=== PATIENT | female | born 1955 | race American Indian/Alaskan Native ===

== ENCOUNTER 2016-05-13 21:36 | Observation (INO) | payer MEDICARE, OTHER ==
[2016-05-13 21:36] VITALS: PULSE 125; BMI 37.1
--- NOTE | 2016-05-13 22:08 | C.PDOC ---
History Of Present Illness 60 year old homeless female presents to the ED with complaints of chest pain and SOB. Patient states she was walking along the street when the symptoms suddenly began. She reports she has "pain all over" and denies fall, trauma, fever, or any other complaints at this time. She has history of HTN, DM and hyperlipidemia. She is non-compliant with medication. Time Seen by Provider: 05/13/16 21:52 Chief Complaint (Nursing): Chest Pain History Per: Patient History/Exam Limitations: no limitations Onset/Duration Of Symptoms: Hrs Current Symptoms Are (Timing): Still Present Severity: Mild Past Medical History Reviewed: Historical Data, Nursing Documentation, Vital Signs Vital Signs: Last Vital Signs Temp 98.6 F 05/13/16 21:44 Pulse 101 H 05/13/16 22:26 Resp 20 05/13/16 22:26 BP 166/88 H 05/13/16 22:26 Pulse Ox 97 05/13/16 23:20 - Medical History PMH: Anemia, Anxiety, Arthritis, CAD, CHF, COPD, Depression, Deep Vein Thrombosis, HIV, HTN, Hypercholesterolemia, Hyperlipidemia, Hypothyroidism, Pancreatitis, Peripheral Edema, Chronic Kidney Disease - [facility] Procedures GAIT TRAINING/FUNCTIONAL AMBULATION TREATMENT (08/05/15) INSERTION OF INTRALUM DEV INTO INF VENA CAVA, PERC APPROACH (07/30/15) INTRODUCTION OF SERUM/TOX/VACCINE INTO MUSCLE, PERC APPROACH (11/27/14) NEBULIZER THERAPY (09/12/14) Family History: States: Unknown Family Hx - Social History Hx Tobacco Use: Yes Hx Alcohol Use: Yes (vodka) Hx Substance Use: No (stopped) - Immunization History Hx Tetanus Toxoid Vaccination: No Hx Influenza Vaccination: No Hx Pneumococcal Vaccination: Yes Review Of Systems Except As Marked, All Systems Reviewed And Found Negative. Constitutional: Positive for: Other (Generalized body pain). Negative for: Fever, Chills Cardiovascular: Positive for: Chest Pain. Negative for: Palpitations Respiratory: Positive for: Shortness of Breath. Negative for: Cough Gastrointestinal: Negative for: Nausea, Vomiting, Diarrhea Neurological: Negative for: Weakness, Numbness Physical Exam - Physical Exam Appears: Non-toxic, No Acute Distress Skin: Normal Color, Warm, Dry Head: Atraumatic, Normacephalic Eye(s): bilateral: Normal Inspection Oral Mucosa: Moist Chest: Symmetrical, No Deformity Cardiovascular: Rhythm Regular, No Murmur Respiratory: Normal Breath Sounds, No Accessory Muscle Use, No Rales, No Rhonchi , No Wheezing Extremity: Normal ROM, No Deformity Neurological/Psych: Oriented x3, Normal Speech, Normal Cognition ED Course And Treatment - Laboratory Results Result Diagrams: 05/13/16 22:26 05/13/16 22:26 Lab Interpretation: Abnormal (BUN 58, Cr 4.1, worse than prior testing done 03/23. Troponin normal.) ECG: Interpreted By Me ECG Rhythm: Sinus Rhythm (with short CT), ST/T Changes (nonspecific with T inversions I, AVL, and flat V4-6) ECG Interpretation: Abnormal O2 Sat by Pulse Oximetry: 97 (Room air) Pulse Ox Interpretation: Normal Progress Note: Blood work ordered and reviewed. Reevaluation Time: 23:20 Disposition - Disposition Disposition Time: 23:51 Condition: IMPROVED - Clinical Impression Clinical Impression: Chest pain, Chronic renal disease, Homelessness - Scribe Statement The provider has reviewed the documentation as recorded by the Scribe nevaeh anguiano. Provider Attestation: All medical record entries made by the Scribe were at my direction and personally dictated by me. I have reviewed the chart and agree that the record accurately reflects my personal performance of the history, physical exam, medical decision making, and the department course for this patient. I have also personally directed, reviewed, and agree with the discharge instructions and disposition. Physician Patient Turnover Patient Signed Over To: Obi Kirkland Handoff Comments: Patient homeless with no place to go tonight.
[2016-05-13 22:32] VITALS: RESP 20
[2016-05-13 22:32] LABS: BASO # 0.1 K/uL (0.0-0.2); BASO % 0.7 % (0.0-2.0); EOS # 0.1 K/uL (0.0-0.7); EOS % 1.5 % (0.0-4.0); HEMATOCRIT 33.8 % (34.0-47.0); LYMPH # 0.7 K/uL (1.0-4.3); LYMPH % 8.4 % (20.0-40.0); MEAN CORPUSCULAR HEMOGLOBIN 27.7 pg (27.0-31.0); MEAN CORPUSCULAR HGB CONC 31.4 g/dL (33.0-37.0); MEAN PLATELET VOLUME 9.5 fL (7.2-11.7); MONO # 0.6 K/uL (0.0-0.8); MONO % 7.6 % (0.0-10.0); PLATELET COUNT 205 K/uL (130-400); RED CELL DISTRIBUTION WIDTH 18.4 % (11.5-14.5); WHITE BLOOD COUNT 7.9 K/uL (4.8-10.8)
[2016-05-13 22:37] LABS: POTASSIUM 4.7 mmol/L (3.6-5.2)
[2016-05-13 22:40] LABS: ALB/GLOB RATIO 0.9 (1.0-2.1); BILIRUBIN,TOTAL 0.3 mg/dL (0.2-1.3); CALCIUM 8.7 mg/dl (8.6-10.4)
[2016-05-13 22:42] LABS: MEAN CELL VOLUME 88.2 fL (81.0-99.0)
[2016-05-13 22:51] LABS: TROPONIN I 0.05 ng/mL (0.00-0.120)
[2016-05-13 23:10] LABS: EOSINOPHIL 1 % (0-4); NEUTROPHIL 88 % (50-75); TOTAL CELLS COUNTED 100
[2016-05-13 23:11] LABS: LARGE PLATELETS PRESENT
[2016-05-14 06:19] VITALS: BP 165/69; PULSE 78; TEMP 97.3; O2SAT 97
--- NOTE | 2016-05-14 11:42 | CARD ---
APPROVED REPORT EKG Measurement Heart [id number] TX [id number] <Conclusion> Sinus rhythm with sinus arrhythmia with short TX Possible Left atrial enlargement Nonspecific ST and T wave abnormality Abnormal ECG
== END 2016-05-14 05:07 | disposition home or self-care (01) ==
LOC: C.ER 21:36 → C.9OBSV 23:20
PROVIDERS: ADMIT Emergency Medicine; ATTEND Emergency Medicine
DX: N18.9 Chronic kidney disease, unspecified (principal); Z59.0 Homelessness; Z91.14 Patient's other noncompliance with medication regimen; J44.9 Chronic obstructive pulmonary disease, unspecified; E78.5 Hyperlipidemia, unspecified; E11.22 Type 2 diabetes mellitus with diabetic chronic kidney disease; B20 Human immunodeficiency virus [HIV] disease; I13.0 Hypertensive heart and chronic kidney disease with heart failure and stage 1 through stage 4 chronic kidney disease, or unspecified chronic kidney disease; I50.9 Heart failure, unspecified; Z79.4 Long term (current) use of insulin

== ENCOUNTER 2016-05-28 06:23 | Emergency (ER) | payer MEDICARE, OTHER ==
[2016-05-28 06:23] VITALS: PULSE 125; BMI 41.8
--- NOTE | 2016-05-28 07:34 | C.PDOC ---
History Of Present Illness 60 y/o female with htn, HIV,(unknown cd4 and vl, poorly compliant with unk medications), hx alcohol abuse, presents to ED for bilateral leg swelling of unclear duration. pt admits to drinking last night. pt is homeless. pt c/o cough for unspecified amount of time, non productive, with occasional sob, no cp , no fevers. pt had recent bilateral ultrasound of legs on 05/15/16 with no evidence of dvt. Time Seen by Provider: 05/28/16 07:05 Chief Complaint (Nursing): Lower Extremity Problem/Injury Past Medical History Reviewed: Historical Data, Nursing Documentation, Vital Signs Vital Signs: Last Vital Signs Temp 98.0 F 05/28/16 06:40 Pulse 76 05/28/16 06:40 Resp 16 05/28/16 06:40 BP 155/77 H 05/28/16 06:40 Pulse Ox 97 05/28/16 08:54 - Medical History PMH: Anemia, Anxiety, Arthritis, CAD, CHF, COPD, Depression, Deep Vein Thrombosis, HIV, HTN, Hypercholesterolemia, Hyperlipidemia, Hypothyroidism, Pancreatitis, Peripheral Edema, End Stage Renal Disease, Chronic Kidney Disease Surgical History: No Surg Hx - [facility] Procedures GAIT TRAINING/FUNCTIONAL AMBULATION TREATMENT (08/05/15) INSERTION OF INTRALUM DEV INTO INF VENA CAVA, PERC APPROACH (07/30/15) INTRODUCTION OF SERUM/TOX/VACCINE INTO MUSCLE, PERC APPROACH (11/27/14) NEBULIZER THERAPY (09/12/14) Family History: States: Unknown Family Hx - Social History Hx Tobacco Use: Yes Hx Alcohol Use: Yes (vodka) Hx Substance Use: No (stopped) - Immunization History Hx Tetanus Toxoid Vaccination: No Hx Influenza Vaccination: No Hx Pneumococcal Vaccination: Yes Review Of Systems Constitutional: Negative for: Fever, Chills Cardiovascular: Negative for: Chest Pain, Palpitations Respiratory: Positive for: Cough, Shortness of Breath. Negative for: Sputum Gastrointestinal: Negative for: Nausea, Vomiting, Abdominal Pain Genitourinary: Negative for: Dysuria, Frequency Skin: Negative for: Rash Neurological: Negative for: Weakness, Numbness Physical Exam - Physical Exam Appears: No Acute Distress, Other (sleeping, easily aroused, morbidly obese) Skin: Normal Color, Warm, Dry Head: Atraumatic, Normacephalic Neck: Normal ROM Chest: Symmetrical, No Deformity, No Tenderness Cardiovascular: Rhythm Regular, No Murmur Respiratory: Other (slighly decreased breath sounds in b/l lower lackey, no wheezing or rales noted. ) Gastrointestinal/Abdominal: Bowel Sounds, Soft, No Tenderness Back: Normal Inspection, No CVA Tenderness, No Vertebral Tenderness Extremity: Normal ROM, Pedal Edema (+2-3 pitting edema to knees), No Calf Tenderness Pulses: Left Dorsalis Pedis: Decreased, Right Dorsalis Pedis: Decreased Neurological/Psych: Oriented x3, Normal Speech, Normal Cognition, Normal Motor, Normal Sensation ED Course And Treatment O2 Sat by Pulse Oximetry: 97 Medical Decision Making Medical Decision Makin60 y/o female with bilateral leg swelling, on Eliquis. pt had neg bilateral lower extremity doppler 05/15/16. will do cxr for cough and evaluate for pulmonary edema. 945 am cxr appears similar to prior one. will d/c with clinic f/u. pt to be taken to longterm bus. Disposition Counseled Patient/Family Regarding: Diagnosis, Need For Followup - Disposition Disposition: HOME/ ROUTINE Disposition Time: 09:46 Condition: STABLE Additional Instructions: Please follow up in Medical Clinic. Call for an appointment. Return for any worsening symptoms. Instructions: Leg Edema (ED) Forms: General Discharge Instructions - Clinical Impression Clinical Impression: Edema leg
[2016-05-28 09:59] VITALS: BP 151/76; PULSE 64; RESP 18; TEMP 98.6; O2SAT 96
--- NOTE | 2016-05-28 12:06 | RAD ---
HISTORY: cough, sob, hx copd/hiv COMPARISON: 06/25/2015 TECHNIQUE: Chest PA and lateral FINDINGS: LUNGS: Elevated left hemidiaphragm. Adjacent left basilar atelectasis. Patchy increased markings at the right lung base which may represent underlying infiltrate. Clinical correlation. Bilateral hilar prominence. Additional consolidative changes noted within the medial right lower lung zone adjacent to the right heart border. PLEURA: As above. CARDIOVASCULAR: Cardiomegaly. OSSEOUS STRUCTURES: Degenerative changes in the spine and shoulders. VISUALIZED UPPER ABDOMEN: Normal. OTHER FINDINGS: None. IMPRESSION: Elevated left hemidiaphragm. Adjacent left basilar atelectasis. Patchy increased markings at the right lung base which may represent underlying infiltrate. Clinical correlation. Bilateral hilar prominence. Additional consolidative changes noted within the medial right lower lung zone adjacent to the right heart border.
== END 2016-05-28 11:17 | disposition home or self-care (01) ==
LOC: C.ER 06:23
DX: R60.0 Localized edema (principal); Z59.0 Homelessness

== ENCOUNTER 2016-06-30 03:10 | Emergency (ER) | payer MEDICARE, OTHER ==
[2016-06-30 03:10] VITALS: PULSE 125; BMI 40.3
--- NOTE | 2016-06-30 04:08 | C.PDOC ---
History Of Present Illness 60 y/o female presents to ED with complaint of bilateral foot pain from " walking too much". Patient is well known to ED staff, with multiple past visits , and history of vagrancy. Patient admits to drinking alcohol today. Otherwise, denies trauma, injury, new weakness or numbness, or other complaints at this time. Time Seen by Provider: 06/30/16 03:50 Chief Complaint (Nursing): Lower Extremity Problem/Injury History Per: Patient History/Exam Limitations: no limitations Onset/Duration Of Symptoms: Persistent Current Symptoms Are (Timing): Still Present Recent travel outside of the [place]: No Past Medical History Reviewed: Historical Data, Nursing Documentation, Vital Signs Vital Signs: Last Vital Signs Temp 97.5 F L 06/30/16 06:14 Pulse 74 06/30/16 06:14 Resp 16 06/30/16 06:14 BP 165/82 H 06/30/16 06:14 Pulse Ox 97 06/30/16 06:14 - Medical History PMH: Anemia, Anxiety, Arthritis, CAD, CHF, COPD, Depression, Deep Vein Thrombosis, HIV, HTN, Hypercholesterolemia, Hyperlipidemia, Hypothyroidism, Pancreatitis, Peripheral Edema, End Stage Renal Disease, Chronic Kidney Disease , Chronic Pain (chronic lower extremity pain ) - [facility] Procedures GAIT TRAINING/FUNCTIONAL AMBULATION TREATMENT (08/05/15) INSERTION OF INTRALUM DEV INTO INF VENA CAVA, PERC APPROACH (07/30/15) INTRODUCTION OF SERUM/TOX/VACCINE INTO MUSCLE, PERC APPROACH (11/27/14) NEBULIZER THERAPY (09/12/14) Family History: States: Unknown Family Hx - Social History Hx Tobacco Use: Yes Hx Alcohol Use: Yes (vodka) Hx Substance Use: No (stopped) - Immunization History Hx Tetanus Toxoid Vaccination: No Hx Influenza Vaccination: No Hx Pneumococcal Vaccination: Yes Review Of Systems Except As Marked, All Systems Reviewed And Found Negative. Constitutional: Negative for: Fever, Chills Cardiovascular: Negative for: Chest Pain Respiratory: Negative for: Shortness of Breath Gastrointestinal: Negative for: Nausea, Vomiting Musculoskeletal: Positive for: Foot Pain (bilateral) Skin: Negative for: Rash Neurological: Negative for: Weakness, Numbness Physical Exam - Physical Exam Appears: Non-toxic, No Acute Distress, Other (+AOB) Skin: Warm, Dry Head: Atraumatic, Normacephalic Eye(s): bilateral: Normal Inspection Neck: Normal Chest: Symmetrical Cardiovascular: Rhythm Regular Respiratory: Normal Breath Sounds, No Rales, No Rhonchi Gastrointestinal/Abdominal: Soft, No Tenderness, Other (obese) Back: Normal Inspection Extremity: Normal ROM, No Tenderness, Pedal Edema (over tibial shins ), No Calf Tenderness, Capillary Refill (< 2 sec. ), No Deformity, No Swelling, Other ( moderately dry feet, no erythema, warmth or lesions) Extremity: Bilateral: Normal Color And Temperature Neurological/Psych: Oriented x3, Normal Speech, Normal Cognition, Normal Motor, Normal Sensation ED Course And Treatment O2 Sat by Pulse Oximetry: 96 (RA) Pulse Ox Interpretation: Normal Progress Note: 6 AM: Pt AAOx3 , fully ambulatory at discharge Reassessment Condition: Improved Disposition - Disposition Disposition: HOME/ ROUTINE Disposition Time: 06:29 Condition: STABLE Additional Instructions: Please follow up in clinic Return to ER if worse Forms: General Discharge Instructions - Clinical Impression Clinical Impression: Bilateral foot pain, Homeless single person - PA / PURCHASING AND FISCAL CLERK / Resident Statement MD/DO has reviewed & agrees with the documentation as recorded. - Scribe Statement The provider has reviewed the documentation as recorded by the Cyndi Gloria Provider Scribe Attestation: All medical record entries made by the Cyndi were at my direction and personally dictated by me. I have reviewed the chart and agree that the record accurately reflects my personal performance of the history, physical exam, medical decision making, and the department course for this patient. I have also personally directed, reviewed, and agree with the discharge instructions and disposition.
[2016-06-30 06:16] VITALS: BP 165/82; PULSE 74; RESP 16; TEMP 97.5
[2016-06-30 06:48] VITALS: O2SAT 96
== END 2016-06-30 06:38 | disposition home or self-care (01) ==
LOC: C.ER 03:10
DX: M79.672 Pain in left foot (principal); M79.671 Pain in right foot; Z59.0 Homelessness

== ENCOUNTER 2016-08-19 04:50 | Emergency (ER) | payer MEDICARE, OTHER ==
[2016-08-19 04:50] VITALS: PULSE 125; BMI 37.1
[2016-08-19 05:20] VITALS: RESP 18; TEMP 98.5; O2SAT 98
--- NOTE | 2016-08-19 06:36 | C.PDOC ---
History Of Present Illness Patient presents to the ED with complaints of cold and swollen legs. Patient wants a place to stay. Patient notes a history of HIV, homelessness, smokes half a pack of cigarettes a day, and chronically swollen legs. Patient was recently seen in [place] for similiar complaints on 08/06/2016 and 08/09/2016 with an ultrasound performed on the lower extremities results being negative. Patient was also given Eliquis for history of DVT. Patient denies any fever, chills or vomiting. Time Seen by Provider: 08/19/16 06:35 Chief Complaint (Nursing): Lower Extremity Problem/Injury History Per: Patient History/Exam Limitations: no limitations Onset/Duration Of Symptoms: Persistent Current Symptoms Are (Timing): Still Present Severity: Moderate Pain Scale Rating Of: 4 Recent travel outside of the [place]: No Additional History Per: Prior Records Past Medical History Reviewed: Historical Data, Nursing Documentation, Vital Signs Vital Signs: Last Vital Signs Temp 98.5 F 08/19/16 05:16 Pulse 82 08/19/16 05:16 Resp 18 08/19/16 05:16 BP 181/97 H 08/19/16 05:16 Pulse Ox 98 08/19/16 06:52 - Medical History PMH: Anemia, Anxiety, Arthritis, CAD, CHF, COPD, Depression, Deep Vein Thrombosis, HIV, HTN, Hypercholesterolemia, Hyperlipidemia, Hypothyroidism, Pancreatitis, Peripheral Edema, End Stage Renal Disease, Chronic Kidney Disease , Chronic Pain (chronic lower extremity pain ) - [facility] Procedures GAIT TRAINING/FUNCTIONAL AMBULATION TREATMENT (08/05/15) INSERTION OF INTRALUM DEV INTO INF VENA CAVA, PERC APPROACH (07/30/15) INTRODUCTION OF SERUM/TOX/VACCINE INTO MUSCLE, PERC APPROACH (11/27/14) NEBULIZER THERAPY (09/12/14) Family History: States: Unknown Family Hx - Social History Hx Tobacco Use: Yes Hx Alcohol Use: Yes (vodka) Hx Substance Use: No (stopped) - Immunization History Hx Tetanus Toxoid Vaccination: No Hx Influenza Vaccination: No Hx Pneumococcal Vaccination: Yes Review Of Systems Constitutional: Negative for: Fever, Chills Cardiovascular: Negative for: Chest Pain, Palpitations Respiratory: Negative for: Cough, Shortness of Breath Gastrointestinal: Negative for: Nausea, Vomiting, Abdominal Pain, Diarrhea Neurological: Negative for: Weakness, Numbness, Headache Psych: Negative for: Suicidal ideation Physical Exam - Physical Exam Appears: Non-toxic, No Acute Distress, Other (Sleeping upon evalution, EtOH on breath. Patient well kempt.) Skin: Warm, Dry Eye(s): bilateral: Normal Inspection Oral Mucosa: Moist Neck: Supple Chest: Symmetrical, No Deformity Cardiovascular: Rhythm Regular Respiratory: No Rales, No Rhonchi, No Wheezing Gastrointestinal/Abdominal: Soft, No Tenderness, No Distention, No Guarding, No Rebound Extremity: Normal ROM, No Tenderness, Pedal Edema (bilaterally in legs), Capillary Refill (good capillary refill less than 2 seconds ) Pulses: Left Dorsalis Pedis: Normal, Right Dorsalis Pedis: Normal Neurological/Psych: Oriented x3 Gait: Steady ED Course And Treatment O2 Sat by Pulse Oximetry: 98 (room air ) Pulse Ox Interpretation: Normal Disposition Counseled Patient/Family Regarding: Studies Performed, Diagnosis - Disposition Disposition Time: 06:36 Condition: UNKNOWN - Clinical Impression Clinical Impression: Leg edema - Scribe Statement The provider has reviewed the documentation as recorded by the Scribe My Rosales All medical record entries made by the Scribe were at my direction and personally dictated by me. I have reviewed the chart and agree that the record accurately reflects my personal performance of the history, physical exam, medical decision making, and the department course for this patient. I have also personally directed, reviewed, and agree with the discharge instructions and disposition. Physician Patient Turnover Patient Signed Over To: Aditi Ochoa Handoff Comments: pending crisis and disposition
[2016-08-19 07:43] VITALS: PULSE 86
[2016-08-19 08:58] VITALS: BP 152/90
== END 2016-08-19 08:59 | disposition home or self-care (01) ==
LOC: C.ER 04:50
DX: R60.0 Localized edema (principal); G89.29 Other chronic pain; Z76.5 Malingerer [conscious simulation]; Z59.0 Homelessness

== ENCOUNTER 2016-08-24 22:44 | Observation (INO) | payer MEDICARE, OTHER ==
[2016-08-24 22:44] VITALS: PULSE 125; BMI 37.1
[2016-08-24 23:07] VITALS: PULSE 74
--- NOTE | 2016-08-24 23:11 | C.PDOC ---
History Of Present Illness Patient with a history of homelessness presents to the ED seeking a place to stay. Patient also notes complaints of leg tenderness and swelling. Patient notes a history of HIV, DVT, and smokes one pack of cigarettes a day. Patient had a blood work up and ultra sound performed in previous visit and was given Eliquis. Patient denies any fever, nausea, or vomiting. Time Seen by Provider: 08/24/16 23:11 Chief Complaint (Nursing): Lower Extremity Problem/Injury History Per: Patient History/Exam Limitations: no limitations Onset/Duration Of Symptoms: Persistent Current Symptoms Are (Timing): Still Present Severity: Moderate Pain Scale Rating Of: 4 Recent travel outside of the [place]: No Additional History Per: Prior Records Past Medical History Reviewed: Historical Data, Nursing Documentation, Vital Signs Vital Signs: Last Vital Signs Temp 98.5 F 08/25/16 05:08 Pulse 74 08/25/16 05:08 Resp 20 08/25/16 05:08 BP 159/74 H 08/25/16 05:08 Pulse Ox 95 08/25/16 05:08 - Medical History PMH: Anemia, Anxiety, Arthritis, CAD, CHF, COPD, Depression, Deep Vein Thrombosis, HIV, HTN, Hypercholesterolemia, Hyperlipidemia, Hypothyroidism, Pancreatitis, Peripheral Edema, End Stage Renal Disease, Chronic Kidney Disease , Chronic Pain (chronic lower extremity pain ) - [facility] Procedures GAIT TRAINING/FUNCTIONAL AMBULATION TREATMENT (08/05/15) INSERTION OF INTRALUM DEV INTO INF VENA CAVA, PERC APPROACH (07/30/15) INTRODUCTION OF SERUM/TOX/VACCINE INTO MUSCLE, PERC APPROACH (11/27/14) NEBULIZER THERAPY (09/12/14) Family History: States: Unknown Family Hx - Social History Hx Tobacco Use: Yes Hx Alcohol Use: Yes (vodka) Hx Substance Use: No (stopped) - Immunization History Hx Tetanus Toxoid Vaccination: No Hx Influenza Vaccination: No Hx Pneumococcal Vaccination: Yes Review Of Systems Constitutional: Negative for: Fever, Chills Cardiovascular: Negative for: Chest Pain, Palpitations Respiratory: Negative for: Cough, Shortness of Breath Gastrointestinal: Negative for: Nausea, Vomiting, Abdominal Pain, Diarrhea Musculoskeletal: Positive for: Leg Pain (leg swelling and tenderness bilaterally ) Physical Exam - Physical Exam Appears: Non-toxic, No Acute Distress Skin: Warm, Dry Head: Atraumatic Eye(s): bilateral: Normal Inspection, PERRL, EOMI Oral Mucosa: Moist Neck: Supple Chest: Symmetrical, No Deformity Cardiovascular: Rhythm Regular Respiratory: No Rales, No Rhonchi, No Stridor, No Wheezing Gastrointestinal/Abdominal: Soft, No Tenderness, No Distention, No Guarding, No Rebound Extremity: Normal ROM, No Tenderness, Pedal Edema (bilateral leg pedal edema ), Capillary Refill (good capillary refill, less than two seconds. ) Pulses: Left Dorsalis Pedis: Normal, Right Dorsalis Pedis: Normal Neurological/Psych: Oriented x3 ED Course And Treatment O2 Sat by Pulse Oximetry: 98 (room air ) Pulse Ox Interpretation: Normal Reevaluation Time: 05:11 Reassessment Condition: Improved ED OBSERVATION Discharge: Yes Date of observation admission: 08/25/16 Time of observation admission: 00:32 - Progress Note Progress Note: 08/25/16 03:38 vitals stable, wants some motrin Disposition Counseled Patient/Family Regarding: Studies Performed, Diagnosis, Need For Followup - Disposition Disposition: HOME/ ROUTINE Disposition Time: 23:11 Condition: FAIR - Clinical Impression Clinical Impression: Chronic leg pain - Scribe Statement The provider has reviewed the documentation as recorded by the Scribe My Rosales All medical record entries made by the Rhodaibboyd were at my direction and personally dictated by me. I have reviewed the chart and agree that the record accurately reflects my personal performance of the history, physical exam, medical decision making, and the department course for this patient. I have also personally directed, reviewed, and agree with the discharge instructions and disposition.
[2016-08-25 05:09] VITALS: BP 159/74; RESP 20; TEMP 98.5
[2016-08-25 05:12] VITALS: O2SAT 98
== END 2016-08-25 05:12 | disposition home or self-care (01) ==
LOC: C.ER 22:44 → C.9OBSV 08-25 00:29
PROVIDERS: ADMIT Emergency Medicine; ATTEND Emergency Medicine
DX: G89.29 Other chronic pain (principal); M79.662 Pain in left lower leg; M79.661 Pain in right lower leg; E03.9 Hypothyroidism, unspecified; E78.00 Pure hypercholesterolemia, unspecified; I13.2 Hypertensive heart and chronic kidney disease with heart failure and with stage 5 chronic kidney disease, or end stage renal disease; I25.10 Atherosclerotic heart disease of native coronary artery without angina pectoris; J44.9 Chronic obstructive pulmonary disease, unspecified; I50.9 Heart failure, unspecified; N18.6 End stage renal disease; Z87.891 Personal history of nicotine dependence; F17.210 Nicotine dependence, cigarettes, uncomplicated; Z21 Asymptomatic human immunodeficiency virus [HIV] infection status; Z59.0 Homelessness

== ENCOUNTER 2016-09-07 04:55 | Emergency (ER) | payer MEDICARE, OTHER ==
[2016-09-07 04:56] VITALS: PULSE 125; BMI 37.1
[2016-09-07 06:42] VITALS: BP 159/88; PULSE 82; RESP 20; TEMP 98.3; O2SAT 97
[2016-09-07 06:47] LABS: BASO # 0.1 K/uL (0.0-0.2); BASO % 0.6 % (0.0-2.0); EOS # 0.1 K/uL (0.0-0.7); EOS % 1.5 % (0.0-4.0); HEMOGLOBIN 9.1 g/dL (11.0-16.0); LYMPH # 0.6 K/uL (1.0-4.3); LYMPH % 6.7 % (20.0-40.0); MEAN CELL VOLUME 89.8 fL (81.0-99.0); MEAN CORPUSCULAR HEMOGLOBIN 28.6 pg (27.0-31.0); MEAN CORPUSCULAR HGB CONC 31.9 g/dL (33.0-37.0); MEAN PLATELET VOLUME 9.4 fL (7.2-11.7); MONO # 0.9 K/uL (0.0-0.8); MONO % 10.5 % (0.0-10.0); NEUT # 6.9 K/uL (1.8-7.0); NEUT % 80.7 % (50.0-75.0); PLATELET COUNT 181 K/uL (130-400); RBC 3.16 Mil/uL (3.80-5.20); RED CELL DISTRIBUTION WIDTH 19.9 % (11.5-14.5); WHITE BLOOD COUNT 8.6 K/uL (4.8-10.8)
--- NOTE | 2016-09-07 06:53 | C.PDOC ---
Time Seen by Provider: 09/07/16 06:01 Chief Complaint (Nursing): Lower Extremity Problem/Injury History Per: Patient, EMS Onset/Duration Of Symptoms: Days Current Symptoms Are (Timing): Still Present Severity: Moderate Associated Symptoms: Leg/Calf Pain, Ankle/Leg Swelling Additional History Per: Prior Records Past Medical History Reviewed: Historical Data, Nursing Documentation, Vital Signs Vital Signs: Last Vital Signs Temp 98.3 F 09/07/16 06:40 Pulse 82 09/07/16 06:40 Resp 20 09/07/16 06:40 BP 159/88 H 09/07/16 06:40 Pulse Ox 97 09/07/16 06:53 - Medical History PMH: Anemia, Anxiety, Arthritis, CAD, CHF, COPD, Depression, Deep Vein Thrombosis, HIV, HTN, Hypercholesterolemia, Hyperlipidemia, Hypothyroidism, Pancreatitis, Peripheral Edema, End Stage Renal Disease, Chronic Kidney Disease , Chronic Pain (chronic lower extremity pain ) - [facility] Procedures GAIT TRAINING/FUNCTIONAL AMBULATION TREATMENT (08/05/15) INSERTION OF INTRALUM DEV INTO INF VENA CAVA, PERC APPROACH (07/30/15) INTRODUCTION OF SERUM/TOX/VACCINE INTO MUSCLE, PERC APPROACH (11/27/14) NEBULIZER THERAPY (09/12/14) Family History: States: Unknown Family Hx - Social History Hx Tobacco Use: Yes Hx Alcohol Use: Yes (vodka) Hx Substance Use: No (stopped) - Immunization History Hx Tetanus Toxoid Vaccination: No Hx Influenza Vaccination: No Hx Pneumococcal Vaccination: No Review Of Systems Except As Marked, All Systems Reviewed And Found Negative. Constitutional: Negative for: Fever Cardiovascular: Positive for: Edema. Negative for: Chest Pain Respiratory: Negative for: Hemoptysis Gastrointestinal: Negative for: Vomiting, Abdominal Pain Musculoskeletal: Positive for: Leg Pain, Foot Pain. Negative for: Neck Pain Neurological: Negative for: Weakness, Numbness, Seizures Physical Exam - Physical Exam Appears: No Acute Distress, Unkempt, Chronically Ill Skin: Warm, Dry Head: Atraumatic Eye(s): bilateral: PERRL, EOMI Neck: Normal ROM, Supple Cardiovascular: Rhythm Regular Respiratory: Normal Breath Sounds, No Accessory Muscle Use Gastrointestinal/Abdominal: Soft, No Tenderness Extremity: Normal ROM, Pedal Edema, Calf Tenderness Pulses: Left Dorsalis Pedis: Normal, Right Dorsalis Pedis: Normal Neurological/Psych: Oriented x3, Normal Motor, Normal Sensation ED Course And Treatment - Laboratory Results Result Diagrams: 09/07/16 06:45 O2 Sat by Pulse Oximetry: 97 Pulse Ox Interpretation: Normal Disposition - Disposition Disposition Time: 07:00 Condition: FAIR - Clinical Impression Clinical Impression: Pedal edema Physician Patient Turnover Patient Signed Over To: Khadra Vogt Handoff Comments: to f/up labs and dispo pt.
[2016-09-07 07:01] LABS: ALB/GLOB RATIO 0.9 (1.0-2.1); ALBUMIN 3.6 g/dL (3.5-5.0); CALCIUM 8.7 mg/dl (8.6-10.4)
[2016-09-07 07:09] LABS: CK-MB 3.2 ng/mL (0.0-3.38)
[2016-09-07 08:20] LABS: ANISOCYTOSIS SLIGHT; EOSINOPHIL 4 % (0-4); HYPOCHROMIC SLIGHT; LYMPHOCYTE 8 % (20-40); MONOCYTE 9 % (0-10); NEUTROPHIL 79 % (50-75); PLATELET ESTIMATE NORMAL (NORMAL); POIKILOCYTOSIS SLIGHT; TOTAL CELLS COUNTED 100
[2016-09-07 08:21] LABS: BURR CELLS SLIGHT; OVALOCYTES SLIGHT
--- NOTE | 2016-09-07 12:36 | RAD ---
HISTORY: lower extremity edema COMPARISON: Comparison chest 05/28/2016 comparison also made with CT scan abdomen and pelvis dated 01/28/2016 which imaged the lung bases in 3 planes. Cyrus FINDINGS: LUNGS: Lung bases are poorly visualized. . Questionable bibasilar atelectasis. Marked elevation of left hemidiaphragm on felt to be due to eventration with distended air-filled bowel seen beneath the left hemidiaphragm. PLEURA: No significant pleural effusion identified, no pneumothorax apparent. CARDIOVASCULAR: Heart is markedly enlarged. Previously noted small pericardial effusion is not appreciated on this study however command echocardiogram to assess for increase size pericardial effusion. . OSSEOUS STRUCTURES: No significant abnormalities. VISUALIZED UPPER ABDOMEN: Normal. OTHER FINDINGS: None. IMPRESSION: Marked cardiomegaly. Rule increase size pericardial effusion ; echocardiogram recommended. . . Mild bibasilar atelectasis. Eventration left hemidiaphragm. . Note these route findings were discussed with Dr. Vogt at approximately 12:30 p.m. with written down and read back verification.
== END 2016-09-07 09:46 | disposition home or self-care (01) ==
LOC: C.ER 04:55
DX: R60.0 Localized edema (principal)

== ENCOUNTER 2016-09-11 22:48 | Emergency (ER) | payer MEDICARE, OTHER ==
[2016-09-11 22:48] VITALS: PULSE 125; BMI 37.1
--- NOTE | 2016-09-11 23:11 | C.PDOC ---
History Of Present Illness 61 year old female brought by EMS for public intoxication and malingering. Patient is complaining of chronic bilateral lower extremity pain for which she has had many prior evaluations for. Denies any other physical complaints. Time Seen by Provider: 09/11/16 23:08 History Per: Patient History/Exam Limitations: no limitations Onset/Duration Of Symptoms: Hrs Current Symptoms Are (Timing): Still Present Suicide/Self Injury Attempted (Context): None Modifying Factor(s): Alcohol Associated Symptoms: denies: Depression, Suicidal Thoughts, Suicidal Plan Recent travel outside of the [place]: No Past Medical History Reviewed: Historical Data, Nursing Documentation, Vital Signs Vital Signs: Last Vital Signs Temp 97.8 F 09/12/16 00:04 Pulse 80 09/12/16 00:04 Resp 16 09/12/16 00:04 BP 158/71 H 09/12/16 00:04 Pulse Ox 97 09/12/16 00:04 - Medical History PMH: Anemia, Anxiety, Arthritis, CAD, CHF, COPD, Depression, Deep Vein Thrombosis, HIV, HTN, Hypercholesterolemia, Hyperlipidemia, Hypothyroidism, Pancreatitis, Peripheral Edema, End Stage Renal Disease, Chronic Kidney Disease , Chronic Pain (chronic lower extremity pain ) Surgical History: No Surg Hx - [facility] Procedures GAIT TRAINING/FUNCTIONAL AMBULATION TREATMENT (08/05/15) INSERTION OF INTRALUM DEV INTO INF VENA CAVA, PERC APPROACH (07/30/15) INTRODUCTION OF SERUM/TOX/VACCINE INTO MUSCLE, PERC APPROACH (11/27/14) NEBULIZER THERAPY (09/12/14) Family History: States: Unknown Family Hx - Social History Hx Tobacco Use: Yes Hx Alcohol Use: Yes (vodka) Hx Substance Use: No (stopped) - Immunization History Hx Tetanus Toxoid Vaccination: No Hx Influenza Vaccination: No Hx Pneumococcal Vaccination: No Review Of Systems Constitutional: Negative for: Fever, Chills Gastrointestinal: Negative for: Nausea, Vomiting, Diarrhea Physical Exam - Physical Exam Appears: Non-toxic, No Acute Distress, Other (ETOH on breath, obese) Skin: Normal Color, Warm, Dry Head: Atraumatic, Normacephalic Oral Mucosa: Moist Chest: Symmetrical, No Tenderness Cardiovascular: Rhythm Regular, No Murmur Respiratory: Normal Breath Sounds, No Rales, No Rhonchi, No Wheezing Gastrointestinal/Abdominal: Soft, No Tenderness Extremity: Normal ROM, Pedal Edema (Mild) Neurological/Psych: Oriented x3, Normal Speech, Normal Cognition Medical Decision Making Medical Decision Making: homeless, alcoholic, malingering, no new complaints ok for d/c. Disposition Doctor Will See Patient In The: Office Counseled Patient/Family Regarding: Studies Performed, Diagnosis - Disposition Referrals: Alcoholics Anonymous [Outside] [facility] [Outside] [employer] [Outside] Disposition: HOME/ ROUTINE Disposition Time: 23:10 Condition: GOOD Additional Instructions: stop alcohol abuse Seek regular nightly Intermediate placement - Clinical Impression Clinical Impression: Chronic leg pain, Malingering, Alcohol abuse - Scribe Statement The provider has reviewed the documentation as recorded by the Scribe Tyler Maldonado All medical record entries made by the Scribe were at my direction and personally dictated by me. I have reviewed the chart and agree that the record accurately reflects my personal performance of the history, physical exam, medical decision making, and the department course for this patient. I have also personally directed, reviewed, and agree with the discharge instructions and disposition.
[2016-09-12 00:05] VITALS: BP 158/71; PULSE 80; RESP 16; TEMP 97.8; O2SAT 97
== END 2016-09-12 00:07 | disposition home or self-care (01) ==
LOC: C.ER 22:48
DX: F10.120 Alcohol abuse with intoxication, uncomplicated (principal); Y90.9 Presence of alcohol in blood, level not specified; G89.29 Other chronic pain; Z76.5 Malingerer [conscious simulation]

== ENCOUNTER 2016-09-15 06:52 | Emergency (ER) | payer MEDICARE, OTHER ==
[2016-09-15 06:53] VITALS: PULSE 125; BMI 37.1
[2016-09-15 07:08] VITALS: RESP 16; TEMP 97.6; O2SAT 96
--- NOTE | 2016-09-15 07:26 | C.PDOC ---
History Of Present Illness Patient is a 61 y/o F, well known to ED, presenting complaining of chronic leg swelling and homelessness. She has had multiple visits and evaluations for same. She was long standing history of medication non-compliance and admits to not taking her outpatient medications. She has prescription for all medications (imdur, eliquis, aspirin, atorvastatin, carvedilol, and hydralazine ) in her possession. She has recent duplex on 09/02 that was negative for dvt. She had labs on 09/07 that were at baseline and cxray that showed cardiomegaly but no evidence of pericardial effusion and recommend echo). EMS reports that patient was found in [facility] and reported that she had no place to live. She admits that she does not have any new complaints and has had swelling to her legs for "a while." Time Seen by Provider: 09/15/16 07:09 Chief Complaint (Nursing): Lower Extremity Problem/Injury Past Medical History Vital Signs: Last Vital Signs Temp 97.6 F 09/15/16 07:00 Pulse 76 09/15/16 07:42 Resp 16 09/15/16 07:00 BP 152/90 H 09/15/16 07:42 Pulse Ox 96 09/15/16 07:45 - Medical History PMH: Anemia, Anxiety, Arthritis, CAD, CHF, COPD, Depression, Deep Vein Thrombosis, HIV, HTN, Hypercholesterolemia, Hyperlipidemia, Hypothyroidism, Pancreatitis, Peripheral Edema, End Stage Renal Disease, Chronic Kidney Disease , Chronic Pain (chronic lower extremity pain ) - [facility] Procedures GAIT TRAINING/FUNCTIONAL AMBULATION TREATMENT (08/05/15) INSERTION OF INTRALUM DEV INTO INF VENA CAVA, PERC APPROACH (07/30/15) INTRODUCTION OF SERUM/TOX/VACCINE INTO MUSCLE, PERC APPROACH (11/27/14) NEBULIZER THERAPY (09/12/14) Family History: States: Unknown Family Hx - Social History Hx Tobacco Use: Yes Hx Alcohol Use: Yes (vodka) Hx Substance Use: No (stopped) - Immunization History Hx Tetanus Toxoid Vaccination: No Hx Influenza Vaccination: No Hx Pneumococcal Vaccination: No Review Of Systems Constitutional: Negative for: Fever Cardiovascular: Positive for: Edema (chronic, unchanged per patient). Negative for: Chest Pain Respiratory: Negative for: Cough, Shortness of Breath, Wheezing Gastrointestinal: Negative for: Nausea, Vomiting, Abdominal Pain, Constipation Genitourinary: Negative for: Dysuria Neurological: Negative for: Weakness, Numbness, Altered Mental Status, Headache Physical Exam - Physical Exam Appears: Well, Non-toxic, No Acute Distress Head: Atraumatic, Normacephalic Eye(s): bilateral: Normal Inspection, PERRL, EOMI Neck: Supple Chest: Symmetrical Cardiovascular: Rhythm Regular Respiratory: Normal Breath Sounds, No Rales, No Rhonchi, No Wheezing, No Plerual Rub Gastrointestinal/Abdominal: Soft, No Tenderness, No Mass, No Distention Back: Normal Inspection, No CVA Tenderness Extremity: Normal ROM, No Tenderness, Pedal Edema (b/l lower extremity edema), No Calf Tenderness, Other Neurological/Psych: Oriented x3 Gait: Steady ED Course And Treatment O2 Sat by Pulse Oximetry: 96 Medical Decision Making Medical Decision Making: Had extensive conversation with patient about need to take all medications ( patient reports that she has medicaid and does have rx coverage) and follow-up as outpatient for further testing. I told the patient that she is at significant risk for heart attack, stroke, pulmonary embolism and if she does not fill her prescriptions and take her medications. She reports that she is homeless and was given a list of shelters. She requested to wash her clothes in the hospital sink. She was also offered a shower. She was given new clothes and was ambulating around the ED without issue. Disposition - Disposition Disposition: HOME/ ROUTINE Disposition Time: 07:29 Condition: GOOD Additional Instructions: You need to take all your medications as prescribed. You need to follow-up with your primary doctor for further evaluation of your medical conditions within 2 days. Return to ED if condition worsens. - Clinical Impression Clinical Impression: Leg swelling, Homeless
[2016-09-15 08:03] VITALS: BP 152/90; PULSE 76
== END 2016-09-15 09:16 | disposition home or self-care (01) ==
LOC: C.ER 06:52
DX: M79.89 Other specified soft tissue disorders (principal); Z59.0 Homelessness

== ENCOUNTER 2016-10-26 01:42 | Emergency (ER) | payer MEDICARE, OTHER ==
[2016-10-26 01:42] VITALS: PULSE 125; BMI 29.7
[2016-10-26 01:54] VITALS: TEMP 97.7
--- NOTE | 2016-10-26 02:11 | C.PDOC ---
History Of Present Illness A 61 year old female, with a Hx of homelessness, presents to the emergency department complaining of chronic foot pain. Pt notes she walks a lot which caused the pain. Notes this is the same pain she always has, no new symptoms or trauma. No increased swelling. Denies other complaints at this time. Time Seen by Provider: 10/26/16 02:01 Chief Complaint (Nursing): Lower Extremity Problem/Injury History Per: Patient History/Exam Limitations: no limitations Onset/Duration Of Symptoms: Days Current Symptoms Are (Timing): Still Present Recent travel outside of the [place]: No Past Medical History Reviewed: Historical Data, Nursing Documentation, Vital Signs Vital Signs: Last Vital Signs Temp 97.7 F 10/26/16 01:48 Pulse 75 10/26/16 03:04 Resp 20 10/26/16 03:04 BP 160/79 H 10/26/16 03:04 Pulse Ox 98 10/26/16 03:04 - Medical History PMH: Anemia, Anxiety, Arthritis, CAD, CHF, COPD, Depression, Deep Vein Thrombosis, HIV, HTN, Hypercholesterolemia, Hyperlipidemia, Hypothyroidism, Pancreatitis, Peripheral Edema, End Stage Renal Disease, Chronic Kidney Disease , Chronic Pain (chronic lower extremity pain ) - [facility] Procedures GAIT TRAINING/FUNCTIONAL AMBULATION TREATMENT (08/05/15) INSERTION OF INTRALUM DEV INTO INF VENA CAVA, PERC APPROACH (07/30/15) INTRODUCTION OF SERUM/TOX/VACCINE INTO MUSCLE, PERC APPROACH (11/27/14) NEBULIZER THERAPY (09/12/14) Family History: States: Unknown Family Hx - Social History Hx Tobacco Use: Yes Hx Alcohol Use: Yes (vodka) Hx Substance Use: No (stopped) - Immunization History Hx Tetanus Toxoid Vaccination: No Hx Influenza Vaccination: No Hx Pneumococcal Vaccination: No Review Of Systems Musculoskeletal: Positive for: Foot Pain Neurological: Negative for: Weakness, Numbness Physical Exam - Physical Exam Appears: Non-toxic, No Acute Distress (pt is sleeping ), Unkempt Skin: Warm, Dry Head: Atraumatic, Normacephalic Eye(s): bilateral: Normal Inspection, EOMI Nose: Normal Oral Mucosa: Moist Neck: Normal ROM, Supple Chest: Symmetrical Respiratory: No Accessory Muscle Use Extremity: Normal ROM, No Tenderness, Pedal Edema (mild), No Calf Tenderness, Capillary Refill (< 2 sec), No Deformity, Other ((+) dry skin to plantar aspect) Extremity: Bilateral: Atraumatic, Normal Color And Temperature, Normal ROM Pulses: Left Dorsalis Pedis: Normal, Right Dorsalis Pedis: Normal Neurological/Psych: Oriented x3, Normal Speech, Normal Cognition, Normal Motor, Normal Sensation Gait: Steady ED Course And Treatment O2 Sat by Pulse Oximetry: 100 (Room air) Pulse Ox Interpretation: Normal Progress Note: Pt was evaluated in ED for 5 hours with serial evaluations. Pt has no tenderness. No SOB . No chest pain. Prior records evaluated - negative doppler in August 2016. Steady gait. Pt feels comfortable with discharge. Pain improved. Isntructed to follow up with the clinic in 1-2 days. Disposition - Disposition Disposition: HOME/ ROUTINE Disposition Time: 05:59 Condition: STABLE Instructions: Leg Pain (ED) Forms: [facility] (Nauruan) - Clinical Impression Clinical Impression: Foot pain, bilateral, Homelessness - Scribe Statement The provider has reviewed the documentation as recorded by the Scribboyd Maldonado All medical record entries made by the Rhodaibboyd were at my direction and personally dictated by me. I have reviewed the chart and agree that the record accurately reflects my personal performance of the history, physical exam, medical decision making, and the department course for this patient. I have also personally directed, reviewed, and agree with the discharge instructions and disposition.
[2016-10-26 06:15] VITALS: O2SAT 100
[2016-10-26 06:22] VITALS: BP 154/87; PULSE 92; RESP 17
== END 2016-10-26 06:20 | disposition home or self-care (01) ==
LOC: C.ER 01:42
DX: M79.672 Pain in left foot (principal); M79.671 Pain in right foot; Z59.0 Homelessness

== ENCOUNTER 2016-11-10 20:15 | Emergency (ER) | payer MEDICARE, OTHER ==
[2016-11-10 20:15] VITALS: PULSE 125; BMI 40.3
[2016-11-10 20:38] VITALS: BP 167/73; PULSE 83; RESP 20; TEMP 98.2; O2SAT 97
[2016-11-10] MEDS ORDERED: Aluminum Hydroxide/Magnesium Hydroxide Susp (30 mL) PO STA (21:31)
[2016-11-10] MEDS ORDERED: Aluminum Hydroxide/Magnesium Hydroxide Susp (30 mL) ONE (21:54)
--- NOTE | 2016-11-10 22:06 | C.PDOC ---
History Of Present Illness 61 year old female was brought to the ED by EMS for evaluation of chronic bilateral leg pain and burning abdominal pain. Abdominal pain is improved when eating oranges or ice chips. Patient has multiple ER visits to this ED and [place] for alcohol intoxication and similar complaints. She denies any new symptoms, chest pain, shortness of breath, weakness, or numbness. Time Seen by Provider: 11/10/16 20:42 Chief Complaint (Nursing): Abdominal Pain History Per: Patient, EMS History/Exam Limitations: no limitations Onset/Duration Of Symptoms: Hrs (epigastric burning earlier today ), Persistent Current Symptoms Are (Timing): Still Present Location Of Pain/Discomfort: Epigastric Radiation Of Pain To:: None Quality Of Discomfort: Burning Associated Symptoms: denies: Fever, Chills, Nausea, Vomiting Recent travel outside of the [place]: No Additional History Per: Prior Records Abnormal Vaginal Bleeding: No Past Medical History Reviewed: Historical Data, Nursing Documentation, Vital Signs Vital Signs: Last Vital Signs Temp 98.2 F 11/10/16 20:31 Pulse 83 11/10/16 20:31 Resp 20 11/10/16 20:31 BP 167/73 H 11/10/16 20:31 Pulse Ox 97 11/10/16 22:36 - Medical History PMH: Anemia, Anxiety, Arthritis, CAD, CHF, COPD, Depression, Deep Vein Thrombosis, HIV, HTN, Hypercholesterolemia, Hyperlipidemia, Hypothyroidism, Pancreatitis, Peripheral Edema, End Stage Renal Disease, Chronic Kidney Disease , Chronic Pain (chronic lower extremity pain ) - [facility] Procedures GAIT TRAINING/FUNCTIONAL AMBULATION TREATMENT (08/05/15) INSERTION OF INTRALUM DEV INTO INF VENA CAVA, PERC APPROACH (07/30/15) INTRODUCTION OF SERUM/TOX/VACCINE INTO MUSCLE, PERC APPROACH (11/27/14) NEBULIZER THERAPY (09/12/14) Family History: States: Unknown Family Hx - Social History Hx Tobacco Use: Yes Hx Alcohol Use: Yes (vodka) Hx Substance Use: No (stopped) - Immunization History Hx Tetanus Toxoid Vaccination: No Hx Influenza Vaccination: No Hx Pneumococcal Vaccination: No Review Of Systems Constitutional: Negative for: Fever, Chills Cardiovascular: Negative for: Chest Pain, Palpitations Gastrointestinal: Positive for: Abdominal Pain. Negative for: Nausea, Vomiting Musculoskeletal: Positive for: Leg Pain (chronic bilateral leg pain ) Neurological: Negative for: Weakness, Numbness Physical Exam - Physical Exam Appears: Non-toxic, No Acute Distress, Other (strong EtOH on breath. Patient is comfortable on exam and eating oranges. ) Skin: Warm, Dry Head: Atraumatic, Normacephalic Eye(s): bilateral: PERRL, EOMI Chest: Symmetrical, No Deformity Cardiovascular: Rhythm Regular, No Murmur Gastrointestinal/Abdominal: Soft, No Tenderness, No Distention, No Guarding, No Rebound Extremity: Normal ROM, No Tenderness, No Pedal Edema, No Calf Tenderness, Capillary Refill (good capillary refill, less than two seconds ), No Deformity Neurological/Psych: Oriented x3 ED Course And Treatment O2 Sat by Pulse Oximetry: 97 (room air ) Progress Note: Patient was given Maalox. On re-evaluation patient sts she feels better and wants to be d/c from ED. Disposition - Disposition Disposition: HOME/ ROUTINE Disposition Time: 22:32 Condition: IMPROVED Additional Instructions: Follow up with PMD/clinic within 1-2 days. Return to Ed if feel worse. Continue Pepcid as previously instructed. Instructions: Epigastric Pain (ED), Alcohol Dependence (ED) Forms: [facility] (Croatian) - Clinical Impression Clinical Impression: Alcohol intoxication, Epigastric pain - PA / DIE STAMPER / Resident Statement MD/DO has reviewed & agrees with the documentation as recorded. - Scribe Statement The provider has reviewed the documentation as recorded by the Scribe My Rosales All medical record entries made by the Scribe were at my direction and personally dictated by me. I have reviewed the chart and agree that the record accurately reflects my personal performance of the history, physical exam, medical decision making, and the department course for this patient. I have also personally directed, reviewed, and agree with the discharge instructions and disposition.
== END 2016-11-10 22:55 | disposition home or self-care (01) ==
LOC: C.ER 20:15
DX: R10.13 Epigastric pain (principal); F10.129 Alcohol abuse with intoxication, unspecified; Y90.9 Presence of alcohol in blood, level not specified

== ENCOUNTER 2016-12-09 04:20 | Emergency (ER) | payer MEDICARE, OTHER ==
[2016-12-09 04:20] VITALS: PULSE 125; BMI 40.3
[2016-12-09 04:53] VITALS: TEMP 97.3
--- NOTE | 2016-12-09 05:32 | C.PDOC ---
History Of Present Illness 61 year old female who presents to the ER with a complaint of mid sternal chest pain for a "long time". Patient denies any associated symptoms of SOB, palpitations, vomiting, or diaphoresis. Patient is a frequent visitor of this institution; she was worked up and admitted on 11/28 for chest pain. Time Seen by Provider: 12/09/16 05:17 Chief Complaint (Nursing): Chest Pain History Per: Patient History/Exam Limitations: no limitations Current Symptoms Are (Timing): Still Present Quality: "Pain" Associated Symptoms: denies: Nausea, Dyspnea, Diaphoresis, Syncope Modifying Factors: None Exacerbating Factors: None Alleviating Factors: None Recent travel outside of the [place]: No Past Medical History Reviewed: Historical Data, Nursing Documentation, Vital Signs Vital Signs: Last Vital Signs Temp 97.3 F L 12/09/16 04:36 Pulse 66 12/09/16 06:14 Resp 18 12/09/16 06:14 BP 167/89 H 12/09/16 06:14 Pulse Ox 98 12/09/16 06:51 - Medical History PMH: Anemia, Anxiety, Arthritis, CAD, CHF, COPD, Depression, Deep Vein Thrombosis, HIV, HTN, Hypercholesterolemia, Hyperlipidemia, Hypothyroidism, Pancreatitis, Peripheral Edema, End Stage Renal Disease, Chronic Kidney Disease , Chronic Pain (chronic lower extremity pain ) Surgical History: No Surg Hx - [facility] Procedures GAIT TRAINING/FUNCTIONAL AMBULATION TREATMENT (08/05/15) INSERTION OF INTRALUM DEV INTO INF VENA CAVA, PERC APPROACH (07/30/15) INTRODUCTION OF SERUM/TOX/VACCINE INTO MUSCLE, PERC APPROACH (11/27/14) NEBULIZER THERAPY (09/12/14) Family History: States: Unknown Family Hx - Social History Hx Tobacco Use: Yes Hx Alcohol Use: Yes Hx Substance Use: No (stopped) - Immunization History Hx Tetanus Toxoid Vaccination: No Hx Influenza Vaccination: No Hx Pneumococcal Vaccination: No Review Of Systems Constitutional: Negative for: Fever, Chills, Sweats Cardiovascular: Positive for: Chest Pain. Negative for: Palpitations Respiratory: Negative for: Shortness of Breath Gastrointestinal: Negative for: Nausea, Vomiting Physical Exam - Physical Exam Appears: Non-toxic, No Acute Distress Skin: Normal Color, Warm, Dry Head: Atraumatic, Normacephalic Eye(s): bilateral: Normal Inspection, EOMI Oral Mucosa: Moist Neck: Normal, Supple Chest: Symmetrical, No Tenderness Cardiovascular: Rhythm Regular Respiratory: Normal Breath Sounds, No Rales, No Rhonchi, No Wheezing Gastrointestinal/Abdominal: Soft, No Tenderness Extremity: Normal ROM (x4) Neurological/Psych: Oriented x3, Normal Speech, Normal Cognition ED Course And Treatment - Laboratory Results Result Diagrams: 12/09/16 05:40 12/09/16 05:40 ECG: Interpreted By Me, Viewed By Me ECG Rhythm: Sinus Rhythm ECG Interpretation: Normal, No Acute Changes, No Changes From Prior (11/29) Rate From EC O2 Sat by Pulse Oximetry: 98 (Room air) Pulse Ox Interpretation: Normal - Radiology CXR: Interpreted by Me, Viewed By Me CXR Interpretation: Yes: No Acute Disease, Other (no change from previous) Progress Note: CXR, EKG, and blood work ordered. Pt is in NAD , Sleeping with stable vitals. pt advised PMD f/u Disposition - Disposition Disposition: HOME/ ROUTINE Disposition Time: 06:49 Condition: STABLE Additional Instructions: PLease follow in clinic Return to ER if worse Instructions: Chest Pain (ED) Forms: [facility] (Yi) - Clinical Impression Clinical Impression: Chronic chest pain - Scribe Statement The provider has reviewed the documentation as recorded by the Scribe Tyler Maldonado All medical record entries made by the Scribe were at my direction and personally dictated by me. I have reviewed the chart and agree that the record accurately reflects my personal performance of the history, physical exam, medical decision making, and the department course for this patient. I have also personally directed, reviewed, and agree with the discharge instructions and disposition.
[2016-12-09 05:44] LABS: BASO % 0.7 % (0.0-2.0); EOS # 0.1 K/uL (0.0-0.7); EOS % 1.3 % (0.0-4.0); HEMATOCRIT 28.7 % (34.0-47.0); LYMPH # 0.8 K/uL (1.0-4.3); LYMPH % 11.4 % (20.0-40.0); MEAN CELL VOLUME 90.9 fL (81.0-99.0); MEAN CORPUSCULAR HEMOGLOBIN 28.7 pg (27.0-31.0); MEAN CORPUSCULAR HGB CONC 31.6 g/dL (33.0-37.0); MEAN PLATELET VOLUME 9.6 fL (7.2-11.7); MONO # 0.9 K/uL (0.0-0.8); MONO % 12.5 % (0.0-10.0); RED CELL DISTRIBUTION WIDTH 19.2 % (11.5-14.5); WHITE BLOOD COUNT 6.8 K/uL (4.8-10.8)
[2016-12-09 05:52] LABS: POTASSIUM 4.4 mmol/L (3.6-5.2)
[2016-12-09 05:53] LABS: ALB/GLOB RATIO 0.8 (1.0-2.1); BILIRUBIN,TOTAL 0.3 mg/dL (0.2-1.3); TOTAL PROTEIN 7.8 g/dL (6.3-8.3)
[2016-12-09 05:54] LABS: CALCIUM 8.4 mg/dl (8.6-10.4)
[2016-12-09 06:06] LABS: TROPONIN I 0.079 ng/mL (0.00-0.120)
[2016-12-09 06:15] VITALS: BP 167/89
[2016-12-09 06:56] VITALS: PULSE 87; RESP 19; O2SAT 100
--- NOTE | 2016-12-09 07:37 | RAD ---
PROCEDURE: CHEST RADIOGRAPH, 1 VIEW HISTORY: chest pain COMPARISON: Portable chest 09/07/2016. FINDINGS: LUNGS: Marked left hemidiaphragm elevation again appreciated. No prominent infiltrate is appreciate bilaterally. PLEURA: No pneumothorax or pleural fluid seen. CARDIOVASCULAR: Cardiomegaly appears stable. No definite pulmonary vascular derangement appreciated on acute basis. OSSEOUS STRUCTURES: No significant abnormalities. VISUALIZED UPPER ABDOMEN: Normal. OTHER FINDINGS: None. IMPRESSION: Stable cardiomegaly and left hemidiaphragm elevation. No definite acute infiltrate pleural effusion or pneumothorax identified. No pulmonary vascular derangement appreciable.
--- NOTE | 2016-12-14 13:28 | CARD ---
APPROVED REPORT EKG Measurement Heart [id number] <Conclusion> Sinus rhythm with premature supraventricular complexes and with occasional premature ventricular complexes Nonspecific ST and T wave abnormality Abnormal ECG
== END 2016-12-09 07:09 | disposition home or self-care (01) ==
LOC: C.ER 04:20
DX: G89.29 Other chronic pain (principal); R07.9 Chest pain, unspecified

== ENCOUNTER 2016-12-19 20:06 | Emergency (ER) | payer MEDICARE, OTHER ==
[2016-12-19 20:07] VITALS: PULSE 125; BMI 40.3
[2016-12-19 21:31] VITALS: O2SAT 97
--- NOTE | 2016-12-19 21:43 | C.PDOC ---
History Of Present Illness 61 y/o F c PMHx hepatitis C, HIV, diabetes, anemia, ARF, DVT, CHF, and Atrial fibrillation p/w chest pain x 1 day. Pain is sharp, midchest, nonradiating, occurs when coughing or touching. Reports cough for 2 days with white sputum. Denies fever or shortness of breath. Patient in this ED with multiple visits for chest pain, known to be homeless. Time Seen by Provider: 12/19/16 21:35 Chief Complaint (Nursing): Chest Pain Past Medical History Vital Signs: Last Vital Signs Temp 97.8 F 12/19/16 21:27 Pulse 92 H 12/19/16 21:27 Resp 14 12/19/16 21:27 BP 129/75 12/19/16 21:27 Pulse Ox 97 12/19/16 22:14 - Medical History PMH: Anemia, Anxiety, Arthritis, CAD, CHF, COPD, Depression, Deep Vein Thrombosis, HIV, HTN, Hypercholesterolemia, Hyperlipidemia, Hypothyroidism, Pancreatitis, Peripheral Edema, End Stage Renal Disease, Chronic Kidney Disease , Chronic Pain (chronic lower extremity pain ) - [email or web address] Procedures GAIT TRAINING/FUNCTIONAL AMBULATION TREATMENT (08/05/15) INSERTION OF INTRALUM DEV INTO INF VENA CAVA, PERC APPROACH (07/30/15) INTRODUCTION OF SERUM/TOX/VACCINE INTO MUSCLE, PERC APPROACH (11/27/14) NEBULIZER THERAPY (09/12/14) Family History: States: Unknown Family Hx - Social History Hx Tobacco Use: Yes Hx Alcohol Use: Yes Hx Substance Use: No (stopped) - Immunization History Hx Tetanus Toxoid Vaccination: No Hx Influenza Vaccination: No Hx Pneumococcal Vaccination: No Review Of Systems Except As Marked, All Systems Reviewed And Found Negative. Constitutional: Negative for: Fever Respiratory: Negative for: Shortness of Breath Physical Exam - Physical Exam Additional Physical Exam Comments: Constitutional: Alcohol on breath. Head: Normocephalic. Eyes: PERRL. ENT: Moist mucous membranes. Neck: Supple. Cardiovascular: Regular rate. Radial pulse 2+ bilaterally. Chest: No tenderness. Respiratory: Clear to auscultation bilaterally. GI: Soft. Nontender. Back: No CVA tenderness. Musculoskeletal: No tenderness of extremities. Skin: No rash. Neurologic: Alert, no focal deficit. ED Course And Treatment O2 Sat by Pulse Oximetry: 97 Medical Decision Making Medical Decision Making: Will check enzymes x 1 for chest pain of 1 day, EKG and compare to previous. Check CXR for pneumonia. Unlikely cardiac in origin, will not administer ASA currently. EKG NSR 70 bpm, no ST elevations. No change from previous (earlier this month). CXR elevated L hemidiaphragm and cardiomegaly. No change from previous. No consolidation or PTX. Patient observed in ED for 10 hours. No distress. Walking steadily. Ate. Will discharge, f/u primary care, return to ED for worsening pain, fever, dyspnea. Disposition - Disposition Referrals: [facility] [Outside] Disposition: HOME/ ROUTINE Disposition Time: 06:22 Condition: STABLE Instructions: Chest Wall Pain (ED) Forms: [facility] (Kyrgyz) - Clinical Impression Clinical Impression: Chest wall pain
[2016-12-20 06:24] VITALS: BP 143/77; PULSE 89; RESP 20; TEMP 97.7
--- NOTE | 2016-12-20 08:51 | RAD ---
Chest x-ray two views History: Cough. Comparison: 12/09/2016 Findings: Elevated left hemidiaphragm with multiple bowel loops interposing underneath the left hemidiaphragm. Mild venous congestion. Bilateral hilar prominence. Cardiomegaly. Degenerative changes in the spine with paravertebral osteophytes. Impression: Elevated left hemidiaphragm with multiple bowel loops interposing underneath the left hemidiaphragm. Mild venous congestion. Bilateral hilar prominence. Cardiomegaly.
--- NOTE | 2016-12-21 10:29 | CARD ---
APPROVED REPORT EKG Measurement Heart [id number] <Conclusion> Normal sinus rhythm with sinus arrhythmia Nonspecific T wave abnormality Abnormal ECG
== END 2016-12-20 06:25 | disposition home or self-care (01) ==
LOC: C.ER 20:06
DX: R07.89 Other chest pain (principal); E11.9 Type 2 diabetes mellitus without complications; E78.00 Pure hypercholesterolemia, unspecified; I48.91 Unspecified atrial fibrillation; I50.9 Heart failure, unspecified; Z87.891 Personal history of nicotine dependence; I25.10 Atherosclerotic heart disease of native coronary artery without angina pectoris; I12.0 Hypertensive chronic kidney disease with stage 5 chronic kidney disease or end stage renal disease; N18.6 End stage renal disease

== ENCOUNTER 2017-02-11 23:44 | Inpatient (IN) | payer MEDICARE, OTHER ==
[2017-02-11 23:44] VITALS: PULSE 125; BMI 40.3
--- NOTE | 2017-02-12 00:42 | C.PDOC ---
History Of Present Illness 61 year old female with PMHx of HIV, HTN, DVT presents to the ED for evaluation of SOB all day long along with 3 + pitting edema that started today. Patient is SP an IVF, she reports not having a ny cardiac history she is aware of. Patient denies fever, chills, cough, nausea, vomit, diarrhea, abdominal pain. Time Seen by Provider: 02/11/17 23:49 Chief Complaint (Nursing): Lower Extremity Problem/Injury History Per: Patient History/Exam Limitations: no limitations Onset/Duration Of Symptoms: Hrs Current Symptoms Are (Timing): Still Present Recent travel outside of the [place]: No Additional History Per: Patient Past Medical History Reviewed: Historical Data, Nursing Documentation, Vital Signs Vital Signs: Last Vital Signs Temp 97.7 F 02/12/17 03:45 Pulse 81 02/12/17 03:45 Resp 20 02/12/17 03:45 BP 175/84 H 02/12/17 03:45 Pulse Ox 96 02/12/17 05:04 - Medical History PMH: Anemia, Anxiety, Arthritis, CAD, CHF, COPD, Depression, Deep Vein Thrombosis, HIV, HTN, Hypercholesterolemia, Hyperlipidemia, Hypothyroidism, Pancreatitis, Peripheral Edema, End Stage Renal Disease, Chronic Kidney Disease , Chronic Pain (chronic lower extremity pain ) Surgical History: No Surg Hx - [facility] Procedures EXCISION OF LEFT KIDNEY, PERCUTANEOUS APPROACH, DIAGNOSTIC (12/28/16) GAIT TRAINING/FUNCTIONAL AMBULATION TREATMENT (08/05/15) INSERTION OF INTRALUM DEV INTO INF VENA CAVA, PERC APPROACH (07/30/15) INTRODUCTION OF SERUM/TOX/VACCINE INTO MUSCLE, PERC APPROACH (11/27/14) NEBULIZER THERAPY (09/12/14) Family History: States: Unknown Family Hx - Social History Hx Tobacco Use: Yes Hx Alcohol Use: Yes (2 bottles of vodka daily) Hx Substance Use: No (stopped) - Immunization History Hx Tetanus Toxoid Vaccination: No Hx Influenza Vaccination: No Hx Pneumococcal Vaccination: No Review Of Systems Constitutional: Negative for: Fever, Chills Cardiovascular: Negative for: Chest Pain Respiratory: Positive for: Shortness of Breath Gastrointestinal: Negative for: Nausea, Vomiting, Abdominal Pain Musculoskeletal: Positive for: Other (leg sweling). Negative for: Back Pain Skin: Negative for: Rash Neurological: Negative for: Weakness, Numbness Physical Exam - Physical Exam Appears: Non-toxic, No Acute Distress Skin: Normal Color, Warm, Dry Head: Atraumatic, Normacephalic Nose: No Discharge Oral Mucosa: Moist Neck: Normal ROM, Supple Chest: Symmetrical Cardiovascular: Rhythm Regular, No Murmur Respiratory: Decreased Breath Sounds (Significantly dimished on left side compared to right anteriorly and posteriorly), No Rales, No Rhonchi, No Wheezing Gastrointestinal/Abdominal: Soft, No Tenderness Extremity: Normal ROM, No Calf Tenderness, No Deformity, Swelling (B/L 3+ pitting edema) Neurological/Psych: Oriented x3, Normal Speech, Normal Cognition ED Course And Treatment - Laboratory Results Result Diagrams: 02/12/17 03:40 02/12/17 03:40 ECG: Interpreted By Me, Viewed By Me ECG Rhythm: Sinus Rhythm Interpretation Of ECG: NH 144, QRS 86, QT 458, QTc 532 no ischemic changes Rate From EC O2 Sat by Pulse Oximetry: 96 (On RA) Pulse Ox Interpretation: Normal Critical Care Time - Critical Care Note Total Time (in mins): 30 Documented critical care: time excludes all time spent performing seperately billable procedures. Medical Decision Making Medical Decision Making: Plan: * EKG * CXR * Lab work * Troponin * BNP * UA Lab results showed * acute renal failure * BU - 65/4.5 * Bicarb - 21 * Hb - 8.5 * K - 5.3 * Total protein - 0.06 * BNP - over 6000 * Patient will be admitted for acute renal failure, called Dr. Cazares for a consult. Disposition - Disposition Disposition: HOSPITALIZED - Scribe Statement The provider has reviewed the documentation as recorded by the Scribe Brennon Roca All medical record entries made by the Scribe were at my direction and personally dictated by me. I have reviewed the chart and agree that the record accurately reflects my personal performance of the history, physical exam, medical decision making, and the department course for this patient. I have also personally directed, reviewed, and agree with the discharge instructions and disposition.
[2017-02-12 00:45] LABS: EOS # 0.1 K/uL (0.0-0.7); EOS % 2.9 % (0.0-4.0); HEMOGLOBIN 8.5 g/dL (11.0-16.0); LYMPH # 0.6 K/uL (1.0-4.3); LYMPH % 14.8 % (20.0-40.0); MEAN CELL VOLUME 92.4 fL (81.0-99.0); MEAN CORPUSCULAR HEMOGLOBIN 30.9 pg (27.0-31.0); MEAN CORPUSCULAR HGB CONC 33.5 g/dL (33.0-37.0); MEAN PLATELET VOLUME 9.5 fL (7.2-11.7); MONO # 0.6 K/uL (0.0-0.8); MONO % 13.2 % (0.0-10.0); NEUT # 2.9 K/uL (1.8-7.0); NEUT % 68.1 % (50.0-75.0); RBC 2.75 Mil/uL (3.80-5.20); WHITE BLOOD COUNT 4.3 K/uL (4.8-10.8)
[2017-02-12 00:54] LABS: SQUAMOUS EPITHIAL 1 /hpf (0-5); URINE BACTERIA RARE (<OCC); URINE BILIRUBIN NEGATIVE (NEGATIVE); URINE BLOOD 2+ (NEGATIVE); URINE CLARITY Clear (Clear); URINE COLOR Straw (YELLOW); URINE GLUCOSE (UA) 1+ mg/dL (Normal); URINE HYALINE CAST 0-2 /lpf (0-2); URINE LEUKOCYTE ESTERASE TRACE Leu/uL (Negative); URINE NITRATE NEGATIVE (NEGATIVE); URINE PROTEIN 2+ mg/dL (NEGATIVE); URINE UROBILINOGEN NORMAL mg/dL (0.2-1.0)
[2017-02-12 01:00] LABS: PROTHROMBIN TIME 11.4 SECONDS (9.7-12.2)
[2017-02-12 01:18] LABS: TROPONIN I 0.063 ng/mL (0.00-0.120)
[2017-02-12 01:35] LABS: BARBITURATES, UR NEGATIVE (NEGATIVE); BENZODIAZEPINES, UR NEGATIVE (NEGATIVE); OPIATES, UR NEGATIVE (NEGATIVE); PHENCYCLIDINE, UR NEGATIVE (NEGATIVE)
[2017-02-12 01:38] LABS: ALB/GLOB RATIO 0.8 (1.0-2.1); ALBUMIN 3.4 g/dL (3.5-5.0); CALCIUM 8.6 mg/dl (8.6-10.4); MAGNESIUM 1.6 mg/dL (1.6-2.3)
[2017-02-12 03:57] LABS: BASO # 0.1 K/uL (0.0-0.2); EOS # 0.2 K/uL (0.0-0.7); HEMOGLOBIN 8.2 g/dL (11.0-16.0); RED CELL DISTRIBUTION WIDTH 19.8 % (11.5-14.5)
[2017-02-12 04:00] LABS: ALB/GLOB RATIO 0.7 (1.0-2.1); ALBUMIN 3.2 g/dL (3.5-5.0); CALCIUM 8.3 mg/dl (8.6-10.4)
[2017-02-12 04:03] LABS: BASO % 1.2 % (0.0-2.0); EOS % 3.5 % (0.0-4.0); LYMPH # 0.7 K/uL (1.0-4.3); LYMPH % 16.2 % (20.0-40.0); MEAN CELL VOLUME 92.5 fL (81.0-99.0); MEAN CORPUSCULAR HEMOGLOBIN 30.6 pg (27.0-31.0); MEAN CORPUSCULAR HGB CONC 33.1 g/dL (33.0-37.0); MEAN PLATELET VOLUME 9.5 fL (7.2-11.7); MONO # 0.6 K/uL (0.0-0.8); MONO % 13.3 % (0.0-10.0); NEUT # 2.8 K/uL (1.8-7.0); NEUT % 65.8 % (50.0-75.0); RBC 2.69 Mil/uL (3.80-5.20); WHITE BLOOD COUNT 4.3 K/uL (4.8-10.8)
[2017-02-12 07:29] LABS: HEMOGLOBIN 8.4 g/dL (11.0-16.0); MEAN CELL VOLUME 92.3 fL (81.0-99.0); MEAN CORPUSCULAR HEMOGLOBIN 30.7 pg (27.0-31.0); MEAN CORPUSCULAR HGB CONC 33.3 g/dL (33.0-37.0); MEAN PLATELET VOLUME 9.8 fL (7.2-11.7); RBC 2.73 Mil/uL (3.80-5.20); RED CELL DISTRIBUTION WIDTH 19.8 % (11.5-14.5); WHITE BLOOD COUNT 4.2 K/uL (4.8-10.8)
--- NOTE | 2017-02-12 08:28 | RAD ---
HISTORY: COMPARISON: 12/09/2016 TECHNIQUE: Chest PA and lateral FINDINGS: LINES AND TUBES: None. LUNG AND PLEURA: There is mild pulmonary venous congestion. There is left basilar atelectasis related to chronic elevation of the left hemidiaphragm. HEART AND MEDIASTINUM: The heart remains enlarged. The hilar and mediastinal contours are within normal limits. SKELETAL STRUCTURES: The bony structures are within normal limits for the patient's age. VISUALIZED UPPER ABDOMEN: Normal. OTHER FINDINGS: None. IMPRESSION: Persistent severe cardiomegaly and mild pulmonary venous congestion. Chronic elevation of the left hemidiaphragm.
[2017-02-12] MEDS ORDERED: Home Med 1 UNIT (Atorvastatin [Lipitor] 1 TAB) PO SCH (10:00)
[2017-02-12] MEDS ORDERED: ISOSORBIDE DINITRATE 30 MG PO SCH (10:00)
[2017-02-12] MEDS ORDERED: Sod Polystyrene Sulf 15 gm/60 ml Susp PO ONE (10:30)
--- NOTE | 2017-02-12 12:30 | CP.PCM.CON ---
<Misty Bassett - Last Filed: 02/12/17 14:01> History of Present Illness - History of Present Illness History of Present Illness: Nephrology consult note for Dr Carreno's service. Reason for consult: renal failure Patient is a 61 y/o Female known to Dr Carreno with PMHx of HIV (Latest CD4 count of 254- 12/26/16), DVT S/P IVC filter (on eliquis), Afib, HTN, CKD4 s/p biopsy proven diabetic nephropathy superimposed with htn, and mitochondia toxicity, medical non compliance, multiple admission to [facility], history of leaving AMA, now presenting to [facility] with worsening in lower extremities edema and short of breath. Nephrology is consulted for renal failure. Patient was seen by Dr Carreno in [facility] back in December, patient underwent biopsy at the time revealing htn and DM related chronicity of the kidney with mitochrondia toxicity. Patient was supposed to follow up, but failed to follow. Patient is currently sitting comfortably on the hospital bed. Saw patient with Dr Carreno, attempted to obtain detail history and to explain patient's medical conditions to her with no success. Patient is very difficult to communicate with , has wandering though process, states she doesn't want to talk. Ros limited, however patient did admit to feeling short of breath, denies cp. admits to lower extremities edema. Denies nausea, vomiting, or fever. Patient states she gets her HIV meds from Dr Saldaña, doesn't have HIV specialist. 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 Patient doesn't remember the name of her pharmacy. PMHx: Alcohol and tobacco abuse, hep c, HIV (Latest CD4 count of 254- 12/26/16), DVT S/P IVC filter (on eliquis), HTN, CKD4 s/p biopsy proven diabetic nephropathy superimposed with htn, and mitochondia toxicity, medical non compliance, afib, anemia. PSHx: IVC filter Social: homeless?Lives with girl friend on/off, smokes tobacco, and drinks alcohol. walks with a cane. FMHx: unable to obtain Allergy: NKDA Home meds: unable to obtain. Review of Systems - Review of Systems Systems not reviewed;Unavailable: Uncooperative Past Patient History - Infectious Disease Hx of Infectious Diseases: None - Tetanus Immunizations Tetanus Immunization: Unknown - Past Medical History & Family History Past Medical History?: Yes - Past Social History Smoking Status: Heavy Smoker > 10 Cigarettes Daily Alcohol: Other (heavy) Drugs: Other (unable to obtain) Home Situation {Lives}: Friends, Homeless - CARDIAC Hx Congestive Heart Failure: Yes Hx Hypercholesterolemia: Yes Hx Hypertension: Yes Hx Peripheral Edema: Yes - PULMONARY Hx Chronic Obstructive Pulmonary Disease (COPD): Yes - NEUROLOGICAL Hx Neurological Disorder: No HX Cerebrovascular Accident: No - HEENT Hx HEENT Problems: No - RENAL Hx Chronic Kidney Disease: Yes - ENDOCRINE/METABOLIC Hx Hypothyroidism: Yes - HEMATOLOGICAL/ONCOLOGICAL Hx Anemia: Yes Hx Human Immunodeficiency Virus (HIV): Yes - INTEGUMENTARY Hx Dermatological Problems: No - MUSCULOSKELETAL/RHEUMATOLOGICAL Hx Arthritis: Yes - GASTROINTESTINAL Hx Pancreatitis: Yes - GENITOURINARY/GYNECOLOGICAL Hx Genitourinary Disorders: No - PSYCHIATRIC Hx Anxiety: Yes Hx Depression: Yes Hx Substance Use: No (stopped) - SURGICAL HISTORY Hx Surgeries: Yes Other/Comment: IVC filter - ANESTHESIA Hx Anesthesia: Yes Hx Anesthesia Reactions: No Hx Malignant Hyperthermia: No Meds Allergies/Adverse Reactions: Allergies Allergy/AdvReac Type Severity Reaction Status Date / Time No Known Allergies Allergy Verified 01/26/17 22:22 - Medications Medications: Current Medications Acetaminophen (Tylenol 325mg Tab) 650 mg PO Q4 PRN PRN Reason: Pain, moderate (4-7) Last Admin: 02/12/17 03:15 Dose: 650 mg Apixaban (Eliquis) 5 mg PO BID [facility] Last Admin: 02/12/17 11:57 Dose: 5 mg Calcitriol (Rocaltrol) 0.25 mcg PO DAILY [facility] Last Admin: 02/12/17 10:44 Dose: 0.25 mcg Diltiazem HCl (Cardizem Cd) 120 mg PO DAILY [facility] Furosemide (Lasix) 40 mg IVP DAILY [facility] Last Admin: 02/12/17 11:30 Dose: 40 mg Furosemide (Lasix) 20 mg IVP QPM [facility] Hydralazine HCl (Apresoline) 50 mg PO TID [facility] Hydroxyzine HCl (Atarax) 25 mg PO BID [facility] Last Admin: 02/12/17 11:57 Dose: 25 mg Isosorbide Mononitrate (Imdur Er) 30 mg PO DAILY [facility] Last Admin: 02/12/17 11:27 Dose: 30 mg Metoprolol Tartrate (Lopressor) 25 mg PO BID [facility] Pneumococcal Polyvalent Vaccine (Pneumovax 23 Vaccine) 0.5 ml IM .ONCE ONE Stop: 02/15/17 10:01 Rosuvastatin Calcium (Crestor) 20 mg PO [facility] Physical Exam - Constitutional Appears: No Acute Distress, Older Than Stated Age, Chronically Ill - Head Exam Head Exam: ATRAUMATIC, NORMAL INSPECTION, NORMOCEPHALIC - Eye Exam Eye Exam: Normal appearance, PERRL. absent: Scleral icterus Pupil Exam: NORMAL ACCOMODATION - ENT Exam ENT Exam: Mucous Membranes Dry - Neck Exam Neck exam: Positive for: Normal Inspection. Negative for: Lymphadenopathy - Respiratory Exam Respiratory Exam: Clear to Auscultation Bilateral, NORMAL BREATHING PATTERN. absent: Decreased Breath Sounds, Rales, Rhonchi, Wheezes, Respiratory Distress, Stridor - Cardiovascular Exam Cardiovascular Exam: Irregular Rhythm, +S1, +S2. absent: Bradycardia, Tachycardia, Diastolic murmur, Gallop, JVD, Rubs, Systolic Murmur - GI/Abdominal Exam GI & Abdominal Exam: Normal Bowel Sounds, Soft. absent: Distended, Firm, Guarding, Rigid, Tenderness - Extremities Exam Extremities exam: Positive for: pedal edema (+3 below the knees up to the foot. ) - Back Exam Back exam: NORMAL INSPECTION - Neurological Exam Neurological exam: Alert, Oriented x3 - Psychiatric Exam Additional comments: Angry looking. - Skin Skin Exam: Dry, Normal Color, Warm Results - Vital Signs Recent Vital Signs: Last Vital Signs Temp 98.1 F 02/12/17 07:54 Pulse 79 02/12/17 08:05 Resp 20 02/12/17 07:54 BP 168/81 H 02/12/17 11:30 Pulse Ox 96 02/12/17 07:54 - Labs Result Diagrams: 02/12/17 07:09 02/12/17 03:40 Labs: Laboratory Results - last 24 hr 02/12/17 02/12/17 02/12/17 00:37 00:37 00:37 WBC 4.3 L RBC 2.75 L Hgb 8.5 L Hct 25.4 L MCV 92.4 MCH 30.9 MCHC 33.5 RDW 20.0 H Plt Count 119 L D MPV 9.5 Neut % (Auto) 68.1 Lymph % (Auto) 14.8 L Johnston % (Auto) 13.2 H Eos % (Auto) 2.9 Baso % (Auto) 1.0 Neut # 2.9 Lymph # 0.6 L Johnston # 0.6 Eos # 0.1 Baso # 0.0 Differential Comment PT 11.4 INR 1.0 APTT 21 Sodium 139 Potassium 5.3 H Chloride 110 H Carbon Dioxide 21 L Anion Gap 13 BUN 65 H Creatinine 4.5 H Est GFR ( Amer) 12 Est GFR (Non-Af Amer) 10 Random Glucose 104 Calcium 8.6 Magnesium 1.6 Total Bilirubin 0.3 AST 34 ALT 29 Alkaline Phosphatase 124 Troponin I 0.0630 NT-Pro-B Natriuret Pep 6230 H Total Protein 7.6 Albumin 3.4 L Globulin 4.2 H Albumin/Globulin Ratio 0.8 L TSH 3rd Generation 4.75 H Urine Color Urine Clarity Urine pH Ur Specific [place] Urine Protein Urine Glucose (UA) Urine Ketones Urine Blood Urine Nitrate Urine Bilirubin Urine Urobilinogen Ur Leukocyte Esterase Urine WBC (Auto) Urine RBC (Auto) Ur Squamous Epith Cells Urine Bacteria Hyaline Casts Urine Opiates Screen Urine Methadone Screen Ur Barbiturates Screen Ur Phencyclidine Scrn Ur Amphetamines Screen U Benzodiazepines Scrn U Oth Cocaine Metabols U Cannabinoids Screen 02/12/17 02/12/17 02/12/17 00:37 00:37 03:40 WBC 4.3 L RBC 2.69 L Hgb 8.2 L Hct 24.9 L MCV 92.5 MCH 30.6 MCHC 33.1 RDW 19.8 H Plt Count 112 L MPV 9.5 Neut % (Auto) 65.8 Lymph % (Auto) 16.2 L Johnston % (Auto) 13.3 H Eos % (Auto) 3.5 Baso % (Auto) 1.2 Neut # 2.8 Lymph # 0.7 L Johnston # 0.6 Eos # 0.2 Baso # 0.1 Differential Comment PT INR APTT Sodium Potassium Chloride Carbon Dioxide Anion Gap BUN Creatinine Est GFR ( Amer) Est GFR (Non-Af Amer) Random Glucose Calcium Magnesium Total Bilirubin AST ALT Alkaline Phosphatase Troponin I NT-Pro-B Natriuret Pep Total Protein Albumin Globulin Albumin/Globulin Ratio TSH 3rd Generation Urine Color Straw Urine Clarity Clear Urine pH 5.0 Ur Specific [place] 1.013 Urine Protein 2+ H Urine Glucose (UA) 1+ Urine Ketones Negative Urine Blood 2+ H Urine Nitrate Negative Urine Bilirubin Negative Urine Urobilinogen Normal Ur Leukocyte Esterase Trace Urine WBC (Auto) 1 Urine RBC (Auto) 17 H Ur Squamous Epith Cells 1 Urine Bacteria Rare Hyaline Casts 0-2 Urine Opiates Screen Negative Urine Methadone Screen Negative Ur Barbiturates Screen Negative Ur Phencyclidine Scrn Negative Ur Amphetamines Screen Negative U Benzodiazepines Scrn Negative U Oth Cocaine Metabols Negative U Cannabinoids Screen Negative 02/12/17 02/12/17 03:40 07:09 WBC 4.2 L RBC 2.73 L Hgb 8.4 L Hct 25.2 L MCV 92.3 MCH 30.7 MCHC 33.3 RDW 19.8 H Plt Count 111 L MPV 9.8 Neut % (Auto) Lymph % (Auto) Johnston % (Auto) Eos % (Auto) Baso % (Auto) Neut # Lymph # Johnston # Eos # Baso # Differential Comment PT INR APTT Sodium 137 Potassium 6.0 H Chloride 111 H Carbon Dioxide 22 Anion Gap 10 BUN 65 H Creatinine 4.3 H Est GFR ( Amer) 13 Est GFR (Non-Af Amer) 11 Random Glucose 81 Calcium 8.3 L Magnesium Total Bilirubin 0.5 AST 39 H ALT 32 Alkaline Phosphatase 114 Troponin I NT-Pro-B Natriuret Pep Total Protein 7.6 Albumin 3.2 L Globulin 4.3 H Albumin/Globulin Ratio 0.7 L TSH 3rd Generation Urine Color Urine Clarity Urine pH Ur Specific [place] Urine Protein Urine Glucose (UA) Urine Ketones Urine Blood Urine Nitrate Urine Bilirubin Urine Urobilinogen Ur Leukocyte Esterase Urine WBC (Auto) Urine RBC (Auto) Ur Squamous Epith Cells Urine Bacteria Hyaline Casts Urine Opiates Screen Urine Methadone Screen Ur Barbiturates Screen Ur Phencyclidine Scrn Ur Amphetamines Screen U Benzodiazepines Scrn U Oth Cocaine Metabols U Cannabinoids Screen Assessment & Plan (1) Chronic renal insufficiency Assessment and Plan: Renal function appears stable. Dr Carreno discussed with patient about her biopsy report, and about the fact that patient will likely need dialysis sometimes in the future, discussed about different access for dialysis, however patient wants to think about it first. Continue with rocaltrol Status: Acute (2) Hyperkalemia Assessment and Plan: Likely due to CKD Continue with kayexalate until potassium normalizes. Patient is also on diuretics. Status: Acute (3) Metabolic acidosis Assessment and Plan: Likely due to CKD. Bicarb improved on repeat labs On diuretics. Status: Acute (4) Anemia Assessment and Plan: likely due to ckd will send anemia work up. Status: Acute (5) Congestive heart failure (CHF) Assessment and Plan: Mild pulm congestion on chest x-ray last echo 12/08 with 40-45% EF. Increased Lasix to 40 mg am, and 20 mg pm. Continue with metoprolol, imdiur, hydralazine, Cardizem strict I&O and daily weight. Status: Acute (6) Hiatal hernia Status: Acute (7) DVT (deep venous thrombosis) Assessment and Plan: s/p ivc filter. had lower extremities u/s earlier this month with negative result. Continue with eliquis. Status: Acute (8) Diabetes mellitus Assessment and Plan: Seems controlled. Status: Acute (9) HIV (human immunodeficiency virus infection) Status: Acute (10) Hepatitis C Status: Acute (11) Atrial fibrillation Assessment and Plan: On Cardizem and eliquis. Status: Acute (12) Dyslipidemia Assessment and Plan: On crestor. Status: Acute (13) HTN (hypertension) Assessment and Plan: Management as above. Adjust BP meds prn for BP control. Status: Acute - Date & Time Date: 02/12/17 Time: 13:05 <Rogerio Carreno - Last Filed: 02/12/17 19:49> Meds - Medications Medications: Current Medications Acetaminophen (Tylenol 325mg Tab) 650 mg PO Q4 PRN PRN Reason: Pain, moderate (4-7) Last Admin: 02/12/17 13:36 Dose: 650 mg Apixaban (Eliquis) 5 mg PO BID [facility] Last Admin: 02/12/17 17:53 Dose: 5 mg Calcitriol (Rocaltrol) 0.25 mcg PO DAILY [facility] Last Admin: 02/12/17 10:44 Dose: 0.25 mcg Diltiazem HCl (Cardizem Cd) 120 mg PO DAILY [facility] Ferric Sodium Gluconate Complex (Ferrlecit) 125 mg IVPB DAILY [facility] Stop: 02/21/17 10:01 Furosemide (Lasix) 40 mg IVP DAILY [facility] Last Admin: 02/12/17 11:30 Dose: 40 mg Furosemide (Lasix) 20 mg IVP QPM [facility] Last Admin: 02/12/17 17:53 Dose: 20 mg Hydralazine HCl (Apresoline) 50 mg PO TID [facility] Last Admin: 02/12/17 17:53 Dose: 50 mg Hydroxyzine HCl (Atarax) 25 mg PO BID [facility] Last Admin: 02/12/17 17:53 Dose: 25 mg Isosorbide Mononitrate (Imdur Er) 30 mg PO DAILY [facility] Last Admin: 02/12/17 11:27 Dose: 30 mg Metoprolol Tartrate (Lopressor) 25 mg PO BID [facility] Last Admin: 02/12/17 17:53 Dose: 25 mg Pneumococcal Polyvalent Vaccine (Pneumovax 23 Vaccine) 0.5 ml IM .ONCE ONE Stop: 02/15/17 10:01 Rosuvastatin Calcium (Crestor) 20 mg PO [facility] Results - Vital Signs Recent Vital Signs: Last Vital Signs Temp 98.0 F 02/12/17 15:12 Pulse 66 02/12/17 15:12 Resp 20 02/12/17 15:12 BP 166/92 H 02/12/17 17:53 Pulse Ox 98 02/12/17 15:12 - Labs Result Diagrams: 02/12/17 07:09 02/12/17 03:40 Labs: Laboratory Results - last 24 hr 02/12/17 02/12/17 02/12/17 00:37 00:37 00:37 WBC 4.3 L RBC 2.75 L Hgb 8.5 L Hct 25.4 L MCV 92.4 MCH 30.9 MCHC 33.5 RDW 20.0 H Plt Count 119 L D MPV 9.5 Neut % (Auto) 68.1 Lymph % (Auto) 14.8 L Johnston % (Auto) 13.2 H Eos % (Auto) 2.9 Baso % (Auto) 1.0 Neut # 2.9 Lymph # 0.6 L Johnston # 0.6 Eos # 0.1 Baso # 0.0 Differential Comment PT 11.4 INR 1.0 APTT 21 Sodium 139 Potassium 5.3 H Chloride 110 H Carbon Dioxide 21 L Anion Gap 13 BUN 65 H Creatinine 4.5 H Est GFR ( Amer) 12 Est GFR (Non-Af Amer) 10 Random Glucose 104 Calcium 8.6 Magnesium 1.6 Iron TIBC % Saturation Ferritin Total Bilirubin 0.3 AST 34 ALT 29 Alkaline Phosphatase 124 Troponin I 0.0630 NT-Pro-B Natriuret Pep 6230 H Total Protein 7.6 Albumin 3.4 L Globulin 4.2 H Albumin/Globulin Ratio 0.8 L Vitamin B12 Folate TSH 3rd Generation 4.75 H Urine Color Urine Clarity Urine pH Ur Specific [place] Urine Protein Urine Glucose (UA) Urine Ketones Urine Blood Urine Nitrate Urine Bilirubin Urine Urobilinogen Ur Leukocyte Esterase Urine WBC (Auto) Urine RBC (Auto) Ur Squamous Epith Cells Urine Bacteria Hyaline Casts Urine Opiates Screen Urine Methadone Screen Ur Barbiturates Screen Ur Phencyclidine Scrn Ur Amphetamines Screen U Benzodiazepines Scrn U Oth Cocaine Metabols U Cannabinoids Screen 02/12/17 02/12/17 02/12/17 00:37 00:37 03:40 WBC 4.3 L RBC 2.69 L Hgb 8.2 L Hct 24.9 L MCV 92.5 MCH 30.6 MCHC 33.1 RDW 19.8 H Plt Count 112 L MPV 9.5 Neut % (Auto) 65.8 Lymph % (Auto) 16.2 L Johnston % (Auto) 13.3 H Eos % (Auto) 3.5 Baso % (Auto) 1.2 Neut # 2.8 Lymph # 0.7 L Johnston # 0.6 Eos # 0.2 Baso # 0.1 Differential Comment PT INR APTT Sodium Potassium Chloride Carbon Dioxide Anion Gap BUN Creatinine Est GFR ( Amer) Est GFR (Non-Af Amer) Random Glucose Calcium Magnesium Iron TIBC % Saturation Ferritin Total Bilirubin AST ALT Alkaline Phosphatase Troponin I NT-Pro-B Natriuret Pep Total Protein Albumin Globulin Albumin/Globulin Ratio Vitamin B12 Folate TSH 3rd Generation Urine Color Straw Urine Clarity Clear Urine pH 5.0 Ur Specific [place] 1.013 Urine Protein 2+ H Urine Glucose (UA) 1+ Urine Ketones Negative Urine Blood 2+ H Urine Nitrate Negative Urine Bilirubin Negative Urine Urobilinogen Normal Ur Leukocyte Esterase Trace Urine WBC (Auto) 1 Urine RBC (Auto) 17 H Ur Squamous Epith Cells 1 Urine Bacteria Rare Hyaline Casts 0-2 Urine Opiates Screen Negative Urine Methadone Screen Negative Ur Barbiturates Screen Negative Ur Phencyclidine Scrn Negative Ur Amphetamines Screen Negative U Benzodiazepines Scrn Negative U Oth Cocaine Metabols Negative U Cannabinoids Screen Negative 02/12/17 02/12/17 02/12/17 03:40 07:09 14:02 WBC 4.2 L RBC 2.73 L Hgb 8.4 L Hct 25.2 L MCV 92.3 MCH 30.7 MCHC 33.3 RDW 19.8 H Plt Count 111 L MPV 9.8 Neut % (Auto) Lymph % (Auto) Johnston % (Auto) Eos % (Auto) Baso % (Auto) Neut # Lymph # Johnston # Eos # Baso # Differential Comment PT INR APTT Sodium 137 Potassium 6.0 H Chloride 111 H Carbon Dioxide 22 Anion Gap 10 BUN 65 H Creatinine 4.3 H Est GFR ( Amer) 13 Est GFR (Non-Af Amer) 11 Random Glucose 81 Calcium 8.3 L Magnesium Iron 14 L TIBC 246 L % Saturation 6 L Ferritin Total Bilirubin 0.5 AST 39 H ALT 32 Alkaline Phosphatase 114 Troponin I NT-Pro-B Natriuret Pep Total Protein 7.6 Albumin 3.2 L Globulin 4.3 H Albumin/Globulin Ratio 0.7 L Vitamin B12 Folate TSH 3rd Generation Urine Color Urine Clarity Urine pH Ur Specific [place] Urine Protein Urine Glucose (UA) Urine Ketones Urine Blood Urine Nitrate Urine Bilirubin Urine Urobilinogen Ur Leukocyte Esterase Urine WBC (Auto) Urine RBC (Auto) Ur Squamous Epith Cells Urine Bacteria Hyaline Casts Urine Opiates Screen Urine Methadone Screen Ur Barbiturates Screen Ur Phencyclidine Scrn Ur Amphetamines Screen U Benzodiazepines Scrn U Oth Cocaine Metabols U Cannabinoids Screen 02/12/17 14:02 WBC RBC Hgb Hct MCV MCH MCHC RDW Plt Count MPV Neut % (Auto) Lymph % (Auto) Johnston % (Auto) Eos % (Auto) Baso % (Auto) Neut # Lymph # Johnston # Eos # Baso # Differential Comment PT INR APTT Sodium Potassium Chloride Carbon Dioxide Anion Gap BUN Creatinine Est GFR ( Amer) Est GFR (Non-Af Amer) Random Glucose Calcium Magnesium Iron TIBC % Saturation Ferritin 179.0 Total Bilirubin AST ALT Alkaline Phosphatase Troponin I NT-Pro-B Natriuret Pep Total Protein Albumin Globulin Albumin/Globulin Ratio Vitamin B12 430 Folate 13.1 TSH 3rd Generation Urine Color Urine Clarity Urine pH Ur Specific [place] Urine Protein Urine Glucose (UA) Urine Ketones Urine Blood Urine Nitrate Urine Bilirubin Urine Urobilinogen Ur Leukocyte Esterase Urine WBC (Auto) Urine RBC (Auto) Ur Squamous Epith Cells Urine Bacteria Hyaline Casts Urine Opiates Screen Urine Methadone Screen Ur Barbiturates Screen Ur Phencyclidine Scrn Ur Amphetamines Screen U Benzodiazepines Scrn U Oth Cocaine Metabols U Cannabinoids Screen Attending/Attestation - Attestation I have personally seen and examined this patient.: Yes I have fully participated in the care of the patient.: Yes I have reviewed all pertinent clinical information: Yes Notes (Text): Patient seen and examined; I agree with the resident's note as above with the following additions/edits: 61 yo F w/ pmh of htn, dm, HIV on HAART, hep C (untreated), CHF w/ mild systolic dysfunction, and CKD IV, admitted with CHF exacerbation; Patient is well known to me since the past 3 months with multiple admissions as [facility] with CHF symptoms; renal biopsy was performed last month due to significantly worsening renal function over the past year; biopsy results were mainly consistent with diabetic nephropathy, however, there was also evidence of tubular mitochondrial toxicity that was felt to be consistent with HAART meds; patient left AMA before biopsy results were available and attempts at contacting her were unsuccessful; patient was eventually contacted for a f/u appointment but failed to show up; Patient today is fixated on the fact that multiple providers have been telling her about her poor prognosis; we eventually were able to explain to her today that her renal function has been deteriorating and that she should plan for HD in the near future; however, she is still in denial regarding her renal failure; Mild CHF exacerbation with moderately edematous legs and pulm venous congestion on CXR; will add evening dose of IV lasix 20 mg (in addition to 40 mg in am); need to avoid over-diuresis as eGFR already < 15; Modest hyperkalemia; agree with kayexalate; may need to be on standing dose at least 3 times per week; Hypertensive CKD with BP uncontrolled; agree with restarting home meds; Anemia of CKD as well as component of iron deficiency; starting IV iron loading ; holding off on EPO until BP better controlled, will see tomorrow; Regarding HIV HAART meds, question about changing meds due to renal biopsy findings; however, compliance with her home regimen is unclear as CD4 count only 254; will discuss with ID; 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
--- NOTE | 2017-02-12 14:11 | CP.PCM.HP ---
History of Present Illness - History of Present Illness History of Present Illness: 61 YEARS WOMAN WITH MULTIPLE MEDICAL ILLNESS ADMITTED FOR WORSENING RENAL FUNCTION AND INCREASE K PT WAS FEELING TIRED AND FATIGUED IN ER , BUN/CR 65/4.5 , K 5.3 PT ALSO C/O SWELLING OF LEGS RECENTLY D/C FROM [facility] AFTER KIDNEY BIOPSY HAS CHR. RENAL INSUFFICIENCY CARDIAC W/U HAS BEEN NEG SINCE 2015 HAS HIV NOT ON MEDS Present on Admission - Present on Admission Any Indicators Present on Admission: No Review of Systems - Constitutional Constitutional: Fatigue, Malaise, Weight Gain, Weakness. absent: Fever, Headache - EENT Eyes: absent: As Per HPI, Blind Spots, Blurred Vision, Change in Vision, Decreased Night Vision, Diplopia, Discharge, Dry Eye, Exophthalmos, Floaters, Irritation, Itchy Eyes, Loss of Peripheral Vision, Pain, Photophobia, Requires Corrective Lenses, Sees Flashes, Spots in Vision, Tunnel Vision, Other Visual Disturbances, Loss of Vision, Other Ears: absent: As Per HPI, Decreased Hearing, Ear Discharge, Ear Pain, Tinnitus, Abnormal Hearing, Disequilibrium, Dizziness, Other Nose/Mouth/Throat: absent: As Per HPI, Epistaxis, Nasal Congestion, Nasal Discharge, Nasal Obstruction, Nasal Trauma, Nose Pain, Post Nasal Drip, Sinus Pain, Sinus Pressure, Bleeding Gums, Change in Voice, Dental Pain, Dry Mouth, Dysphagia, Halitosis, Hoarsness, Lip Swelling, Mouth Lesions, Mouth Pain, Odynophagia, Sore Throat, Throat Swelling, Tongue Swelling, Facial Pain, Neck Pain, Neck Mass, Other - Breasts Breasts: absent: As Per HPI, Change in Shape, Mass, Pain, Nipple Discharge, Nipple Inversion, Skin Changes, Swelling, Other - Cardiovascular Cardiovascular: Dyspnea on Exertion, Leg Edema, Pedal Edema. absent: As Per HPI , Acrocyanosis, Chest Pain, Chest Pain at Rest, Chest Pain with Activity, Claudication, Diaphoresis, Dyspnea, Edema, Irregular Heart Rhythm, Pain Radiating to Arm/Neck/Jaw, Leg Ulcers, Lightheadedness, Orthopnea, Palpitations , Paroxysmal Nocturnal Dyspnea, Radiating Pain, Rapid Heart Rate, Slow Heart Rate, Syncope, Other - Respiratory Respiratory: Cough, Dyspnea on Exertion. absent: As Per HPI, Dyspnea, Hemoptysis, Wheezing, Snoring, Stridor, Pain on Inspiration, Chest Congestion, Excessive Mucous Production, Change in Mucous Color, Pain with Coughing, Other - Gastrointestinal Gastrointestinal: Abdominal Pain, Bloating. absent: As Per HPI, Belching, Change in Bowel Habits, Change in Stool Character, Coffee Ground Emesis, Constipation, Cramping, Diarrhea, Dyspepsia, Dysphagia, Early Satiety, Excessive Flatus, Fecal Incontinence, Heartburn, Hematemesis, Hematochezia, Loose Stools, Melena, Nausea, Odynophagia, Temesmus, Vomiting, Other - Genitourinary Genitourinary: absent: As Per HPI, Change in Urinary Stream, Difficulty Urinating, Dysuria, Flank Pain, Hematuria, Pyuria, Nocturia, Urinary Incontinence, Urinary Frequency, Urinary Hesitance, Urinary Urgency, Voiding Freq/Small Amts, Freq UTI, Hx Renal/Bladder Calculi, Hx /Renal Surgery, Bladder Distension, Other - Musculoskeletal Musculoskeletal: Muscle Cramps. absent: As Per HPI, Abnormal Gait, Arthralgias , Atrophy, Back Pain, Deformity, Joint Swelling, Limited Range of Motion, Loss of Height, Muscle Weakness, Myalgias, Neck Pain, Numbness, Radiating Pain into Limb, Stiffness, Tingling, Other - Neurological Neurological: absent: As Per HPI, Abnormal Gait, Abnormal Hearing, Abnormal Movements, Abnormal Speech, Behavioral Changes, Burning Sensations, Confusion, Convulsions, Disequilibrium, Dizziness, Numbness, Focal Weakness, Frequent Falls , Headaches, Lack of Coordination, Loss of Vision, Memory Loss, Paresthesias, Radicular Pain, Restless Legs, Sensory Deficit, Syncope, Tingling, Tremor, Vertigo, Weakness, Other Visual Disturbances, Other - Endocrine Endocrine: absent: As Per HPI, Change in Body Appearance, Change in Libido, Cold Intolorance, Deepening of Voice, Excessive Sweating, Fatigue, Flushing, Heat Intolorance, Increase in Ring/Shoe/Hat Size, Palpitations, Polydipsia, Polyphagia, Polyuria, Other Past Patient History - Infectious Disease Hx of Infectious Diseases: None - Tetanus Immunizations Tetanus Immunization: Unknown - Past Medical History & Family History Past Medical History?: Yes - Past Social History Smoking Status: Heavy Smoker > 10 Cigarettes Daily Alcohol: Other (heavy) Drugs: Other (unable to obtain) Home Situation {Lives}: Friends, Homeless - CARDIAC Hx Congestive Heart Failure: Yes Hx Hypercholesterolemia: Yes Hx Hypertension: Yes Hx Peripheral Edema: Yes - PULMONARY Hx Chronic Obstructive Pulmonary Disease (COPD): Yes - NEUROLOGICAL Hx Neurological Disorder: No HX Cerebrovascular Accident: No - HEENT Hx HEENT Problems: No - RENAL Hx Chronic Kidney Disease: Yes - ENDOCRINE/METABOLIC Hx Hypothyroidism: Yes - HEMATOLOGICAL/ONCOLOGICAL Hx Anemia: Yes Hx Human Immunodeficiency Virus (HIV): Yes - INTEGUMENTARY Hx Dermatological Problems: No - MUSCULOSKELETAL/RHEUMATOLOGICAL Hx Arthritis: Yes - GASTROINTESTINAL Hx Pancreatitis: Yes - GENITOURINARY/GYNECOLOGICAL Hx Genitourinary Disorders: No - PSYCHIATRIC Hx Anxiety: Yes Hx Depression: Yes Hx Substance Use: No (stopped) - SURGICAL HISTORY Hx Surgeries: Yes Other/Comment: IVC filter - ANESTHESIA Hx Anesthesia: Yes Hx Anesthesia Reactions: No Hx Malignant Hyperthermia: No Meds Allergies/Adverse Reactions: Allergies Allergy/AdvReac Type Severity Reaction Status Date / Time No Known Allergies Allergy Verified 01/26/17 22:22 Physical Exam - Head Exam Head Exam: ATRAUMATIC - Eye Exam Eye Exam: EOMI, Normal appearance, PERRL - ENT Exam ENT Exam: Mucous Membranes Moist, Normal Exam - Neck Exam Neck exam: Positive for: Normal Inspection - Respiratory Exam Respiratory Exam: Clear to Auscultation Bilateral, NORMAL BREATHING PATTERN - Cardiovascular Exam Cardiovascular Exam: REGULAR RHYTHM - GI/Abdominal Exam GI & Abdominal Exam: Normal Bowel Sounds, Soft. absent: Tenderness - Extremities Exam Extremities exam: Positive for: full ROM, joint swelling, normal capillary refill. Negative for: calf tenderness - Back Exam Back exam: NORMAL INSPECTION. absent: CVA tenderness (L), CVA tenderness (R), paraspinal tenderness - Neurological Exam Neurological exam: Alert, CN II-XII Intact, Normal Gait, Oriented x3, Reflexes Normal - Psychiatric Exam Psychiatric exam: Normal Affect, Normal Mood Results - Vital Signs Recent Vital Signs: Last Vital Signs Temp 98.1 F 02/12/17 07:54 Pulse 79 02/12/17 08:05 Resp 20 02/12/17 07:54 BP 168/81 H 02/12/17 11:30 Pulse Ox 96 02/12/17 07:54 - Labs Result Diagrams: 02/12/17 07:09 02/12/17 03:40 Labs: Laboratory Results - last 24 hr 02/12/17 02/12/17 02/12/17 00:37 00:37 00:37 WBC 4.3 L RBC 2.75 L Hgb 8.5 L Hct 25.4 L MCV 92.4 MCH 30.9 MCHC 33.5 RDW 20.0 H Plt Count 119 L D MPV 9.5 Neut % (Auto) 68.1 Lymph % (Auto) 14.8 L [place] % (Auto) 13.2 H Eos % (Auto) 2.9 Baso % (Auto) 1.0 Neut # 2.9 Lymph # 0.6 L [place] # 0.6 Eos # 0.1 Baso # 0.0 Differential Comment PT 11.4 INR 1.0 APTT 21 Sodium 139 Potassium 5.3 H Chloride 110 H Carbon Dioxide 21 L Anion Gap 13 BUN 65 H Creatinine 4.5 H Est GFR ( Amer) 12 Est GFR (Non-Af Amer) 10 Random Glucose 104 Calcium 8.6 Magnesium 1.6 Total Bilirubin 0.3 AST 34 ALT 29 Alkaline Phosphatase 124 Troponin I 0.0630 NT-Pro-B Natriuret Pep 6230 H Total Protein 7.6 Albumin 3.4 L Globulin 4.2 H Albumin/Globulin Ratio 0.8 L TSH 3rd Generation 4.75 H Urine Color Urine Clarity Urine pH Ur Specific [place] Urine Protein Urine Glucose (UA) Urine Ketones Urine Blood Urine Nitrate Urine Bilirubin Urine Urobilinogen Ur Leukocyte Esterase Urine WBC (Auto) Urine RBC (Auto) Ur Squamous Epith Cells Urine Bacteria Hyaline Casts Urine Opiates Screen Urine Methadone Screen Ur Barbiturates Screen Ur Phencyclidine Scrn Ur Amphetamines Screen U Benzodiazepines Scrn U Oth Cocaine Metabols U Cannabinoids Screen 02/12/17 02/12/17 02/12/17 00:37 00:37 03:40 WBC 4.3 L RBC 2.69 L Hgb 8.2 L Hct 24.9 L MCV 92.5 MCH 30.6 MCHC 33.1 RDW 19.8 H Plt Count 112 L MPV 9.5 Neut % (Auto) 65.8 Lymph % (Auto) 16.2 L [place] % (Auto) 13.3 H Eos % (Auto) 3.5 Baso % (Auto) 1.2 Neut # 2.8 Lymph # 0.7 L [place] # 0.6 Eos # 0.2 Baso # 0.1 Differential Comment PT INR APTT Sodium Potassium Chloride Carbon Dioxide Anion Gap BUN Creatinine Est GFR ( Amer) Est GFR (Non-Af Amer) Random Glucose Calcium Magnesium Total Bilirubin AST ALT Alkaline Phosphatase Troponin I NT-Pro-B Natriuret Pep Total Protein Albumin Globulin Albumin/Globulin Ratio TSH 3rd Generation Urine Color Straw Urine Clarity Clear Urine pH 5.0 Ur Specific [place] 1.013 Urine Protein 2+ H Urine Glucose (UA) 1+ Urine Ketones Negative Urine Blood 2+ H Urine Nitrate Negative Urine Bilirubin Negative Urine Urobilinogen Normal Ur Leukocyte Esterase Trace Urine WBC (Auto) 1 Urine RBC (Auto) 17 H Ur Squamous Epith Cells 1 Urine Bacteria Rare Hyaline Casts 0-2 Urine Opiates Screen Negative Urine Methadone Screen Negative Ur Barbiturates Screen Negative Ur Phencyclidine Scrn Negative Ur Amphetamines Screen Negative U Benzodiazepines Scrn Negative U Oth Cocaine Metabols Negative U Cannabinoids Screen Negative 02/12/17 02/12/17 03:40 07:09 WBC 4.2 L RBC 2.73 L Hgb 8.4 L Hct 25.2 L MCV 92.3 MCH 30.7 MCHC 33.3 RDW 19.8 H Plt Count 111 L MPV 9.8 Neut % (Auto) Lymph % (Auto) [place] % (Auto) Eos % (Auto) Baso % (Auto) Neut # Lymph # [place] # Eos # Baso # Differential Comment PT INR APTT Sodium 137 Potassium 6.0 H Chloride 111 H Carbon Dioxide 22 Anion Gap 10 BUN 65 H Creatinine 4.3 H Est GFR ( Amer) 13 Est GFR (Non-Af Amer) 11 Random Glucose 81 Calcium 8.3 L Magnesium Total Bilirubin 0.5 AST 39 H ALT 32 Alkaline Phosphatase 114 Troponin I NT-Pro-B Natriuret Pep Total Protein 7.6 Albumin 3.2 L Globulin 4.3 H Albumin/Globulin Ratio 0.7 L TSH 3rd Generation Urine Color Urine Clarity Urine pH Ur Specific [place] Urine Protein Urine Glucose (UA) Urine Ketones Urine Blood Urine Nitrate Urine Bilirubin Urine Urobilinogen Ur Leukocyte Esterase Urine WBC (Auto) Urine RBC (Auto) Ur Squamous Epith Cells Urine Bacteria Hyaline Casts Urine Opiates Screen Urine Methadone Screen Ur Barbiturates Screen Ur Phencyclidine Scrn Ur Amphetamines Screen U Benzodiazepines Scrn U Oth Cocaine Metabols U Cannabinoids Screen Assessment & Plan (1) Acute on chronic renal failure Status: Acute (2) Hyperkalemia Status: Acute Comment: PO KAYEXLATE (3) AIDS (acquired immune deficiency syndrome) Status: Chronic Priority: High Comment: ID EVAL (4) Leg swelling Status: Chronic Comment: CHR VENOUS STATIS (5) CKD (chronic kidney disease), stage IV Status: Chronic (6) Pulmonary HTN Status: Chronic
[2017-02-12 14:37] LABS: IRON 14 ug/dL (37-170)
[2017-02-12 14:49] LABS: TOTAL IRON BINDING CAPACITY 246 ug/dL (250-450)
[2017-02-12 14:50] LABS: % IRON SATURATION 6 (20-55)
[2017-02-12 15:45] LABS: FOLATE 13.1 ng/mL
--- NOTE | 2017-02-12 16:48 | CP.PCM.CON ---
History of Present Illness - History of Present Illness History of Present Illness: INFECTIOUS DISEASE CONSULT.; 02/12/17 HPI; 61-year-old Afro-Mosotho female with known history of HIV, hep C, DVT s/p IVC filter on elaquis, A. fib, HTN, CK D4 s/p biopsy proven diabetic nephropathy superimposed with hypertension and mitochondrial toxicity, with multiple admissions to [facility], now presenting to with worsening edema of lower extremities and SOB. Patient's last admission from 12/26/16 showing HIV 1 RNA quantitative levels not detectable( <1.30 units log/copies. And last CD4 count 254. ) Is presently on ATRIPLA 1 tablet by mouth daily (information collected from [facility] -[phone] BY pharmacist Lucero ). Patient currently sitting comfortably in the hospital bed. Patient denies any cough or expectoration. Denies any fever or chills. Patient denies to tell her pharmacy or her PMD/or Infectious disease specialist. Patient also does not remember which pharmacy she gets to her medications. ROS ; limited, however patient did admit to feeling short of breath, denies cp. admits to lower extremities edema. Denies nausea, vomiting, or fever. PMHx: Alcohol and tobacco abuse, hep c, HIV (Latest CD4 count of 254- 12/26/16), DVT S/P IVC filter (on eliquis), HTN, CKD4 s/p biopsy proven diabetic nephropathy superimposed with htn, and mitochondia toxicity, medical non compliance, afib, anemia. PSHx: IVC filter Social: homeless? Lives with girl friend. smokes tobacco, and drinks alcohol. walks with a cane. FMHx: unable to obtain Allergy: NKDA Home meds: PER EMR. Past Patient History - Infectious Disease Hx of Infectious Diseases: None - Tetanus Immunizations Tetanus Immunization: Unknown - Past Medical History & Family History Past Medical History?: Yes - Past Social History Smoking Status: Heavy Smoker > 10 Cigarettes Daily Alcohol: Other (heavy) Drugs: Other (unable to obtain) Home Situation {Lives}: Friends, Homeless - CARDIAC Hx Congestive Heart Failure: Yes Hx Hypercholesterolemia: Yes Hx Hypertension: Yes Hx Peripheral Edema: Yes - PULMONARY Hx Chronic Obstructive Pulmonary Disease (COPD): Yes - NEUROLOGICAL Hx Neurological Disorder: No HX Cerebrovascular Accident: No - HEENT Hx HEENT Problems: No - RENAL Hx Chronic Kidney Disease: Yes - ENDOCRINE/METABOLIC Hx Hypothyroidism: Yes - HEMATOLOGICAL/ONCOLOGICAL Hx Anemia: Yes Hx Human Immunodeficiency Virus (HIV): Yes - INTEGUMENTARY Hx Dermatological Problems: No - MUSCULOSKELETAL/RHEUMATOLOGICAL Hx Arthritis: Yes - GASTROINTESTINAL Hx Pancreatitis: Yes - GENITOURINARY/GYNECOLOGICAL Hx Genitourinary Disorders: No - PSYCHIATRIC Hx Anxiety: Yes Hx Depression: Yes Hx Substance Use: No (stopped) - SURGICAL HISTORY Hx Surgeries: Yes Other/Comment: IVC filter - ANESTHESIA Hx Anesthesia: Yes Hx Anesthesia Reactions: No Hx Malignant Hyperthermia: No Meds Allergies/Adverse Reactions: Allergies Allergy/AdvReac Type Severity Reaction Status Date / Time No Known Allergies Allergy Verified 01/26/17 22:22 - Medications Medications: Current Medications Acetaminophen (Tylenol 325mg Tab) 650 mg PO Q4 PRN PRN Reason: Pain, moderate (4-7) Last Admin: 02/12/17 13:36 Dose: 650 mg Apixaban (Eliquis) 5 mg PO BID [facility] Last Admin: 02/12/17 11:57 Dose: 5 mg Calcitriol (Rocaltrol) 0.25 mcg PO DAILY [facility] Last Admin: 02/12/17 10:44 Dose: 0.25 mcg Diltiazem HCl (Cardizem Cd) 120 mg PO DAILY [facility] Furosemide (Lasix) 40 mg IVP DAILY [facility] Last Admin: 02/12/17 11:30 Dose: 40 mg Furosemide (Lasix) 20 mg IVP QPM [facility] Hydralazine HCl (Apresoline) 50 mg PO TID [facility] Hydroxyzine HCl (Atarax) 25 mg PO BID [facility] Last Admin: 02/12/17 11:57 Dose: 25 mg Isosorbide Mononitrate (Imdur Er) 30 mg PO DAILY [facility] Last Admin: 02/12/17 11:27 Dose: 30 mg Metoprolol Tartrate (Lopressor) 25 mg PO BID [facility] Pneumococcal Polyvalent Vaccine (Pneumovax 23 Vaccine) 0.5 ml IM .ONCE ONE Stop: 02/15/17 10:01 Rosuvastatin Calcium (Crestor) 20 mg PO [facility] Physical Exam - Constitutional Appears: No Acute Distress, Unkempt Additional comments: MORBIDLY OBESE - Head Exam Head Exam: NORMAL INSPECTION - Eye Exam Eye Exam: EOMI, PERRL - ENT Exam ENT Exam: Mucous Membranes Moist, Normal Oropharynx (POOR ORAL HYGIENE.) - Neck Exam Neck exam: Positive for: Normal Inspection - Respiratory Exam Respiratory Exam: Rales (B/L.), NORMAL BREATHING PATTERN - Cardiovascular Exam Cardiovascular Exam: Irregular Rhythm, +S1, +S2 - GI/Abdominal Exam GI & Abdominal Exam: Normal Bowel Sounds, Soft. absent: Organomegaly - Extremities Exam Extremities exam: Positive for: pedal edema (2+), pedal pulses present. Negative for: calf tenderness - Neurological Exam Neurological exam: Alert, CN II-XII Intact, Oriented x3, Reflexes Normal - Psychiatric Exam Psychiatric exam: Normal Mood - Skin Skin Exam: Normal Color, Warm Results - Vital Signs Recent Vital Signs: Last Vital Signs Temp 98.0 F 02/12/17 15:12 Pulse 66 02/12/17 15:12 Resp 20 02/12/17 15:12 BP 154/93 H 02/12/17 15:12 Pulse Ox 98 02/12/17 15:12 - Labs Result Diagrams: 02/12/17 07:09 02/12/17 03:40 Labs: Laboratory Results - last 24 hr 02/12/17 02/12/17 02/12/17 00:37 00:37 00:37 WBC 4.3 L RBC 2.75 L Hgb 8.5 L Hct 25.4 L MCV 92.4 MCH 30.9 MCHC 33.5 RDW 20.0 H Plt Count 119 L D MPV 9.5 Neut % (Auto) 68.1 Lymph % (Auto) 14.8 L [place] % (Auto) 13.2 H Eos % (Auto) 2.9 Baso % (Auto) 1.0 Neut # 2.9 Lymph # 0.6 L [place] # 0.6 Eos # 0.1 Baso # 0.0 Differential Comment PT 11.4 INR 1.0 APTT 21 Sodium 139 Potassium 5.3 H Chloride 110 H Carbon Dioxide 21 L Anion Gap 13 BUN 65 H Creatinine 4.5 H Est GFR ( Amer) 12 Est GFR (Non-Af Amer) 10 Random Glucose 104 Calcium 8.6 Magnesium 1.6 Iron TIBC % Saturation Ferritin Total Bilirubin 0.3 AST 34 ALT 29 Alkaline Phosphatase 124 Troponin I 0.0630 NT-Pro-B Natriuret Pep 6230 H Total Protein 7.6 Albumin 3.4 L Globulin 4.2 H Albumin/Globulin Ratio 0.8 L Vitamin B12 Folate TSH 3rd Generation 4.75 H Urine Color Urine Clarity Urine pH Ur Specific [place] Urine Protein Urine Glucose (UA) Urine Ketones Urine Blood Urine Nitrate Urine Bilirubin Urine Urobilinogen Ur Leukocyte Esterase Urine WBC (Auto) Urine RBC (Auto) Ur Squamous Epith Cells Urine Bacteria Hyaline Casts Urine Opiates Screen Urine Methadone Screen Ur Barbiturates Screen Ur Phencyclidine Scrn Ur Amphetamines Screen U Benzodiazepines Scrn U Oth Cocaine Metabols U Cannabinoids Screen 02/12/17 02/12/17 02/12/17 00:37 00:37 03:40 WBC 4.3 L RBC 2.69 L Hgb 8.2 L Hct 24.9 L MCV 92.5 MCH 30.6 MCHC 33.1 RDW 19.8 H Plt Count 112 L MPV 9.5 Neut % (Auto) 65.8 Lymph % (Auto) 16.2 L [place] % (Auto) 13.3 H Eos % (Auto) 3.5 Baso % (Auto) 1.2 Neut # 2.8 Lymph # 0.7 L [place] # 0.6 Eos # 0.2 Baso # 0.1 Differential Comment PT INR APTT Sodium Potassium Chloride Carbon Dioxide Anion Gap BUN Creatinine Est GFR ( Amer) Est GFR (Non-Af Amer) Random Glucose Calcium Magnesium Iron TIBC % Saturation Ferritin Total Bilirubin AST ALT Alkaline Phosphatase Troponin I NT-Pro-B Natriuret Pep Total Protein Albumin Globulin Albumin/Globulin Ratio Vitamin B12 Folate TSH 3rd Generation Urine Color Straw Urine Clarity Clear Urine pH 5.0 Ur Specific [place] 1.013 Urine Protein 2+ H Urine Glucose (UA) 1+ Urine Ketones Negative Urine Blood 2+ H Urine Nitrate Negative Urine Bilirubin Negative Urine Urobilinogen Normal Ur Leukocyte Esterase Trace Urine WBC (Auto) 1 Urine RBC (Auto) 17 H Ur Squamous Epith Cells 1 Urine Bacteria Rare Hyaline Casts 0-2 Urine Opiates Screen Negative Urine Methadone Screen Negative Ur Barbiturates Screen Negative Ur Phencyclidine Scrn Negative Ur Amphetamines Screen Negative U Benzodiazepines Scrn Negative U Oth Cocaine Metabols Negative U Cannabinoids Screen Negative 02/12/17 02/12/17 02/12/17 03:40 07:09 14:02 WBC 4.2 L RBC 2.73 L Hgb 8.4 L Hct 25.2 L MCV 92.3 MCH 30.7 MCHC 33.3 RDW 19.8 H Plt Count 111 L MPV 9.8 Neut % (Auto) Lymph % (Auto) [place] % (Auto) Eos % (Auto) Baso % (Auto) Neut # Lymph # [place] # Eos # Baso # Differential Comment PT INR APTT Sodium 137 Potassium 6.0 H Chloride 111 H Carbon Dioxide 22 Anion Gap 10 BUN 65 H Creatinine 4.3 H Est GFR ( Amer) 13 Est GFR (Non-Af Amer) 11 Random Glucose 81 Calcium 8.3 L Magnesium Iron 14 L TIBC 246 L % Saturation 6 L Ferritin Total Bilirubin 0.5 AST 39 H ALT 32 Alkaline Phosphatase 114 Troponin I NT-Pro-B Natriuret Pep Total Protein 7.6 Albumin 3.2 L Globulin 4.3 H Albumin/Globulin Ratio 0.7 L Vitamin B12 Folate TSH 3rd Generation Urine Color Urine Clarity Urine pH Ur Specific [place] Urine Protein Urine Glucose (UA) Urine Ketones Urine Blood Urine Nitrate Urine Bilirubin Urine Urobilinogen Ur Leukocyte Esterase Urine WBC (Auto) Urine RBC (Auto) Ur Squamous Epith Cells Urine Bacteria Hyaline Casts Urine Opiates Screen Urine Methadone Screen Ur Barbiturates Screen Ur Phencyclidine Scrn Ur Amphetamines Screen U Benzodiazepines Scrn U Oth Cocaine Metabols U Cannabinoids Screen 02/12/17 14:02 WBC RBC Hgb Hct MCV MCH MCHC RDW Plt Count MPV Neut % (Auto) Lymph % (Auto) [place] % (Auto) Eos % (Auto) Baso % (Auto) Neut # Lymph # [place] # Eos # Baso # Differential Comment PT INR APTT Sodium Potassium Chloride Carbon Dioxide Anion Gap BUN Creatinine Est GFR ( Amer) Est GFR (Non-Af Amer) Random Glucose Calcium Magnesium Iron TIBC % Saturation Ferritin 179.0 Total Bilirubin AST ALT Alkaline Phosphatase Troponin I NT-Pro-B Natriuret Pep Total Protein Albumin Globulin Albumin/Globulin Ratio Vitamin B12 430 Folate 13.1 TSH 3rd Generation Urine Color Urine Clarity Urine pH Ur Specific [place] Urine Protein Urine Glucose (UA) Urine Ketones Urine Blood Urine Nitrate Urine Bilirubin Urine Urobilinogen Ur Leukocyte Esterase Urine WBC (Auto) Urine RBC (Auto) Ur Squamous Epith Cells Urine Bacteria Hyaline Casts Urine Opiates Screen Urine Methadone Screen Ur Barbiturates Screen Ur Phencyclidine Scrn Ur Amphetamines Screen U Benzodiazepines Scrn U Oth Cocaine Metabols U Cannabinoids Screen - Imaging and Cardiology Chest x-ray Status: Report reviewed by me (chest x-ray 02/12/17 persistent severe cardiomegaly and mild peripheral last the congestion. Chronic elevation of left hemidiaphragm.) Assessment & Plan (1) HIV (human immunodeficiency virus infection) Assessment and Plan: PATIENT IS ON ATRIPLE AT HOME PER PHARMACIST. WE WILL HAVE TO ADJUST THE HAART THERAPY DISCUSSED WITH [employer] DEVELOPER DR. PATIÑO BECAUSE BIOPSY OF THE KIDNEY SHOWED MITOCHONDRIAL TOXICITY WHICH COULD BE RELATED TO TENOFOVIR. ALSO PATIENT CANNOT BE GIVEN A SINGLE DOSE WHICH INCLUDES 3 DRUGS TOGETHER BECAUSE OF HER RENAL INSUFFICIENCY. *START PATIENT ON EMTRIVA 200 MG EVERY 96 HOURLY ( as creatinine clearance less than 15 mL per minute ) *START SUSTIVA 600 MG BY MOUTH ONCE A DAY DAILY. *START RALTEGRAVIR (ISENTRESS ) 400 MG BY MOUTH TWICE A DAY. Status: Acute (2) Congestive heart failure (CHF) Assessment and Plan: PER NEPHROLOGY. PER PMD. Status: Acute (3) Leg swelling Status: Chronic (4) DVT (deep venous thrombosis) Assessment and Plan: PATIENT HAS AN ivc FILTER ALSO PATIENT ON ELAQUIS Status: Acute (5) Renal failure (ARF), acute on chronic Status: Chronic (6) Hepatitis C Assessment and Plan: PATIENT IS VERY NONCOMPLIANT HAS HISTORY OF ETHANOL ABUSE /AND PREVIOUS SUBSTANCE ABUSE PER CHARTS REVIEWED. NOT A GREAT CANDIDATE FOR HEP C TREATMENT UNLESS DETOXICATED. Status: Acute (7) Diabetes mellitus Status: Acute (8) Alcohol abuse Status: Acute (9) Homelessness Status: Acute
[2017-02-12] MEDS ORDERED: Ferric Sodium Gluconat Complex 62.5 mg/5 ml Vial IVPB SCH (18:30)
[2017-02-12] MEDS: EMTRICITABINE 200 MG CAP PO SCH (22:15)
[2017-02-13] MEDS: Ferric Sodium Gluconat Complex 125 MG in Sodium Chloride 0.9% 100 ML IVPB SCH (10:45)
[2017-02-13] MEDS: diltiaZEM 120 mg/24 Hours CD Cap PO SCH (10:47)
[2017-02-13 11:52] LABS: EOS # 0.1 K/uL (0.0-0.7); EOS % 2.9 % (0.0-4.0); HEMOGLOBIN 8.7 g/dL (11.0-16.0); LYMPH # 0.6 K/uL (1.0-4.3); LYMPH % 13.7 % (20.0-40.0); MEAN CELL VOLUME 91.5 fL (81.0-99.0); MEAN CORPUSCULAR HEMOGLOBIN 30.7 pg (27.0-31.0); MEAN CORPUSCULAR HGB CONC 33.6 g/dL (33.0-37.0); MEAN PLATELET VOLUME 9.7 fL (7.2-11.7); MONO # 0.4 K/uL (0.0-0.8); NEUT # 3.3 K/uL (1.8-7.0); NEUT % 73.4 % (50.0-75.0); RBC 2.82 Mil/uL (3.80-5.20); RED CELL DISTRIBUTION WIDTH 19.9 % (11.5-14.5); WHITE BLOOD COUNT 4.4 K/uL (4.8-10.8)
--- NOTE | 2017-02-13 11:56 | CP.PCM.PN ---
Subjective - Date & Time of Evaluation Date of Evaluation: 02/13/17 Time of Evaluation: 11:30 - Subjective Subjective: 61 yo F w/ pmh of htn, dm, CHF, hep C, HIV on HAART, and CKD IV, admitted with CHF exacerbation; Patient reports breathing and leg swelling improved; tolerating diet; Objective - Vital Signs/Intake and Output Vital Signs (last 24 hours): Temp Pulse Resp BP Pulse Ox 98 F 67 20 183/80 H 95 02/12/17 23:45 02/12/17 23:45 02/12/17 23:45 02/13/17 10:48 02/12/17 23:45 Intake and Output: 02/13/17 02/13/17 06:59 18:59 Intake Total 720 Balance 720 - Medications Medications: Current Medications Acetaminophen (Tylenol 325mg Tab) 650 mg PO Q4 PRN PRN Reason: Pain, moderate (4-7) Last Admin: 02/12/17 13:36 Dose: 650 mg Apixaban (Eliquis) 5 mg PO BID [facility] Last Admin: 02/13/17 10:47 Dose: 5 mg Calcitriol (Rocaltrol) 0.25 mcg PO DAILY [facility] Last Admin: 02/13/17 10:45 Dose: 0.25 mcg Diltiazem HCl (Cardizem Cd) 120 mg PO DAILY [facility] Last Admin: 02/13/17 10:47 Dose: 120 mg Efavirenz (Sustiva) 600 mg PO DAILY [facility] Emtricitabine (Emtriva) 200 mg PO Q96H [facility] Last Admin: 02/12/17 22:15 Dose: 200 mg Furosemide (Lasix) 40 mg IVP DAILY [facility] Last Admin: 02/13/17 10:48 Dose: 40 mg Furosemide (Lasix) 20 mg IVP QPM [facility] Last Admin: 02/12/17 17:53 Dose: 20 mg Hydralazine HCl (Apresoline) 100 mg PO Q8H [facility] Hydroxyzine HCl (Atarax) 25 mg PO BID [facility] Last Admin: 02/12/17 17:53 Dose: 25 mg Ferric Sodium Gluconate Complex 125 mg/ Sodium Chloride 110 mls @ 105 mls/hr IVPB DAILY [facility] Stop: 02/21/17 10:01 Last Admin: 02/13/17 10:45 Dose: 105 mls/hr Isosorbide Mononitrate (Imdur Er) 30 mg PO DAILY [facility] Last Admin: 02/13/17 10:47 Dose: 30 mg Metoprolol Tartrate (Lopressor) 25 mg PO BID [facility] Last Admin: 02/13/17 10:48 Dose: 25 mg Pneumococcal Polyvalent Vaccine (Pneumovax 23 Vaccine) 0.5 ml IM .ONCE ONE Stop: 02/15/17 10:01 Raltegravir (Isentress) 400 mg PO BID [facility] Last Admin: 02/13/17 10:47 Dose: 400 mg Rosuvastatin Calcium (Crestor) 20 mg PO HS [facility] Last Admin: 02/12/17 22:54 Dose: 20 mg - Labs Labs: 02/12/17 07:09 02/12/17 03:40 PT 11.4 SECONDS (9.7-12.2) 02/12/17 00:37 INR 1.0 02/12/17 00:37 APTT 21 SECONDS (21-34) 02/12/17 00:37 - Constitutional Appears: Non-toxic, No Acute Distress - Head Exam Head Exam: NORMAL INSPECTION - Eye Exam Eye Exam: absent: Scleral icterus - ENT Exam ENT Exam: Mucous Membranes Moist - Respiratory Exam Respiratory Exam: Clear to Ausculation Bilateral. absent: Rales, Rhonchi, Wheezes, Respiratory Distress - Cardiovascular Exam Cardiovascular Exam: RRR, +S1, +S2 - GI/Abdominal Exam GI & Abdominal Exam: Soft. absent: Distended, Tenderness - Extremities Exam Additional comments: mild/moderate lower leg edema; - Neurological Exam Neurological Exam: Alert, Awake - Psychiatric Exam Psychiatric exam: absent: Agitated - Skin Skin Exam: Warm. absent: Cyanosis Assessment and Plan (1) Acute on chronic renal failure Assessment & Plan: CKD stage IV/V, more progressive over past year with biopsy proven diabetic nephropathy and HAART toxicity; mild increase in serum creatinine seen since yesterday with diuresis in the setting of CHF exacerbation; need to balance need for diuresis with worsening renal function (ie. patient will need to tolerate some degree of edema); Patient much more approachable today; I was able to explain her impending need for initiating HD in the next 6-12 months (if not sooner); counseled on need for placement of AVF/AVG as soon as possible to avoid complications of HD catheter; she says she will think about it; ID input much appreciated; tenofovir containing HAART regimen replaced to avoid further nephrotoxicity; -If patient is agreeable, then we should try to have AVF/AVG placed during this admission; Status: Acute (2) Congestive heart failure (CHF) Assessment & Plan: Symptomatically improved with less leg edema on exam as well; will change IV lasix to PO to avoid further worsening renal function; Status: Acute (3) Hyperkalemia Assessment & Plan: Resolved with kayexalate and diuretics; needs to be on low K diet; Status: Acute (4) Anemia in CKD (chronic kidney disease) Assessment & Plan: With superimposed iron deficiency; started on IV iron; will give EPO if BP can be better controlled; Status: Acute (5) Hypertensive CKD (chronic kidney disease) Assessment & Plan: BP still uncontrolled; increasing hydralazine to 100 mg q8h; can change metoprolol to coreg 6.25 mg bid also; Status: Acute (6) Chronic kidney disease-mineral and bone disorder Assessment & Plan: With secondary hyperparathyroidism; continue calcitriol 0.25 mcg daily; will f/ u PTH level; Status: Chronic
[2017-02-13 12:14] LABS: URINE CREATININE 44.1 mg/dL
[2017-02-13 12:24] LABS: ALBUMIN 3.4 g/dL (3.5-5.0); CALCIUM 8.2 mg/dl (8.6-10.4)
--- NOTE | 2017-02-13 13:55 | CP.PCM.PN ---
Subjective - Date & Time of Evaluation Date of Evaluation: 02/13/17 Time of Evaluation: 13:54 - Subjective Subjective: CHIEF COMPLAINTS TODAY : afebrile, c/o bilateral lower extremity swelling and edema c/o dyspnea on exertion ROS. HEENT : N. Resp : No cough, wheezing ,pleuritic CP ,or hemoptysis Cardio : No anginal CP, PND, orthopnea, palpitation GI : No abd.pain, n/v ,diarrhea or GI bleeding . 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 Musculoskel : No joint swelling , Derm : No rash Psych : FLAT affect. Ext : POS swelling ,calf pain PE. Pt. is alert awake in no distress. V.S As noted in the chart Head ,ear nose,throat and eyes : Normal. Neck : Supple with normal carotids. Lungs: DIMINISHED BREATH SOUNDS AT THE BASES. Heart : S1 & S2 normal with S4. No murmur. Abd : Soft non tender with normal bowel sounds. Neuro : Moves all ext. with no localized deficit. Ext BILATERAL LE 2+ EDEMA, with intact pulses. Derm : No rashes or decubitus ulcer. LABS/RADIOLOGY: wbc 4.4 h&h 8.7/25.8 PLT 122K lftS NORMAL. tsh 4.75 SLIGHTLY HIGH. ASSESSMENT HIV+VE. CHF EXASCERBATION HTN CKD -STAGE 4 B/L EDEMA LE/ DVT + IVC FILTER. HEP C +VE DM. ANAEMIA ETOH ABUSE /PLAN : CONTINUE HAART RX OUTLINED.02/12/17 *START PATIENT ON EMTRIVA 200 MG EVERY 96 HOURLY ( as creatinine clearance less than 15 mL per minute ) *START SUSTIVA 600 MG BY MOUTH ONCE A DAY DAILY. *START RALTEGRAVIR (ISENTRESS ) 400 MG BY MOUTH TWICE A DAY. PT FOR AVF EVAL BY VASCULAR SURGERY F/U RENAL PARAMETER PT HAS ALMOST STAGE 4 CKD , Objective - Vital Signs/Intake and Output Vital Signs (last 24 hours): Temp Pulse Resp BP Pulse Ox 98 F 67 20 183/80 H 95 02/12/17 23:45 02/12/17 23:45 02/12/17 23:45 02/13/17 10:48 02/12/17 23:45 Intake and Output: 02/13/17 02/13/17 06:59 18:59 Intake Total 720 Balance 720 - Medications Medications: Current Medications Acetaminophen (Tylenol 325mg Tab) 650 mg PO Q4 PRN PRN Reason: Pain, moderate (4-7) Last Admin: 02/12/17 13:36 Dose: 650 mg Apixaban (Eliquis) 5 mg PO BID [facility] Last Admin: 02/13/17 10:47 Dose: 5 mg Calcitriol (Rocaltrol) 0.25 mcg PO DAILY [facility] Last Admin: 02/13/17 10:45 Dose: 0.25 mcg Diltiazem HCl (Cardizem Cd) 120 mg PO DAILY [facility] Last Admin: 02/13/17 10:47 Dose: 120 mg Efavirenz (Sustiva) 600 mg PO DAILY [facility] Emtricitabine (Emtriva) 200 mg PO Q96H [facility] Last Admin: 02/12/17 22:15 Dose: 200 mg Furosemide (Lasix) 40 mg IVP DAILY [facility] Last Admin: 02/13/17 10:48 Dose: 40 mg Furosemide (Lasix) 20 mg IVP QPM [facility] Last Admin: 02/12/17 17:53 Dose: 20 mg Hydralazine HCl (Apresoline) 100 mg PO Q8H [facility] Hydroxyzine HCl (Atarax) 25 mg PO BID [facility] Last Admin: 02/12/17 17:53 Dose: 25 mg Ferric Sodium Gluconate Complex 125 mg/ Sodium Chloride 110 mls @ 105 mls/hr IVPB DAILY [facility] Stop: 02/21/17 10:01 Last Admin: 02/13/17 10:45 Dose: 105 mls/hr Isosorbide Mononitrate (Imdur Er) 30 mg PO DAILY [facility] Last Admin: 02/13/17 10:47 Dose: 30 mg Metoprolol Tartrate (Lopressor) 25 mg PO BID [facility] Last Admin: 02/13/17 10:48 Dose: 25 mg Pneumococcal Polyvalent Vaccine (Pneumovax 23 Vaccine) 0.5 ml IM .ONCE ONE Stop: 02/15/17 10:01 Raltegravir (Isentress) 400 mg PO BID [facility] Last Admin: 02/13/17 10:47 Dose: 400 mg Rosuvastatin Calcium (Crestor) 20 mg PO HS [facility] Last Admin: 02/12/17 22:54 Dose: 20 mg - Labs Labs: 02/13/17 11:30 02/13/17 11:30 PT 11.4 SECONDS (9.7-12.2) 02/12/17 00:37 INR 1.0 02/12/17 00:37 APTT 21 SECONDS (21-34) 02/12/17 00:37 Assessment and Plan (1) HIV (human immunodeficiency virus infection) Status: Acute (2) Congestive heart failure (CHF) Status: Acute (3) Leg swelling Status: Chronic (4) DVT (deep venous thrombosis) Status: Acute (5) Renal failure (ARF), acute on chronic Status: Chronic (6) Hepatitis C Status: Acute (7) Diabetes mellitus Status: Acute (8) Alcohol abuse Status: Acute (9) Homelessness Status: Acute
--- NOTE | 2017-02-13 14:45 | CP.PCM.PN ---
Subjective - Date & Time of Evaluation Date of Evaluation: 02/13/17 Time of Evaluation: 14:42 - Subjective Subjective: CHIEF COMPLAINTS TODAY : PAIN SWELLING IN LEGS ROS. HEENT : N. Resp : No cough, wheezing ,pleuritic CP ,or hemoptysis Cardio : No anginal CP, PND, orthopnea, palpitation GI : No abd.pain, n/v ,diarrhea or GI bleeding . 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 Musculoskel : No joint swelling , Derm : No rash Psych : FLAT affect. Ext : POS swelling ,calf pain PE. Pt. is alert awake in no distress. V.S As noted in the chart Head ,ear nose,throat and eyes : Normal. Neck : Supple with normal carotids. Lungs: Clear air entry. Heart : S1 & S2 normal with S4. No murmur. Abd : Soft non tender with normal bowel sounds. Neuro : Moves all ext. with no localized deficit. Ext :edema with intact pulses. Derm : No rashes or decubitus ulcer. LABS/RADIOLOGY: ASSESSMENT/PLAN : F/U RENAL PARAMETER PT HAS ALMOST STAGE 4 CKD , SHOULD GET AFV IF OK WITH NEPHROLOGY Objective - Vital Signs/Intake and Output Vital Signs (last 24 hours): Temp Pulse Resp BP Pulse Ox 98 F 67 20 183/80 H 95 02/12/17 23:45 02/12/17 23:45 02/12/17 23:45 02/13/17 10:48 02/12/17 23:45 Intake and Output: 02/13/17 02/13/17 11:59 23:59 Intake Total 240 Balance 240 - Medications Medications: Current Medications Acetaminophen (Tylenol 325mg Tab) 650 mg PO Q4 PRN PRN Reason: Pain, moderate (4-7) Last Admin: 02/12/17 13:36 Dose: 650 mg Apixaban (Eliquis) 5 mg PO BID [facility] Last Admin: 02/13/17 10:47 Dose: 5 mg Calcitriol (Rocaltrol) 0.25 mcg PO DAILY [facility] Last Admin: 02/13/17 10:45 Dose: 0.25 mcg Diltiazem HCl (Cardizem Cd) 120 mg PO DAILY [facility] Last Admin: 02/13/17 10:47 Dose: 120 mg Efavirenz (Sustiva) 600 mg PO DAILY [facility] Emtricitabine (Emtriva) 200 mg PO Q96H [facility] Last Admin: 02/12/17 22:15 Dose: 200 mg Furosemide (Lasix) 40 mg PO DAILY [facility] Furosemide (Lasix) 20 mg PO HS [facility] Hydralazine HCl (Apresoline) 100 mg PO Q8H [facility] Last Admin: 02/13/17 14:10 Dose: 100 mg Hydroxyzine HCl (Atarax) 25 mg PO BID [facility] Last Admin: 02/13/17 14:09 Dose: 25 mg Ferric Sodium Gluconate Complex 125 mg/ Sodium Chloride 110 mls @ 105 mls/hr IVPB DAILY [facility] Stop: 02/21/17 10:01 Last Admin: 02/13/17 10:45 Dose: 105 mls/hr Isosorbide Mononitrate (Imdur Er) 30 mg PO DAILY [facility] Last Admin: 02/13/17 10:47 Dose: 30 mg Metoprolol Tartrate (Lopressor) 25 mg PO BID [facility] Last Admin: 02/13/17 10:48 Dose: 25 mg Pneumococcal Polyvalent Vaccine (Pneumovax 23 Vaccine) 0.5 ml IM .ONCE ONE Stop: 02/15/17 10:01 Raltegravir (Isentress) 400 mg PO BID [facility] Last Admin: 02/13/17 10:47 Dose: 400 mg Rosuvastatin Calcium (Crestor) 20 mg PO HS [facility] Last Admin: 02/12/17 22:54 Dose: 20 mg - Labs Labs: 02/13/17 11:30 02/13/17 11:30 PT 11.4 SECONDS (9.7-12.2) 02/12/17 00:37 INR 1.0 02/12/17 00:37 APTT 21 SECONDS (21-34) 02/12/17 00:37 Assessment and Plan (1) Acute on chronic renal failure Status: Acute (2) Hyperkalemia Status: Acute (3) AIDS (acquired immune deficiency syndrome) Status: Chronic (4) Leg swelling Status: Chronic (5) CKD (chronic kidney disease), stage IV Status: Chronic (6) Pulmonary HTN Status: Chronic
[2017-02-14 09:09] LABS: BASO % 1.1 % (0.0-2.0); EOS # 0.2 K/uL (0.0-0.7); EOS % 3.4 % (0.0-4.0); HEMOGLOBIN 8.3 g/dL (11.0-16.0); LYMPH # 0.7 K/uL (1.0-4.3); LYMPH % 16.4 % (20.0-40.0); MEAN CELL VOLUME 91.7 fL (81.0-99.0); MEAN CORPUSCULAR HEMOGLOBIN 30.5 pg (27.0-31.0); MEAN CORPUSCULAR HGB CONC 33.2 g/dL (33.0-37.0); MONO # 0.5 K/uL (0.0-0.8); MONO % 11.7 % (0.0-10.0); NEUT # 2.9 K/uL (1.8-7.0); NEUT % 67.4 % (50.0-75.0); NRBC % 0.1 % (0.0-2.0); RBC 2.71 Mil/uL (3.80-5.20); RED CELL DISTRIBUTION WIDTH 19.5 % (11.5-14.5); WHITE BLOOD COUNT 4.4 K/uL (4.8-10.8)
[2017-02-14] MEDS ORDERED: Ferric Sodium Gluconat Complex 62.5 mg/5 ml Vial ONE (09:23)
[2017-02-14 09:32] LABS: ALB/GLOB RATIO 0.9 (1.0-2.1); CALCIUM 8.1 mg/dl (8.6-10.4)
[2017-02-14] MEDS: diltiaZEM 120 mg/24 Hours CD Cap PO SCH (09:58)
[2017-02-14] MEDS: Ferric Sodium Gluconat Complex 125 MG in Sodium Chloride 0.9% 100 ML IVPB SCH (10:00)
--- NOTE | 2017-02-14 12:31 | CARD ---
APPROVED REPORT EXAM: Two-dimensional and M-mode echocardiogram with Doppler and color Doppler. Other Information Quality : GoodRhythm : INDICATION Abnormal EKG/Arrhythmia Congestive Heart Failure HIV, ALCOHOL ABUSE RISK FACTORS Diabetes M-Mode DIMENSIONS Left Atrium (MM)4.99 (2.5-4.0cm)IVSd1.63 (0.7-1.1cm) Aortic Root2.80 (2.2-3.7cm)LVDd5.34 (4.0-5.6cm) Aortic Cusp Exc.1.48 (1.5-2.0cm)PWd1.60 (0.7-1.1cm) FS (%) 31 %LVDs3.71 (2.0-3.8cm) LVEF (%)58 (>50%) Mitral Valve MV E Drenchls69.0cm/sMV A Ppwnctel304.6cm/sE/A ratio0.8 TDI E/Lateral E'0.0E/Medial E'0.0 Tricuspid Valve TR Peak [id number]/sTR Peak Gr.[id number] LEFT VENTRICLE The left ventricle is normal size. There is severe concentric left ventricular hypertrophy. The Ejection Fraction is 55-60%. There is normal LV segmental wall motion. Transmitral Doppler flow pattern is Grade I-abnormal relaxation pattern. The left atrial pressure is mildly elevated. RIGHT VENTRICLE The right ventricle is normal size. The right ventricular systolic function is normal. ATRIA The left atrium is moderately dilated. The right atrium size is normal. The interatrial septum is intact with no evidence for an atrial septal defect. AORTIC VALVE The aortic valve is mildly sclerotic. The aortic valve is trileaflet. There is mild aortic regurgitation. MITRAL VALVE The mitral valve is normal in structure. Mitral regurgitation is mild. TRICUSPID VALVE The tricuspid valve is normal in structure. There is mild tricuspid regurgitation. Right ventricular systolic pressure is estimated at 39 mmHg. There is mild pulmonary hypertension. PULMONIC VALVE The pulmonary valve is normal in structure. There is mild pulmonic valvular regurgitation. GREAT VESSELS The aortic root is normal in size. The IVC is normal in size and collapses >50% with inspiration. PERICARDIAL EFFUSION There is no pericardial effusion. <Conclusion> The left ventricle is normal size. There is severe concentric left ventricular hypertrophy. The Ejection Fraction is 55-60%. Transmitral Doppler flow pattern is Grade I-abnormal relaxation pattern. The left atrial pressure is mildly elevated. The left atrium is moderately dilated. There is mild aortic regurgitation. Mitral regurgitation is mild. There is mild tricuspid regurgitation. Right ventricular systolic pressure is estimated at 39 mmHg. There is mild pulmonary hypertension.
--- NOTE | 2017-02-14 15:44 | CP.PCM.PN ---
Subjective - Date & Time of Evaluation Date of Evaluation: 02/14/17 Time of Evaluation: 15:42 - Subjective Subjective: D/W PT. AT LENGTH ABOUT AFV RENAL PARAMETERS ARE NOT IMPROVING ON CONSERVATIVE TREATMENT CLINICALLY SAME PT HAS NORMAL ECHO WITH N LVEF IN PAST HAD IV LEXISCAN : NORMAL PT HAS NO CARDIAC SYMPTOMS NO FURTHER CARDIAC TESTING IS REQUIRED Objective - Vital Signs/Intake and Output Vital Signs (last 24 hours): Temp Pulse Resp BP Pulse Ox 98.3 F 98 H 20 164/76 H 98 02/14/17 05:50 02/14/17 05:50 02/14/17 05:50 02/14/17 09:59 02/13/17 23:25 - Medications Medications: Current Medications Acetaminophen (Tylenol 325mg Tab) 650 mg PO Q4 PRN PRN Reason: Pain, moderate (4-7) Last Admin: 02/12/17 13:36 Dose: 650 mg Apixaban (Eliquis) 5 mg PO BID [facility] Last Admin: 02/14/17 09:59 Dose: 5 mg Calcitriol (Rocaltrol) 0.25 mcg PO DAILY [facility] Last Admin: 02/14/17 09:59 Dose: 0.25 mcg Carvedilol (Coreg) 12.5 mg PO BID [facility] Diltiazem HCl (Cardizem Cd) 120 mg PO DAILY [facility] Last Admin: 02/14/17 09:58 Dose: 120 mg Efavirenz (Sustiva) 600 mg PO DAILY [facility] Last Admin: 02/14/17 09:59 Dose: 600 mg Emtricitabine (Emtriva) 200 mg PO Q96H [facility] Last Admin: 02/12/17 22:15 Dose: 200 mg Furosemide (Lasix) 40 mg PO DAILY [facility] Last Admin: 02/14/17 09:59 Dose: 40 mg Furosemide (Lasix) 20 mg PO HS [facility] Last Admin: 02/13/17 22:19 Dose: 20 mg Hydralazine HCl (Apresoline) 100 mg PO Q8H [facility] Last Admin: 02/14/17 13:43 Dose: 100 mg Hydroxyzine HCl (Atarax) 25 mg PO BID [facility] Last Admin: 02/14/17 09:59 Dose: 25 mg Ferric Sodium Gluconate Complex 125 mg/ Sodium Chloride 110 mls @ 105 mls/hr IVPB DAILY [facility] Stop: 02/21/17 10:01 Last Admin: 02/14/17 10:00 Dose: 105 mls/hr Isosorbide Mononitrate (Imdur Er) 30 mg PO DAILY [facility] Last Admin: 02/14/17 09:59 Dose: 30 mg Pneumococcal Polyvalent Vaccine (Pneumovax 23 Vaccine) 0.5 ml IM .ONCE ONE Stop: 02/15/17 10:01 Raltegravir (Isentress) 400 mg PO BID [facility] Last Admin: 02/14/17 09:59 Dose: 400 mg Rosuvastatin Calcium (Crestor) 20 mg PO HS [facility] Last Admin: 02/13/17 22:19 Dose: 20 mg - Labs Labs: 02/14/17 08:24 02/14/17 08:24 PT 11.4 SECONDS (9.7-12.2) 02/12/17 00:37 INR 1.0 02/12/17 00:37 APTT 21 SECONDS (21-34) 02/12/17 00:37 Assessment and Plan (1) Acute on chronic renal failure Status: Acute (2) Hyperkalemia Status: Acute (3) AIDS (acquired immune deficiency syndrome) Status: Chronic (4) Leg swelling Status: Chronic (5) CKD (chronic kidney disease), stage IV Status: Chronic (6) Pulmonary HTN Status: Chronic
--- NOTE | 2017-02-14 15:55 | CP.PCM.CON ---
History of Present Illness - History of Present Illness History of Present Illness: Vasc Sx: Dr Brady Re: AVF Pt seen on 6T. Introduced myself to pt as part of vascular surgery team. Informed her of why i was there and what I came to talk about. Pt very politely informed me "I am still thinking about it, and don't want to talk right now". I inquired if she had any questions I could possibly answer and she declined. Pt agreed to discuss tomorrow after she has thought some more. Vein mapping has been ordered. Past Patient History - Infectious Disease Hx of Infectious Diseases: None - Tetanus Immunizations Tetanus Immunization: Unknown - Past Medical History & Family History Past Medical History?: Yes - Past Social History Smoking Status: Heavy Smoker > 10 Cigarettes Daily Alcohol: Other (heavy) Drugs: Other (unable to obtain) Home Situation {Lives}: Friends, Homeless - CARDIAC Hx Congestive Heart Failure: Yes Hx Hypercholesterolemia: Yes Hx Hypertension: Yes Hx Peripheral Edema: Yes - PULMONARY Hx Chronic Obstructive Pulmonary Disease (COPD): Yes - NEUROLOGICAL Hx Neurological Disorder: No HX Cerebrovascular Accident: No - HEENT Hx HEENT Problems: No - RENAL Hx Chronic Kidney Disease: Yes - ENDOCRINE/METABOLIC Hx Hypothyroidism: Yes - HEMATOLOGICAL/ONCOLOGICAL Hx Anemia: Yes Hx Human Immunodeficiency Virus (HIV): Yes - INTEGUMENTARY Hx Dermatological Problems: No - MUSCULOSKELETAL/RHEUMATOLOGICAL Hx Arthritis: Yes - GASTROINTESTINAL Hx Pancreatitis: Yes - GENITOURINARY/GYNECOLOGICAL Hx Genitourinary Disorders: No - PSYCHIATRIC Hx Anxiety: Yes Hx Depression: Yes Hx Substance Use: No (stopped) - SURGICAL HISTORY Hx Surgeries: Yes Other/Comment: IVC filter - ANESTHESIA Hx Anesthesia: Yes Hx Anesthesia Reactions: No Hx Malignant Hyperthermia: No Meds Allergies/Adverse Reactions: Allergies Allergy/AdvReac Type Severity Reaction Status Date / Time No Known Allergies Allergy Verified 01/26/17 22:22 - Medications Medications: Current Medications Acetaminophen (Tylenol 325mg Tab) 650 mg PO Q4 PRN PRN Reason: Pain, moderate (4-7) Last Admin: 02/12/17 13:36 Dose: 650 mg Apixaban (Eliquis) 5 mg PO BID [facility] Last Admin: 02/14/17 09:59 Dose: 5 mg Calcitriol (Rocaltrol) 0.25 mcg PO DAILY [facility] Last Admin: 02/14/17 09:59 Dose: 0.25 mcg Carvedilol (Coreg) 12.5 mg PO BID [facility] Diltiazem HCl (Cardizem Cd) 120 mg PO DAILY [facility] Last Admin: 02/14/17 09:58 Dose: 120 mg Efavirenz (Sustiva) 600 mg PO DAILY [facility] Last Admin: 02/14/17 09:59 Dose: 600 mg Emtricitabine (Emtriva) 200 mg PO Q96H [facility] Last Admin: 02/12/17 22:15 Dose: 200 mg Furosemide (Lasix) 40 mg PO DAILY [facility] Last Admin: 02/14/17 09:59 Dose: 40 mg Furosemide (Lasix) 20 mg PO HS [facility] Last Admin: 02/13/17 22:19 Dose: 20 mg Hydralazine HCl (Apresoline) 100 mg PO Q8H [facility] Last Admin: 02/14/17 13:43 Dose: 100 mg Hydroxyzine HCl (Atarax) 25 mg PO BID [facility] Last Admin: 02/14/17 09:59 Dose: 25 mg Ferric Sodium Gluconate Complex 125 mg/ Sodium Chloride 110 mls @ 105 mls/hr IVPB DAILY [facility] Stop: 02/21/17 10:01 Last Admin: 02/14/17 10:00 Dose: 105 mls/hr Isosorbide Mononitrate (Imdur Er) 30 mg PO DAILY [facility] Last Admin: 02/14/17 09:59 Dose: 30 mg Pneumococcal Polyvalent Vaccine (Pneumovax 23 Vaccine) 0.5 ml IM .ONCE ONE Stop: 02/15/17 10:01 Raltegravir (Isentress) 400 mg PO BID [facility] Last Admin: 02/14/17 09:59 Dose: 400 mg Rosuvastatin Calcium (Crestor) 20 mg PO HS [facility] Last Admin: 02/13/17 22:19 Dose: 20 mg Results - Vital Signs Recent Vital Signs: Last Vital Signs Temp 97.5 F L 02/14/17 15:00 Pulse 104 H 02/14/17 15:00 Resp 20 02/14/17 15:00 BP 176/85 H 02/14/17 15:00 Pulse Ox 98 02/13/17 23:25 - Labs Result Diagrams: 02/14/17 08:24 02/14/17 08:24 Labs: Laboratory Results - last 24 hr 02/14/17 02/14/17 08:24 08:24 WBC 4.4 L RBC 2.71 L Hgb 8.3 L Hct 24.9 L MCV 91.7 MCH 30.5 MCHC 33.2 RDW 19.5 H Plt Count 116 L MPV 10.0 Neut % (Auto) 67.4 Lymph % (Auto) 16.4 L [place] % (Auto) 11.7 H Eos % (Auto) 3.4 Baso % (Auto) 1.1 Neut # 2.9 Lymph # 0.7 L [place] # 0.5 Eos # 0.2 Baso # 0.0 Sodium 136 Potassium 5.1 Chloride 107 Carbon Dioxide 24 Anion Gap 10 BUN 66 H Creatinine 4.8 H Est GFR ( Amer) 11 Est GFR (Non-Af Amer) 9 Random Glucose 78 Calcium 8.1 L Total Bilirubin 0.2 AST 24 ALT 29 Alkaline Phosphatase 105 Total Protein 6.3 Albumin 3.0 L Globulin 3.2 Albumin/Globulin Ratio 0.9 L
--- NOTE | 2017-02-14 18:45 | CP.PCM.PN ---
Subjective - Date & Time of Evaluation Date of Evaluation: 02/14/17 Time of Evaluation: 12:00 - Subjective Subjective: 61 yo F w/ pmh of htn, dm, hep C (untreated), HIV on HAART, CHF, and CKD IV, admitted with CHF exacerbation; Patient reports breathing is ok; tolerating diet; is agreeable to AVF placement during this admission after much counseling; is trying to come to terms with her overall health condition; Objective - Vital Signs/Intake and Output Vital Signs (last 24 hours): Temp Pulse Resp BP Pulse Ox 97.5 F L 59 L 20 176/75 H 98 02/14/17 15:00 02/14/17 16:26 02/14/17 15:00 02/14/17 18:12 02/13/17 23:25 Intake and Output: 02/14/17 02/14/17 06:59 18:59 Intake Total 710 Balance 710 - Medications Medications: Current Medications Acetaminophen (Tylenol 325mg Tab) 650 mg PO Q4 PRN PRN Reason: Pain, moderate (4-7) Last Admin: 02/12/17 13:36 Dose: 650 mg Apixaban (Eliquis) 5 mg PO BID [facility] Last Admin: 02/14/17 17:30 Dose: 5 mg Calcitriol (Rocaltrol) 0.25 mcg PO DAILY [facility] Last Admin: 02/14/17 09:59 Dose: 0.25 mcg Carvedilol (Coreg) 12.5 mg PO BID [facility] Last Admin: 02/14/17 18:12 Dose: 12.5 mg Diltiazem HCl (Cardizem Cd) 120 mg PO DAILY [facility] Last Admin: 02/14/17 09:58 Dose: 120 mg Efavirenz (Sustiva) 600 mg PO DAILY [facility] Last Admin: 02/14/17 09:59 Dose: 600 mg Emtricitabine (Emtriva) 200 mg PO Q96H [facility] Last Admin: 02/12/17 22:15 Dose: 200 mg Furosemide (Lasix) 40 mg PO DAILY [facility] Last Admin: 02/14/17 09:59 Dose: 40 mg Furosemide (Lasix) 20 mg PO HS [facility] Last Admin: 02/13/17 22:19 Dose: 20 mg Hydralazine HCl (Apresoline) 100 mg PO Q8H [facility] Last Admin: 02/14/17 13:43 Dose: 100 mg Hydroxyzine HCl (Atarax) 25 mg PO BID [facility] Last Admin: 02/14/17 17:28 Dose: 25 mg Ferric Sodium Gluconate Complex 125 mg/ Sodium Chloride 110 mls @ 105 mls/hr IVPB DAILY [facility] Stop: 02/21/17 10:01 Last Admin: 02/14/17 10:00 Dose: 105 mls/hr Isosorbide Mononitrate (Imdur Er) 30 mg PO DAILY [facility] Last Admin: 02/14/17 09:59 Dose: 30 mg Pneumococcal Polyvalent Vaccine (Pneumovax 23 Vaccine) 0.5 ml IM .ONCE ONE Stop: 02/15/17 10:01 Raltegravir (Isentress) 400 mg PO BID [facility] Last Admin: 02/14/17 17:28 Dose: 400 mg Rosuvastatin Calcium (Crestor) 20 mg PO HS [facility] Last Admin: 02/13/17 22:19 Dose: 20 mg - Labs Labs: 02/14/17 08:24 02/14/17 08:24 PT 11.4 SECONDS (9.7-12.2) 02/12/17 00:37 INR 1.0 02/12/17 00:37 APTT 21 SECONDS (21-34) 02/12/17 00:37 - Constitutional Appears: No Acute Distress - Head Exam Head Exam: NORMAL INSPECTION - Eye Exam Eye Exam: Normal appearance - ENT Exam ENT Exam: Mucous Membranes Moist - Respiratory Exam Respiratory Exam: Clear to Ausculation Bilateral. absent: Respiratory Distress - Cardiovascular Exam Cardiovascular Exam: RRR, +S1, +S2 - GI/Abdominal Exam GI & Abdominal Exam: Soft. absent: Distended, Tenderness - Extremities Exam Additional comments: mild b/l lower leg edema; - Neurological Exam Neurological Exam: Alert, Awake - Psychiatric Exam Psychiatric exam: absent: Agitated - Skin Skin Exam: Warm. absent: Cyanosis Assessment and Plan (1) Acute on chronic renal failure Assessment & Plan: SHAVONNE on CKD V; hemodynamic fluctuations in serum creatinine in the setting of getting diuresis (diuretics subsequently changed to PO for less potency); CrCl on 24 hr urine is 13 ml/min; no overt uremic symptoms and relatively stable electrolyte/volume status; no indication for initiating HD on this admission; Patient agreeing to AVF creation; cardiology risk assessment provided by Dr Cazares; vascular surgery consulted; while AVF creation can be done as outpatient , patient has poor followup history and it is in her best interest to get procedure done during this admission; Status: Acute (2) Congestive heart failure (CHF) Assessment & Plan: Symptoms and exam improved; continue PO lasix 40 mg in am and 20 mg in pm; Status: Acute (3) Hyperkalemia Status: Resolved (4) Anemia in CKD (chronic kidney disease) Assessment & Plan: With severe iron deficiency as well; continue IV iron; will start EPO once SBP consistently < 160; Status: Acute (5) Hypertensive CKD (chronic kidney disease) Assessment & Plan: BP still uncontrolled after increasing hydralazine to 100 mg q8h; changing metoprolol 25 to coreg 12.5 mg bid for better BP effect; if still uncontrolled, will have to start another agent (was on clonidine previously); Status: Acute (6) Chronic kidney disease-mineral and bone disorder Assessment & Plan: With secondary hyperparathyroidism, on calcitriol 0.25 mcg daily, continue; vit D 25-OH level replete; awaiting repeat PTH level; Status: Chronic
--- NOTE | 2017-02-14 23:46 | CP.PCM.PN ---
Subjective - Date & Time of Evaluation Date of Evaluation: 02/14/17 Time of Evaluation: 23:46 - Subjective Subjective: CHIEF COMPLAINTS TODAY : afebrile, c/o bilateral lower extremity swelling and edema LYING COMFORTABLY TOLERATING DIET. CONSIDERING AV FISTULA. ROS. HEENT : N. Resp : No cough, wheezing ,pleuritic CP ,or hemoptysis Cardio : No anginal CP, PND, orthopnea, palpitation GI : No abd.pain, n/v ,diarrhea or GI bleeding . TAPE STRINGER : No headache, vertigo, focal deficit. Musculoskel : No joint swelling , Derm : No rash Psych : FLAT affect. Ext : POS swelling ,calf pain PE. Pt. is alert awake in no distress. V.S As noted in the chart Head ,ear nose,throat and eyes : Normal. Neck : Supple with normal carotids. Lungs: DIMINISHED BREATH SOUNDS AT THE BASES. Heart : S1 & S2 normal with S4. No murmur. Abd : Soft non tender with normal bowel sounds. Neuro : Moves all ext. with no localized deficit. Ext BILATERAL LE 2+ EDEMA, with intact pulses. Derm : No rashes or decubitus ulcer. LABS/RADIOLOGY: wbc 4.4 h&h 8.3/24.9. PLT 116 CREAT 4.8/BUN 66 lftS NORMAL. tsh 4.75 SLIGHTLY HIGH. ASSESSMENT HIV+VE. CHF EXASCERBATION HTN CKD -STAGE 4 B/L EDEMA LE/ DVT + IVC FILTER. HEP C +VE DM. ANAEMIA ETOH ABUSE /PLAN : PATIENT CONSIDERING AV - FISTULA. PER RENAL NOTED. CONTINUE HAART RX OUTLINED.02/12/17 *START PATIENT ON EMTRIVA 200 MG EVERY 96 HOURLY ( as creatinine clearance less than 15 mL per minute ) *START SUSTIVA 600 MG BY MOUTH ONCE A DAY DAILY. *START RALTEGRAVIR (ISENTRESS ) 400 MG BY MOUTH TWICE A DAY. SEEN BY VASCULAR SURGERY- VEIN MAPPING ORDERED NOTED.. TO FOLLOW. Objective - Vital Signs/Intake and Output Vital Signs (last 24 hours): Temp Pulse Resp BP Pulse Ox 97.5 F L 59 L 20 175/85 H 98 02/14/17 15:00 02/14/17 16:26 02/14/17 15:00 02/14/17 21:58 02/13/17 23:25 Intake and Output: 02/14/17 02/15/17 18:59 06:59 Intake Total 710 Balance 710 - Medications Medications: Current Medications Acetaminophen (Tylenol 325mg Tab) 650 mg PO Q4 PRN PRN Reason: Pain, moderate (4-7) Last Admin: 02/12/17 13:36 Dose: 650 mg Apixaban (Eliquis) 5 mg PO BID [facility] Last Admin: 02/14/17 17:30 Dose: 5 mg Calcitriol (Rocaltrol) 0.25 mcg PO DAILY [facility] Last Admin: 02/14/17 09:59 Dose: 0.25 mcg Carvedilol (Coreg) 12.5 mg PO BID [facility] Last Admin: 02/14/17 18:12 Dose: 12.5 mg Diltiazem HCl (Cardizem Cd) 120 mg PO DAILY [facility] Last Admin: 02/14/17 09:58 Dose: 120 mg Efavirenz (Sustiva) 600 mg PO DAILY [facility] Last Admin: 02/14/17 09:59 Dose: 600 mg Emtricitabine (Emtriva) 200 mg PO Q96H [facility] Last Admin: 02/12/17 22:15 Dose: 200 mg Furosemide (Lasix) 40 mg PO DAILY [facility] Last Admin: 02/14/17 09:59 Dose: 40 mg Furosemide (Lasix) 20 mg PO HS [facility] Last Admin: 02/14/17 21:58 Dose: 20 mg Hydralazine HCl (Apresoline) 100 mg PO Q8H [facility] Last Admin: 02/14/17 21:56 Dose: 100 mg Hydroxyzine HCl (Atarax) 25 mg PO BID [facility] Last Admin: 02/14/17 17:28 Dose: 25 mg Ferric Sodium Gluconate Complex 125 mg/ Sodium Chloride 110 mls @ 105 mls/hr IVPB DAILY [facility] Stop: 02/21/17 10:01 Last Admin: 02/14/17 10:00 Dose: 105 mls/hr Isosorbide Mononitrate (Imdur Er) 30 mg PO DAILY [facility] Last Admin: 02/14/17 09:59 Dose: 30 mg Pneumococcal Polyvalent Vaccine (Pneumovax 23 Vaccine) 0.5 ml IM .ONCE ONE Stop: 02/15/17 10:01 Raltegravir (Isentress) 400 mg PO BID [facility] Last Admin: 02/14/17 17:28 Dose: 400 mg Rosuvastatin Calcium (Crestor) 20 mg PO HS [facility] Last Admin: 02/14/17 21:56 Dose: 20 mg - Labs Labs: 02/14/17 08:24 02/14/17 08:24 PT 11.4 SECONDS (9.7-12.2) 02/12/17 00:37 INR 1.0 02/12/17 00:37 APTT 21 SECONDS (21-34) 02/12/17 00:37 Assessment and Plan (1) HIV (human immunodeficiency virus infection) Status: Acute (2) Congestive heart failure (CHF) Status: Acute (3) Leg swelling Status: Chronic (4) DVT (deep venous thrombosis) Status: Acute (5) Renal failure (ARF), acute on chronic Status: Chronic (6) Hepatitis C Status: Acute (7) Diabetes mellitus Status: Acute (8) Alcohol abuse Status: Acute (9) Homelessness Status: Acute
[2017-02-15 07:30] LABS: EOS # 0.2 K/uL (0.0-0.7); EOS % 3.2 % (0.0-4.0); HEMOGLOBIN 8.3 g/dL (11.0-16.0); LYMPH # 0.5 K/uL (1.0-4.3); LYMPH % 10.1 % (20.0-40.0); MEAN CELL VOLUME 92.1 fL (81.0-99.0); MEAN CORPUSCULAR HEMOGLOBIN 29.7 pg (27.0-31.0); MEAN CORPUSCULAR HGB CONC 32.3 g/dL (33.0-37.0); MONO # 0.6 K/uL (0.0-0.8); MONO % 12.9 % (0.0-10.0); NEUT # 3.5 K/uL (1.8-7.0); NEUT % 72.8 % (50.0-75.0); RBC 2.8 Mil/uL (3.80-5.20); RED CELL DISTRIBUTION WIDTH 19.3 % (11.5-14.5); WHITE BLOOD COUNT 4.8 K/uL (4.8-10.8)
[2017-02-15 08:27] LABS: ALBUMIN 3.1 g/dL (3.5-5.0); CALCIUM 7.9 mg/dl (8.6-10.4)
[2017-02-15] MEDS ORDERED: Pneumococcal 23-Valent Vaccine IM ONE (10:00)
[2017-02-15] MEDS: diltiaZEM 120 mg/24 Hours CD Cap PO SCH (10:31)
[2017-02-15] MEDS: Influenza Vaccine 60 mcg/0.5 mL SYR (4YR UP) IM ONE ×2 (10:32→10:38)
[2017-02-15] MEDS: Ferric Sodium Gluconat Complex 125 MG in Sodium Chloride 0.9% 100 ML IVPB SCH (10:32)
--- NOTE | 2017-02-15 14:15 | CP.PCM.PN ---
Subjective - Date & Time of Evaluation Date of Evaluation: 02/15/17 Time of Evaluation: 14:14 - Subjective Subjective: PT IS STILL UNDECIDED ABOUT AVF CLINICALLY REMAINS SAME Objective - Vital Signs/Intake and Output Vital Signs (last 24 hours): Temp Pulse Resp BP Pulse Ox 98.4 F 65 18 149/80 97 02/15/17 07:05 02/15/17 13:31 02/15/17 07:05 02/15/17 13:31 02/15/17 07:05 - Medications Medications: Current Medications Acetaminophen (Tylenol 325mg Tab) 650 mg PO Q4 PRN PRN Reason: Pain, moderate (4-7) Last Admin: 02/12/17 13:36 Dose: 650 mg Apixaban (Eliquis) 5 mg PO BID [facility] Last Admin: 02/15/17 10:32 Dose: 5 mg Calcitriol (Rocaltrol) 0.25 mcg PO DAILY [facility] Last Admin: 02/15/17 10:32 Dose: 0.25 mcg Carvedilol (Coreg) 12.5 mg PO BID [facility] Last Admin: 02/15/17 10:46 Dose: Not Given Clonidine HCl (Catapres) 0.1 mg PO BID [facility] Last Admin: 02/15/17 11:21 Dose: 0.1 mg Diltiazem HCl (Cardizem Cd) 120 mg PO DAILY [facility] Last Admin: 02/15/17 10:31 Dose: 120 mg Efavirenz (Sustiva) 600 mg PO DAILY [facility] Last Admin: 02/15/17 10:29 Dose: 600 mg Emtricitabine (Emtriva) 200 mg PO Q96H [facility] Last Admin: 02/12/17 22:15 Dose: 200 mg Furosemide (Lasix) 20 mg PO HS [facility] Last Admin: 02/14/17 21:58 Dose: 20 mg Furosemide (Lasix) 20 mg PO DAILY [facility] Hydralazine HCl (Apresoline) 100 mg PO Q8H [facility] Last Admin: 02/15/17 13:28 Dose: 100 mg Hydroxyzine HCl (Atarax) 25 mg PO BID [facility] Last Admin: 02/15/17 10:31 Dose: 25 mg Ferric Sodium Gluconate Complex 125 mg/ Sodium Chloride 110 mls @ 105 mls/hr IVPB DAILY [facility] Stop: 02/21/17 10:01 Last Admin: 02/15/17 10:32 Dose: 105 mls/hr Isosorbide Mononitrate (Imdur Er) 30 mg PO DAILY [facility] Last Admin: 02/15/17 10:29 Dose: 30 mg Raltegravir (Isentress) 400 mg PO BID [facility] Last Admin: 02/15/17 10:31 Dose: 400 mg Rosuvastatin Calcium (Crestor) 20 mg PO HS [facility] Last Admin: 02/14/17 21:56 Dose: 20 mg - Labs Labs: 02/15/17 07:07 02/15/17 07:07 PT 11.4 SECONDS (9.7-12.2) 02/12/17 00:37 INR 1.0 02/12/17 00:37 APTT 21 SECONDS (21-34) 02/12/17 00:37 Assessment and Plan (1) Acute on chronic renal failure Status: Acute (2) Hyperkalemia Status: Resolved (3) AIDS (acquired immune deficiency syndrome) Status: Chronic (4) Leg swelling Status: Chronic (5) CKD (chronic kidney disease), stage IV Status: Chronic (6) Pulmonary HTN Status: Chronic
--- NOTE | 2017-02-15 14:27 | CP.PCM.PN ---
Subjective - Date & Time of Evaluation Date of Evaluation: 02/15/17 Time of Evaluation: 14:25 - Subjective Subjective: patient unwilling to discuss antyhing with me attempted to discuss plans, diagnois, time needed for maturation She had no interest in even recognizing my presence will arrange for avf if and when she agrees Objective - Vital Signs/Intake and Output Vital Signs (last 24 hours): Temp Pulse Resp BP Pulse Ox 98.4 F 65 18 149/80 97 02/15/17 07:05 02/15/17 13:31 02/15/17 07:05 02/15/17 13:31 02/15/17 07:05 - Medications Medications: Current Medications Acetaminophen (Tylenol 325mg Tab) 650 mg PO Q4 PRN PRN Reason: Pain, moderate (4-7) Last Admin: 02/12/17 13:36 Dose: 650 mg Apixaban (Eliquis) 5 mg PO BID [facility] Last Admin: 02/15/17 10:32 Dose: 5 mg Calcitriol (Rocaltrol) 0.25 mcg PO DAILY [facility] Last Admin: 02/15/17 10:32 Dose: 0.25 mcg Carvedilol (Coreg) 12.5 mg PO BID [facility] Last Admin: 02/15/17 10:46 Dose: Not Given Clonidine HCl (Catapres) 0.1 mg PO BID [facility] Last Admin: 02/15/17 11:21 Dose: 0.1 mg Diltiazem HCl (Cardizem Cd) 120 mg PO DAILY [facility] Last Admin: 02/15/17 10:31 Dose: 120 mg Efavirenz (Sustiva) 600 mg PO DAILY [facility] Last Admin: 02/15/17 10:29 Dose: 600 mg Emtricitabine (Emtriva) 200 mg PO Q96H [facility] Last Admin: 02/12/17 22:15 Dose: 200 mg Furosemide (Lasix) 20 mg PO HS [facility] Last Admin: 02/14/17 21:58 Dose: 20 mg Furosemide (Lasix) 20 mg PO DAILY [facility] Hydralazine HCl (Apresoline) 100 mg PO Q8H [facility] Last Admin: 02/15/17 13:28 Dose: 100 mg Hydroxyzine HCl (Atarax) 25 mg PO BID [facility] Last Admin: 02/15/17 10:31 Dose: 25 mg Ferric Sodium Gluconate Complex 125 mg/ Sodium Chloride 110 mls @ 105 mls/hr IVPB DAILY [facility] Stop: 02/21/17 10:01 Last Admin: 02/15/17 10:32 Dose: 105 mls/hr Isosorbide Mononitrate (Imdur Er) 30 mg PO DAILY [facility] Last Admin: 02/15/17 10:29 Dose: 30 mg Raltegravir (Isentress) 400 mg PO BID [facility] Last Admin: 02/15/17 10:31 Dose: 400 mg Rosuvastatin Calcium (Crestor) 20 mg PO HS [facility] Last Admin: 02/14/17 21:56 Dose: 20 mg - Labs Labs: 02/15/17 07:07 02/15/17 07:07 PT 11.4 SECONDS (9.7-12.2) 02/12/17 00:37 INR 1.0 02/12/17 00:37 APTT 21 SECONDS (21-34) 02/12/17 00:37
--- NOTE | 2017-02-15 15:36 | CP.PCM.PN ---
Objective - Vital Signs/Intake and Output Vital Signs (last 24 hours): Temp Pulse Resp BP Pulse Ox 98.4 F 65 18 149/80 97 02/15/17 07:05 02/15/17 13:31 02/15/17 07:05 02/15/17 13:31 02/15/17 07:05 - Medications Medications: Current Medications Acetaminophen (Tylenol 325mg Tab) 650 mg PO Q4 PRN PRN Reason: Pain, moderate (4-7) Last Admin: 02/12/17 13:36 Dose: 650 mg Apixaban (Eliquis) 5 mg PO BID [facility] Last Admin: 02/15/17 10:32 Dose: 5 mg Calcitriol (Rocaltrol) 0.25 mcg PO DAILY [facility] Last Admin: 02/15/17 10:32 Dose: 0.25 mcg Carvedilol (Coreg) 12.5 mg PO BID [facility] Last Admin: 02/15/17 10:46 Dose: Not Given Clonidine HCl (Catapres) 0.1 mg PO BID [facility] Last Admin: 02/15/17 11:21 Dose: 0.1 mg Diltiazem HCl (Cardizem Cd) 120 mg PO DAILY [facility] Last Admin: 02/15/17 10:31 Dose: 120 mg Efavirenz (Sustiva) 600 mg PO DAILY [facility] Last Admin: 02/15/17 10:29 Dose: 600 mg Emtricitabine (Emtriva) 200 mg PO Q96H [facility] Last Admin: 02/12/17 22:15 Dose: 200 mg Furosemide (Lasix) 20 mg PO HS [facility] Last Admin: 02/14/17 21:58 Dose: 20 mg Furosemide (Lasix) 20 mg PO DAILY [facility] Hydralazine HCl (Apresoline) 100 mg PO Q8H [facility] Last Admin: 02/15/17 13:28 Dose: 100 mg Hydroxyzine HCl (Atarax) 25 mg PO BID [facility] Last Admin: 02/15/17 10:31 Dose: 25 mg Ferric Sodium Gluconate Complex 125 mg/ Sodium Chloride 110 mls @ 105 mls/hr IVPB DAILY [facility] Stop: 02/21/17 10:01 Last Admin: 02/15/17 10:32 Dose: 105 mls/hr Isosorbide Mononitrate (Imdur Er) 30 mg PO DAILY [facility] Last Admin: 02/15/17 10:29 Dose: 30 mg Raltegravir (Isentress) 400 mg PO BID [facility] Last Admin: 02/15/17 10:31 Dose: 400 mg Rosuvastatin Calcium (Crestor) 20 mg PO HS [facility] Last Admin: 02/14/17 21:56 Dose: 20 mg - Labs Labs: 02/15/17 07:07 02/15/17 07:07 PT 11.4 SECONDS (9.7-12.2) 02/12/17 00:37 INR 1.0 02/12/17 00:37 APTT 21 SECONDS (21-34) 02/12/17 00:37 Assessment and Plan (1) Acute on chronic renal failure Status: Acute (2) Congestive heart failure (CHF) Status: Acute (3) Hyperkalemia Status: Resolved (4) Anemia in CKD (chronic kidney disease) Status: Acute (5) Hypertensive CKD (chronic kidney disease) Status: Acute (6) Chronic kidney disease-mineral and bone disorder Status: Chronic
--- NOTE | 2017-02-15 17:29 | CP.PCM.PN ---
Subjective - Date & Time of Evaluation Date of Evaluation: 02/15/17 Time of Evaluation: 17:29 - Subjective Subjective: CHIEF COMPLAINTS TODAY : afebrile, c/o bilateral lower extremity swelling and edema SLEEPY ALL THE TIME. STATES; ' SHE IS NOT GOING ANYWHERE.' SMILED REGARDING AVF. ROS. HEENT : N. Resp : No cough, wheezing ,pleuritic CP ,or hemoptysis Cardio : No anginal CP, PND, orthopnea, palpitation GI : No abd.pain, n/v ,diarrhea or GI bleeding . HOMOEOPATH : No headache, vertigo, focal deficit. Musculoskel : No joint swelling , Derm : No rash Psych : FLAT affect. Ext : POS swelling ,calf pain PE. Pt. is alert awake in no distress. V.S As noted in the chart Head ,ear nose,throat and eyes : Normal. Neck : Supple with normal carotids. Lungs: DIMINISHED BREATH SOUNDS AT THE BASES. Heart : S1 & S2 normal with S4. No murmur. Abd : Soft non tender with normal bowel sounds. Neuro : Moves all ext. with no localized deficit. Ext BILATERAL LE 2+ EDEMA, with intact pulses. Derm : No rashes or decubitus ulcer. LABS/RADIOLOGY: REVIEWED lftS NORMAL. tsh 4.75 SLIGHTLY HIGH. ASSESSMENT HIV+VE. CHF EXASCERBATION HTN CKD -STAGE 4 B/L EDEMA LE/ DVT + IVC FILTER. HEP C +VE DM. ANAEMIA ETOH ABUSE /PLAN : PATIENT CONSIDERING AV - FISTULA. SURGERY F/U NOTED CONTINUE HAART RX OUTLINED.02/12/17 * PATIENT ON EMTRIVA 200 MG EVERY 96 HOURLY ( as creatinine clearance less than 15 mL per minute ) * SUSTIVA 600 MG BY MOUTH ONCE A DAY DAILY. *RALTEGRAVIR (ISENTRESS ) 400 MG BY MOUTH TWICE A DAY. SEEN BY VASCULAR SURGERY- VEIN MAPPING ORDERED NOTED.. TO FOLLOW. Objective - Vital Signs/Intake and Output Vital Signs (last 24 hours): Temp Pulse Resp BP Pulse Ox 97.7 F 59 L 18 184/80 H 95 02/15/17 15:10 02/15/17 15:10 02/15/17 15:10 02/15/17 17:19 02/15/17 15:10 Intake and Output: 02/15/17 02/15/17 06:59 18:59 Intake Total 720 Balance 720 - Medications Medications: Current Medications Acetaminophen (Tylenol 325mg Tab) 650 mg PO Q4 PRN PRN Reason: Pain, moderate (4-7) Last Admin: 02/12/17 13:36 Dose: 650 mg Apixaban (Eliquis) 5 mg PO BID [facility] Last Admin: 02/15/17 17:18 Dose: 5 mg Calcitriol (Rocaltrol) 0.25 mcg PO DAILY [facility] Last Admin: 02/15/17 10:32 Dose: 0.25 mcg Carvedilol (Coreg) 12.5 mg PO BID [facility] Last Admin: 02/15/17 17:19 Dose: 12.5 mg Clonidine HCl (Catapres) 0.1 mg PO BID [facility] Last Admin: 02/15/17 17:19 Dose: 0.1 mg Diltiazem HCl (Cardizem Cd) 120 mg PO DAILY [facility] Last Admin: 02/15/17 10:31 Dose: 120 mg Efavirenz (Sustiva) 600 mg PO DAILY [facility] Last Admin: 02/15/17 10:29 Dose: 600 mg Emtricitabine (Emtriva) 200 mg PO Q96H [facility] Last Admin: 02/12/17 22:15 Dose: 200 mg Furosemide (Lasix) 20 mg PO HS [facility] Last Admin: 02/14/17 21:58 Dose: 20 mg Furosemide (Lasix) 20 mg PO DAILY [facility] Hydralazine HCl (Apresoline) 100 mg PO Q8H [facility] Last Admin: 02/15/17 13:28 Dose: 100 mg Hydroxyzine HCl (Atarax) 25 mg PO BID [facility] Last Admin: 02/15/17 17:19 Dose: 25 mg Ferric Sodium Gluconate Complex 125 mg/ Sodium Chloride 110 mls @ 105 mls/hr IVPB DAILY [facility] Stop: 02/21/17 10:01 Last Admin: 02/15/17 10:32 Dose: 105 mls/hr Isosorbide Mononitrate (Imdur Er) 30 mg PO DAILY [facility] Last Admin: 02/15/17 10:29 Dose: 30 mg Raltegravir (Isentress) 400 mg PO BID [facility] Last Admin: 02/15/17 17:19 Dose: 400 mg Rosuvastatin Calcium (Crestor) 20 mg PO HS [facility] Last Admin: 02/14/17 21:56 Dose: 20 mg - Labs Labs: 02/15/17 07:07 12/25/17 07:07 PT 11.4 SECONDS (9.7-12.2) 02/12/17 00:37 INR 1.0 02/12/17 00:37 APTT 21 SECONDS (21-34) 02/12/17 00:37 Assessment and Plan (1) HIV (human immunodeficiency virus infection) Status: Acute (2) Congestive heart failure (CHF) Status: Acute (3) Leg swelling Status: Chronic (4) DVT (deep venous thrombosis) Status: Acute (5) Renal failure (ARF), acute on chronic Status: Chronic (6) Hepatitis C Status: Acute (7) Diabetes mellitus Status: Acute (8) Alcohol abuse Status: Acute (9) Homelessness Status: Acute
[2017-02-16 07:00] LABS: BASO % 0.3 % (0.0-2.0); EOS # 0.1 K/uL (0.0-0.7); EOS % 3.3 % (0.0-4.0); HEMOGLOBIN 8.1 g/dL (11.0-16.0); LYMPH # 0.5 K/uL (1.0-4.3); LYMPH % 15.4 % (20.0-40.0); MEAN CELL VOLUME 91.8 fL (81.0-99.0); MEAN CORPUSCULAR HEMOGLOBIN 30.4 pg (27.0-31.0); MEAN CORPUSCULAR HGB CONC 33.1 g/dL (33.0-37.0); MEAN PLATELET VOLUME 9.6 fL (7.2-11.7); MONO # 0.6 K/uL (0.0-0.8); MONO % 15.8 % (0.0-10.0); NEUT # 2.3 K/uL (1.8-7.0); NEUT % 65.2 % (50.0-75.0); RBC 2.66 Mil/uL (3.80-5.20); RED CELL DISTRIBUTION WIDTH 19.3 % (11.5-14.5); WHITE BLOOD COUNT 3.5 K/uL (4.8-10.8)
[2017-02-16 08:19] LABS: ALB/GLOB RATIO 1.1 (1.0-2.1); CALCIUM 7.4 mg/dl (8.6-10.4)
[2017-02-16] MEDS: diltiaZEM 120 mg/24 Hours CD Cap PO SCH (09:04)
--- NOTE | 2017-02-16 09:14 | CP.PCM.PN ---
Subjective - Date & Time of Evaluation Date of Evaluation: 02/16/17 Time of Evaluation: 09:30 - Subjective Subjective: Nephrology progress note for Dr Carreno's service. Patient with no overnight acute events. Reported her shortness of breath has improved. Patient states her lower extremities edema has also improved. Patient denies chest pain, fever or chills. No nausea, vomiting or diarrhea. Objective - Vital Signs/Intake and Output Vital Signs (last 24 hours): Temp Pulse Resp BP Pulse Ox 97.9 F 72 20 174/75 H 97 02/16/17 08:15 02/16/17 08:15 02/16/17 08:15 02/16/17 09:04 02/16/17 08:15 Intake and Output: 02/16/17 02/16/17 06:59 18:59 Intake Total 600 Balance 600 - Medications Medications: Current Medications Acetaminophen (Tylenol 325mg Tab) 650 mg PO Q4 PRN PRN Reason: Pain, moderate (4-7) Last Admin: 02/12/17 13:36 Dose: 650 mg Apixaban (Eliquis) 5 mg PO BID [facility] Last Admin: 02/16/17 09:04 Dose: 5 mg Calcitriol (Rocaltrol) 0.25 mcg PO DAILY [facility] Last Admin: 02/16/17 09:04 Dose: 0.25 mcg Carvedilol (Coreg) 12.5 mg PO BID [facility] Last Admin: 02/16/17 09:06 Dose: Not Given Clonidine HCl (Catapres) 0.1 mg PO BID [facility] Last Admin: 02/16/17 09:05 Dose: Not Given Diltiazem HCl (Cardizem Cd) 120 mg PO DAILY [facility] Last Admin: 02/16/17 09:04 Dose: 120 mg Efavirenz (Sustiva) 600 mg PO DAILY [facility] Last Admin: 02/16/17 09:04 Dose: 600 mg Emtricitabine (Emtriva) 200 mg PO Q96H [facility] Last Admin: 02/12/17 22:15 Dose: 200 mg Furosemide (Lasix) 20 mg PO HS [facility] Last Admin: 02/14/17 21:58 Dose: 20 mg Furosemide (Lasix) 20 mg PO DAILY [facility] Last Admin: 02/16/17 09:04 Dose: 20 mg Hydralazine HCl (Apresoline) 100 mg PO Q8H [facility] Last Admin: 02/16/17 05:52 Dose: 100 mg Hydroxyzine HCl (Atarax) 25 mg PO BID [facility] Last Admin: 02/16/17 09:05 Dose: 25 mg Ferric Sodium Gluconate Complex 125 mg/ Sodium Chloride 110 mls @ 105 mls/hr IVPB DAILY [facility] Stop: 02/21/17 10:01 Last Admin: 02/15/17 10:32 Dose: 105 mls/hr Isosorbide Mononitrate (Imdur Er) 30 mg PO DAILY [facility] Last Admin: 02/16/17 09:07 Dose: 30 mg Raltegravir (Isentress) 400 mg PO BID [facility] Last Admin: 02/16/17 09:05 Dose: 400 mg Rosuvastatin Calcium (Crestor) 20 mg PO HS [facility] Last Admin: 02/15/17 21:18 Dose: 20 mg - Labs Labs: 02/16/17 06:56 02/16/17 06:56 PT 11.4 SECONDS (9.7-12.2) 02/12/17 00:37 INR 1.0 02/12/17 00:37 APTT 21 SECONDS (21-34) 02/12/17 00:37 - Constitutional Appears: No Acute Distress, Older Than Stated Age, Chronically Ill - Head Exam Head Exam: ATRAUMATIC, NORMAL INSPECTION, NORMOCEPHALIC - Eye Exam Eye Exam: Normal appearance. absent: Scleral icterus Pupil Exam: NORMAL ACCOMODATION - ENT Exam ENT Exam: Mucous Membranes Moist - Neck Exam Neck Exam: Normal Inspection - Respiratory Exam Respiratory Exam: Clear to Ausculation Bilateral, NORMAL BREATHING PATTERN. absent: Rales, Rhonchi, Wheezes, Respiratory Distress, Stridor - Cardiovascular Exam Cardiovascular Exam: REGULAR RHYTHM, RRR, +S1, +S2. absent: Murmur - GI/Abdominal Exam GI & Abdominal Exam: Soft, Normal Bowel Sounds. absent: Distended, Firm, Guarding, Rigid, Tenderness - Extremities Exam Extremities Exam: Pedal Edema (+2, with chronic skin discoloration. ). absent: Tenderness - Back Exam Back Exam: NORMAL INSPECTION - Neurological Exam Neurological Exam: Alert, Awake, Oriented x3 - Psychiatric Exam Psychiatric exam: Flat Affect - Skin Skin Exam: Dry, Intact, Warm Assessment and Plan (1) Chronic renal insufficiency Assessment & Plan: Patient's renal function worsened with aggressive diuresis. IV Lasix was changed back to po, will continue with 20 mg po daily for now, and reevaluate tomorrow. Patient agrees to undergo AV-fistula, s/p vein mapping. Will follow up with vascular. Kisha on hold. For CKD bone disease, patient is on calcitriol, will obtain phos, PTH pending. Vitamin D level normal. Status: Acute (2) Hyperkalemia Assessment & Plan: Resolved. Continue to monitor. Status: Resolved (3) Metabolic acidosis Assessment & Plan: Resolved, continue to monitor. Status: Acute (4) Anemia Assessment & Plan: hgb stable, continue with loading dose iron. Status: Acute (5) Congestive heart failure (CHF) Assessment & Plan: Repeat echo with improved LVEF, patient has grade 1 diastolic dysfunction. Lower extremities edema continues to improve, with improve pulm status. On Lasix 20 mg po daily due to worsening renal function on higher doses. Status: Acute (6) DVT (deep venous thrombosis) Assessment & Plan: Eliquis on hold in anticipation for avf formation. Status: Acute (7) Diabetes mellitus Assessment & Plan: Diet controlled. Status: Acute (8) HIV (human immunodeficiency virus infection) Assessment & Plan: Continue with HAART therapy. ID following. Status: Acute (9) Hepatitis C Status: Acute (10) Atrial fibrillation Assessment & Plan: On Cardizem. Eliquis on hold in anticipation for avf formation. Status: Acute (11) Dyslipidemia Assessment & Plan: On crestor. Status: Acute (12) HTN (hypertension) Assessment & Plan: Uncontrolled. Currently on coreg 12.5 mg bid, imdur 30 mg daily, hydralazine 50 mg q8hyr, Clonidine po to be increased to 0.1 mg TID, patient to be started on clonidine patch q7 days in anticipation to wean patient off of clonidine po, and possibly hydralazine. Status: Acute - Assessment and Plan (Free Text) Assessment: Patient seen, examined and case discussed with Dr Carreno.
[2017-02-16] MEDS: Ferric Sodium Gluconat Complex 125 MG in Sodium Chloride 0.9% 100 ML IVPB SCH (11:34)
--- NOTE | 2017-02-16 13:35 | VASCLAB ---
PROCEDURE: Upper Extremity Venous Duplex Exam HISTORY: preop avf PRIORS: None. TECHNIQUE: Bilateral upper extremity, internal jugular, subclavian, axillary, brachial, ulnar, radial, basilic and upper cephalic veins were evaluated. Flow was assessed with color Doppler, compressibility, assessment of phasic flow and augmentation response. Report prepared by BEATRIZ Villalpando FINDINGS: RIGHT: 1. Internal Jugular Vein: Compressibility - Fully compressible: Thrombus - None : Flow - Phasic 2. Subclavian Vein:Compressibility - Fully compressible: Thrombus - None : Flow - Phasic 3. Axillary Vein: Compressibility - Fully compressible: Thrombus - None 4. Brachial Vein: Compressibility - Fully compressible: Thrombus - None 5. Ulnar Vein:Compressibility - Fully compressible: Thrombus - None 6. Radial Vein:Compressibility - Fully compressible: Thrombus - None 7. Cephalic Vein: Compressibility - Fully compressible: thrombus - None 7.1. Upper Arm: Proximal Diameter: 0.14cm. Mid Diameter: 0.21cm. Distal Diameter: 0.15cm. 7.2. Forearm: Proximal Diameter: 0.18cm. Mid Diameter:0.22cm. Distal Diameter: 0.22cm 8. Basilic Vein:Compressibility - Fully compressible: thrombus - None 8.1. Upper Arm:Proximal Diameter: 0.78cm. Mid Diameter: 0.43cm. Distal Diameter: 0.31cm. 8.2. Forearm: Proximal Diameter: 0.22cm. Mid Diameter:0.14cm. LEFT: 1. Internal Jugular Vein: Compressibility - Fully compressible: Thrombus - None : Flow - Phasic 2. Subclavian Vein:Compressibility - Fully compressible: Thrombus - None : Flow - Phasic 3. Axillary Vein: Compressibility - Fully compressible: Thrombus - None 4. Brachial Vein: Compressibility - Fully compressible: Thrombus - None 5. Ulnar Vein:Compressibility - Fully compressible: Thrombus - None 6. Radial Vein:Compressibility - Fully compressible: Thrombus - None 7. Cephalic Vein: Compressibility - Fully compressible: thrombus - None 7.1. Upper Arm: Proximal Diameter: 0.36cm. Mid Diameter: 0.34cm. Distal Diameter: 0.26cm. 7.2. Forearm: Proximal Diameter: 0.23cm. Mid Diameter:0.18cm. Distal Diameter: 0.19cm 8. Basilic Vein:Compressibility - Fully compressible: thrombus - None 8.1. Upper Arm:Proximal Diameter: 0.48cm. Mid Diameter: 0.31cm. Distal Diameter: 0.26cm. 8.2. Forearm: Proximal Diameter: 0.13cm. Mid Diameter:0.14cm. Distal Diameter: 0.17cm. OTHER FINDINGS: Right: None. Left: None. IMPRESSION: 1. No evidence of DVT/SVT in bilateral upper extremities. 2. Please refer to the above listed measurements, for vein size.
--- NOTE | 2017-02-16 14:02 | CP.PCM.PN ---
Subjective - Date & Time of Evaluation Date of Evaluation: 02/16/17 Time of Evaluation: 13:57 - Subjective Subjective: CHIEF COMPLAINTS TODAY : PAIN SWELLING IN LEGS LESS ROS. HEENT : N. Resp : No cough, wheezing ,pleuritic CP ,or hemoptysis Cardio : No anginal CP, PND, orthopnea, palpitation GI : No abd.pain, n/v ,diarrhea or GI bleeding . 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 Musculoskel : No joint swelling , Derm : No rash Psych : FLAT affect. Ext : POS swelling ,calf pain PE. Pt. is alert awake in no distress. V.S As noted in the chart Head ,ear nose,throat and eyes : Normal. Neck : Supple with normal carotids. Lungs: Clear air entry. Heart : S1 & S2 normal with S4. No murmur. Abd : Soft non tender with normal bowel sounds. Neuro : Moves all ext. with no localized deficit. Ext :edema with intact pulses. Derm : No rashes or decubitus ulcer. LABS/RADIOLOGY: ASSESSMENT/PLAN : F/U RENAL PARAMETER PT HAS NOT MADE UP HER MIND FOR AVF Objective - Vital Signs/Intake and Output Vital Signs (last 24 hours): Temp Pulse Resp BP Pulse Ox 97.9 F 61 18 159/82 H 97 02/16/17 08:15 02/16/17 11:33 02/16/17 11:33 02/16/17 11:33 02/16/17 08:15 - Medications Medications: Current Medications Acetaminophen (Tylenol 325mg Tab) 650 mg PO Q4 PRN PRN Reason: Pain, moderate (4-7) Last Admin: 02/12/17 13:36 Dose: 650 mg Apixaban (Eliquis) 5 mg PO BID [facility] Last Admin: 02/16/17 09:04 Dose: 5 mg Calcitriol (Rocaltrol) 0.25 mcg PO DAILY [facility] Last Admin: 02/16/17 09:04 Dose: 0.25 mcg Carvedilol (Coreg) 12.5 mg PO BID [facility] Last Admin: 02/16/17 09:06 Dose: Not Given Clonidine HCl (Catapres Tts1 0.1 Mg/24 Hr) 1 patch TD Q7D@1000 [facility] Clonidine HCl (Catapres) 0.1 mg PO Q8H [facility] Last Admin: 02/16/17 13:15 Dose: 0.1 mg Diltiazem HCl (Cardizem Cd) 120 mg PO DAILY [facility] Last Admin: 02/16/17 09:04 Dose: 120 mg Efavirenz (Sustiva) 600 mg PO DAILY [facility] Last Admin: 02/16/17 09:04 Dose: 600 mg Emtricitabine (Emtriva) 200 mg PO Q96H [facility] Last Admin: 02/12/17 22:15 Dose: 200 mg Furosemide (Lasix) 20 mg PO HS [facility] Last Admin: 02/14/17 21:58 Dose: 20 mg Furosemide (Lasix) 20 mg PO DAILY [facility] Last Admin: 02/16/17 09:04 Dose: 20 mg Hydralazine HCl (Apresoline) 100 mg PO Q8H [facility] Last Admin: 02/16/17 13:17 Dose: 100 mg Hydroxyzine HCl (Atarax) 25 mg PO BID [facility] Last Admin: 02/16/17 09:05 Dose: 25 mg Ferric Sodium Gluconate Complex 125 mg/ Sodium Chloride 110 mls @ 105 mls/hr IVPB DAILY [facility] Stop: 02/21/17 10:01 Last Admin: 02/16/17 11:34 Dose: 105 mls/hr Isosorbide Mononitrate (Imdur Er) 30 mg PO DAILY [facility] Last Admin: 02/16/17 09:07 Dose: 30 mg Raltegravir (Isentress) 400 mg PO BID [facility] Last Admin: 02/16/17 09:05 Dose: 400 mg Rosuvastatin Calcium (Crestor) 20 mg PO HS [facility] Last Admin: 02/15/17 21:18 Dose: 20 mg - Labs Labs: 02/16/17 06:56 02/16/17 06:56 PT 11.4 SECONDS (9.7-12.2) 02/12/17 00:37 INR 1.0 02/12/17 00:37 APTT 21 SECONDS (21-34) 02/12/17 00:37 Assessment and Plan (1) Acute on chronic renal failure Status: Acute (2) Hyperkalemia Status: Resolved (3) AIDS (acquired immune deficiency syndrome) Status: Chronic (4) Leg swelling Status: Chronic (5) CKD (chronic kidney disease), stage IV Status: Chronic (6) Pulmonary HTN Status: Chronic
--- NOTE | 2017-02-16 14:40 | CP.PCM.PN ---
Subjective - Date & Time of Evaluation Date of Evaluation: 02/16/17 Time of Evaluation: 14:40 - Subjective Subjective: CHIEF COMPLAINTS TODAY : afebrile, says why her swelling bilateral lower extremity not improving? agreeable for AVF. MORE AWAKE TODAY. TOLERATING HAART RX . OFFERS NO REACTION. . ROS. HEENT : N. Resp : No cough, wheezing ,pleuritic CP ,or hemoptysis Cardio : No anginal CP, PND, orthopnea, palpitation GI : No abd.pain, n/v ,diarrhea or GI bleeding . LEGAL COLLECTOR : No headache, vertigo, focal deficit. Musculoskel : No joint swelling , Derm : No rash Psych : FLAT affect. Ext : POS swelling ,calf pain PE. Pt. is alert awake in no distress. V.S As noted in the chart Head ,ear nose,throat and eyes : Normal. Neck : Supple with normal carotids. Lungs: DIMINISHED BREATH SOUNDS AT THE BASES. Heart : S1 & S2 normal with S4. No murmur. Abd : Soft non tender with normal bowel sounds. Neuro : Moves all ext. with no localized deficit. Ext BILATERAL LE 2+ EDEMA, with intact pulses. Derm : No rashes or decubitus ulcer. LABS/RADIOLOGY: REVIEWED. CREATININE CLEARANCE <15. ASSESSMENT HIV+VE. CHF EXASCERBATION HTN CKD -STAGE 4 B/L EDEMA LE/ DVT + IVC FILTER. HEP C +VE DM. ANAEMIA ETOH ABUSE /PLAN : PATIENT CONSIDERING AV - FISTULA. SURGERY F/U NOTED CONTINUE HAART RX OUTLINED.02/12/17 * PATIENT ON EMTRIVA 200 MG EVERY 96 HOURLY ( as creatinine clearance less than 15 mL per minute ) * SUSTIVA 600 MG BY MOUTH ONCE A DAY DAILY. *RALTEGRAVIR (ISENTRESS ) 400 MG BY MOUTH TWICE A DAY. SEEN BY VASCULAR SURGERY- VEIN MAPPING ORDERED NOTED.. TO FOLLOW. Objective - Vital Signs/Intake and Output Vital Signs (last 24 hours): Temp Pulse Resp BP Pulse Ox 97.9 F 61 18 159/82 H 97 02/16/17 08:15 02/16/17 11:33 02/16/17 11:33 02/16/17 11:33 02/16/17 08:15 Intake and Output: 02/16/17 02/16/17 06:59 18:59 Intake Total 600 450 Balance 600 450 - Medications Medications: Current Medications Acetaminophen (Tylenol 325mg Tab) 650 mg PO Q4 PRN PRN Reason: Pain, moderate (4-7) Last Admin: 02/12/17 13:36 Dose: 650 mg Apixaban (Eliquis) 5 mg PO BID [facility] Last Admin: 02/16/17 09:04 Dose: 5 mg Calcitriol (Rocaltrol) 0.25 mcg PO DAILY [facility] Last Admin: 02/16/17 09:04 Dose: 0.25 mcg Carvedilol (Coreg) 12.5 mg PO BID [facility] Last Admin: 02/16/17 09:06 Dose: Not Given Clonidine HCl (Catapres Tts1 0.1 Mg/24 Hr) 1 patch TD Q7D@1000 [facility] Last Admin: 02/16/17 14:21 Dose: 1 patch Clonidine HCl (Catapres) 0.1 mg PO Q8H [facility] Last Admin: 02/16/17 13:15 Dose: 0.1 mg Diltiazem HCl (Cardizem Cd) 120 mg PO DAILY [facility] Last Admin: 02/16/17 09:04 Dose: 120 mg Efavirenz (Sustiva) 600 mg PO DAILY [facility] Last Admin: 02/16/17 09:04 Dose: 600 mg Emtricitabine (Emtriva) 200 mg PO Q96H [facility] Last Admin: 02/12/17 22:15 Dose: 200 mg Furosemide (Lasix) 20 mg PO HS [facility] Last Admin: 02/14/17 21:58 Dose: 20 mg Furosemide (Lasix) 20 mg PO DAILY [facility] Last Admin: 02/16/17 09:04 Dose: 20 mg Hydralazine HCl (Apresoline) 100 mg PO Q8H [facility] Last Admin: 02/16/17 13:17 Dose: 100 mg Hydroxyzine HCl (Atarax) 25 mg PO BID [facility] Last Admin: 02/16/17 09:05 Dose: 25 mg Ferric Sodium Gluconate Complex 125 mg/ Sodium Chloride 110 mls @ 105 mls/hr IVPB DAILY [facility] Stop: 02/21/17 10:01 Last Admin: 02/16/17 11:34 Dose: 105 mls/hr Isosorbide Mononitrate (Imdur Er) 30 mg PO DAILY [facility] Last Admin: 02/16/17 09:07 Dose: 30 mg Raltegravir (Isentress) 400 mg PO BID [facility] Last Admin: 02/16/17 09:05 Dose: 400 mg Rosuvastatin Calcium (Crestor) 10 mg PO HS [facility] - Labs Labs: 02/16/17 06:56 02/16/17 06:56 PT 11.4 SECONDS (9.7-12.2) 02/12/17 00:37 INR 1.0 02/12/17 00:37 APTT 21 SECONDS (21-34) 02/12/17 00:37 Assessment and Plan (1) HIV (human immunodeficiency virus infection) Status: Acute (2) Congestive heart failure (CHF) Status: Acute (3) Leg swelling Status: Chronic (4) DVT (deep venous thrombosis) Status: Acute (5) Renal failure (ARF), acute on chronic Status: Chronic (6) Hepatitis C Status: Acute (7) Diabetes mellitus Status: Acute (8) Alcohol abuse Status: Acute (9) Homelessness Status: Acute
[2017-02-16] MEDS: EMTRICITABINE 200 MG CAP PO SCH (22:08)
[2017-02-17] MEDS: diltiaZEM 120 mg/24 Hours CD Cap PO SCH (09:39)
[2017-02-17] MEDS: Ferric Sodium Gluconat Complex 125 MG in Sodium Chloride 0.9% 100 ML IVPB SCH (11:19)
[2017-02-17 11:45] LABS: BASO % 0.9 % (0.0-2.0); EOS # 0.1 K/uL (0.0-0.7); EOS % 4.2 % (0.0-4.0); HEMOGLOBIN 8.4 g/dL (11.0-16.0); LYMPH # 0.4 K/uL (1.0-4.3); LYMPH % 12.7 % (20.0-40.0); MEAN CELL VOLUME 92.3 fL (81.0-99.0); MEAN CORPUSCULAR HEMOGLOBIN 30.1 pg (27.0-31.0); MEAN CORPUSCULAR HGB CONC 32.6 g/dL (33.0-37.0); MONO # 0.4 K/uL (0.0-0.8); MONO % 11.4 % (0.0-10.0); NEUT # 2.5 K/uL (1.8-7.0); NEUT % 70.8 % (50.0-75.0); RBC 2.77 Mil/uL (3.80-5.20); RED CELL DISTRIBUTION WIDTH 19.4 % (11.5-14.5); WHITE BLOOD COUNT 3.5 K/uL (4.8-10.8)
--- NOTE | 2017-02-17 11:50 | CARD ---
APPROVED REPORT EKG Measurement Heart [id number] <Conclusion> Normal sinus rhythm Prolonged QT Abnormal ECG
[2017-02-17 12:03] LABS: ALB/GLOB RATIO 0.9 (1.0-2.1); ALBUMIN 3.2 g/dL (3.5-5.0); CALCIUM 8.3 mg/dl (8.6-10.4)
--- NOTE | 2017-02-17 14:17 | CP.PCM.PN ---
Subjective - Date & Time of Evaluation Date of Evaluation: 02/17/17 Time of Evaluation: 14:16 - Subjective Subjective: CHIEF COMPLAINTS TODAY : PAIN SWELLING IN LEGS LESS ROS. HEENT : N. Resp : No cough, wheezing ,pleuritic CP ,or hemoptysis Cardio : No anginal CP, PND, orthopnea, palpitation GI : No abd.pain, n/v ,diarrhea or GI bleeding . 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 Musculoskel : No joint swelling , Derm : No rash Psych : FLAT affect. Ext : POS swelling ,calf pain PE. Pt. is alert awake in no distress. V.S As noted in the chart Head ,ear nose,throat and eyes : Normal. Neck : Supple with normal carotids. Lungs: Clear air entry. Heart : S1 & S2 normal with S4. No murmur. Abd : Soft non tender with normal bowel sounds. Neuro : Moves all ext. with no localized deficit. Ext :edema with intact pulses. Derm : No rashes or decubitus ulcer. LABS/RADIOLOGY: VEIN MAPPING : NO DVT IN U. EXT ASSESSMENT/PLAN : F/U RENAL PARAMETER FOR AVF PLACEMENT Objective - Vital Signs/Intake and Output Vital Signs (last 24 hours): Temp Pulse Resp BP Pulse Ox 97.5 F L 57 L 20 176/46 H 100 02/17/17 08:01 02/17/17 13:13 02/17/17 08:01 02/17/17 09:43 02/17/17 08:01 - Medications Medications: Current Medications Acetaminophen (Tylenol 325mg Tab) 650 mg PO Q4 PRN PRN Reason: Pain, moderate (4-7) Last Admin: 02/12/17 13:36 Dose: 650 mg Apixaban (Eliquis) 5 mg PO BID [facility] Last Admin: 02/16/17 09:04 Dose: 5 mg Calcitriol (Rocaltrol) 0.25 mcg PO DAILY [facility] Last Admin: 02/17/17 09:39 Dose: 0.25 mcg Carvedilol (Coreg) 12.5 mg PO BID [facility] Last Admin: 02/17/17 09:43 Dose: 12.5 mg Clonidine HCl (Catapres Tts1 0.1 Mg/24 Hr) 1 patch TD Q7D@1000 [facility] Last Admin: 02/16/17 14:21 Dose: 1 patch Clonidine HCl (Catapres) 0.1 mg PO Q12H [facility] Diltiazem HCl (Cardizem Cd) 120 mg PO DAILY [facility] Last Admin: 02/17/17 09:39 Dose: 120 mg Efavirenz (Sustiva) 600 mg PO DAILY [facility] Last Admin: 02/17/17 09:39 Dose: 600 mg Emtricitabine (Emtriva) 200 mg PO Q96H [facility] Last Admin: 02/16/17 22:08 Dose: 200 mg Furosemide (Lasix) 20 mg PO HS [facility] Last Admin: 02/14/17 21:58 Dose: 20 mg Furosemide (Lasix) 20 mg PO DAILY [facility] Last Admin: 02/17/17 09:43 Dose: 20 mg Hydralazine HCl (Apresoline) 100 mg PO Q8H [facility] Last Admin: 02/17/17 13:41 Dose: 100 mg Hydroxyzine HCl (Atarax) 25 mg PO BID [facility] Last Admin: 02/17/17 09:38 Dose: 25 mg Ferric Sodium Gluconate Complex 125 mg/ Sodium Chloride 110 mls @ 105 mls/hr IVPB DAILY [facility] Stop: 02/21/17 10:01 Last Admin: 02/17/17 11:19 Dose: 105 mls/hr Isosorbide Mononitrate (Imdur Er) 30 mg PO DAILY [facility] Last Admin: 02/17/17 09:39 Dose: 30 mg Raltegravir (Isentress) 400 mg PO BID [facility] Last Admin: 02/17/17 09:39 Dose: 400 mg Rosuvastatin Calcium (Crestor) 10 mg PO HS [facility] Last Admin: 02/16/17 22:09 Dose: 10 mg - Labs Labs: 02/17/17 11:32 02/17/17 11:32 PT 11.4 SECONDS (9.7-12.2) 02/12/17 00:37 INR 1.0 02/12/17 00:37 APTT 21 SECONDS (21-34) 02/12/17 00:37 Assessment and Plan (1) Acute on chronic renal failure Status: Acute (2) Hyperkalemia Status: Resolved (3) AIDS (acquired immune deficiency syndrome) Status: Chronic (4) Leg swelling Status: Chronic (5) CKD (chronic kidney disease), stage IV Status: Chronic (6) Pulmonary HTN Status: Chronic
--- NOTE | 2017-02-17 19:04 | CP.PCM.PN ---
Subjective - Date & Time of Evaluation Date of Evaluation: 02/17/17 Time of Evaluation: 12:30 - Subjective Subjective: Patient reports feeling well; breathing well; tolerating diet; Objective - Vital Signs/Intake and Output Vital Signs (last 24 hours): Temp Pulse Resp BP Pulse Ox 97.6 F 53 L 20 188/89 H 100 02/17/17 15:00 02/17/17 15:00 02/17/17 15:00 02/17/17 18:20 02/17/17 15:00 - Medications Medications: Current Medications Acetaminophen (Tylenol 325mg Tab) 650 mg PO Q4 PRN PRN Reason: Pain, moderate (4-7) Last Admin: 02/12/17 13:36 Dose: 650 mg Apixaban (Eliquis) 5 mg PO BID [facility] Last Admin: 02/16/17 09:04 Dose: 5 mg Calcitriol (Rocaltrol) 0.25 mcg PO DAILY [facility] Last Admin: 02/17/17 09:39 Dose: 0.25 mcg Carvedilol (Coreg) 12.5 mg PO BID [facility] Last Admin: 02/17/17 18:20 Dose: 12.5 mg Clonidine HCl (Catapres Tts1 0.1 Mg/24 Hr) 1 patch TD Q7D@1000 [facility] Last Admin: 02/16/17 14:21 Dose: 1 patch Clonidine HCl (Catapres) 0.1 mg PO Q12H [facility] Last Admin: 02/17/17 18:20 Dose: 0.1 mg Diltiazem HCl (Cardizem Cd) 120 mg PO DAILY [facility] Last Admin: 02/17/17 09:39 Dose: 120 mg Efavirenz (Sustiva) 600 mg PO DAILY [facility] Last Admin: 02/17/17 09:39 Dose: 600 mg Emtricitabine (Emtriva) 200 mg PO Q96H [facility] Last Admin: 02/16/17 22:08 Dose: 200 mg Furosemide (Lasix) 20 mg PO HS [facility] Last Admin: 02/14/17 21:58 Dose: 20 mg Furosemide (Lasix) 20 mg PO DAILY [facility] Last Admin: 02/17/17 09:43 Dose: 20 mg Hydralazine HCl (Apresoline) 100 mg PO Q8H [facility] Last Admin: 02/17/17 13:41 Dose: 100 mg Hydroxyzine HCl (Atarax) 25 mg PO BID [facility] Last Admin: 02/17/17 18:21 Dose: 25 mg Ferric Sodium Gluconate Complex 125 mg/ Sodium Chloride 110 mls @ 105 mls/hr IVPB DAILY [facility] Stop: 02/21/17 10:01 Last Admin: 02/17/17 11:19 Dose: 105 mls/hr Isosorbide Mononitrate (Imdur Er) 30 mg PO DAILY [facility] Last Admin: 02/17/17 09:39 Dose: 30 mg Raltegravir (Isentress) 400 mg PO BID [facility] Last Admin: 02/17/17 18:21 Dose: 400 mg Rosuvastatin Calcium (Crestor) 10 mg PO HS [facility] Last Admin: 02/16/17 22:09 Dose: 10 mg - Labs Labs: 02/17/17 11:32 02/17/17 11:32 PT 11.4 SECONDS (9.7-12.2) 02/12/17 00:37 INR 1.0 02/12/17 00:37 APTT 21 SECONDS (21-34) 02/12/17 00:37 - Constitutional Appears: Non-toxic, No Acute Distress - Eye Exam Eye Exam: Normal appearance - ENT Exam ENT Exam: Mucous Membranes Moist - Respiratory Exam Respiratory Exam: Clear to Ausculation Bilateral. absent: Respiratory Distress - Cardiovascular Exam Cardiovascular Exam: RRR, +S1, +S2 - GI/Abdominal Exam GI & Abdominal Exam: Soft. absent: Distended, Tenderness - Extremities Exam Additional comments: mild/moderate lower leg edema; - Neurological Exam Neurological Exam: Alert, Awake - Psychiatric Exam Psychiatric exam: absent: Agitated Additional comments: apathetic; - Skin Skin Exam: Warm. absent: Cyanosis Assessment and Plan (1) Acute on chronic renal failure Assessment & Plan: Renal function stable since diuretics decreased; patient is CKD IV/V and needs to prepare for HD in the imminent future; multiple attempts made to have patient get AVF placed during this admission; however, while she agrees for the procedure, she does not cooperate with surgical team (who have tried multiple times to talk to her regarding the procedure); patient was explained regarding the risks of having catheter placement when starting HD; shows apathetic attitude; -no definite indication for initiating HD at this time but patient is very unreliable and is unlikely to f/u as outpatient (to avoid having to initiate HD as an emergency); Status: Acute (2) Congestive heart failure (CHF) Assessment & Plan: Worsened by advanced renal failure; currently only on once daily lasix 20 mg PO but will likely need bid dosing to avoid CHF exacerbation; Status: Acute (3) Hyperkalemia Status: Resolved (4) Anemia in CKD (chronic kidney disease) Assessment & Plan: Getting IV iron loading, continue; will give dose of EPO once BP controlled; Status: Acute (5) Hypertensive CKD (chronic kidney disease) Assessment & Plan: BP difficult to control but responding to clonidine, will likely need to increase dose to 0.2 mg patch; Status: Acute (6) Chronic kidney disease-mineral and bone disorder Assessment & Plan: PTH markedly elevated, will increase calcitriol to 0.5 mcg daily; phos controlled off any binders, monitor; Status: Chronic
--- NOTE | 2017-02-17 20:55 | CP.PCM.PN ---
Subjective - Date & Time of Evaluation Date of Evaluation: 02/17/17 Time of Evaluation: 20:55 - Subjective Subjective: CHIEF COMPLAINTS TODAY : afebrile, agreeable for AVF TOLERATING HAART RX . OFFERS NO REACTION. . ROS. HEENT : N. Resp : No cough, wheezing ,pleuritic CP ,or hemoptysis Cardio : No anginal CP, PND, orthopnea, palpitation GI : No abd.pain, n/v ,diarrhea or GI bleeding . 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 Musculoskel : No joint swelling , Derm : No rash Psych : FLAT affect. Ext : POS swelling ,calf pain PE. Pt. is alert awake in no distress. V.S As noted in the chart Head ,ear nose,throat and eyes : Normal. Neck : Supple with normal carotids. Lungs: DIMINISHED BREATH SOUNDS AT THE BASES. Heart : S1 & S2 normal with S4. No murmur. Abd : Soft non tender with normal bowel sounds. Neuro : Moves all ext. with no localized deficit. Ext BILATERAL LE 2+ EDEMA, with intact pulses. Derm : No rashes or decubitus ulcer. LABS/RADIOLOGY: REVIEWED. CREATININE CLEARANCE <15. ASSESSMENT HIV+VE. CHF EXASCERBATION HTN CKD -STAGE 4 B/L EDEMA LE/ DVT + IVC FILTER. HEP C +VE DM. ANAEMIA ETOH ABUSE /PLAN : PATIENT CONSIDERING AV - FISTULA. SURGERY F/U NOTED CONTINUE HAART RX OUTLINED.02/12/17 * PATIENT ON EMTRIVA 200 MG EVERY 96 HOURLY ( as creatinine clearance less than 15 mL per minute ) * SUSTIVA 600 MG BY MOUTH ONCE A DAY DAILY. *RALTEGRAVIR (ISENTRESS ) 400 MG BY MOUTH TWICE A DAY. SEEN BY VASCULAR SURGERY- VEIN MAPPING ORDERED NOTED.. AWAITING VASCULAR W/U. Objective - Vital Signs/Intake and Output Vital Signs (last 24 hours): Temp Pulse Resp BP Pulse Ox 97.6 F 53 L 20 188/89 H 100 02/17/17 15:00 02/17/17 15:00 02/17/17 15:00 02/17/17 18:20 02/17/17 15:00 - Medications Medications: Current Medications Acetaminophen (Tylenol 325mg Tab) 650 mg PO Q4 PRN PRN Reason: Pain, moderate (4-7) Last Admin: 02/12/17 13:36 Dose: 650 mg Apixaban (Eliquis) 5 mg PO BID [facility] Last Admin: 02/16/17 09:04 Dose: 5 mg Calcitriol (Rocaltrol) 0.25 mcg PO DAILY [facility] Last Admin: 02/17/17 09:39 Dose: 0.25 mcg Carvedilol (Coreg) 12.5 mg PO BID [facility] Last Admin: 02/17/17 18:20 Dose: 12.5 mg Clonidine HCl (Catapres Tts1 0.1 Mg/24 Hr) 1 patch TD Q7D@1000 [facility] Last Admin: 02/16/17 14:21 Dose: 1 patch Clonidine HCl (Catapres) 0.1 mg PO Q12H [facility] Last Admin: 02/17/17 18:20 Dose: 0.1 mg Diltiazem HCl (Cardizem Cd) 120 mg PO DAILY [facility] Last Admin: 02/17/17 09:39 Dose: 120 mg Efavirenz (Sustiva) 600 mg PO DAILY [facility] Last Admin: 02/17/17 09:39 Dose: 600 mg Emtricitabine (Emtriva) 200 mg PO Q96H [facility] Last Admin: 02/16/17 22:08 Dose: 200 mg Furosemide (Lasix) 20 mg PO HS [facility] Last Admin: 02/14/17 21:58 Dose: 20 mg Furosemide (Lasix) 20 mg PO DAILY [facility] Last Admin: 02/17/17 09:43 Dose: 20 mg Hydralazine HCl (Apresoline) 100 mg PO Q8H [facility] Last Admin: 02/17/17 13:41 Dose: 100 mg Hydroxyzine HCl (Atarax) 25 mg PO BID [facility] Last Admin: 02/17/17 18:21 Dose: 25 mg Ferric Sodium Gluconate Complex 125 mg/ Sodium Chloride 110 mls @ 105 mls/hr IVPB DAILY [facility] Stop: 02/21/17 10:01 Last Admin: 02/17/17 11:19 Dose: 105 mls/hr Isosorbide Mononitrate (Imdur Er) 30 mg PO DAILY [facility] Last Admin: 02/17/17 09:39 Dose: 30 mg Raltegravir (Isentress) 400 mg PO BID [facility] Last Admin: 02/17/17 18:21 Dose: 400 mg Rosuvastatin Calcium (Crestor) 10 mg PO HS [facility] Last Admin: 02/16/17 22:09 Dose: 10 mg - Labs Labs: 02/17/17 11:32 02/17/17 11:32 PT 11.4 SECONDS (9.7-12.2) 02/12/17 00:37 INR 1.0 02/12/17 00:37 APTT 21 SECONDS (21-34) 02/12/17 00:37 Assessment and Plan (1) HIV (human immunodeficiency virus infection) Status: Acute (2) Congestive heart failure (CHF) Status: Acute (3) Leg swelling Status: Chronic (4) DVT (deep venous thrombosis) Status: Acute (5) Renal failure (ARF), acute on chronic Status: Chronic (6) Hepatitis C Status: Acute (7) Diabetes mellitus Status: Acute (8) Alcohol abuse Status: Acute (9) Homelessness Status: Acute
--- NOTE | 2017-02-18 08:47 | CP.PCM.PN ---
Subjective - Date & Time of Evaluation Date of Evaluation: 02/18/17 Time of Evaluation: 08:45 - Subjective Subjective: Nephrology progress note for Dr Carreno. Patient with no acute events overnight. Still refusing to undergo AV fistula formation. Doesn't want to talk, states she's tired of talking to anyone. Unable to obtain ROS due to lack of cooperation from patient. Objective - Vital Signs/Intake and Output Vital Signs (last 24 hours): Temp Pulse Resp BP Pulse Ox 98.4 F 66 20 161/84 H 96 02/18/17 07:05 02/18/17 07:43 02/18/17 07:05 02/18/17 07:05 02/18/17 07:05 Intake and Output: 02/18/17 02/18/17 06:59 18:59 Intake Total 590 Balance 590 - Medications Medications: Current Medications Acetaminophen (Tylenol 325mg Tab) 650 mg PO Q4 PRN PRN Reason: Pain, moderate (4-7) Last Admin: 02/12/17 13:36 Dose: 650 mg Apixaban (Eliquis) 5 mg PO BID [facility] Last Admin: 02/16/17 09:04 Dose: 5 mg Calcitriol (Rocaltrol) 0.5 mcg PO DAILY [facility] Carvedilol (Coreg) 12.5 mg PO BID [facility] Last Admin: 02/17/17 18:20 Dose: 12.5 mg Clonidine HCl (Catapres-Tts2 0.2 Mg/24 Hr) 1 patch TD Q7D@1000 [facility] Clonidine HCl (Catapres) 0.2 mg PO Q12H [facility] Last Admin: 02/18/17 08:40 Dose: 0.2 mg Diltiazem HCl (Cardizem Cd) 120 mg PO DAILY [facility] Last Admin: 02/17/17 09:39 Dose: 120 mg Efavirenz (Sustiva) 600 mg PO DAILY [facility] Last Admin: 02/17/17 09:39 Dose: 600 mg Emtricitabine (Emtriva) 200 mg PO Q96H [facility] Last Admin: 02/16/17 22:08 Dose: 200 mg Furosemide (Lasix) 20 mg PO HS [facility] Last Admin: 02/14/17 21:58 Dose: 20 mg Furosemide (Lasix) 20 mg PO DAILY [facility] Last Admin: 02/17/17 09:43 Dose: 20 mg Hydralazine HCl (Apresoline) 100 mg PO Q8H [facility] Last Admin: 02/18/17 05:45 Dose: 100 mg Hydroxyzine HCl (Atarax) 25 mg PO BID [facility] Last Admin: 02/17/17 18:21 Dose: 25 mg Ferric Sodium Gluconate Complex 125 mg/ Sodium Chloride 110 mls @ 105 mls/hr IVPB DAILY [facility] Stop: 02/21/17 10:01 Last Admin: 02/17/17 11:19 Dose: 105 mls/hr Isosorbide Mononitrate (Imdur Er) 30 mg PO DAILY [facility] Last Admin: 02/17/17 09:39 Dose: 30 mg Raltegravir (Isentress) 400 mg PO BID [facility] Last Admin: 02/17/17 18:21 Dose: 400 mg Rosuvastatin Calcium (Crestor) 10 mg PO HS [facility] Last Admin: 02/17/17 21:39 Dose: 10 mg - Labs Labs: 02/17/17 11:32 02/17/17 11:32 PT 11.4 SECONDS (9.7-12.2) 02/12/17 00:37 INR 1.0 02/12/17 00:37 APTT 21 SECONDS (21-34) 02/12/17 00:37 - Constitutional Appears: No Acute Distress, Older Than Stated Age, Chronically Ill - Head Exam Head Exam: ATRAUMATIC, NORMAL INSPECTION, NORMOCEPHALIC - Eye Exam Eye Exam: Normal appearance - ENT Exam ENT Exam: Mucous Membranes Dry - Neck Exam Neck Exam: Normal Inspection - Respiratory Exam Respiratory Exam: Clear to Ausculation Bilateral, NORMAL BREATHING PATTERN. absent: Rales, Rhonchi, Wheezes, Respiratory Distress, Stridor - Cardiovascular Exam Cardiovascular Exam: REGULAR RHYTHM, +S1, +S2 - GI/Abdominal Exam GI & Abdominal Exam: Soft, Normal Bowel Sounds. absent: Distended, Firm, Guarding, Rigid, Tenderness - Extremities Exam Extremities Exam: Pedal Edema (+1) - Back Exam Back Exam: NORMAL INSPECTION - Neurological Exam Neurological Exam: Alert, Awake, Oriented x3 - Psychiatric Exam Psychiatric exam: Flat Affect - Skin Skin Exam: Dry, Rash, Warm Assessment and Plan (1) Chronic renal insufficiency Assessment & Plan: Due to diabetic nephropathy, superimposed with mitochondria toxicity likely from the HAART therapy. S/p adjustment of the HAART medications Renal function continuous to worsen. Pending AM labs. Multiple attempts were made by surgical team to speak to patient and obtain consent for AVF, however patient has been non cooperative. This afternoon Dr Carreno spent time explaining to patient what her options were, patient seemed apathetic. Patient seemed to have agreed to starting dialysis during this admission. Patient is from a snf near [facility]. Thus IR is consulted for tunneled catheter, patient to be started on HD later today or tomorrow. Status: Acute (2) Hyperkalemia Assessment & Plan: Resolved Status: Resolved (3) Metabolic acidosis Assessment & Plan: Resolved Status: Acute (4) Anemia Status: Acute (5) Congestive heart failure (CHF) Assessment & Plan: With preserved EF. Stable on 20 mg Lasix po daily. Status: Acute (6) DVT (deep venous thrombosis) Assessment & Plan: Will consider resuming eliquis if patient doesn't want to undergo AVF formation. Status: Acute (7) Diabetes mellitus Status: Acute (8) HIV (human immunodeficiency virus infection) Assessment & Plan: On HAART therapy. ID following. Status: Acute (9) Hepatitis C Status: Acute (10) Atrial fibrillation Assessment & Plan: On cardizem, will restart eliquis. Status: Acute (11) Dyslipidemia Status: Acute (12) HTN (hypertension) Assessment & Plan: Continue with coreg 12.5 mg bid, imdur 30 mg daily, hydralazine 50 mg q8hr, Clonidine po 0.1 mg tapering down to qdaily. Continue with clonidine patch q7 days. Status: Acute (13) Chronic kidney disease-mineral and bone disorder Assessment & Plan: With elevated PTH, will continue with calcitriol to 0.5 mcg daily; Pending am labs. Status: Chronic - Assessment and Plan (Free Text) Assessment: Patient seen, examined and case discussed with Dr Carreno.
[2017-02-18] MEDS: diltiaZEM 120 mg/24 Hours CD Cap PO SCH (10:21)
[2017-02-18] MEDS: Ferric Sodium Gluconat Complex 125 MG in Sodium Chloride 0.9% 100 ML IVPB SCH (11:17)
--- NOTE | 2017-02-18 13:55 | CP.PCM.PN ---
Subjective - Date & Time of Evaluation Date of Evaluation: 02/18/17 Time of Evaluation: 13:53 - Subjective Subjective: CHIEF COMPLAINTS TODAY : PAIN SWELLING IN LEGS LESS ONETIME AGREES AND OTHER TIME DECLINES TO HAVE AVF KEEPS SLEEPING , DOES NOT ANSWER QUESTIONS ROS. HEENT : N. Resp : No cough, wheezing ,pleuritic CP ,or hemoptysis Cardio : No anginal CP, PND, orthopnea, palpitation GI : No abd.pain, n/v ,diarrhea or GI bleeding . 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 Musculoskel : No joint swelling , Derm : No rash Psych : FLAT affect. Ext : POS swelling ,calf pain PE. Pt. is alert awake in no distress. V.S As noted in the chart Head ,ear nose,throat and eyes : Normal. Neck : Supple with normal carotids. Lungs: Clear air entry. Heart : S1 & S2 normal with S4. No murmur. Abd : Soft non tender with normal bowel sounds. Neuro : Moves all ext. with no localized deficit. Ext :edema with intact pulses. Derm : No rashes or decubitus ulcer. LABS/RADIOLOGY: VEIN MAPPING : NO DVT IN U. EXT ASSESSMENT/PLAN : F/U RENAL PARAMETER CONSULT WITH PALLIATIVE CARE TO MAKE PT UNDERSTAND HER MEDICAL ISSUES Objective - Vital Signs/Intake and Output Vital Signs (last 24 hours): Temp Pulse Resp BP Pulse Ox 98.4 F 55 L 20 126/79 96 02/18/17 07:05 02/18/17 12:12 02/18/17 07:05 02/18/17 09:50 02/18/17 07:05 Intake and Output: 02/18/17 02/18/17 11:59 23:59 Intake Total 110 Balance 110 - Medications Medications: Current Medications Acetaminophen (Tylenol 325mg Tab) 650 mg PO Q4 PRN PRN Reason: Pain, moderate (4-7) Last Admin: 02/12/17 13:36 Dose: 650 mg Apixaban (Eliquis) 5 mg PO BID [facility] Last Admin: 02/16/17 09:04 Dose: 5 mg Calcitriol (Rocaltrol) 0.5 mcg PO DAILY [facility] Last Admin: 02/18/17 09:42 Dose: 0.5 mcg Carvedilol (Coreg) 12.5 mg PO BID [facility] Last Admin: 02/18/17 09:48 Dose: 12.5 mg Clonidine HCl (Catapres-Tts2 0.2 Mg/24 Hr) 1 patch TD Q7D@1000 [facility] Last Admin: 02/18/17 09:43 Dose: 1 patch Clonidine HCl (Catapres) 0.2 mg PO Q12H [facility] Last Admin: 02/18/17 08:40 Dose: 0.2 mg Diltiazem HCl (Cardizem Cd) 120 mg PO DAILY [facility] Last Admin: 02/18/17 10:21 Dose: 120 mg Efavirenz (Sustiva) 600 mg PO DAILY [facility] Last Admin: 02/18/17 09:42 Dose: 600 mg Emtricitabine (Emtriva) 200 mg PO Q96H [facility] Last Admin: 02/16/17 22:08 Dose: 200 mg Furosemide (Lasix) 20 mg PO DAILY [facility] Last Admin: 02/18/17 09:50 Dose: 20 mg Hydralazine HCl (Apresoline) 100 mg PO Q8H [facility] Last Admin: 02/18/17 13:37 Dose: 100 mg Hydroxyzine HCl (Atarax) 25 mg PO BID [facility] Last Admin: 02/18/17 09:42 Dose: 25 mg Ferric Sodium Gluconate Complex 125 mg/ Sodium Chloride 110 mls @ 105 mls/hr IVPB DAILY [facility] Stop: 02/21/17 10:01 Last Admin: 02/18/17 11:17 Dose: 105 mls/hr Isosorbide Mononitrate (Imdur Er) 30 mg PO DAILY [facility] Last Admin: 02/18/17 09:42 Dose: 30 mg Raltegravir (Isentress) 400 mg PO BID [facility] Last Admin: 02/18/17 09:42 Dose: 400 mg Rosuvastatin Calcium (Crestor) 10 mg PO HS [facility] Last Admin: 02/17/17 21:39 Dose: 10 mg - Labs Labs: 02/17/17 11:32 02/17/17 11:32 PT 11.4 SECONDS (9.7-12.2) 02/12/17 00:37 INR 1.0 02/12/17 00:37 APTT 21 SECONDS (21-34) 02/12/17 00:37 Assessment and Plan (1) Acute on chronic renal failure Status: Acute (2) Hyperkalemia Status: Resolved (3) AIDS (acquired immune deficiency syndrome) Status: Chronic (4) Leg swelling Status: Chronic (5) CKD (chronic kidney disease), stage IV Status: Chronic (6) Pulmonary HTN Status: Chronic
[2017-02-18 15:30] LABS: HEPATITIS B SURFACE AG NEGATIVE (NEGATIVE)
[2017-02-18 15:35] LABS: HEPATITIS B CORE AB Negative (NEGATIVE)
[2017-02-18 17:33] LABS: HEPATITIS C ANTIBODY Reactive (NEGATIVE)
--- NOTE | 2017-02-18 22:24 | CP.PCM.PN ---
Subjective - Date & Time of Evaluation Date of Evaluation: 02/18/17 Time of Evaluation: 22:23 - Subjective Subjective: CHIEF COMPLAINTS TODAY : afebrile, disagreeable for AVF at times agrees at times? TOLERATING HAART RX . OFFERS NO REACTION. . ROS. HEENT : N. Resp : No cough, wheezing ,pleuritic CP ,or hemoptysis Cardio : No anginal CP, PND, orthopnea, palpitation GI : No abd.pain, n/v ,diarrhea or GI bleeding . 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 Musculoskel : No joint swelling , Derm : No rash Psych : FLAT affect. Ext : POS swelling ,calf pain PE. Pt. is alert awake in no distress. V.S As noted in the chart Head ,ear nose,throat and eyes : Normal. Neck : Supple with normal carotids. Lungs: DIMINISHED BREATH SOUNDS AT THE BASES. Heart : S1 & S2 normal with S4. No murmur. Abd : Soft non tender with normal bowel sounds. Neuro : Moves all ext. with no localized deficit. Ext BILATERAL LE 2+ EDEMA, with intact pulses. Derm : No rashes or decubitus ulcer. LABS/RADIOLOGY: REVIEWED. CREATININE CLEARANCE <15. ASSESSMENT HIV+VE. CHF EXASCERBATION HTN CKD -STAGE 4 B/L EDEMA LE/ DVT + IVC FILTER. HEP C +VE DM. ANAEMIA ETOH ABUSE /PLAN : palliative consult as noted to explain pt. SURGERY F/U NOTED CONTINUE HAART RX OUTLINED.02/12/17 * PATIENT ON EMTRIVA 200 MG EVERY 96 HOURLY ( as creatinine clearance less than 15 mL per minute ) * SUSTIVA 600 MG BY MOUTH ONCE A DAY DAILY. *RALTEGRAVIR (ISENTRESS ) 400 MG BY MOUTH TWICE A DAY. SEEN BY VASCULAR SURGERY- VEIN MAPPING ORDERED NOTED.. AWAITING VASCULAR W/U. pt not making up her mind . Objective - Vital Signs/Intake and Output Vital Signs (last 24 hours): Temp Pulse Resp BP Pulse Ox 97.8 F 64 18 164/76 H 96 02/18/17 20:21 02/18/17 20:21 02/18/17 20:21 02/18/17 20:21 02/18/17 20:21 - Medications Medications: Current Medications Acetaminophen (Tylenol 325mg Tab) 650 mg PO Q4 PRN PRN Reason: Pain, moderate (4-7) Last Admin: 02/12/17 13:36 Dose: 650 mg Apixaban (Eliquis) 5 mg PO BID [facility] Last Admin: 02/16/17 09:04 Dose: 5 mg Calcitriol (Rocaltrol) 0.5 mcg PO DAILY [facility] Last Admin: 02/18/17 09:42 Dose: 0.5 mcg Carvedilol (Coreg) 12.5 mg PO BID [facility] Last Admin: 02/18/17 18:56 Dose: 12.5 mg Clonidine HCl (Catapres-Tts2 0.2 Mg/24 Hr) 1 patch TD Q7D@1000 [facility] Last Admin: 02/18/17 09:43 Dose: 1 patch Clonidine HCl (Catapres) 0.2 mg PO Q12H [facility] Last Admin: 02/18/17 20:17 Dose: 0.2 mg Diltiazem HCl (Cardizem Cd) 120 mg PO DAILY [facility] Last Admin: 02/18/17 10:21 Dose: 120 mg Efavirenz (Sustiva) 600 mg PO DAILY [facility] Last Admin: 02/18/17 09:42 Dose: 600 mg Emtricitabine (Emtriva) 200 mg PO Q96H [facility] Last Admin: 02/16/17 22:08 Dose: 200 mg Furosemide (Lasix) 20 mg PO DAILY [facility] Last Admin: 02/18/17 09:50 Dose: 20 mg Hydralazine HCl (Apresoline) 100 mg PO Q8H [facility] Last Admin: 02/18/17 13:37 Dose: 100 mg Hydroxyzine HCl (Atarax) 25 mg PO BID [facility] Last Admin: 02/18/17 18:57 Dose: 25 mg Ferric Sodium Gluconate Complex 125 mg/ Sodium Chloride 110 mls @ 105 mls/hr IVPB DAILY [facility] Stop: 02/21/17 10:01 Last Admin: 02/18/17 11:17 Dose: 105 mls/hr Isosorbide Mononitrate (Imdur Er) 30 mg PO DAILY [facility] Last Admin: 02/18/17 09:42 Dose: 30 mg Raltegravir (Isentress) 400 mg PO BID [facility] Last Admin: 02/18/17 18:56 Dose: 400 mg Rosuvastatin Calcium (Crestor) 10 mg PO HS [facility] Last Admin: 02/17/17 21:39 Dose: 10 mg - Labs Labs: 02/17/17 11:32 02/17/17 11:32 PT 11.4 SECONDS (9.7-12.2) 02/12/17 00:37 INR 1.0 02/12/17 00:37 APTT 21 SECONDS (21-34) 02/12/17 00:37 Assessment and Plan (1) HIV (human immunodeficiency virus infection) Status: Acute (2) Congestive heart failure (CHF) Status: Acute (3) Leg swelling Status: Chronic (4) DVT (deep venous thrombosis) Status: Acute (5) Renal failure (ARF), acute on chronic Status: Chronic (6) Hepatitis C Status: Acute (7) Diabetes mellitus Status: Acute (8) Alcohol abuse Status: Acute (9) Homelessness Status: Acute
[2017-02-19 08:34] LABS: EOS # 0.1 K/uL (0.0-0.7); HEMOGLOBIN 8.1 g/dL (11.0-16.0); LYMPH # 0.6 K/uL (1.0-4.3); LYMPH % 15.9 % (20.0-40.0); MEAN CELL VOLUME 92.2 fL (81.0-99.0); MEAN CORPUSCULAR HEMOGLOBIN 30.3 pg (27.0-31.0); MEAN CORPUSCULAR HGB CONC 32.9 g/dL (33.0-37.0); MEAN PLATELET VOLUME 10.2 fL (7.2-11.7); MONO # 0.5 K/uL (0.0-0.8); MONO % 14.7 % (0.0-10.0); NEUT # 2.4 K/uL (1.8-7.0); NEUT % 65.4 % (50.0-75.0); RBC 2.66 Mil/uL (3.80-5.20); RED CELL DISTRIBUTION WIDTH 19.6 % (11.5-14.5); WHITE BLOOD COUNT 3.7 K/uL (4.8-10.8)
[2017-02-19 08:53] LABS: MAGNESIUM 1.7 mg/dL (1.6-2.3)
[2017-02-19] MEDS ORDERED: Lidocaine 2% Inj (20ml) ONE (09:20)
[2017-02-19] MEDS ORDERED: Midazolam 2 MG/2 ML VIAL ONE (09:21)
[2017-02-19] MEDS ORDERED: DiphenhydrAMINE 50 mg/ml Inj ONE (09:21)
--- NOTE | 2017-02-19 09:21 | CP.PCM.PN ---
<Misty Bassett - Last Filed: 02/19/17 11:43> Subjective - Date & Time of Evaluation Date of Evaluation: 02/19/17 Time of Evaluation: 09:20 - Subjective Subjective: Nephrology progress note for Dr Carreno's service. Patient with no acute events overnight night. Going for port cath placement for HD today. Denies fever, chills, nausea, vomiting or diarrhea. Objective - Vital Signs/Intake and Output Vital Signs (last 24 hours): Temp Pulse Resp BP Pulse Ox 97.9 F 58 L 20 167/75 H 100 02/19/17 07:10 02/19/17 07:10 02/19/17 07:10 02/19/17 07:10 02/19/17 07:10 Intake and Output: 02/19/17 02/19/17 06:59 18:59 Intake Total 400 Balance 400 - Medications Medications: Current Medications Acetaminophen (Tylenol 325mg Tab) 650 mg PO Q4 PRN PRN Reason: Pain, moderate (4-7) Last Admin: 02/12/17 13:36 Dose: 650 mg Apixaban (Eliquis) 5 mg PO BID [facility] Last Admin: 02/16/17 09:04 Dose: 5 mg Calcitriol (Rocaltrol) 0.5 mcg PO DAILY [facility] Last Admin: 02/18/17 09:42 Dose: 0.5 mcg Carvedilol (Coreg) 12.5 mg PO BID [facility] Last Admin: 02/18/17 18:56 Dose: 12.5 mg Clonidine HCl (Catapres-Tts2 0.2 Mg/24 Hr) 1 patch TD Q7D@1000 [facility] Last Admin: 02/18/17 09:43 Dose: 1 patch Clonidine HCl (Catapres) 0.2 mg PO ONCE ONE Stop: 02/19/17 10:01 Diltiazem HCl (Cardizem Cd) 120 mg PO DAILY [facility] Last Admin: 02/18/17 10:21 Dose: 120 mg Efavirenz (Sustiva) 600 mg PO DAILY [facility] Last Admin: 02/18/17 09:42 Dose: 600 mg Emtricitabine (Emtriva) 200 mg PO Q96H [facility] Last Admin: 02/16/17 22:08 Dose: 200 mg Furosemide (Lasix) 20 mg PO DAILY [facility] Last Admin: 02/18/17 09:50 Dose: 20 mg Hydralazine HCl (Apresoline) 100 mg PO Q8H [facility] Last Admin: 02/18/17 22:24 Dose: 100 mg Hydroxyzine HCl (Atarax) 25 mg PO BID [facility] Last Admin: 02/18/17 18:57 Dose: 25 mg Ferric Sodium Gluconate Complex 125 mg/ Sodium Chloride 110 mls @ 105 mls/hr IVPB DAILY [facility] Stop: 02/21/17 10:01 Last Admin: 02/18/17 11:17 Dose: 105 mls/hr Isosorbide Mononitrate (Imdur Er) 30 mg PO DAILY [facility] Last Admin: 02/18/17 09:42 Dose: 30 mg Raltegravir (Isentress) 400 mg PO BID [facility] Last Admin: 02/18/17 18:56 Dose: 400 mg Rosuvastatin Calcium (Crestor) 10 mg PO HS [facility] Last Admin: 02/18/17 22:24 Dose: 10 mg - Labs Labs: 02/19/17 08:19 02/19/17 08:19 PT 11.4 SECONDS (9.7-12.2) 02/12/17 00:37 INR 1.0 02/12/17 00:37 APTT 21 SECONDS (21-34) 02/12/17 00:37 - Constitutional Appears: No Acute Distress, Older Than Stated Age - Head Exam Head Exam: ATRAUMATIC, NORMAL INSPECTION, NORMOCEPHALIC - Eye Exam Eye Exam: Normal appearance - ENT Exam ENT Exam: Mucous Membranes Dry - Neck Exam Neck Exam: Normal Inspection - Respiratory Exam Respiratory Exam: Clear to Ausculation Bilateral, NORMAL BREATHING PATTERN. absent: Rales, Rhonchi, Wheezes, Respiratory Distress, Stridor - Cardiovascular Exam Cardiovascular Exam: REGULAR RHYTHM, RRR, +S1, +S2. absent: Murmur - GI/Abdominal Exam GI & Abdominal Exam: Soft, Normal Bowel Sounds. absent: Distended, Firm, Guarding, Rigid, Tenderness - Extremities Exam Extremities Exam: Pedal Edema (2) - Back Exam Back Exam: NORMAL INSPECTION - Neurological Exam Neurological Exam: Alert, Awake, Oriented x3 - Psychiatric Exam Psychiatric exam: Flat Affect - Skin Skin Exam: Dry, Intact, Warm Assessment and Plan (1) Chronic renal insufficiency Assessment & Plan: With EGF of 10, patient with mild hyperkalemia today, with resistant hypertension. Patient to get HD cath placed today in preparation for possible dialysis. Status: Acute (2) Chronic kidney disease-mineral and bone disorder Assessment & Plan: Phos of 5.1 Elevated PTH, continue with calcitriol 0.5 mg daily Status: Chronic (3) Hyperkalemia Status: Resolved (4) Metabolic acidosis Status: Acute (5) Anemia Assessment & Plan: H/H stable. On IV iron. epo once BP has normalized. Status: Acute (6) Congestive heart failure (CHF) Assessment & Plan: Stable on po Lasix 20 mg po daily. Status: Acute (7) DVT (deep venous thrombosis) Assessment & Plan: Eliquis on hold for port cath placement. Status: Acute (8) Diabetes mellitus Status: Acute (9) HIV (human immunodeficiency virus infection) Assessment & Plan: On HAART therapy. Status: Acute (10) Hepatitis C Status: Acute (11) Atrial fibrillation Assessment & Plan: On Cardizem, eliquis on hold for procedure. Status: Acute (12) Dyslipidemia Status: Acute (13) HTN (hypertension) Assessment & Plan: Fluctuating BP, will taper off po clonidine, continue with transdermal clonidine. Continue with coreg 12.5 mg bid, imdur 30 mg daily, hydralazine 50 mg q8hr. BP meds to be adjusted when patient starts dialysis. Status: Acute <Rogerio Carreno - Last Filed: 02/19/17 16:40> Objective - Vital Signs/Intake and Output Vital Signs (last 24 hours): Temp Pulse Resp BP Pulse Ox 97.3 F L 96 H 20 130/74 96 02/19/17 14:05 02/19/17 14:05 02/19/17 14:05 02/19/17 15:35 02/19/17 14:05 Intake and Output: 02/19/17 02/19/17 06:59 18:59 Intake Total 400 Balance 400 - Medications Medications: Current Medications Acetaminophen (Tylenol 325mg Tab) 650 mg PO Q4 PRN PRN Reason: Pain, moderate (4-7) Last Admin: 02/12/17 13:36 Dose: 650 mg Apixaban (Eliquis) 5 mg PO BID [facility] Last Admin: 02/16/17 09:04 Dose: 5 mg Calcitriol (Rocaltrol) 0.5 mcg PO DAILY [facility] Last Admin: 02/19/17 12:02 Dose: 0.5 mcg Carvedilol (Coreg) 12.5 mg PO BID [facility] Last Admin: 02/19/17 12:01 Dose: 12.5 mg Clonidine HCl (Catapres-Tts2 0.2 Mg/24 Hr) 1 patch TD Q7D@1000 [facility] Last Admin: 02/18/17 09:43 Dose: 1 patch Diltiazem HCl (Cardizem Cd) 120 mg PO DAILY [facility] Last Admin: 02/19/17 12:02 Dose: 120 mg Efavirenz (Sustiva) 600 mg PO DAILY [facility] Last Admin: 02/19/17 12:02 Dose: 600 mg Emtricitabine (Emtriva) 200 mg PO Q96H [facility] Last Admin: 02/16/17 22:08 Dose: 200 mg Furosemide (Lasix) 20 mg PO DAILY [facility] Last Admin: 02/19/17 12:00 Dose: 20 mg Hydralazine HCl (Apresoline) 100 mg PO Q8H [facility] Last Admin: 02/19/17 15:02 Dose: Not Given Hydroxyzine HCl (Atarax) 25 mg PO BID [facility] Last Admin: 02/19/17 12:02 Dose: 25 mg Ferric Sodium Gluconate Complex 125 mg/ Sodium Chloride 110 mls @ 105 mls/hr IVPB DAILY [facility] Stop: 02/21/17 10:01 Last Admin: 02/19/17 15:08 Dose: 105 mls/hr Isosorbide Mononitrate (Imdur Er) 30 mg PO DAILY [facility] Last Admin: 02/19/17 12:01 Dose: 30 mg Raltegravir (Isentress) 400 mg PO BID [facility] Last Admin: 02/19/17 12:00 Dose: 400 mg Rosuvastatin Calcium (Crestor) 10 mg PO HS [facility] Last Admin: 02/18/17 22:24 Dose: 10 mg - Labs Labs: 02/19/17 08:19 02/19/17 08:19 PT 11.4 SECONDS (9.7-12.2) 02/12/17 00:37 INR 1.0 02/12/17 00:37 APTT 21 SECONDS (21-34) 02/12/17 00:37 Assessment and Plan (1) Acute on chronic renal failure Status: Acute (2) Congestive heart failure (CHF) Status: Acute (3) Hyperkalemia Status: Resolved (4) Anemia in CKD (chronic kidney disease) Status: Acute (5) Hypertensive CKD (chronic kidney disease) Status: Acute (6) Chronic kidney disease-mineral and bone disorder Status: Chronic Attending/Attestation - Attestation I have personally seen and examined this patient.: Yes I have fully participated in the care of the patient.: Yes I have reviewed all pertinent clinical information, including history, physical exam and plan: Yes Notes (Text): Patient seen and examined; I agree with the resident's note as above with the following additions/edits: 61 yo F w/ pmh of htn, dm, hep C (untreated), HIV on HAART, CHF, admitted with CHF exacerbation, worsening renal function; Patient yesterday agreed to having tunneled HD cath inserted and inititiated on HD; our decision to inititate HD as ESRD (CrCl 13 ml/min on 24 hr urine) on current admission was due to patient's unreliability to f/u as outpatient; we wanted to avoid patient having to be dialyzed emergently or for patient to go into cardiac arrest due to hyperkalemia; also, patient wasn't cooperating with surgery team for AVF creation (we would ideally place AVF, allow it to mature, and then start HD using AVF instead of catheter); HD initiated today according to norm on slow blood flow and over 2 hrs with 500 cc UF; next HD for tomorrow; For now, she should continue her current anti-htn meds; will likely be able to decrease meds slowly; Will give dose of EPO tomorrow, otherwise, continuing IV iron loading; Calcitriol dose already increased due to severe hyperparathyroidism; will monitor phos; Patient awaiting outpatient HD setup and can be discharged once that happens; 02/19/17 16:32
--- NOTE | 2017-02-19 09:41 | PCM.SURG1 ---
Surgeon's Initial Post Op Note - Surgeon's Notes Surgeon: Delmar ESCOBAR MD [place] Machine Operator: none Pre-Operative Diagnosis: Renal failure Operative Findings: Patent right IJV Post-Operative Diagnosis: Renal failure Operation Performed: Right IJV tunneled HD catheter placement, 19 cm cuff to tip. Specimen/Specimens Removed: NONE Estimated Blood Loss: EBL {In ML}: 5 Blood Products Given: N/A Drains Used: No Drains Post-Op Condition: Fair Date of Surgery/Procedure: 02/19/17 Time of Surgery/Procedure: 09:35
--- NOTE | 2017-02-19 10:38 | SPECPROC ---
PROCEDURE: Date of procedure: 02/19/2017 Procedure: 1. Placement of right IJ tunneled hemodialysis catheter, CPT 88713 Medications: 1 percent lidocaine, IV sedation and physiologic monitoring performed by the anesthesiologist. EBL: 5 cm Radiation: 1.07 mGy Fluoro time: 8.6 seconds Images: 2 HISTORY: Renal failure requiring hemodialysis TECHNIQUE: Following informed consent and procedure time-out, the patient was placed supine on the interventional table and the skin was marked . A limited ultrasound patient's right neck showed a patent compressible right internal jugular vein. Under direct ultrasound guidance, the right internal jugular vein was accessed with micropuncture technique and a guidewire was advanced under fluoroscopic guidance into the superior vena cava. An image documenting ultrasound guidance for vascular access was permanently saved. A 19 centimeter cuff to tip hemodialysis catheter was then tunneled under the skin and hold the venotomy site. The venotomy was then serially dilated to accommodate the peel-away sheath. The hemodialysis catheter was then advanced through a peel-away sheath. The catheter is positioned with tip in the superior vena cava confirm with fluoroscopic image. The catheter was tested and has adequate blood flow for hemodialysis. The catheter was flushed and locked with heparin per specified amount. The catheter secured to the skin with a 0 silk suture. IMPRESSION: Placement of right tunneled hemodialysis 19 cm cuff-to-tip catheter The catheter tip is confirmed with spot radiograph and is in the superior vena cava. The catheter is functional and ready for use.
[2017-02-19] MEDS: diltiaZEM 120 mg/24 Hours CD Cap PO SCH ×2 (11:04→12:02)
[2017-02-19] MEDS: Ferric Sodium Gluconat Complex 125 MG in Sodium Chloride 0.9% 100 ML IVPB SCH ×2 (11:04→15:08)
--- NOTE | 2017-02-19 12:06 | CP.PCM.CON ---
History of Present Illness - History of Present Illness History of Present Illness: Palliative consult requested for patint's support and goals of care discussion Patient is a 61 yo female admitted with SOB and pitting edema noted on the day of admission, 02/12/17. patient was found o be with poor renal functions and AVF was suggested. Patient had a difficult time deciding on it as she seemed to have a poor insight of her health problems. Palliative consult called to support patient and make sure patient understands her condition. PMH: HIV, HTN, DVT,COPD, ESRD Soc. Hx: unemployed, homeless Fam. hx: states her family Review of Systems - Constitutional Constitutional: absent: As Per HPI, Anorexia, Chills, Daytime Sleepiness, Excessive Sweating, Fatigue, Fever, Frequent Falls, Headache, Increased Appetite , Lethargy, Malaise, Night Sweats, Snoring, Sleep Apnea, Weight Gain, Weight Loss, Weakness, Other - EENT Eyes: absent: As Per HPI, Blind Spots, Blurred Vision, Change in Vision, Decreased Night Vision, Diplopia, Discharge, Dry Eye, Exophthalmos, Floaters, Irritation, Itchy Eyes, Loss of Peripheral Vision, Pain, Photophobia, Requires Corrective Lenses, Sees Flashes, Spots in Vision, Tunnel Vision, Other Visual Disturbances, Loss of Vision, Other Ears: absent: As Per HPI, Decreased Hearing, Ear Discharge, Ear Pain, Tinnitus, Abnormal Hearing, Disequilibrium, Dizziness, Other Nose/Mouth/Throat: absent: As Per HPI, Epistaxis, Nasal Congestion, Nasal Discharge, Nasal Obstruction, Nasal Trauma, Nose Pain, Post Nasal Drip, Sinus Pain, Sinus Pressure, Bleeding Gums, Change in Voice, Dental Pain, Dry Mouth, Dysphagia, Halitosis, Hoarsness, Lip Swelling, Mouth Lesions, Mouth Pain, Odynophagia, Sore Throat, Throat Swelling, Tongue Swelling, Facial Pain, Neck Pain, Neck Mass, Other - Breasts Breasts: absent: As Per HPI, Change in Shape, Mass, Pain, Nipple Discharge, Nipple Inversion, Skin Changes, Swelling, Other - Cardiovascular Cardiovascular: Leg Edema - Respiratory Respiratory: Dyspnea on Exertion, Wheezing - Gastrointestinal Gastrointestinal: absent: As Per HPI, Abdominal Pain, Belching, Bloating, Change in Bowel Habits, Change in Stool Character, Coffee Ground Emesis, Constipation, Cramping, Diarrhea, Dyspepsia, Dysphagia, Early Satiety, Excessive Flatus, Fecal Incontinence, Heartburn, Hematemesis, Hematochezia, Loose Stools, Melena, Nausea, Odynophagia, Temesmus, Vomiting, Other - Genitourinary Genitourinary: absent: As Per HPI, Change in Urinary Stream, Difficulty Urinating, Dysuria, Flank Pain, Hematuria, Pyuria, Nocturia, Urinary Incontinence, Urinary Frequency, Urinary Hesitance, Urinary Urgency, Voiding Freq/Small Amts, Freq UTI, Hx Renal/Bladder Calculi, Hx /Renal Surgery, Bladder Distension, Other - Reproductive: Female Reproductive:Female: Post Menopausal - Menstruation Menstruation: Post Menopausal - Musculoskeletal Musculoskeletal: absent: As Per HPI, Abnormal Gait, Arthralgias, Atrophy, Back Pain, Deformity, Joint Swelling, Limited Range of Motion, Loss of Height, Muscle Cramps, Muscle Weakness, Myalgias, Neck Pain, Numbness, Radiating Pain into Limb, Stiffness, Tingling, Other - Integumentary Integumentary: absent: As Per HPI, Acne, Alopecia, Bleeding Lesions, Change in Hair, Change in Nails, Change in Pigmentation, Changing Lesions, Dry Skin, Erythema, Furuncle, Hirsutism, Lesions, New Lesions, Non-Healing Lesions, Photosensitivity, Pruritus, Rash, Skin Pain, Skin Ulcer, Sores, Striae, Swelling , Unusual Bruising, Wounds, Jaundice, Other - Neurological Neurological: absent: As Per HPI, Abnormal Gait, Abnormal Hearing, Abnormal Movements, Abnormal Speech, Behavioral Changes, Burning Sensations, Confusion, Convulsions, Disequilibrium, Dizziness, Numbness, Focal Weakness, Frequent Falls , Headaches, Lack of Coordination, Loss of Vision, Memory Loss, Paresthesias, Radicular Pain, Restless Legs, Sensory Deficit, Syncope, Tingling, Tremor, Vertigo, Weakness, Other Visual Disturbances, Other - Psychiatric Psychiatric: Difficulty Concentrating - Endocrine Endocrine: absent: As Per HPI, Change in Body Appearance, Change in Libido, Cold Intolorance, Deepening of Voice, Excessive Sweating, Fatigue, Flushing, Heat Intolorance, Increase in Ring/Shoe/Hat Size, Palpitations, Polydipsia, Polyphagia, Polyuria, Other - Hematologic/Lymphatic Hematologic: Easy Bleeding Past Patient History - Infectious Disease Hx of Infectious Diseases: None - Tetanus Immunizations Tetanus Immunization: Unknown - Past Medical History & Family History Past Medical History?: Yes - Past Social History Smoking Status: Heavy Smoker > 10 Cigarettes Daily Alcohol: Other (heavy) Drugs: Other (unable to obtain) Home Situation {Lives}: Friends, Homeless - CARDIAC Hx Congestive Heart Failure: Yes Hx Hypercholesterolemia: Yes Hx Hypertension: Yes Hx Peripheral Edema: Yes - PULMONARY Hx Chronic Obstructive Pulmonary Disease (COPD): Yes - NEUROLOGICAL Hx Neurological Disorder: No HX Cerebrovascular Accident: No - HEENT Hx HEENT Problems: No - RENAL Hx Chronic Kidney Disease: Yes - ENDOCRINE/METABOLIC Hx Hypothyroidism: Yes - HEMATOLOGICAL/ONCOLOGICAL Hx Anemia: Yes Hx Human Immunodeficiency Virus (HIV): Yes - INTEGUMENTARY Hx Dermatological Problems: No - MUSCULOSKELETAL/RHEUMATOLOGICAL Hx Arthritis: Yes - GASTROINTESTINAL Hx Pancreatitis: Yes - GENITOURINARY/GYNECOLOGICAL Hx Genitourinary Disorders: No - PSYCHIATRIC Hx Anxiety: Yes Hx Depression: Yes Hx Substance Use: No (stopped) - SURGICAL HISTORY Hx Surgeries: Yes Other/Comment: IVC filter - ANESTHESIA Hx Anesthesia: Yes Hx Anesthesia Reactions: No Hx Malignant Hyperthermia: No Meds Allergies/Adverse Reactions: Allergies Allergy/AdvReac Type Severity Reaction Status Date / Time No Known Allergies Allergy Verified 01/26/17 22:22 - Medications Medications: Current Medications Acetaminophen (Tylenol 325mg Tab) 650 mg PO Q4 PRN PRN Reason: Pain, moderate (4-7) Last Admin: 02/12/17 13:36 Dose: 650 mg Apixaban (Eliquis) 5 mg PO BID [facility] Last Admin: 02/16/17 09:04 Dose: 5 mg Calcitriol (Rocaltrol) 0.5 mcg PO DAILY [facility] Last Admin: 02/19/17 11:04 Dose: Not Given Carvedilol (Coreg) 12.5 mg PO BID [facility] Last Admin: 02/19/17 11:04 Dose: Not Given Clonidine HCl (Catapres-Tts2 0.2 Mg/24 Hr) 1 patch TD Q7D@1000 [facility] Last Admin: 02/18/17 09:43 Dose: 1 patch Diltiazem HCl (Cardizem Cd) 120 mg PO DAILY [facility] Last Admin: 02/19/17 11:04 Dose: Not Given Efavirenz (Sustiva) 600 mg PO DAILY [facility] Last Admin: 02/19/17 11:05 Dose: Not Given Emtricitabine (Emtriva) 200 mg PO Q96H [facility] Last Admin: 02/16/17 22:08 Dose: 200 mg Furosemide (Lasix) 20 mg PO DAILY [facility] Last Admin: 02/19/17 11:04 Dose: Not Given Hydralazine HCl (Apresoline) 100 mg PO Q8H [facility] Last Admin: 02/18/17 22:24 Dose: 100 mg Hydroxyzine HCl (Atarax) 25 mg PO BID [facility] Last Admin: 02/19/17 11:03 Dose: Not Given Ferric Sodium Gluconate Complex 125 mg/ Sodium Chloride 110 mls @ 105 mls/hr IVPB DAILY [facility] Stop: 02/21/17 10:01 Last Admin: 02/19/17 11:04 Dose: Not Given Isosorbide Mononitrate (Imdur Er) 30 mg PO DAILY [facility] Last Admin: 02/19/17 11:04 Dose: Not Given Raltegravir (Isentress) 400 mg PO BID [facility] Last Admin: 02/19/17 11:04 Dose: Not Given Rosuvastatin Calcium (Crestor) 10 mg PO HS [facility] Last Admin: 02/18/17 22:24 Dose: 10 mg Physical Exam - Constitutional Appears: No Acute Distress - Head Exam Head Exam: ATRAUMATIC, NORMAL INSPECTION, NORMOCEPHALIC - Eye Exam Eye Exam: EOMI, Normal appearance, PERRL Pupil Exam: NORMAL ACCOMODATION, PERRL - ENT Exam ENT Exam: Mucous Membranes Moist, Normal Exam - Neck Exam Neck exam: Positive for: Normal Inspection - Respiratory Exam Respiratory Exam: Chest Wall Tenderness, Decreased Breath Sounds - Cardiovascular Exam Cardiovascular Exam: Bradycardia, REGULAR RHYTHM - GI/Abdominal Exam GI & Abdominal Exam: Normal Bowel Sounds - Rectal Exam Rectal Exam: Deferred - Extremities Exam Extremities exam: Positive for: pedal edema - Back Exam Back exam: NORMAL INSPECTION - Neurological Exam Neurological exam: Alert, Oriented x3 - Psychiatric Exam Psychiatric exam: Flat Affect - Skin Skin Exam: Normal Color, Warm Results - Vital Signs Recent Vital Signs: Last Vital Signs Temp 97.5 F L 02/19/17 11:40 Pulse 57 L 02/19/17 11:40 Resp 20 02/19/17 11:40 BP 158/80 H 02/19/17 11:40 Pulse Ox 97 02/19/17 11:40 - Labs Result Diagrams: 02/19/17 08:19 02/19/17 08:19 Labs: Laboratory Results - last 24 hr 02/18/17 02/18/17 02/18/17 14:22 14:38 16:00 WBC RBC Hgb Hct MCV MCH MCHC RDW Plt Count MPV Neut % (Auto) Lymph % (Auto) [place] % (Auto) Eos % (Auto) Baso % (Auto) Neut # Lymph # [place] # Eos # Baso # Sodium Potassium Chloride Carbon Dioxide Anion Gap BUN Creatinine Est GFR ( Amer) Est GFR (Non-Af Amer) Random Glucose Calcium Phosphorus Magnesium Total Bilirubin AST ALT Alkaline Phosphatase Total Protein Albumin Globulin Albumin/Globulin Ratio Hep Bs Antigen Negative Hep Bs Antibody Positive Hep B Core Total Ab Reactive H Hep B Core IgM Ab Negative Hepatitis C Antibody Reactive 02/19/17 02/19/17 08:19 08:19 WBC 3.7 L RBC 2.66 L Hgb 8.1 L Hct 24.5 L MCV 92.2 MCH 30.3 MCHC 32.9 L RDW 19.6 H Plt Count 111 L MPV 10.2 Neut % (Auto) 65.4 Lymph % (Auto) 15.9 L [place] % (Auto) 14.7 H Eos % (Auto) 3.0 Baso % (Auto) 1.0 Neut # 2.4 Lymph # 0.6 L [place] # 0.5 Eos # 0.1 Baso # 0.0 Sodium 134 Potassium 5.2 Chloride 103 Carbon Dioxide 25 Anion Gap 11 BUN 78 H Creatinine 5.4 H Est GFR ( Amer) 10 Est GFR (Non-Af Amer) 8 Random Glucose 86 Calcium 8.0 L Phosphorus 5.1 H Magnesium 1.7 Total Bilirubin 0.2 AST 28 ALT 40 Alkaline Phosphatase 108 Total Protein 6.2 L Albumin 3.0 L Globulin 3.2 Albumin/Globulin Ratio 1.0 Hep Bs Antigen Hep Bs Antibody Hep B Core Total Ab Hep B Core IgM Ab Hepatitis C Antibody Assessment & Plan - Assessment and Plan (Free Text) Assessment: Palliative consult Code status Full Code, there is no Advance Directive on chart, PPS 40% I reviewed medical records, all diagnostic studies, examined and interviewed patient in the bed Patient is S/P porth o cath insertion for HD access, in no acute distress, AAO X3. Breathing is slightly labored with audible wheezing. Abdomen is lrge with active bowel sounds, dnies constipation. Edema of LEs is much less as per patient. Pain denied. BP 158/80, HR 57. BUN 78, Material Analyst 5.4, WBC 3.7, Hb 8.1. I discussed with her patient her very complex medical Hx and elicited her perceprion of it. Patient showed poor insight of severity of her condition. Renal status discussed and need for HD. Patient made aware that without HD she would most likely . Patient stated being happy she finaly decided on having AVF. Social issues discussed, especially her Homeless status. 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 Her concern is cold weather Code status discussed. Patient reported having no Living Will. POLST discussed. Patient demonstrated poor ability to understand the meaning of Advanced care planing . Patient did not feel comfortable making that decision. Her goal was to have place to stay especially during winter time. Impression * Acute Renal failure and need for HD * Patient had difficult time deciding on AVF and finally [place] o Cath was inserted today * Patient has poor insight in severity of her condition and needs often reinforcement and education * Psychosocial issues related to homeless status Suggestion * Full Code * Patient needs to be educated on outpatient HD availability and schedule * Discharge planing Thank you for consulting Palliative Care
--- NOTE | 2017-02-19 13:54 | CP.PCM.PN ---
Subjective - Date & Time of Evaluation Date of Evaluation: 02/19/17 Time of Evaluation: 13:52 - Subjective Subjective: CHIEF COMPLAINTS TODAY : PAIN SWELLING IN LEGS LESS S/P PERMA CATH , HD TODAY KEEPS SLEEPING , DOES NOT ANSWER QUESTIONS ROS. HEENT : N. Resp : No cough, wheezing ,pleuritic CP ,or hemoptysis Cardio : No anginal CP, PND, orthopnea, palpitation GI : No abd.pain, n/v ,diarrhea or GI bleeding . 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 Musculoskel : No joint swelling , Derm : No rash Psych : FLAT affect. Ext : POS swelling ,calf pain PE. Pt. is alert awake in no distress. V.S As noted in the chart Head ,ear nose,throat and eyes : Normal. Neck : Supple with normal carotids. Lungs: Clear air entry. Heart : S1 & S2 normal with S4. No murmur. Abd : Soft non tender with normal bowel sounds. Neuro : Moves all ext. with no localized deficit. Ext :edema with intact pulses. Derm : No rashes or decubitus ulcer. LABS/RADIOLOGY: VEIN MAPPING : NO DVT IN U. EXT ASSESSMENT/PLAN : HD TODAY PT MAY NEED PRISON CARE DUE TO HOMELESSNESS Objective - Vital Signs/Intake and Output Vital Signs (last 24 hours): Temp Pulse Resp BP Pulse Ox 97.5 F L 57 L 20 158/80 H 97 02/19/17 11:40 02/19/17 11:40 02/19/17 11:40 02/19/17 12:01 02/19/17 11:40 - Medications Medications: Current Medications Acetaminophen (Tylenol 325mg Tab) 650 mg PO Q4 PRN PRN Reason: Pain, moderate (4-7) Last Admin: 02/12/17 13:36 Dose: 650 mg Apixaban (Eliquis) 5 mg PO BID [facility] Last Admin: 02/16/17 09:04 Dose: 5 mg Calcitriol (Rocaltrol) 0.5 mcg PO DAILY [facility] Last Admin: 02/19/17 12:02 Dose: 0.5 mcg Carvedilol (Coreg) 12.5 mg PO BID [facility] Last Admin: 02/19/17 12:01 Dose: 12.5 mg Clonidine HCl (Catapres-Tts2 0.2 Mg/24 Hr) 1 patch TD Q7D@1000 [facility] Last Admin: 02/18/17 09:43 Dose: 1 patch Diltiazem HCl (Cardizem Cd) 120 mg PO DAILY [facility] Last Admin: 02/19/17 12:02 Dose: 120 mg Efavirenz (Sustiva) 600 mg PO DAILY [facility] Last Admin: 02/19/17 12:02 Dose: 600 mg Emtricitabine (Emtriva) 200 mg PO Q96H [facility] Last Admin: 02/16/17 22:08 Dose: 200 mg Furosemide (Lasix) 20 mg PO DAILY [facility] Last Admin: 02/19/17 12:00 Dose: 20 mg Hydralazine HCl (Apresoline) 100 mg PO Q8H [facility] Last Admin: 02/18/17 22:24 Dose: 100 mg Hydroxyzine HCl (Atarax) 25 mg PO BID [facility] Last Admin: 02/19/17 12:02 Dose: 25 mg Ferric Sodium Gluconate Complex 125 mg/ Sodium Chloride 110 mls @ 105 mls/hr IVPB DAILY [facility] Stop: 02/21/17 10:01 Last Admin: 02/19/17 11:04 Dose: Not Given Isosorbide Mononitrate (Imdur Er) 30 mg PO DAILY [facility] Last Admin: 02/19/17 12:01 Dose: 30 mg Raltegravir (Isentress) 400 mg PO BID [facility] Last Admin: 02/19/17 12:00 Dose: 400 mg Rosuvastatin Calcium (Crestor) 10 mg PO HS [facility] Last Admin: 02/18/17 22:24 Dose: 10 mg - Labs Labs: 02/19/17 08:19 02/19/17 08:19 PT 11.4 SECONDS (9.7-12.2) 02/12/17 00:37 INR 1.0 02/12/17 00:37 APTT 21 SECONDS (21-34) 02/12/17 00:37 Assessment and Plan (1) Acute on chronic renal failure Status: Acute (2) Hyperkalemia Status: Resolved (3) AIDS (acquired immune deficiency syndrome) Status: Chronic (4) Leg swelling Status: Chronic (5) CKD (chronic kidney disease), stage IV Status: Chronic (6) Pulmonary HTN Status: Chronic
--- NOTE | 2017-02-19 20:20 | CP.PCM.PN ---
Subjective - Date & Time of Evaluation Date of Evaluation: 02/19/17 Time of Evaluation: 20:20 - Subjective Subjective: CHIEF COMPLAINTS TODAY : afebrile, S/P RT.IJ TUNNELED HEMODIALYSIS CATHETER PLACEMENT BY IR 02/19/17. PATIENT SEEN ON FIRST HEMODIALYSIS. COMFORTABLE. . ROS. HEENT : N. RT IJ HD CATHETER PLACEMENT. Resp : No cough, wheezing ,pleuritic CP ,or hemoptysis Cardio : No anginal CP, PND, orthopnea, palpitation GI : No abd.pain, n/v ,diarrhea or GI bleeding . 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 Musculoskel : No joint swelling , Derm : No rash Psych : FLAT affect. Ext : POS swelling ,calf pain PE. Pt. is alert awake in no distress. V.S As noted in the chart Head ,ear nose,throat and eyes : Normal. Neck : Supple with normal carotids. Lungs: DIMINISHED BREATH SOUNDS AT THE BASES. Heart : S1 & S2 normal with S4. No murmur. Abd : Soft non tender with normal bowel sounds. Neuro : Moves all ext. with no localized deficit. Ext BILATERAL LE 2+ EDEMA, with intact pulses. Derm : No rashes or decubitus ulcer. LABS/RADIOLOGY: REVIEWED. CREATININE CLEARANCE <15. ASSESSMENT HIV+VE. CHF EXASCERBATION HTN CKD -STAGE 4 B/L EDEMA LE/ DVT + IVC FILTER. HEP C +VE DM. ANAEMIA ETOH ABUSE /PLAN : palliative consult as noted to explain pt. PATIENT SEEN ON FIRST HEMODIALYSIS. REPORTED SCHEDULED FOR TOMORROW ALSO. CONTINUE HAART RX OUTLINED.02/12/17 * PATIENT ON EMTRIVA 200 MG EVERY 96 HOURLY ( as creatinine clearance less than 15 mL per minute ) * SUSTIVA 600 MG BY MOUTH ONCE A DAY DAILY. *RALTEGRAVIR (ISENTRESS ) 400 MG BY MOUTH TWICE A DAY. SEEN BY VASCULAR SURGERY-/RENAL. Objective - Vital Signs/Intake and Output Vital Signs (last 24 hours): Temp Pulse Resp BP Pulse Ox 97.6 F 58 L 20 126/72 100 02/19/17 16:05 02/19/17 16:43 02/19/17 16:05 02/19/17 17:32 02/19/17 16:05 - Medications Medications: Current Medications Acetaminophen (Tylenol 325mg Tab) 650 mg PO Q4 PRN PRN Reason: Pain, moderate (4-7) Last Admin: 02/12/17 13:36 Dose: 650 mg Apixaban (Eliquis) 5 mg PO BID [facility] Last Admin: 02/16/17 09:04 Dose: 5 mg Calcitriol (Rocaltrol) 0.5 mcg PO DAILY [facility] Last Admin: 02/19/17 12:02 Dose: 0.5 mcg Carvedilol (Coreg) 12.5 mg PO BID [facility] Last Admin: 02/19/17 17:32 Dose: 12.5 mg Clonidine HCl (Catapres-Tts2 0.2 Mg/24 Hr) 1 patch TD Q7D@1000 [facility] Last Admin: 02/18/17 09:43 Dose: 1 patch Diltiazem HCl (Cardizem Cd) 120 mg PO DAILY [facility] Last Admin: 02/19/17 12:02 Dose: 120 mg Efavirenz (Sustiva) 600 mg PO DAILY [facility] Last Admin: 02/19/17 12:02 Dose: 600 mg Emtricitabine (Emtriva) 200 mg PO Q96H [facility] Last Admin: 02/16/17 22:08 Dose: 200 mg Furosemide (Lasix) 20 mg PO DAILY [facility] Last Admin: 02/19/17 12:00 Dose: 20 mg Hydralazine HCl (Apresoline) 100 mg PO Q8H [facility] Last Admin: 02/19/17 15:02 Dose: Not Given Hydroxyzine HCl (Atarax) 25 mg PO BID [facility] Last Admin: 02/19/17 17:33 Dose: 25 mg Ferric Sodium Gluconate Complex 125 mg/ Sodium Chloride 110 mls @ 105 mls/hr IVPB DAILY [facility] Stop: 02/21/17 10:01 Last Admin: 02/19/17 15:08 Dose: 105 mls/hr Isosorbide Mononitrate (Imdur Er) 30 mg PO DAILY [facility] Last Admin: 02/19/17 12:01 Dose: 30 mg Raltegravir (Isentress) 400 mg PO BID [facility] Last Admin: 02/19/17 17:33 Dose: 400 mg Rosuvastatin Calcium (Crestor) 10 mg PO HS [facility] Last Admin: 02/18/17 22:24 Dose: 10 mg - Labs Labs: 02/19/17 08:19 02/19/17 08:19 PT 11.4 SECONDS (9.7-12.2) 02/12/17 00:37 INR 1.0 02/12/17 00:37 APTT 21 SECONDS (21-34) 02/12/17 00:37 Assessment and Plan (1) HIV (human immunodeficiency virus infection) Status: Acute (2) Congestive heart failure (CHF) Status: Acute (3) Leg swelling Status: Chronic (4) DVT (deep venous thrombosis) Status: Acute (5) Renal failure (ARF), acute on chronic Status: Chronic (6) Hepatitis C Status: Acute (7) Diabetes mellitus Status: Acute (8) Alcohol abuse Status: Acute (9) Homelessness Status: Acute
[2017-02-20] MEDS ORDERED: Ferric Sodium Gluconat Complex 62.5 mg/5 ml Vial ONE (10:16)
[2017-02-20] MEDS: Ferric Sodium Gluconat Complex 125 MG in Sodium Chloride 0.9% 100 ML IVPB SCH (10:31)
[2017-02-20] MEDS: Epoetin Alfa 10,000 unit/ml Dialysis IV SCH (10:47)
[2017-02-20] MEDS: diltiaZEM 120 mg/24 Hours CD Cap PO SCH ×2 (10:47→13:49)
--- NOTE | 2017-02-20 12:17 | CP.PCM.PN ---
Subjective - Date & Time of Evaluation Date of Evaluation: 02/20/17 Time of Evaluation: 10:00 - Subjective Subjective: 61 yo F w/ pmh of htn, dm, hep C (untreated), HIV on HAART, and CKD IV/V, admitted with worsening renal insufficiency and CHF exacerbation; Patient tolerating 2nd HD treatment well today; denies any shortness of breath; Objective - Vital Signs/Intake and Output Vital Signs (last 24 hours): Temp Pulse Resp BP Pulse Ox 97.7 F 60 20 179/90 H 96 02/20/17 10:10 02/20/17 10:10 02/20/17 10:10 02/20/17 11:10 02/20/17 10:10 Intake and Output: 02/20/17 02/20/17 06:59 18:59 Intake Total 240 Balance 240 - Medications Medications: Current Medications Acetaminophen (Tylenol 325mg Tab) 650 mg PO Q4 PRN PRN Reason: Pain, moderate (4-7) Last Admin: 02/20/17 03:40 Dose: 650 mg Apixaban (Eliquis) [address] [facility] Last Admin: 02/16/17 09:04 Dose: 5 mg Calcitriol (Rocaltrol) 0.[address] [facility] Last Admin: 02/20/17 10:48 Dose: Not Given Carvedilol (Coreg) 12.[address] [facility] Last Admin: 02/20/17 10:47 Dose: Not Given Clonidine HCl (Catapres-Tts2 0.2 Mg/24 Hr) 1 patch TD Q7D@1000 [facility] Last Admin: 02/18/17 09:43 Dose: 1 patch Diltiazem HCl (Cardizem Cd) [address] [facility] Last Admin: 02/20/17 10:47 Dose: Not Given Efavirenz (Sustiva) [address] [facility] Last Admin: 02/20/17 10:48 Dose: Not Given Emtricitabine (Emtriva) [address] [facility] Last Admin: 02/16/17 22:08 Dose: 200 mg Epoetin Terrell (Procrit) 10,[address] [facility] Last Admin: 02/20/17 10:47 Dose: 10,000 unit Furosemide (Lasix) [address] [facility] Last Admin: 02/20/17 10:48 Dose: Not Given Hydralazine HCl (Apresoline) [address] [facility] Last Admin: 02/20/17 06:18 Dose: 100 mg Hydroxyzine HCl (Atarax) [address] [facility] Last Admin: 02/20/17 10:47 Dose: Not Given Ferric Sodium Gluconate Complex 125 mg/ Sodium Chloride 110 mls @ 105 mls/hr IVPB DAILY [facility] Stop: 02/21/17 10:01 Last Admin: 02/20/17 10:31 Dose: Not Given Isosorbide Mononitrate (Imdur Er) [address] [facility] Last Admin: 02/20/17 10:48 Dose: Not Given Nicotine (Nicoderm Cq) 1 patch TD ONCE ONE Stop: 02/21/17 00:00 Raltegravir (Isentress) [address] [facility] Last Admin: 02/20/17 10:48 Dose: Not Given Rosuvastatin Calcium (Crestor) [address] [facility] Last Admin: 02/19/17 22:15 Dose: 10 mg - Labs Labs: 02/19/17 08:19 02/19/17 08:19 PT 11.4 SECONDS (9.7-12.2) 02/12/17 00:37 INR 1.0 02/12/17 00:37 APTT 21 SECONDS (21-34) 02/12/17 00:37 - Constitutional Appears: Well, No Acute Distress - Head Exam Head Exam: NORMAL INSPECTION - Eye Exam Eye Exam: absent: Scleral icterus - ENT Exam ENT Exam: Mucous Membranes Moist - Respiratory Exam Respiratory Exam: Clear to Ausculation Bilateral. absent: Respiratory Distress - Cardiovascular Exam Cardiovascular Exam: RRR, +S1, +S2 - GI/Abdominal Exam GI & Abdominal Exam: Soft. absent: Distended, Tenderness - Extremities Exam Additional comments: mild/moderate lower leg edema b/l - Neurological Exam Neurological Exam: Alert, Awake - Psychiatric Exam Psychiatric exam: absent: Agitated Additional comments: not speaking much today but cooperative with exam and replying with gestures; - Skin Skin Exam: Warm. absent: Cyanosis Assessment and Plan (1) Acute on chronic renal failure Assessment & Plan: Now ESRD, initiated on HD yesterday with 2nd session today; faster blood flow over 3 hrs and targetting higher UF goal (1L net); otherwise, full HD session on Wednesday; awaiting outpatient HD unit setup, can then be discharged; Status: Acute (2) Congestive heart failure (CHF) Assessment & Plan: With systolic dysfunction; will gradually increase UF on HD; othewise, still with lower ext edema but no shortness of breath; Status: Acute (3) Hyperkalemia Assessment & Plan: Being controlled with HD; Status: Acute (4) Anemia in CKD (chronic kidney disease) Assessment & Plan: On IV iron loading, 9th dose today, will stop after 1 more dose; getting EPO 10, 000 u today and each HD session from now on; will check labs tomorrow; Status: Acute (5) Hypertensive CKD (chronic kidney disease) Assessment & Plan: BP still elevated but will improve with UF on HD; will re-assess need to decrease clonidine over next couple of days; otherwise, continue current meds; Status: Acute (6) Chronic kidney disease-mineral and bone disorder Assessment & Plan: Calcitriol increased for high PTH; will check phos level tomorrow to see if phoslo needs to be started; Status: Chronic
--- NOTE | 2017-02-20 13:57 | CP.PCM.PN ---
Subjective - Date & Time of Evaluation Date of Evaluation: 02/20/17 Time of Evaluation: 13:57 - Subjective Subjective: CHIEF COMPLAINTS TODAY : PAIN SWELLING IN LEGS LESS S/P PERMA CATH , HD TODAY KEEPS SLEEPING , DOES NOT ANSWER QUESTIONS ROS. HEENT : N. Resp : No cough, wheezing ,pleuritic CP ,or hemoptysis Cardio : No anginal CP, PND, orthopnea, palpitation GI : No abd.pain, n/v ,diarrhea or GI bleeding . 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 Musculoskel : No joint swelling , Derm : No rash Psych : FLAT affect. Ext : POS swelling ,calf pain PE. Pt. is alert awake in no distress. V.S As noted in the chart Head ,ear nose,throat and eyes : Normal. Neck : Supple with normal carotids. Lungs: Clear air entry. Heart : S1 & S2 normal with S4. No murmur. Abd : Soft non tender with normal bowel sounds. Neuro : Moves all ext. with no localized deficit. Ext :edema with intact pulses. Derm : No rashes or decubitus ulcer. LABS/RADIOLOGY: VEIN MAPPING : NO DVT IN U. EXT ASSESSMENT/PLAN : HD TODAY PT MAY NEED SHELTER CARE DUE TO HOMELESSNESS Objective - Vital Signs/Intake and Output Vital Signs (last 24 hours): Temp Pulse Resp BP Pulse Ox 97.6 F 68 18 186/94 H 96 02/20/17 13:10 02/20/17 13:10 02/20/17 13:10 02/20/17 13:10 02/20/17 13:10 Intake and Output: 02/20/17 02/20/17 11:59 23:59 Intake Total 240 Balance 240 - Medications Medications: Current Medications Acetaminophen (Tylenol 325mg Tab) 650 mg PO Q4 PRN PRN Reason: Pain, moderate (4-7) Last Admin: 02/20/17 03:40 Dose: 650 mg Apixaban (Eliquis) 5 mg PO BID [facility] Last Admin: 02/16/17 09:04 Dose: 5 mg Calcitriol (Rocaltrol) 0.5 mcg PO DAILY [facility] Last Admin: 02/20/17 13:44 Dose: 0.5 mcg Carvedilol (Coreg) 12.5 mg PO BID [facility] Last Admin: 02/20/17 10:47 Dose: Not Given Clonidine HCl (Catapres-Tts2 0.2 Mg/24 Hr) 1 patch TD Q7D@1000 [facility] Last Admin: 02/18/17 09:43 Dose: 1 patch Diltiazem HCl (Cardizem Cd) 120 mg PO DAILY [facility] Last Admin: 02/20/17 13:49 Dose: 120 mg Efavirenz (Sustiva) 600 mg PO DAILY [facility] Last Admin: 02/20/17 13:47 Dose: 600 mg Emtricitabine (Emtriva) 200 mg PO Q96H [facility] Last Admin: 02/16/17 22:08 Dose: 200 mg Epoetin Terrell (Procrit) 10,000 unit IV TTS [facility] Last Admin: 02/20/17 10:47 Dose: 10,000 unit Furosemide (Lasix) 20 mg PO DAILY [facility] Last Admin: 02/20/17 10:48 Dose: Not Given Hydralazine HCl (Apresoline) 100 mg PO Q8H [facility] Last Admin: 02/20/17 13:49 Dose: 100 mg Hydroxyzine HCl (Atarax) 25 mg PO BID [facility] Last Admin: 02/20/17 13:45 Dose: 25 mg Ferric Sodium Gluconate Complex 125 mg/ Sodium Chloride 110 mls @ 105 mls/hr IVPB DAILY [facility] Stop: 02/21/17 10:01 Last Admin: 02/20/17 10:31 Dose: Not Given Isosorbide Mononitrate (Imdur Er) 30 mg PO DAILY [facility] Last Admin: 02/20/17 13:45 Dose: 30 mg Nicotine (Nicoderm Cq) 1 patch TD ONCE ONE Stop: 02/21/17 00:00 Raltegravir (Isentress) 400 mg PO BID [facility] Last Admin: 02/20/17 13:57 Dose: 400 mg Rosuvastatin Calcium (Crestor) 10 mg PO HS [facility] Last Admin: 02/19/17 22:15 Dose: 10 mg - Labs Labs: 02/19/17 08:19 02/19/17 08:19 PT 11.4 SECONDS (9.7-12.2) 02/12/17 00:37 INR 1.0 02/12/17 00:37 APTT 21 SECONDS (21-34) 02/12/17 00:37 Assessment and Plan (1) Acute on chronic renal failure Status: Acute (2) Hyperkalemia Status: Acute (3) AIDS (acquired immune deficiency syndrome) Status: Chronic (4) Leg swelling Status: Chronic (5) CKD (chronic kidney disease), stage IV Status: Chronic (6) Pulmonary HTN Status: Chronic
--- NOTE | 2017-02-20 21:05 | CP.PCM.PN ---
Subjective - Date & Time of Evaluation Date of Evaluation: 02/20/17 Time of Evaluation: 21:05 - Subjective Subjective: CHIEF COMPLAINTS TODAY : afebrile, S/P RT.IJ TUNNELED HEMODIALYSIS CATHETER PLACEMENT BY IR 02/19/17. S/P SECOND HD TODAY. FEELS GOOD FOR THE FIRST TIME. EATING FOOD. DENIES SOB . ROS. HEENT : N. RT IJ HD CATHETER PLACEMENT. Resp : No cough, wheezing ,pleuritic CP ,or hemoptysis Cardio : No anginal CP, PND, orthopnea, palpitation GI : No abd.pain, n/v ,diarrhea or GI bleeding . 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 Musculoskel : No joint swelling , Derm : No rash Psych : FLAT affect. Ext : POS swelling ,calf pain PE. Pt. is alert awake in no distress. V.S As noted in the chart Head ,ear nose,throat and eyes : Normal. Neck : Supple with normal carotids. Lungs: DIMINISHED BREATH SOUNDS AT THE BASES. Heart : S1 & S2 normal with S4. No murmur. Abd : Soft non tender with normal bowel sounds. Neuro : Moves all ext. with no localized deficit. Ext BILATERAL LE 1+ EDEMA, with intact pulses. Derm : No rashes or decubitus ulcer. LABS/RADIOLOGY: REVIEWED. CREATININE CLEARANCE <15. ASSESSMENT HIV+VE. CHF EXASCERBATION HTN CKD -STAGE 4 B/L EDEMA LE/ DVT + IVC FILTER. HEP C +VE DM. ANAEMIA ETOH ABUSE /PLAN : PT FOR NEXT HD ON WEDNESDAY PER RENAL CONTINUE HAART RX OUTLINED.02/12/17 * PATIENT ON EMTRIVA 200 MG EVERY 96 HOURLY ( as creatinine clearance less than 15 mL per minute ) * SUSTIVA 600 MG BY MOUTH ONCE A DAY DAILY. *RALTEGRAVIR (ISENTRESS ) 400 MG BY MOUTH TWICE A DAY. SEEN BY -/RENAL. Objective - Vital Signs/Intake and Output Vital Signs (last 24 hours): Temp Pulse Resp BP Pulse Ox 97.5 F L 71 22 184/78 H 97 02/20/17 15:15 02/20/17 15:15 02/20/17 15:15 02/20/17 18:48 02/20/17 15:15 Intake and Output: 02/20/17 02/21/17 18:59 06:59 Intake Total 480 Balance 480 - Medications Medications: Current Medications Acetaminophen (Tylenol 325mg Tab) 650 mg PO Q4 PRN PRN Reason: Pain, moderate (4-7) Last Admin: 02/20/17 03:40 Dose: 650 mg Apixaban (Eliquis) 5 mg PO BID [facility] Last Admin: 02/16/17 09:04 Dose: 5 mg Calcitriol (Rocaltrol) 0.5 mcg PO DAILY [facility] Last Admin: 02/20/17 13:44 Dose: 0.5 mcg Carvedilol (Coreg) 12.5 mg PO BID [facility] Last Admin: 02/20/17 18:48 Dose: 12.5 mg Clonidine HCl (Catapres-Tts2 0.2 Mg/24 Hr) 1 patch TD Q7D@1000 [facility] Last Admin: 02/18/17 09:43 Dose: 1 patch Diltiazem HCl (Cardizem Cd) 120 mg PO DAILY [facility] Last Admin: 02/20/17 13:49 Dose: 120 mg Efavirenz (Sustiva) 600 mg PO DAILY [facility] Last Admin: 02/20/17 13:47 Dose: 600 mg Emtricitabine (Emtriva) 200 mg PO Q96H [facility] Last Admin: 02/16/17 22:08 Dose: 200 mg Epoetin Terrell (Procrit) 10,000 unit IV TTS [facility] Last Admin: 02/20/17 10:47 Dose: 10,000 unit Furosemide (Lasix) 20 mg PO DAILY [facility] Last Admin: 02/20/17 10:48 Dose: Not Given Hydralazine HCl (Apresoline) 100 mg PO Q8H [facility] Last Admin: 02/20/17 13:49 Dose: 100 mg Hydroxyzine HCl (Atarax) 25 mg PO BID [facility] Last Admin: 02/20/17 18:48 Dose: 25 mg Ferric Sodium Gluconate Complex 125 mg/ Sodium Chloride 110 mls @ 105 mls/hr IVPB DAILY [facility] Stop: 02/21/17 10:01 Last Admin: 02/20/17 10:31 Dose: Not Given Isosorbide Mononitrate (Imdur Er) 30 mg PO DAILY [facility] Last Admin: 02/20/17 13:45 Dose: 30 mg Nicotine (Nicoderm Cq) 1 patch TD ONCE ONE Stop: 02/21/17 00:00 Raltegravir (Isentress) 400 mg PO BID [facility] Last Admin: 02/20/17 18:48 Dose: 400 mg Rosuvastatin Calcium (Crestor) 10 mg PO HS [facility] Last Admin: 02/19/17 22:15 Dose: 10 mg - Labs Labs: 02/19/17 08:19 02/19/17 08:19 PT 11.4 SECONDS (9.7-12.2) 02/12/17 00:37 INR 1.0 02/12/17 00:37 APTT 21 SECONDS (21-34) 02/12/17 00:37 Assessment and Plan (1) HIV (human immunodeficiency virus infection) Status: Acute (2) Congestive heart failure (CHF) Status: Acute (3) Leg swelling Status: Chronic (4) DVT (deep venous thrombosis) Status: Acute (5) Renal failure (ARF), acute on chronic Status: Chronic (6) Hepatitis C Status: Acute (7) Diabetes mellitus Status: Acute (8) Alcohol abuse Status: Acute (9) Homelessness Status: Acute
[2017-02-20] MEDS: EMTRICITABINE 200 MG CAP PO SCH (21:57)
[2017-02-21 07:50] LABS: BASO % 0.9 % (0.0-2.0); EOS # 0.1 K/uL (0.0-0.7); EOS % 2.8 % (0.0-4.0); HEMOGLOBIN 8.2 g/dL (11.0-16.0); LYMPH # 0.6 K/uL (1.0-4.3); MEAN CELL VOLUME 91.6 fL (81.0-99.0); MEAN CORPUSCULAR HGB CONC 32.8 g/dL (33.0-37.0); MONO # 0.9 K/uL (0.0-0.8); MONO % 19.3 % (0.0-10.0); NRBC % 0.1 % (0.0-2.0); RBC 2.73 Mil/uL (3.80-5.20); WHITE BLOOD COUNT 4.6 K/uL (4.8-10.8)
[2017-02-21 08:27] LABS: ALBUMIN 3.3 g/dL (3.5-5.0); CALCIUM 8.4 mg/dl (8.6-10.4)
[2017-02-21] MEDS: diltiaZEM 120 mg/24 Hours CD Cap PO SCH (10:21)
[2017-02-21] MEDS: Ferric Sodium Gluconat Complex 125 MG in Sodium Chloride 0.9% 100 ML IVPB SCH (10:22)
--- NOTE | 2017-02-21 10:44 | CP.PCM.PN ---
Subjective - Date & Time of Evaluation Date of Evaluation: 02/21/17 Time of Evaluation: 10:40 - Subjective Subjective: Patient reports feeling well; tried to leave AMA yesterday but was apparently convinced to stay; pulled out heplock; doesn't know why she wanted to leave so abruptly (didn't give any indication earlier in the day); no shortness of breath , tolerated diet; Objective - Vital Signs/Intake and Output Vital Signs (last 24 hours): Temp Pulse Resp BP Pulse Ox 98.6 F 77 20 175/80 H 97 02/21/17 08:00 02/21/17 08:00 02/21/17 08:00 02/21/17 10:21 02/20/17 15:15 Intake and Output: 02/21/17 02/21/17 06:59 18:59 Intake Total 118 Balance 118 - Medications Medications: Current Medications Acetaminophen (Tylenol 325mg Tab) 650 mg PO Q4 PRN PRN Reason: Pain, moderate (4-7) Last Admin: 02/21/17 02:18 Dose: 650 mg Apixaban (Eliquis) 5 mg PO BID [facility] Last Admin: 02/16/17 09:04 Dose: 5 mg Calcitriol (Rocaltrol) 0.5 mcg PO DAILY [facility] Last Admin: 02/21/17 10:23 Dose: 0.5 mcg Carvedilol (Coreg) 12.5 mg PO BID [facility] Last Admin: 02/21/17 10:21 Dose: 12.5 mg Clonidine HCl (Catapres-Tts2 0.2 Mg/24 Hr) 1 patch TD Q7D@1000 [facility] Last Admin: 02/18/17 09:43 Dose: 1 patch Diltiazem HCl (Cardizem Cd) 120 mg PO DAILY [facility] Last Admin: 02/21/17 10:21 Dose: 120 mg Efavirenz (Sustiva) 600 mg PO DAILY [facility] Last Admin: 02/21/17 10:23 Dose: 600 mg Emtricitabine (Emtriva) 200 mg PO Q96H [facility] Last Admin: 02/20/17 21:57 Dose: 200 mg Epoetin Terrell (Procrit) 10,000 unit IV TTS [facility] Last Admin: 02/20/17 10:47 Dose: 10,000 unit Furosemide (Lasix) 40 mg PO BID [facility] Hydralazine HCl (Apresoline) 100 mg PO Q8H [facility] Last Admin: 02/21/17 06:23 Dose: 100 mg Hydroxyzine HCl (Atarax) 25 mg PO BID [facility] Last Admin: 02/21/17 10:23 Dose: 25 mg Isosorbide Mononitrate (Imdur Er) 30 mg PO DAILY [facility] Last Admin: 02/21/17 10:22 Dose: 30 mg Raltegravir (Isentress) 400 mg PO BID [facility] Last Admin: 02/21/17 10:23 Dose: 400 mg Rosuvastatin Calcium (Crestor) 10 mg PO HS [facility] Last Admin: 02/20/17 21:57 Dose: 10 mg - Labs Labs: 02/21/17 07:41 02/21/17 07:41 PT 11.4 SECONDS (9.7-12.2) 02/12/17 00:37 INR 1.0 02/12/17 00:37 APTT 21 SECONDS (21-34) 02/12/17 00:37 - Constitutional Appears: Well, No Acute Distress - Eye Exam Eye Exam: Normal appearance. absent: Scleral icterus - ENT Exam ENT Exam: Mucous Membranes Moist - Respiratory Exam Respiratory Exam: Clear to Ausculation Bilateral. absent: Respiratory Distress - Cardiovascular Exam Cardiovascular Exam: RRR, +S1, +S2 - GI/Abdominal Exam GI & Abdominal Exam: Soft. absent: Distended, Tenderness - Extremities Exam Additional comments: mild to moderate lower leg edema; - Neurological Exam Neurological Exam: Alert, Awake - Psychiatric Exam Psychiatric exam: absent: Agitated - Skin Skin Exam: Warm. absent: Cyanosis Assessment and Plan (1) Acute on chronic renal failure Assessment & Plan: Now ESRD on HD; s/p 2nd HD session yesterday, tolerated well; stable lytes, will benefit from more volume removal as she is very hypertensive; next HD session for Wednesday; explained to patient that she her condition requires her to be adherent to treatment and that we cannot be responsible for her if she leaves AMA; awaiting outpatient HD center setup; still needs AVF placement but patient did not cooperate in this regard and so will likely have to be done as outpatient; Status: Acute (2) Congestive heart failure (CHF) Assessment & Plan: With systolic dysfunction; relatively stable; will benefit from UF on HD; increasing PO lasix to 40 mg bid; Status: Acute (3) Hyperkalemia Assessment & Plan: controlled with HD, continue same; Status: Acute (4) Anemia in CKD (chronic kidney disease) Assessment & Plan: Started on EPO yesterday, will give with each HD; will give last dose of ferrlecet on HD on Wednesday; Status: Acute (5) Hypertensive CKD (chronic kidney disease) Assessment & Plan: BP increased after starting EPO; increasing lasix as above; continue rest of meds; Status: Acute (6) Chronic kidney disease-mineral and bone disorder Assessment & Plan: Phos controlled off binders; continue calcitriol 0.5 mcg daily for high PTH; Status: Chronic
--- NOTE | 2017-02-21 14:37 | CP.PCM.PN ---
Subjective - Date & Time of Evaluation Date of Evaluation: 02/21/17 Time of Evaluation: 14:36 - Subjective Subjective: CHIEF COMPLAINTS TODAY : KEEPS ON THREATENING TO LEAVE AMA HAD LONG DISCUSSION MAY STAY ROS. HEENT : N. Resp : No cough, wheezing ,pleuritic CP ,or hemoptysis Cardio : No anginal CP, PND, orthopnea, palpitation GI : No abd.pain, n/v ,diarrhea or GI bleeding . 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 Musculoskel : No joint swelling , Derm : No rash Psych : FLAT affect. Ext : POS swelling ,calf pain PE. Pt. is alert awake in no distress. V.S As noted in the chart Head ,ear nose,throat and eyes : Normal. Neck : Supple with normal carotids. Lungs: Clear air entry. Heart : S1 & S2 normal with S4. No murmur. Abd : Soft non tender with normal bowel sounds. Neuro : Moves all ext. with no localized deficit. Ext :edema with intact pulses. Derm : No rashes or decubitus ulcer. LABS/RADIOLOGY: VEIN MAPPING : NO DVT IN U. EXT ASSESSMENT/PLAN : HD TODAY PT MAY NEED [facility] CARE DUE TO HOMEL Objective - Vital Signs/Intake and Output Vital Signs (last 24 hours): Temp Pulse Resp BP Pulse Ox 98.6 F 77 20 170/80 H 97 02/21/17 08:00 02/21/17 08:00 02/21/17 08:00 02/21/17 13:45 02/20/17 15:15 Intake and Output: 02/21/17 02/21/17 11:59 23:59 Intake Total 118 600 Balance 118 600 - Medications Medications: Current Medications Acetaminophen (Tylenol 325mg Tab) 650 mg PO Q4 PRN PRN Reason: Pain, moderate (4-7) Last Admin: 02/21/17 02:18 Dose: 650 mg Apixaban (Eliquis) 5 mg PO BID [facility] Last Admin: 02/16/17 09:04 Dose: 5 mg Calcitriol (Rocaltrol) 0.5 mcg PO DAILY [facility] Last Admin: 02/21/17 10:23 Dose: 0.5 mcg Carvedilol (Coreg) 12.5 mg PO BID [facility] Last Admin: 02/21/17 10:21 Dose: 12.5 mg Clonidine HCl (Catapres-Tts2 0.2 Mg/24 Hr) 1 patch TD Q7D@1000 [facility] Last Admin: 02/18/17 09:43 Dose: 1 patch Diltiazem HCl (Cardizem Cd) 120 mg PO DAILY [facility] Last Admin: 02/21/17 10:21 Dose: 120 mg Efavirenz (Sustiva) 600 mg PO DAILY [facility] Last Admin: 02/21/17 10:23 Dose: 600 mg Emtricitabine (Emtriva) 200 mg PO Q96H [facility] Last Admin: 02/20/17 21:57 Dose: 200 mg Epoetin Terrell (Procrit) 10,000 unit IV TTS [facility] Last Admin: 02/20/17 10:47 Dose: 10,000 unit Furosemide (Lasix) 40 mg PO BID [facility] Hydralazine HCl (Apresoline) 100 mg PO Q8H [facility] Last Admin: 02/21/17 13:45 Dose: 100 mg Hydroxyzine HCl (Atarax) 25 mg PO BID [facility] Last Admin: 02/21/17 10:23 Dose: 25 mg Isosorbide Mononitrate (Imdur Er) 30 mg PO DAILY [facility] Last Admin: 02/21/17 10:22 Dose: 30 mg Raltegravir (Isentress) 400 mg PO BID [facility] Last Admin: 02/21/17 10:23 Dose: 400 mg Rosuvastatin Calcium (Crestor) 10 mg PO HS [facility] Last Admin: 02/20/17 21:57 Dose: 10 mg - Labs Labs: 02/21/17 07:41 02/21/17 07:41 PT 11.4 SECONDS (9.7-12.2) 02/12/17 00:37 INR 1.0 02/12/17 00:37 APTT 21 SECONDS (21-34) 02/12/17 00:37 Assessment and Plan (1) Acute on chronic renal failure Status: Acute (2) Hyperkalemia Status: Acute (3) AIDS (acquired immune deficiency syndrome) Status: Chronic (4) Leg swelling Status: Chronic (5) CKD (chronic kidney disease), stage IV Status: Chronic (6) Pulmonary HTN Status: Chronic
[2017-02-22] MEDS: diltiaZEM 120 mg/24 Hours CD Cap PO SCH (09:05)
--- NOTE | 2017-02-22 12:31 | CP.PCM.PN ---
Objective - Vital Signs/Intake and Output Vital Signs (last 24 hours): Temp Pulse Resp BP Pulse Ox 98.7 F 62 18 170/82 H 98 02/22/17 07:20 02/22/17 07:20 02/22/17 07:20 02/22/17 09:05 02/22/17 07:20 Intake and Output: 02/22/17 02/22/17 06:59 18:59 Intake Total 630 Balance 630 - Medications Medications: Current Medications Acetaminophen (Tylenol 325mg Tab) 650 mg PO Q4 PRN PRN Reason: Pain, moderate (4-7) Last Admin: 02/21/17 02:18 Dose: 650 mg Apixaban (Eliquis) 5 mg PO BID [facility] Last Admin: 02/16/17 09:04 Dose: 5 mg Calcitriol (Rocaltrol) 0.5 mcg PO DAILY [facility] Last Admin: 02/22/17 09:05 Dose: 0.5 mcg Carvedilol (Coreg) 12.5 mg PO BID [facility] Last Admin: 02/22/17 09:05 Dose: 12.5 mg Clonidine HCl (Catapres-Tts2 0.2 Mg/24 Hr) 1 patch TD Q7D@1000 [facility] Last Admin: 02/18/17 09:43 Dose: 1 patch Diltiazem HCl (Cardizem Cd) 120 mg PO DAILY [facility] Last Admin: 02/22/17 09:05 Dose: 120 mg Efavirenz (Sustiva) 600 mg PO DAILY [facility] Last Admin: 02/22/17 09:06 Dose: 600 mg Emtricitabine (Emtriva) 200 mg PO Q96H [facility] Last Admin: 02/20/17 21:57 Dose: 200 mg Epoetin Terrell (Procrit) 10,000 unit IV TTS [facility] Last Admin: 02/20/17 10:47 Dose: 10,000 unit Furosemide (Lasix) 40 mg PO BID [facility] Last Admin: 02/22/17 09:04 Dose: 40 mg Hydralazine HCl (Apresoline) 100 mg PO Q8H [facility] Last Admin: 02/22/17 05:53 Dose: 100 mg Hydroxyzine HCl (Atarax) 25 mg PO BID [facility] Last Admin: 02/22/17 09:06 Dose: 25 mg Isosorbide Mononitrate (Imdur) 60 mg PO DAILY [facility] Raltegravir (Isentress) 400 mg PO BID [facility] Last Admin: 02/22/17 09:06 Dose: 400 mg Rosuvastatin Calcium (Crestor) 10 mg PO HS [facility] Last Admin: 02/21/17 21:36 Dose: 10 mg - Labs Labs: 02/21/17 07:41 02/21/17 07:41 PT 11.4 SECONDS (9.7-12.2) 02/12/17 00:37 INR 1.0 02/12/17 00:37 APTT 21 SECONDS (21-34) 02/12/17 00:37 Assessment and Plan (1) Acute on chronic renal failure Status: Acute (2) Congestive heart failure (CHF) Status: Acute (3) Hyperkalemia Status: Acute (4) Anemia in CKD (chronic kidney disease) Status: Acute (5) Hypertensive CKD (chronic kidney disease) Status: Acute (6) Chronic kidney disease-mineral and bone disorder Status: Chronic
--- NOTE | 2017-02-22 14:26 | CP.PCM.PN ---
Subjective - Date & Time of Evaluation Date of Evaluation: 02/22/17 Time of Evaluation: 14:26 - Subjective Subjective: CHIEF COMPLAINTS TODAY : KEEPS ON THREATENING TO LEAVE AMA HAD LONG DISCUSSION MAY STAY ROS. HEENT : N. Resp : No cough, wheezing ,pleuritic CP ,or hemoptysis Cardio : No anginal CP, PND, orthopnea, palpitation GI : No abd.pain, n/v ,diarrhea or GI bleeding . 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 Musculoskel : No joint swelling , Derm : No rash Psych : FLAT affect. Ext : POS swelling ,calf pain PE. Pt. is alert awake in no distress. V.S As noted in the chart Head ,ear nose,throat and eyes : Normal. Neck : Supple with normal carotids. Lungs: Clear air entry. Heart : S1 & S2 normal with S4. No murmur. Abd : Soft non tender with normal bowel sounds. Neuro : Moves all ext. with no localized deficit. Ext :edema with intact pulses. Derm : No rashes or decubitus ulcer. LABS/RADIOLOGY: VEIN MAPPING : NO DVT IN U. EXT ASSESSMENT/PLAN : HD TODAY Objective - Vital Signs/Intake and Output Vital Signs (last 24 hours): Temp Pulse Resp BP Pulse Ox 98.7 F 62 18 170/82 H 98 02/22/17 07:20 02/22/17 07:20 02/22/17 07:20 02/22/17 09:05 02/22/17 07:20 Intake and Output: 02/22/17 02/22/17 11:59 23:59 Intake Total 110 240 Balance 110 240 - Medications Medications: Current Medications Acetaminophen (Tylenol 325mg Tab) 650 mg PO Q4 PRN PRN Reason: Pain, moderate (4-7) Last Admin: 02/21/17 02:18 Dose: 650 mg Apixaban (Eliquis) 5 mg PO BID [facility] Last Admin: 02/16/17 09:04 Dose: 5 mg Calcitriol (Rocaltrol) 0.5 mcg PO DAILY [facility] Last Admin: 02/22/17 09:05 Dose: 0.5 mcg Carvedilol (Coreg) 12.5 mg PO BID [facility] Last Admin: 02/22/17 09:05 Dose: 12.5 mg Clonidine HCl (Catapres-Tts2 0.2 Mg/24 Hr) 1 patch TD Q7D@1000 [facility] Last Admin: 02/18/17 09:43 Dose: 1 patch Diltiazem HCl (Cardizem Cd) 120 mg PO DAILY [facility] Last Admin: 02/22/17 09:05 Dose: 120 mg Efavirenz (Sustiva) 600 mg PO DAILY [facility] Last Admin: 02/22/17 09:06 Dose: 600 mg Emtricitabine (Emtriva) 200 mg PO Q96H [facility] Last Admin: 02/20/17 21:57 Dose: 200 mg Epoetin Terrell (Procrit) 10,000 unit IV TTS [facility] Last Admin: 02/20/17 10:47 Dose: 10,000 unit Furosemide (Lasix) 40 mg PO BID [facility] Last Admin: 02/22/17 09:04 Dose: 40 mg Hydralazine HCl (Apresoline) 100 mg PO Q8H [facility] Last Admin: 02/22/17 13:25 Dose: 100 mg Hydroxyzine HCl (Atarax) 25 mg PO BID [facility] Last Admin: 02/22/17 09:06 Dose: 25 mg Isosorbide Mononitrate (Imdur) 60 mg PO DAILY [facility] Last Admin: 02/22/17 13:32 Dose: 60 mg Raltegravir (Isentress) 400 mg PO BID [facility] Last Admin: 02/22/17 09:06 Dose: 400 mg Rosuvastatin Calcium (Crestor) 10 mg PO HS [facility] Last Admin: 02/21/17 21:36 Dose: 10 mg - Labs Labs: 02/21/17 07:41 02/21/17 07:41 PT 11.4 SECONDS (9.7-12.2) 02/12/17 00:37 INR 1.0 02/12/17 00:37 APTT 21 SECONDS (21-34) 02/12/17 00:37 Assessment and Plan (1) Acute on chronic renal failure Status: Acute (2) Hyperkalemia Status: Acute (3) AIDS (acquired immune deficiency syndrome) Status: Chronic (4) Leg swelling Status: Chronic (5) CKD (chronic kidney disease), stage IV Status: Chronic (6) Pulmonary HTN Status: Chronic
--- NOTE | 2017-02-22 23:07 | CP.PCM.PN ---
Subjective - Date & Time of Evaluation Date of Evaluation: 02/22/17 Time of Evaluation: 23:07 - Subjective Subjective: CHIEF COMPLAINTS TODAY : afebrile, S/P RT.IJ TUNNELED HEMODIALYSIS CATHETER PLACEMENT BY IR 02/19/17. APPETITE IMPROVED DENIES SOB. wanted to sign out AMA abruptly but then convinced to stay till Wednesday so that outpatient hemodialysis could be arranged. . ROS. HEENT : N. RT IJ HD CATHETER PLACEMENT. Resp : No cough, wheezing ,pleuritic CP ,or hemoptysis Cardio : No anginal CP, PND, orthopnea, palpitation GI : No abd.pain, n/v ,diarrhea or GI bleeding . 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 Musculoskel : No joint swelling , Derm : No rash Psych : FLAT affect. Ext : POS swelling ,calf pain PE. Pt. is alert awake in no distress. V.S As noted in the chart Head ,ear nose,throat and eyes : Normal. Neck : Supple with normal carotids. Lungs: DIMINISHED BREATH SOUNDS AT THE BASES. Heart : S1 & S2 normal with S4. No murmur. Abd : Soft non tender with normal bowel sounds. Neuro : Moves all ext. with no localized deficit. Ext BILATERAL LE 1+ EDEMA, with intact pulses. Derm : No rashes or decubitus ulcer. LABS/RADIOLOGY: REVIEWED. hepatitis B surface antibody positive Hepatitis B core antibody positive. CREATININE CLEARANCE <15. ASSESSMENT HIV+VE. CHF EXASCERBATION HTN CKD -STAGE 4 B/L EDEMA LE/ DVT + IVC FILTER. HEP C +VE DM. ANAEMIA ETOH ABUSE /PLAN : PT FOR NEXT HD ON WEDNESDAY PER RENAL CONTINUE HAART RX OUTLINED.02/12/17 * PATIENT ON EMTRIVA 200 MG EVERY 96 HOURLY ( as creatinine clearance less than 15 mL per minute ) * SUSTIVA 600 MG BY MOUTH ONCE A DAY DAILY. *RALTEGRAVIR (ISENTRESS ) 400 MG BY MOUTH TWICE A DAY. check hepatitis B E antigen/hepatitis B E antibody HBV DNA QUANTITATIVE LEVELS SEEN BY -/RENAL. Objective - Vital Signs/Intake and Output Vital Signs (last 24 hours): Temp Pulse Resp BP Pulse Ox 98.4 F 69 20 178/86 H 98 02/22/17 16:06 02/22/17 21:35 02/22/17 16:06 02/22/17 21:35 02/22/17 16:06 Intake and Output: 02/22/17 02/23/17 18:59 06:59 Intake Total 240 240 Balance 240 240 - Medications Medications: Current Medications Acetaminophen (Tylenol 325mg Tab) 650 mg PO Q4 PRN PRN Reason: Pain, moderate (4-7) Last Admin: 02/21/17 02:18 Dose: 650 mg Apixaban (Eliquis) 5 mg PO BID [facility] Last Admin: 02/16/17 09:04 Dose: 5 mg Calcitriol (Rocaltrol) 0.5 mcg PO DAILY [facility] Last Admin: 02/22/17 09:05 Dose: 0.5 mcg Carvedilol (Coreg) 12.5 mg PO BID [facility] Last Admin: 02/22/17 17:21 Dose: 12.5 mg Clonidine HCl (Catapres-Tts2 0.2 Mg/24 Hr) 1 patch TD Q7D@1000 [facility] Last Admin: 02/18/17 09:43 Dose: 1 patch Diltiazem HCl (Cardizem Cd) 120 mg PO DAILY [facility] Last Admin: 02/22/17 09:05 Dose: 120 mg Efavirenz (Sustiva) 600 mg PO DAILY [facility] Last Admin: 02/22/17 09:06 Dose: 600 mg Emtricitabine (Emtriva) 200 mg PO Q96H [facility] Last Admin: 02/20/17 21:57 Dose: 200 mg Epoetin Terrell (Procrit) 10,000 unit IV TTS [facility] Last Admin: 02/20/17 10:47 Dose: 10,000 unit Furosemide (Lasix) 40 mg PO BID [facility] Last Admin: 02/22/17 17:21 Dose: 40 mg Hydralazine HCl (Apresoline) 100 mg PO Q8H [facility] Last Admin: 02/22/17 21:38 Dose: 100 mg Hydroxyzine HCl (Atarax) 25 mg PO BID [facility] Last Admin: 02/22/17 17:20 Dose: 25 mg Isosorbide Mononitrate (Imdur) 60 mg PO DAILY [facility] Last Admin: 02/22/17 13:32 Dose: 60 mg Raltegravir (Isentress) 400 mg PO BID [facility] Last Admin: 02/22/17 17:22 Dose: 400 mg Rosuvastatin Calcium (Crestor) 10 mg PO HS [facility] Last Admin: 02/22/17 21:37 Dose: 10 mg - Labs Labs: 02/21/17 07:41 02/21/17 07:41 PT 11.4 SECONDS (9.7-12.2) 02/12/17 00:37 INR 1.0 02/12/17 00:37 APTT 21 SECONDS (21-34) 02/12/17 00:37 Assessment and Plan (1) HIV (human immunodeficiency virus infection) Status: Acute (2) Congestive heart failure (CHF) Status: Acute (3) Leg swelling Status: Chronic (4) DVT (deep venous thrombosis) Status: Acute (5) Renal failure (ARF), acute on chronic Status: Chronic (6) Hepatitis C Status: Acute (7) Diabetes mellitus Status: Acute (8) Alcohol abuse Status: Acute (9) Homelessness Status: Acute
[2017-02-23] MEDS: diltiaZEM 120 mg/24 Hours CD Cap PO SCH (09:53)
[2017-02-23 10:37] LABS: BASO % 0.9 % (0.0-2.0); EOS # 0.1 K/uL (0.0-0.7); EOS % 2.4 % (0.0-4.0); HEMOGLOBIN 8.1 g/dL (11.0-16.0); LYMPH # 0.7 K/uL (1.0-4.3); LYMPH % 12.2 % (20.0-40.0); MEAN CELL VOLUME 91.8 fL (81.0-99.0); MEAN CORPUSCULAR HEMOGLOBIN 30.4 pg (27.0-31.0); MEAN CORPUSCULAR HGB CONC 33.1 g/dL (33.0-37.0); MEAN PLATELET VOLUME 10.1 fL (7.2-11.7); MONO # 0.7 K/uL (0.0-0.8); NEUT # 3.7 K/uL (1.8-7.0); NEUT % 70.5 % (50.0-75.0); RBC 2.68 Mil/uL (3.80-5.20); RED CELL DISTRIBUTION WIDTH 18.4 % (11.5-14.5); WHITE BLOOD COUNT 5.3 K/uL (4.8-10.8)
[2017-02-23 11:00] LABS: ALBUMIN 3.4 g/dL (3.5-5.0); CALCIUM 8.4 mg/dl (8.6-10.4)
[2017-02-23] MEDS ORDERED: Ferric Sodium Gluconat Complex 62.5 mg/5 ml Vial IVPB ONE (11:56)
[2017-02-23] MEDS: Epoetin Alfa 10,000 unit/ml Dialysis IV SCH (12:01)
--- NOTE | 2017-02-23 19:22 | CP.PCM.PN ---
Subjective - Date & Time of Evaluation Date of Evaluation: 02/23/17 Time of Evaluation: 12:00 - Subjective Subjective: Patient reports feeling well; denies shortness of breath; tolerating 3rd HD session well currently; Objective - Vital Signs/Intake and Output Vital Signs (last 24 hours): Temp Pulse Resp BP Pulse Ox 98.4 F 72 21 166/86 H 95 02/23/17 15:00 02/23/17 15:00 02/23/17 15:00 02/23/17 17:25 02/23/17 15:00 Intake and Output: 02/23/17 02/24/17 18:59 06:59 Intake Total 300 Balance 300 - Medications Medications: Current Medications Acetaminophen (Tylenol 325mg Tab) 650 mg PO Q4 PRN PRN Reason: Pain, moderate (4-7) Last Admin: 02/21/17 02:18 Dose: 650 mg Apixaban (Eliquis) 5 mg PO BID [facility] Last Admin: 02/16/17 09:04 Dose: 5 mg Calcitriol (Rocaltrol) 0.5 mcg PO DAILY [facility] Last Admin: 02/23/17 10:06 Dose: Not Given Carvedilol (Coreg) 12.5 mg PO BID [facility] Last Admin: 02/23/17 17:25 Dose: 12.5 mg Clonidine HCl (Catapres-Tts2 0.2 Mg/24 Hr) 1 patch TD Q7D@1000 [facility] Last Admin: 02/18/17 09:43 Dose: 1 patch Diltiazem HCl (Cardizem Cd) 120 mg PO DAILY [facility] Last Admin: 02/23/17 09:53 Dose: 120 mg Efavirenz (Sustiva) 600 mg PO DAILY [facility] Last Admin: 02/23/17 10:06 Dose: Not Given Emtricitabine (Emtriva) 200 mg PO Q96H [facility] Last Admin: 02/20/17 21:57 Dose: 200 mg Epoetin Terrell (Procrit) 10,000 unit IV TTS [facility] Last Admin: 02/23/17 12:01 Dose: 10,000 unit Furosemide (Lasix) 40 mg PO BID [facility] Last Admin: 02/23/17 17:25 Dose: 40 mg Hydralazine HCl (Apresoline) 100 mg PO Q8H [facility] Last Admin: 02/23/17 14:34 Dose: 100 mg Hydroxyzine HCl (Atarax) 25 mg PO BID [facility] Last Admin: 02/23/17 17:25 Dose: 25 mg Isosorbide Mononitrate (Imdur) 60 mg PO DAILY [facility] Last Admin: 02/23/17 11:47 Dose: 60 mg Raltegravir (Isentress) 400 mg PO BID [facility] Last Admin: 02/23/17 17:25 Dose: 400 mg Rosuvastatin Calcium (Crestor) 10 mg PO HS [facility] Last Admin: 02/22/17 21:37 Dose: 10 mg - Labs Labs: 02/23/17 10:33 02/23/17 10:33 PT 11.4 SECONDS (9.7-12.2) 02/12/17 00:37 INR 1.0 02/12/17 00:37 APTT 21 SECONDS (21-34) 02/12/17 00:37 - Constitutional Appears: Non-toxic, No Acute Distress - Eye Exam Eye Exam: Normal appearance. absent: Scleral icterus - ENT Exam ENT Exam: Mucous Membranes Moist - Respiratory Exam Respiratory Exam: Clear to Ausculation Bilateral. absent: Respiratory Distress - Cardiovascular Exam Cardiovascular Exam: RRR, +S1, +S2 - GI/Abdominal Exam GI & Abdominal Exam: Soft. absent: Distended, Tenderness - Extremities Exam Additional comments: mild/moderate lower leg edema b/l; - Neurological Exam Neurological Exam: Alert, Awake - Psychiatric Exam Psychiatric exam: absent: Agitated - Skin Skin Exam: Warm. absent: Cyanosis Assessment and Plan (1) Acute on chronic renal failure Assessment & Plan: Now ESRD on HD; stable electrolyte status; aiming for ~3L net UF today as BP uncontrolled and still with significant lower ext edema; 3rd overall HD session , using full blood flow, over 3.5 hrs; patient awaiting outpatient HD setup; Status: Acute (2) Congestive heart failure (CHF) Assessment & Plan: With systolic dysfunction; overall stable, will benefit from UF; Status: Acute (3) Hyperkalemia Status: Suspected (4) Anemia in CKD (chronic kidney disease) Assessment & Plan: Hgb stable, started on EPO 2 days ago, will continue TTS; Status: Acute (5) Hypertensive CKD (chronic kidney disease) Assessment & Plan: Worsened after starting EPO; imdur increased to 60 mg daily; will benefit from UF on HD; Status: Acute (6) Chronic kidney disease-mineral and bone disorder Assessment & Plan: PTH elevated, continue calcitriol 0.5 mcg daily; Status: Chronic
--- NOTE | 2017-02-23 20:59 | CP.PCM.PN ---
Subjective - Date & Time of Evaluation Date of Evaluation: 02/23/17 Time of Evaluation: 20:59 - Subjective Subjective: CHIEF COMPLAINTS TODAY : afebrile, S/P RT.IJ TUNNELED HEMODIALYSIS CATHETER PLACEMENT BY IR 02/19/17. s/p HD TODAY. NO COMPLAINTS . ROS. HEENT : N. RT IJ HD CATHETER PLACEMENT. Resp : No cough, wheezing ,pleuritic CP ,or hemoptysis Cardio : No anginal CP, PND, orthopnea, palpitation GI : No abd.pain, n/v ,diarrhea or GI bleeding . 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 Musculoskel : No joint swelling , Derm : No rash Psych : FLAT affect. Ext : POS swelling ,calf pain PE. Pt. is alert awake in no distress. V.S As noted in the chart Head ,ear nose,throat and eyes : Normal. Neck : Supple with normal carotids. Lungs: CLEAR Heart : S1 & S2 normal with S4. No murmur. Abd : Soft non tender with normal bowel sounds. Neuro : Moves all ext. with no localized deficit. Ext BILATERAL LE 1+ EDEMA, with intact pulses. Derm : No rashes or decubitus ulcer. LABS/RADIOLOGY: REVIEWED. hepatitis B surface antibody positive Hepatitis B core antibody positive. CREATININE CLEARANCE <15. ASSESSMENT HIV+VE. CHF EXASCERBATION HTN CKD -STAGE 4 B/L EDEMA LE/ DVT + IVC FILTER. HEP C +VE DM. ANAEMIA ETOH ABUSE /PLAN : PER RENAL CONTINUE HAART RX OUTLINED.02/12/17 * PATIENT ON EMTRIVA 200 MG EVERY 96 HOURLY ( as creatinine clearance less than 15 mL per minute ) * SUSTIVA 600 MG BY MOUTH ONCE A DAY DAILY. *RALTEGRAVIR (ISENTRESS ) 400 MG BY MOUTH TWICE A DAY. check hepatitis B E antigen/hepatitis B E antibody HBV DNA QUANTITATIVE LEVELS SEEN BY -/RENAL. Objective - Vital Signs/Intake and Output Vital Signs (last 24 hours): Temp Pulse Resp BP Pulse Ox 98.4 F 72 21 166/86 H 95 02/23/17 15:00 02/23/17 15:00 02/23/17 15:00 02/23/17 17:25 02/23/17 15:00 Intake and Output: 02/23/17 02/24/17 18:59 06:59 Intake Total 300 Balance 300 - Medications Medications: Current Medications Acetaminophen (Tylenol 325mg Tab) 650 mg PO Q4 PRN PRN Reason: Pain, moderate (4-7) Last Admin: 02/21/17 02:18 Dose: 650 mg Apixaban (Eliquis) 5 mg PO BID [facility] Last Admin: 02/16/17 09:04 Dose: 5 mg Calcitriol (Rocaltrol) 0.5 mcg PO DAILY [facility] Last Admin: 02/23/17 10:06 Dose: Not Given Carvedilol (Coreg) 12.5 mg PO BID [facility] Last Admin: 02/23/17 17:25 Dose: 12.5 mg Clonidine HCl (Catapres-Tts2 0.2 Mg/24 Hr) 1 patch TD Q7D@1000 [facility] Last Admin: 02/18/17 09:43 Dose: 1 patch Diltiazem HCl (Cardizem Cd) 120 mg PO DAILY [facility] Last Admin: 02/23/17 09:53 Dose: 120 mg Efavirenz (Sustiva) 600 mg PO DAILY [facility] Last Admin: 02/23/17 10:06 Dose: Not Given Emtricitabine (Emtriva) 200 mg PO Q96H [facility] Last Admin: 02/20/17 21:57 Dose: 200 mg Epoetin Terrell (Procrit) 10,000 unit IV TTS [facility] Last Admin: 02/23/17 12:01 Dose: 10,000 unit Furosemide (Lasix) 40 mg PO BID [facility] Last Admin: 02/23/17 17:25 Dose: 40 mg Hydralazine HCl (Apresoline) 100 mg PO Q8H [facility] Last Admin: 02/23/17 14:34 Dose: 100 mg Hydroxyzine HCl (Atarax) 25 mg PO BID [facility] Last Admin: 02/23/17 17:25 Dose: 25 mg Isosorbide Mononitrate (Imdur) 60 mg PO DAILY [facility] Last Admin: 02/23/17 11:47 Dose: 60 mg Raltegravir (Isentress) 400 mg PO BID [facility] Last Admin: 02/23/17 17:25 Dose: 400 mg Rosuvastatin Calcium (Crestor) 10 mg PO HS [facility] Last Admin: 02/22/17 21:37 Dose: 10 mg - Labs Labs: 02/23/17 10:33 02/23/17 10:33 PT 11.4 SECONDS (9.7-12.2) 02/12/17 00:37 INR 1.0 02/12/17 00:37 APTT 21 SECONDS (21-34) 02/12/17 00:37 Assessment and Plan (1) HIV (human immunodeficiency virus infection) Status: Acute (2) Congestive heart failure (CHF) Status: Acute (3) Leg swelling Status: Chronic (4) DVT (deep venous thrombosis) Status: Acute (5) Renal failure (ARF), acute on chronic Status: Chronic (6) Hepatitis C Status: Acute (7) Diabetes mellitus Status: Acute (8) Alcohol abuse Status: Acute (9) Homelessness Status: Acute
--- NOTE | 2017-02-23 21:35 | CP.PCM.PN ---
Subjective - Date & Time of Evaluation Date of Evaluation: 02/23/17 Time of Evaluation: 20:00 - Subjective Subjective: pt seen and evaluated, she is on HAART medications for HIV , she is anemic, on hemodialuysis, pt is poor historian, no fever, chills, see has leg edema Objective - Vital Signs/Intake and Output Vital Signs (last 24 hours): Temp Pulse Resp BP Pulse Ox 98.4 F 72 21 166/86 H 95 02/23/17 15:00 02/23/17 15:00 02/23/17 15:00 02/23/17 17:25 02/23/17 15:00 Intake and Output: 02/23/17 02/24/17 18:59 06:59 Intake Total 300 Balance 300 - Medications Medications: Current Medications Acetaminophen (Tylenol 325mg Tab) 650 mg PO Q4 PRN PRN Reason: Pain, moderate (4-7) Last Admin: 02/21/17 02:18 Dose: 650 mg Apixaban (Eliquis) 5 mg PO BID [facility] Last Admin: 02/16/17 09:04 Dose: 5 mg Calcitriol (Rocaltrol) 0.5 mcg PO DAILY [facility] Last Admin: 02/23/17 10:06 Dose: Not Given Carvedilol (Coreg) 12.5 mg PO BID [facility] Last Admin: 02/23/17 17:25 Dose: 12.5 mg Clonidine HCl (Catapres-Tts2 0.2 Mg/24 Hr) 1 patch TD Q7D@1000 [facility] Last Admin: 02/18/17 09:43 Dose: 1 patch Diltiazem HCl (Cardizem Cd) 120 mg PO DAILY [facility] Last Admin: 02/23/17 09:53 Dose: 120 mg Efavirenz (Sustiva) 600 mg PO DAILY [facility] Last Admin: 02/23/17 10:06 Dose: Not Given Emtricitabine (Emtriva) 200 mg PO Q96H [facility] Last Admin: 02/20/17 21:57 Dose: 200 mg Epoetin Terrell (Procrit) 10,000 unit IV TTS [facility] Last Admin: 02/23/17 12:01 Dose: 10,000 unit Furosemide (Lasix) 40 mg PO BID [facility] Last Admin: 02/23/17 17:25 Dose: 40 mg Hydralazine HCl (Apresoline) 100 mg PO Q8H [facility] Last Admin: 02/23/17 21:24 Dose: 100 mg Hydroxyzine HCl (Atarax) 25 mg PO BID [facility] Last Admin: 02/23/17 17:25 Dose: 25 mg Isosorbide Mononitrate (Imdur) 60 mg PO DAILY [facility] Last Admin: 02/23/17 11:47 Dose: 60 mg Raltegravir (Isentress) 400 mg PO BID [facility] Last Admin: 02/23/17 17:25 Dose: 400 mg Rosuvastatin Calcium (Crestor) 10 mg PO HS [facility] Last Admin: 02/23/17 21:23 Dose: 10 mg - Labs Labs: 02/23/17 10:33 02/23/17 10:33 PT 11.4 SECONDS (9.7-12.2) 02/12/17 00:37 INR 1.0 02/12/17 00:37 APTT 21 SECONDS (21-34) 02/12/17 00:37 - Constitutional Appears: No Acute Distress, Chronically Ill - Head Exam Head Exam: ATRAUMATIC, NORMAL INSPECTION, NORMOCEPHALIC - Respiratory Exam Respiratory Exam: Clear to Ausculation Bilateral, NORMAL BREATHING PATTERN - Cardiovascular Exam Cardiovascular Exam: REGULAR RHYTHM, +S1, +S2. absent: Murmur - GI/Abdominal Exam GI & Abdominal Exam: Soft, Normal Bowel Sounds. absent: Tenderness - Extremities Exam Extremities Exam: Pedal Edema Assessment and Plan (1) Acute on chronic renal failure Assessment & Plan: on HD Status: Acute (2) HTN (hypertension) Status: Acute (3) HIV (human immunodeficiency virus infection) Assessment & Plan: on HAART medications Status: Acute (4) Pedal edema Status: Acute
[2017-02-24] MEDS: diltiaZEM 120 mg/24 Hours CD Cap PO SCH (09:29)
--- NOTE | 2017-02-24 20:18 | CP.PCM.PN ---
Subjective - Date & Time of Evaluation Date of Evaluation: 02/24/17 Time of Evaluation: 20:18 - Subjective Subjective: CHIEF COMPLAINTS TODAY : afebrile, S/P RT.IJ TUNNELED HEMODIALYSIS CATHETER PLACEMENT BY IR 02/19/17. s/p 3RD HD 02/23/17 NO COMPLAINTS . ROS. HEENT : N. RT IJ HD CATHETER PLACEMENT. Resp : No cough, wheezing ,pleuritic CP ,or hemoptysis Cardio : No anginal CP, PND, orthopnea, palpitation GI : No abd.pain, n/v ,diarrhea or GI bleeding . DIRECTOR SEARCH : No headache, vertigo, focal deficit. Musculoskel : No joint swelling , Derm : No rash Psych : FLAT affect. Ext : POS swelling ,calf pain PE. Pt. is alert awake in no distress. V.S As noted in the chart Head ,ear nose,throat and eyes : Normal. Neck : Supple with normal carotids. Lungs: CLEAR Heart : S1 & S2 normal with S4. No murmur. Abd : Soft non tender with normal bowel sounds. Neuro : Moves all ext. with no localized deficit. Ext BILATERAL LE 1+ EDEMA, with intact pulses. Derm : No rashes or decubitus ulcer. LABS/RADIOLOGY: REVIEWED. hepatitis B surface antibody positive Hepatitis B core antibody positive. CREATININE CLEARANCE <15. ASSESSMENT HIV+VE.ON HAART CHF EXASCERBATION HTN CKD -STAGE 4 B/L EDEMA LE/ DVT + IVC FILTER. HEP C +VE DM. ANAEMIA ETOH ABUSE /PLAN : PT EMPHASIZED TO CONTINUE HAART RX RELIGEOUSLY. CONTINUE HAART RX OUTLINED.02/12/17 * PATIENT ON EMTRIVA 200 MG EVERY 96 HOURLY ( as creatinine clearance less than 15 mL per minute ) * SUSTIVA 600 MG BY MOUTH ONCE A DAY DAILY. *RALTEGRAVIR (ISENTRESS ) 400 MG BY MOUTH TWICE A DAY. check hepatitis B E antigen/hepatitis B E antibody HBV DNA QUANTITATIVE LEVELS. CHECK HIV GENOTYPING 02/24/17 HLA-B *5701 FOR ABC HYPERSENSITIVITY 02/24/17 SEEN BY -/RENAL. Objective - Vital Signs/Intake and Output Vital Signs (last 24 hours): Temp Pulse Resp BP Pulse Ox 98 F 64 18 150/74 98 02/24/17 15:40 02/24/17 15:40 02/24/17 15:40 02/24/17 17:02/24/17 15:40 Intake and Output: 02/24/17 02/25/17 18:59 06:59 Intake Total 400 Balance 400 - Medications Medications: Current Medications Acetaminophen (Tylenol 325mg Tab) 650 mg PO Q4 PRN PRN Reason: Pain, moderate (4-7) Last Admin: 02/21/17 02:18 Dose: 650 mg Apixaban (Eliquis) 5 mg PO BID [facility] Last Admin: 02/16/17 09:04 Dose: 5 mg Calcitriol (Rocaltrol) 0.5 mcg PO DAILY [facility] Last Admin: 02/24/17 09:30 Dose: 0.5 mcg Carvedilol (Coreg) 12.5 mg PO BID [facility] Last Admin: 02/24/17 17:03 Dose: 12.5 mg Clonidine HCl (Catapres-Tts3 0.3 Mg/24 Hr) 1 patch TD Q7D@1000 [facility] Last Admin: 02/24/17 10:04 Dose: 1 patch Diltiazem HCl (Cardizem Cd) 120 mg PO DAILY [facility] Last Admin: 02/24/17 09:29 Dose: 120 mg Efavirenz (Sustiva) 600 mg PO DAILY [facility] Last Admin: 02/24/17 09:30 Dose: 600 mg Emtricitabine (Emtriva) 200 mg PO Q96H [facility] Last Admin: 02/20/17 21:57 Dose: 200 mg Epoetin Terrell (Procrit) 10,000 unit IV TTS [facility] Last Admin: 02/23/17 12:01 Dose: 10,000 unit Furosemide (Lasix) 40 mg PO BID [facility] Last Admin: 02/24/17 17:03 Dose: 40 mg Hydralazine HCl (Apresoline) 100 mg PO Q8H [facility] Last Admin: 02/24/17 15:25 Dose: 100 mg Hydroxyzine HCl (Atarax) 25 mg PO BID [facility] Last Admin: 02/24/17 17:04 Dose: 25 mg Isosorbide Mononitrate (Imdur) 60 mg PO DAILY [facility] Last Admin: 02/24/17 09:29 Dose: 60 mg Raltegravir (Isentress) 400 mg PO BID [facility] Last Admin: 02/24/17 17:03 Dose: 400 mg Rosuvastatin Calcium (Crestor) 10 mg PO HS [facility] Last Admin: 02/23/17 21:23 Dose: 10 mg - Labs Labs: 02/23/17 10:33 02/23/17 10:33 PT 11.4 SECONDS (9.7-12.2) 02/12/17 00:37 INR 1.0 02/12/17 00:37 APTT 21 SECONDS (21-34) 02/12/17 00:37 Assessment and Plan (1) HIV (human immunodeficiency virus infection) Status: Acute (2) Congestive heart failure (CHF) Status: Acute (3) Leg swelling Status: Chronic (4) DVT (deep venous thrombosis) Status: Acute (5) Renal failure (ARF), acute on chronic Status: Chronic (6) Hepatitis C Status: Acute (7) Diabetes mellitus Status: Acute (8) Alcohol abuse Status: Acute (9) Homelessness Status: Acute
--- NOTE | 2017-02-24 21:15 | CP.PCM.PN ---
Subjective - Date & Time of Evaluation Date of Evaluation: 02/24/17 Time of Evaluation: 13:00 - Subjective Subjective: Patient denies shortness of breath, nausea/vomiting; tolerating diet; improved leg edema; Objective - Vital Signs/Intake and Output Vital Signs (last 24 hours): Temp Pulse Resp BP Pulse Ox 98 F 64 18 150/74 98 02/24/17 15:40 02/24/17 15:40 02/24/17 15:40 02/24/17 17:03 02/24/17 15:40 Intake and Output: 02/24/17 02/25/17 18:59 06:59 Intake Total 400 Balance 400 - Medications Medications: Current Medications Acetaminophen (Tylenol 325mg Tab) 650 mg PO Q4 PRN PRN Reason: Pain, moderate (4-7) Last Admin: 02/21/17 02:18 Dose: 650 mg Apixaban (Eliquis) 5 mg PO BID [facility] Last Admin: 02/16/17 09:04 Dose: 5 mg Calcitriol (Rocaltrol) 0.5 mcg PO DAILY [facility] Last Admin: 02/24/17 09:30 Dose: 0.5 mcg Carvedilol (Coreg) 12.5 mg PO BID [facility] Last Admin: 02/24/17 17:03 Dose: 12.5 mg Clonidine HCl (Catapres-Tts3 0.3 Mg/24 Hr) 1 patch TD Q7D@1000 [facility] Last Admin: 02/24/17 10:04 Dose: 1 patch Diltiazem HCl (Cardizem Cd) 120 mg PO DAILY [facility] Last Admin: 02/24/17 09:29 Dose: 120 mg Efavirenz (Sustiva) 600 mg PO DAILY [facility] Last Admin: 02/24/17 09:30 Dose: 600 mg Emtricitabine (Emtriva) 200 mg PO Q96H [facility] Last Admin: 02/20/17 21:57 Dose: 200 mg Epoetin Terrell (Procrit) 10,000 unit IV TTS [facility] Last Admin: 02/23/17 12:01 Dose: 10,000 unit Furosemide (Lasix) 40 mg PO BID [facility] Last Admin: 02/24/17 17:03 Dose: 40 mg Hydralazine HCl (Apresoline) 100 mg PO Q8H [facility] Last Admin: 02/24/17 15:25 Dose: 100 mg Hydroxyzine HCl (Atarax) 25 mg PO BID [facility] Last Admin: 02/24/17 17:04 Dose: 25 mg Isosorbide Mononitrate (Imdur) 60 mg PO DAILY [facility] Last Admin: 02/24/17 09:29 Dose: 60 mg Raltegravir (Isentress) 400 mg PO BID [facility] Last Admin: 02/24/17 17:03 Dose: 400 mg Rosuvastatin Calcium (Crestor) 10 mg PO HS [facility] Last Admin: 02/23/17 21:23 Dose: 10 mg - Labs Labs: 02/23/17 10:33 02/23/17 10:33 PT 11.4 SECONDS (9.7-12.2) 02/12/17 00:37 INR 1.0 02/12/17 00:37 APTT 21 SECONDS (21-34) 02/12/17 00:37 - Constitutional Appears: Non-toxic, No Acute Distress - Eye Exam Eye Exam: Normal appearance. absent: Scleral icterus - ENT Exam ENT Exam: Mucous Membranes Moist - Respiratory Exam Respiratory Exam: Clear to Ausculation Bilateral. absent: Respiratory Distress - Cardiovascular Exam Cardiovascular Exam: RRR, +S1, +S2 - GI/Abdominal Exam GI & Abdominal Exam: Soft. absent: Distended, Tenderness - Extremities Exam Additional comments: mild b/l lower leg edema; - Neurological Exam Neurological Exam: Alert, Awake - Psychiatric Exam Psychiatric exam: absent: Agitated - Skin Skin Exam: Warm. absent: Cyanosis Assessment and Plan (1) Acute on chronic renal failure Assessment & Plan: Now ESRD on HD; last HD session yesterday, next for tomorrow with goal UF of net 3L; still awaiting outpatient HD center setup (can be discharged afterward) ; patient was offered AVF placement but wasn't cooperating with surgery team on multiple occasions, will re-address this issue; Status: Acute (2) Congestive heart failure (CHF) Assessment & Plan: With systolic dysfunction; CHF status much improved, continue UF on HD; Status: Acute (3) Hyperkalemia Status: Suspected (4) Anemia in CKD (chronic kidney disease) Assessment & Plan: Hgb below goal but stable; now s/p IV iron loading and started on EPO, will continue EPO on HD; Status: Acute (5) Hypertensive CKD (chronic kidney disease) Assessment & Plan: BP still elevated; trying to increase UF on HD; increasing clonidine patch to 0.3 mg; Status: Acute (6) Chronic kidney disease-mineral and bone disorder Assessment & Plan: Phos controlled; continue calcitriol 0.5 mcg daily for elevated PTH; Status: Chronic
[2017-02-24] MEDS: EMTRICITABINE 200 MG CAP PO SCH (21:36)
--- NOTE | 2017-02-24 23:58 | CP.PCM.PN ---
Subjective - Date & Time of Evaluation Date of Evaluation: 02/24/17 Time of Evaluation: 19:00 - Subjective Subjective: Pt seen and examined, she is on HD, she is on HAART medications and medical management Objective - Vital Signs/Intake and Output Vital Signs (last 24 hours): Temp Pulse Resp BP Pulse Ox 98 F 64 18 150/74 98 02/24/17 15:40 02/24/17 15:40 02/24/17 15:40 02/24/17 17:03 02/24/17 15:40 Intake and Output: 02/24/17 02/25/17 18:59 06:59 Intake Total 400 Balance 400 - Medications Medications: Current Medications Acetaminophen (Tylenol 325mg Tab) 650 mg PO Q4 PRN PRN Reason: Pain, moderate (4-7) Last Admin: 02/21/17 02:18 Dose: 650 mg Apixaban (Eliquis) 5 mg PO BID [facility] Last Admin: 02/16/17 09:04 Dose: 5 mg Calcitriol (Rocaltrol) 0.5 mcg PO DAILY [facility] Last Admin: 02/24/17 09:30 Dose: 0.5 mcg Carvedilol (Coreg) 12.5 mg PO BID [facility] Last Admin: 02/24/17 17:03 Dose: 12.5 mg Clonidine HCl (Catapres-Tts3 0.3 Mg/24 Hr) 1 patch TD Q7D@1000 [facility] Last Admin: 02/24/17 10:04 Dose: 1 patch Diltiazem HCl (Cardizem Cd) 120 mg PO DAILY [facility] Last Admin: 02/24/17 09:29 Dose: 120 mg Efavirenz (Sustiva) 600 mg PO DAILY [facility] Last Admin: 02/24/17 09:30 Dose: 600 mg Emtricitabine (Emtriva) 200 mg PO Q96H [facility] Last Admin: 02/24/17 21:36 Dose: 200 mg Epoetin Terrell (Procrit) 10,000 unit IV TTS [facility] Last Admin: 02/23/17 12:01 Dose: 10,000 unit Furosemide (Lasix) 40 mg PO BID [facility] Last Admin: 02/24/17 17:03 Dose: 40 mg Hydralazine HCl (Apresoline) 100 mg PO Q8H [facility] Last Admin: 02/24/17 22:25 Dose: 100 mg Hydroxyzine HCl (Atarax) 25 mg PO BID [facility] Last Admin: 02/24/17 17:04 Dose: 25 mg Isosorbide Mononitrate (Imdur) 60 mg PO DAILY [facility] Last Admin: 02/24/17 09:29 Dose: 60 mg Raltegravir (Isentress) 400 mg PO BID [facility] Last Admin: 02/24/17 17:03 Dose: 400 mg Rosuvastatin Calcium (Crestor) 10 mg PO HS [facility] Last Admin: 02/24/17 21:36 Dose: 10 mg - Labs Labs: 02/23/17 10:33 02/23/17 10:33 PT 11.4 SECONDS (9.7-12.2) 02/12/17 00:37 INR 1.0 02/12/17 00:37 APTT 21 SECONDS (21-34) 02/12/17 00:37 - Constitutional Appears: No Acute Distress, Chronically Ill - Head Exam Head Exam: ATRAUMATIC, NORMAL INSPECTION, NORMOCEPHALIC - Eye Exam Eye Exam: EOMI, Normal appearance, PERRL Pupil Exam: NORMAL ACCOMODATION, PERRL - Respiratory Exam Respiratory Exam: Clear to Ausculation Bilateral, NORMAL BREATHING PATTERN - Cardiovascular Exam Cardiovascular Exam: REGULAR RHYTHM, +S1, +S2. absent: Murmur - GI/Abdominal Exam GI & Abdominal Exam: Soft, Normal Bowel Sounds. absent: Tenderness Assessment and Plan (1) Acute on chronic renal failure Status: Acute (2) HTN (hypertension) Status: Acute (3) HIV (human immunodeficiency virus infection) Status: Acute (4) Pedal edema Status: Acute
[2017-02-25] MEDS: diltiaZEM 120 mg/24 Hours CD Cap PO SCH (10:00)
[2017-02-25] MEDS: Epoetin Alfa 10,000 unit/ml Dialysis IV SCH (10:14)
--- NOTE | 2017-02-25 15:30 | CP.PCM.PN ---
Subjective - Date & Time of Evaluation Date of Evaluation: 02/25/17 Time of Evaluation: 14:40 - Subjective Subjective: Patient reports feeling well; no sob; no nausea/vomiting; tolerated UF well on HD; Objective - Vital Signs/Intake and Output Vital Signs (last 24 hours): Temp Pulse Resp BP Pulse Ox 98.2 F 60 18 155/88 H 96 02/25/17 13:20 02/25/17 13:20 02/25/17 13:20 02/25/17 13:20 02/25/17 13:20 - Medications Medications: Current Medications Acetaminophen (Tylenol 325mg Tab) 650 mg PO Q4 PRN PRN Reason: Pain, moderate (4-7) Last Admin: 02/21/17 02:18 Dose: 650 mg Apixaban (Eliquis) 5 mg PO BID [facility] Last Admin: 02/25/17 10:01 Dose: Not Given Calcitriol (Rocaltrol) 0.5 mcg PO DAILY [facility] Last Admin: 02/25/17 10:01 Dose: Not Given Carvedilol (Coreg) 12.5 mg PO BID [facility] Last Admin: 02/25/17 10:01 Dose: Not Given Clonidine HCl (Catapres-Tts3 0.3 Mg/24 Hr) 1 patch TD Q7D@1000 [facility] Last Admin: 02/24/17 10:04 Dose: 1 patch Diltiazem HCl (Cardizem Cd) 120 mg PO DAILY [facility] Last Admin: 02/25/17 10:00 Dose: Not Given Efavirenz (Sustiva) 600 mg PO DAILY [facility] Last Admin: 02/25/17 10:01 Dose: Not Given Emtricitabine (Emtriva) 200 mg PO Q96H [facility] Last Admin: 02/24/17 21:36 Dose: 200 mg Epoetin Terrell (Procrit) 10,000 unit IV TTS [facility] Last Admin: 02/25/17 10:14 Dose: 10,000 unit Furosemide (Lasix) 80 mg PO BID [facility] Last Admin: 02/25/17 10:02 Dose: Not Given Hydralazine HCl (Apresoline) 100 mg PO Q8H [facility] Last Admin: 02/25/17 14:44 Dose: 100 mg Hydroxyzine HCl (Atarax) 25 mg PO BID [facility] Last Admin: 02/25/17 10:00 Dose: Not Given Isosorbide Mononitrate (Imdur) 60 mg PO DAILY [facility] Last Admin: 02/25/17 10:02 Dose: Not Given Raltegravir (Isentress) 400 mg PO BID [facility] Last Admin: 02/25/17 10:02 Dose: Not Given Rosuvastatin Calcium (Crestor) 10 mg PO HS [facility] Last Admin: 02/24/17 21:36 Dose: 10 mg - Labs Labs: 02/23/17 10:33 02/23/17 10:33 PT 11.4 SECONDS (9.7-12.2) 02/12/17 00:37 INR 1.0 02/12/17 00:37 APTT 21 SECONDS (21-34) 02/12/17 00:37 - Constitutional Appears: Non-toxic, No Acute Distress - Eye Exam Eye Exam: absent: Scleral icterus - ENT Exam ENT Exam: Mucous Membranes Moist - Respiratory Exam Respiratory Exam: Clear to Ausculation Bilateral. absent: Respiratory Distress - Cardiovascular Exam Cardiovascular Exam: RRR, +S1, +S2 - GI/Abdominal Exam GI & Abdominal Exam: Soft. absent: Distended, Tenderness - Extremities Exam Additional comments: mild lower leg edema; - Neurological Exam Neurological Exam: Alert, Awake - Psychiatric Exam Psychiatric exam: absent: Agitated - Skin Skin Exam: Warm. absent: Cyanosis Assessment and Plan (1) Acute on chronic renal failure Assessment & Plan: Now ESRD on HD; tolerated ~3L net UF well on HD today with BP improving; continuing with TTS HD schedule, awaiting outpatient HD center setup; Status: Acute (2) Congestive heart failure (CHF) Assessment & Plan: With systolic dysfunction; overall much improved; lasix increased to 80 mg bid and continuing to challenge with UF on HD; Status: Acute (3) Hyperkalemia Status: Suspected (4) Anemia in CKD (chronic kidney disease) Assessment & Plan: Hgb stable, s/p IV iron loading; continuing EPO 10,000 TTS; Status: Acute (5) Hypertensive CKD (chronic kidney disease) Assessment & Plan: BP better controlled; clonidine patch increased to 0.3 mg; challenging with UF on HD; Status: Acute (6) Chronic kidney disease-mineral and bone disorder Assessment & Plan: Continue calcitriol 0.5 mcg daily, will get phos level on next HD; Status: Chronic
--- NOTE | 2017-02-25 22:56 | CP.PCM.PN ---
Subjective - Date & Time of Evaluation Date of Evaluation: 02/25/17 Time of Evaluation: 22:56 - Subjective Subjective: CHIEF COMPLAINTS TODAY : afebrile, FEELS WELL NO COMPLAINTS. IMPROVING LEG EDEMA S/P RT.IJ TUNNELED HD. CATHETER PLACEMENT BY IR 02/19/17. . ROS. HEENT : N. RT IJ HD CATHETER PLACEMENT. Resp : No cough, wheezing ,pleuritic CP ,or hemoptysis Cardio : No anginal CP, PND, orthopnea, palpitation GI : No abd.pain, n/v ,diarrhea or GI bleeding . 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 Musculoskel : No joint swelling , Derm : No rash Psych : FLAT affect. Ext : POS swelling ,calf pain PE. Pt. is alert awake in no distress. V.S As noted in the chart Head ,ear nose,throat and eyes : Normal. Neck : Supple with normal carotids. Lungs: CLEAR Heart : S1 & S2 normal with S4. No murmur. Abd : Soft non tender with normal bowel sounds. Neuro : Moves all ext. with no localized deficit. Ext BILATERAL LE 1+ EDEMA, with intact pulses. Derm : No rashes or decubitus ulcer. LABS/RADIOLOGY: REVIEWED. hepatitis B surface antibody positive Hepatitis B core antibody positive. CREATININE CLEARANCE <15. ASSESSMENT HIV+VE.ON HAART CHF EXASCERBATION HTN CKD -STAGE 4 B/L EDEMA LE/ DVT + IVC FILTER. HEP C +VE DM. ANAEMIA ETOH ABUSE /PLAN : PT EMPHASIZED TO CONTINUE HAART RX RELIGEOUSLY. CONTINUE HAART RX OUTLINED.02/12/17 * PATIENT ON EMTRIVA 200 MG EVERY 96 HOURLY ( as creatinine clearance less than 15 mL per minute ) * SUSTIVA 600 MG BY MOUTH ONCE A DAY DAILY. *RALTEGRAVIR (ISENTRESS ) 400 MG BY MOUTH TWICE A DAY. check hepatitis B E antigen/hepatitis B E antibody HBV DNA QUANTITATIVE LEVELS. CHECK HIV GENOTYPING 02/24/17-P HLA-B *5701 FOR ABC HYPERSENSITIVITY 02/24/17-P PER -/RENAL AWAITING PLACEMENT FOR HD OPD.. Objective - Vital Signs/Intake and Output Vital Signs (last 24 hours): Temp Pulse Resp BP Pulse Ox 98.3 F 95 H 20 136/79 97 02/25/17 15:06 02/25/17 22:09 02/25/17 15:06 02/25/17 22:09 02/25/17 15:06 - Medications Medications: Current Medications Acetaminophen (Tylenol 325mg Tab) 650 mg PO Q4 PRN PRN Reason: Pain, moderate (4-7) Last Admin: 02/21/17 02:18 Dose: 650 mg Apixaban (Eliquis) 5 mg PO BID [facility] Last Admin: 02/25/17 17:33 Dose: 5 mg Calcitriol (Rocaltrol) 0.5 mcg PO DAILY [facility] Last Admin: 02/25/17 10:01 Dose: Not Given Carvedilol (Coreg) 12.5 mg PO BID [facility] Last Admin: 02/25/17 17:34 Dose: 12.5 mg Clonidine HCl (Catapres-Tts3 0.3 Mg/24 Hr) 1 patch TD Q7D@1000 [facility] Last Admin: 02/24/17 10:04 Dose: 1 patch Diltiazem HCl (Cardizem Cd) 120 mg PO DAILY [facility] Last Admin: 02/25/17 10:00 Dose: Not Given Efavirenz (Sustiva) 600 mg PO DAILY [facility] Last Admin: 02/25/17 10:01 Dose: Not Given Emtricitabine (Emtriva) 200 mg PO Q96H [facility] Last Admin: 02/24/17 21:36 Dose: 200 mg Epoetin Terrell (Procrit) 10,000 unit IV TTS [facility] Last Admin: 02/25/17 10:14 Dose: 10,000 unit Furosemide (Lasix) 80 mg PO BID [facility] Last Admin: 02/25/17 17:35 Dose: 80 mg Hydralazine HCl (Apresoline) 100 mg PO Q8H [facility] Last Admin: 02/25/17 22:08 Dose: 100 mg Hydroxyzine HCl (Atarax) 25 mg PO BID [facility] Last Admin: 02/25/17 17:33 Dose: 25 mg Isosorbide Mononitrate (Imdur) 60 mg PO DAILY [facility] Last Admin: 02/25/17 10:02 Dose: Not Given Raltegravir (Isentress) 400 mg PO BID [facility] Last Admin: 02/25/17 17:33 Dose: 400 mg Rosuvastatin Calcium (Crestor) 10 mg PO HS [facility] Last Admin: 02/25/17 22:08 Dose: 10 mg - Labs Labs: 02/23/17 10:33 02/23/17 10:33 PT 11.4 SECONDS (9.7-12.2) 02/12/17 00:37 INR 1.0 02/12/17 00:37 APTT 21 SECONDS (21-34) 02/12/17 00:37 Assessment and Plan (1) HIV (human immunodeficiency virus infection) Status: Acute (2) Congestive heart failure (CHF) Status: Acute (3) Leg swelling Status: Chronic (4) DVT (deep venous thrombosis) Status: Acute (5) Renal failure (ARF), acute on chronic Status: Chronic (6) Hepatitis C Status: Acute (7) Diabetes mellitus Status: Acute (8) Alcohol abuse Status: Acute (9) Homelessness Status: Acute
--- NOTE | 2017-02-25 23:14 | CP.PCM.PN ---
Subjective - Date & Time of Evaluation Date of Evaluation: 02/25/17 Time of Evaluation: 19:00 - Subjective Subjective: Pt seen and examined, ESRD on HD, waiting for HD spot out pt, Hep Profile is neg Objective - Vital Signs/Intake and Output Vital Signs (last 24 hours): Temp Pulse Resp BP Pulse Ox 98.3 F 95 H 20 136/79 97 02/25/17 15:06 02/25/17 22:09 02/25/17 15:06 02/25/17 22:09 02/25/17 15:06 - Medications Medications: Current Medications Acetaminophen (Tylenol 325mg Tab) 650 mg PO Q4 PRN PRN Reason: Pain, moderate (4-7) Last Admin: 02/21/17 02:18 Dose: 650 mg Apixaban (Eliquis) 5 mg PO BID [facility] Last Admin: 02/25/17 17:33 Dose: 5 mg Calcitriol (Rocaltrol) 0.5 mcg PO DAILY [facility] Last Admin: 02/25/17 10:01 Dose: Not Given Carvedilol (Coreg) 12.5 mg PO BID [facility] Last Admin: 02/25/17 17:34 Dose: 12.5 mg Clonidine HCl (Catapres-Tts3 0.3 Mg/24 Hr) 1 patch TD Q7D@1000 [facility] Last Admin: 02/24/17 10:04 Dose: 1 patch Diltiazem HCl (Cardizem Cd) 120 mg PO DAILY [facility] Last Admin: 02/25/17 10:00 Dose: Not Given Efavirenz (Sustiva) 600 mg PO DAILY [facility] Last Admin: 02/25/17 10:01 Dose: Not Given Emtricitabine (Emtriva) 200 mg PO Q96H [facility] Last Admin: 02/24/17 21:36 Dose: 200 mg Epoetin Terrell (Procrit) 10,000 unit IV TTS [facility] Last Admin: 02/25/17 10:14 Dose: 10,000 unit Furosemide (Lasix) 80 mg PO BID [facility] Last Admin: 02/25/17 17:35 Dose: 80 mg Hydralazine HCl (Apresoline) 100 mg PO Q8H [facility] Last Admin: 02/25/17 22:08 Dose: 100 mg Hydroxyzine HCl (Atarax) 25 mg PO BID [facility] Last Admin: 02/25/17 17:33 Dose: 25 mg Isosorbide Mononitrate (Imdur) 60 mg PO DAILY [facility] Last Admin: 02/25/17 10:02 Dose: Not Given Raltegravir (Isentress) 400 mg PO BID [facility] Last Admin: 02/25/17 17:33 Dose: 400 mg Rosuvastatin Calcium (Crestor) 10 mg PO HS [facility] Last Admin: 02/25/17 22:08 Dose: 10 mg - Labs Labs: 02/23/17 10:33 02/23/17 10:33 PT 11.4 SECONDS (9.7-12.2) 02/12/17 00:37 INR 1.0 02/12/17 00:37 APTT 21 SECONDS (21-34) 02/12/17 00:37 - Constitutional Appears: No Acute Distress - Head Exam Head Exam: ATRAUMATIC, NORMAL INSPECTION, NORMOCEPHALIC - Eye Exam Eye Exam: EOMI, Normal appearance, PERRL Pupil Exam: NORMAL ACCOMODATION, PERRL - Respiratory Exam Respiratory Exam: Clear to Ausculation Bilateral, NORMAL BREATHING PATTERN - Cardiovascular Exam Cardiovascular Exam: REGULAR RHYTHM, +S1, +S2. absent: Murmur - GI/Abdominal Exam GI & Abdominal Exam: Soft, Normal Bowel Sounds. absent: Tenderness Assessment and Plan (1) Acute on chronic renal failure Status: Acute (2) HTN (hypertension) Status: Acute (3) HIV (human immunodeficiency virus infection) Status: Acute (4) Pedal edema Status: Acute
[2017-02-26] MEDS: diltiaZEM 120 mg/24 Hours CD Cap PO SCH (10:31)
--- NOTE | 2017-02-26 20:53 | CP.PCM.PN ---
Subjective - Date & Time of Evaluation Date of Evaluation: 02/26/17 Time of Evaluation: 20:53 - Subjective Subjective: CHIEF COMPLAINTS TODAY : afebrile, FEELS WELL NO COMPLAINTS. BP BETTER CONTROLLED IMPROVING LEG EDEMA . ROS. HEENT : N. RT IJ HD CATHETER PLACEMENT. Resp : No cough, wheezing ,pleuritic CP ,or hemoptysis Cardio : No anginal CP, PND, orthopnea, palpitation GI : No abd.pain, n/v ,diarrhea or GI bleeding . 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 Musculoskel : No joint swelling , Derm : No rash Psych : FLAT affect. Ext : POS swelling ,calf pain PE. Pt. is alert awake in no distress. V.S As noted in the chart Head ,ear nose,throat and eyes : Normal. Neck : Supple with normal carotids. Lungs: CLEAR Heart : S1 & S2 normal with S4. No murmur. Abd : Soft non tender with normal bowel sounds. Neuro : Moves all ext. with no localized deficit. Ext BILATERAL LE 1+ EDEMA, with intact pulses. Derm : No rashes or decubitus ulcer. LABS/RADIOLOGY: REVIEWED. HBSAG -VE hepatitis B surface antibody positive Hepatitis B core antibody positive. CREATININE CLEARANCE <15.ONHD TTS. ASSESSMENT HIV+VE.ON HAART CHF EXASCERBATION HTN CKD -STAGE 4 B/L EDEMA LE/ DVT + IVC FILTER. HEP C +VE DM. ANAEMIA ETOH ABUSE /PLAN : PT EMPHASIZED TO CONTINUE HAART RX RELIGEOUSLY. CONTINUE HAART RX OUTLINED.02/12/17 * PATIENT ON EMTRIVA 200 MG EVERY 96 HOURLY ( as creatinine clearance less than 15 mL per minute ) * SUSTIVA 600 MG BY MOUTH ONCE A DAY DAILY. *RALTEGRAVIR (ISENTRESS ) 400 MG BY MOUTH TWICE A DAY. check hepatitis B E antigen/hepatitis B E antibody HBV DNA QUANTITATIVE LEVELS. CHECK HIV GENOTYPING 02/24/17-P HLA-B *5701 FOR ABC HYPERSENSITIVITY 02/24/17-P PT NOT A CANDIDATE FOR HEPC TREATMENT PT STILL DRINKS/HX OF SUBSTANCE ABUSE. PER -/RENAL AWAITING PLACEMENT FOR HD OPD.. Objective - Vital Signs/Intake and Output Vital Signs (last 24 hours): Temp Pulse Resp BP Pulse Ox 98.0 F 70 20 131/76 96 02/26/17 15:17 02/26/17 15:17 02/26/17 15:17 02/26/17 17:25 02/26/17 15:17 Intake and Output: 02/26/17 02/27/17 18:59 06:59 Intake Total 400 Balance 400 - Medications Medications: Current Medications Acetaminophen (Tylenol 325mg Tab) 650 mg PO Q4 PRN PRN Reason: Pain, moderate (4-7) Last Admin: 02/21/17 02:18 Dose: 650 mg Apixaban (Eliquis) 5 mg PO BID [facility] Last Admin: 02/26/17 17:25 Dose: 5 mg Calcitriol (Rocaltrol) 0.5 mcg PO DAILY [facility] Last Admin: 02/26/17 10:31 Dose: 0.5 mcg Carvedilol (Coreg) 12.5 mg PO BID [facility] Last Admin: 02/26/17 17:25 Dose: 12.5 mg Clonidine HCl (Catapres-Tts3 0.3 Mg/24 Hr) 1 patch TD Q7D@1000 [facility] Last Admin: 02/24/17 10:04 Dose: 1 patch Diltiazem HCl (Cardizem Cd) 120 mg PO DAILY [facility] Last Admin: 02/26/17 10:31 Dose: 120 mg Efavirenz (Sustiva) 600 mg PO DAILY [facility] Last Admin: 02/26/17 10:31 Dose: 600 mg Emtricitabine (Emtriva) 200 mg PO Q96H [facility] Last Admin: 02/24/17 21:36 Dose: 200 mg Epoetin Terrell (Procrit) 10,000 unit IV TTS [facility] Last Admin: 02/25/17 10:14 Dose: 10,000 unit Furosemide (Lasix) 80 mg PO BID [facility] Last Admin: 02/26/17 17:25 Dose: 80 mg Heparin Sodium (Porcine) (Heparin) 1,000 units IVP TTS [facility] Hydralazine HCl (Apresoline) 100 mg PO Q8H [facility] Last Admin: 02/26/17 13:10 Dose: 100 mg Hydroxyzine HCl (Atarax) 25 mg PO BID [facility] Last Admin: 02/26/17 17:25 Dose: 25 mg Isosorbide Mononitrate (Imdur) 60 mg PO DAILY [facility] Last Admin: 02/26/17 10:32 Dose: 60 mg Raltegravir (Isentress) 400 mg PO BID [facility] Last Admin: 02/26/17 17:26 Dose: 400 mg Rosuvastatin Calcium (Crestor) 10 mg PO HS [facility] Last Admin: 02/25/17 22:08 Dose: 10 mg - Labs Labs: 02/23/17 10:33 02/23/17 10:33 PT 11.4 SECONDS (9.7-12.2) 02/12/17 00:37 INR 1.0 02/12/17 00:37 APTT 21 SECONDS (21-34) 02/12/17 00:37 Assessment and Plan (1) HIV (human immunodeficiency virus infection) Status: Acute (2) Congestive heart failure (CHF) Status: Acute (3) Leg swelling Status: Chronic (4) DVT (deep venous thrombosis) Status: Acute (5) Renal failure (ARF), acute on chronic Status: Chronic (6) Hepatitis C Status: Acute (7) Diabetes mellitus Status: Acute (8) Alcohol abuse Status: Acute (9) Homelessness Status: Acute
--- NOTE | 2017-02-26 21:34 | CP.PCM.PN ---
Subjective - Date & Time of Evaluation Date of Evaluation: 02/26/17 Time of Evaluation: 16:30 - Subjective Subjective: Patient reports feeling well; no shortness of breath; did report vomiting after lunch today but was isolated incident; Objective - Vital Signs/Intake and Output Vital Signs (last 24 hours): Temp Pulse Resp BP Pulse Ox 98.0 F 70 20 131/76 96 02/26/17 15:17 02/26/17 15:17 02/26/17 15:17 02/26/17 17:25 02/26/17 15:17 Intake and Output: 02/26/17 02/27/17 18:59 06:59 Intake Total 400 Balance 400 - Medications Medications: Current Medications Acetaminophen (Tylenol 325mg Tab) 650 mg PO Q4 PRN PRN Reason: Pain, moderate (4-7) Last Admin: 02/21/17 02:18 Dose: 650 mg Apixaban (Eliquis) 5 mg PO BID [facility] Last Admin: 02/26/17 17:25 Dose: 5 mg Calcitriol (Rocaltrol) 0.5 mcg PO DAILY [facility] Last Admin: 02/26/17 10:31 Dose: 0.5 mcg Carvedilol (Coreg) 12.5 mg PO BID [facility] Last Admin: 02/26/17 17:25 Dose: 12.5 mg Clonidine HCl (Catapres-Tts3 0.3 Mg/24 Hr) 1 patch TD Q7D@1000 [facility] Last Admin: 02/24/17 10:04 Dose: 1 patch Diltiazem HCl (Cardizem Cd) 120 mg PO DAILY [facility] Last Admin: 02/26/17 10:31 Dose: 120 mg Efavirenz (Sustiva) 600 mg PO DAILY [facility] Last Admin: 02/26/17 10:31 Dose: 600 mg Emtricitabine (Emtriva) 200 mg PO Q96H [facility] Last Admin: 02/24/17 21:36 Dose: 200 mg Epoetin Terrell (Procrit) 10,000 unit IV TTS [facility] Last Admin: 02/25/17 10:14 Dose: 10,000 unit Furosemide (Lasix) 80 mg PO BID [facility] Last Admin: 02/26/17 17:25 Dose: 80 mg Heparin Sodium (Porcine) (Heparin) 1,000 units IVP TTS [facility] Hydralazine HCl (Apresoline) 100 mg PO Q8H [facility] Last Admin: 02/26/17 13:10 Dose: 100 mg Hydroxyzine HCl (Atarax) 25 mg PO BID [facility] Last Admin: 02/26/17 17:25 Dose: 25 mg Isosorbide Mononitrate (Imdur) 60 mg PO DAILY [facility] Last Admin: 02/26/17 10:32 Dose: 60 mg Raltegravir (Isentress) 400 mg PO BID [facility] Last Admin: 02/26/17 17:26 Dose: 400 mg Rosuvastatin Calcium (Crestor) 10 mg PO HS [facility] Last Admin: 02/25/17 22:08 Dose: 10 mg - Labs Labs: 02/23/17 10:33 02/23/17 10:33 PT 11.4 SECONDS (9.7-12.2) 02/12/17 00:37 INR 1.0 02/12/17 00:37 APTT 21 SECONDS (21-34) 02/12/17 00:37 - Constitutional Appears: Non-toxic, No Acute Distress - Eye Exam Eye Exam: Normal appearance. absent: Scleral icterus - ENT Exam ENT Exam: Mucous Membranes Moist - Respiratory Exam Respiratory Exam: Clear to Ausculation Bilateral. absent: Respiratory Distress - Cardiovascular Exam Cardiovascular Exam: RRR, +S1, +S2 - GI/Abdominal Exam GI & Abdominal Exam: Soft. absent: Distended, Tenderness - Extremities Exam Additional comments: mild lower leg edema; - Neurological Exam Neurological Exam: Alert, Awake - Psychiatric Exam Psychiatric exam: absent: Agitated - Skin Skin Exam: Cyanosis. absent: Warm Assessment and Plan (1) Acute on chronic renal failure Assessment & Plan: Now ESRD on HD; stable volume and electrolyte status; last HD yesterday, next for tomorrow; trying to challenge dry weight; outpatient HD now setup for TTS at 10 am at [facility]; will re-confirm tomorrow along with transportation; can discharge subsequently; Status: Acute (2) Congestive heart failure (CHF) Assessment & Plan: With systolic dysfunction; currently asymptomatic; giving diuretics and challenging dry weight on HD; Status: Acute (3) Hyperkalemia Status: Resolved (4) Anemia in CKD (chronic kidney disease) Assessment & Plan: s/p IV iron loading; now on EPO qHD, continue; Status: Chronic (5) Hypertensive CKD (chronic kidney disease) Assessment & Plan: BP much improved with HD; continue current meds, will likely decrease clonidine patch to 0.2 mg; Status: Acute (6) Chronic kidney disease-mineral and bone disorder Assessment & Plan: Continue calcitriol 0.5 mcg daily for high PTH; will monitor phos (currently controlled off any binders); Status: Chronic
--- NOTE | 2017-02-26 22:51 | CP.PCM.PN ---
Subjective - Date & Time of Evaluation Date of Evaluation: 02/26/17 Time of Evaluation: 18:15 - Subjective Subjective: Patient reports feeling well; no shortness of breath; did report vomiting after lunch today but was isolated incident; Pt is for HD in [facility] Objective - Vital Signs/Intake and Output Vital Signs (last 24 hours): Temp Pulse Resp BP Pulse Ox 98.0 F 70 20 131/76 96 02/26/17 15:17 02/26/17 15:17 02/26/17 15:17 02/26/17 17:25 02/26/17 15:17 Intake and Output: 02/26/17 02/27/17 18:59 06:59 Intake Total 400 400 Balance 400 400 - Medications Medications: Current Medications Acetaminophen (Tylenol 325mg Tab) 650 mg PO Q4 PRN PRN Reason: Pain, moderate (4-7) Last Admin: 02/21/17 02:18 Dose: 650 mg Apixaban (Eliquis) 5 mg PO BID [facility] Last Admin: 02/26/17 17:25 Dose: 5 mg Calcitriol (Rocaltrol) 0.5 mcg PO DAILY [facility] Last Admin: 02/26/17 10:31 Dose: 0.5 mcg Carvedilol (Coreg) 12.5 mg PO BID [facility] Last Admin: 02/26/17 17:25 Dose: 12.5 mg Clonidine HCl (Catapres-Tts3 0.3 Mg/24 Hr) 1 patch TD Q7D@1000 [facility] Last Admin: 02/24/17 10:04 Dose: 1 patch Diltiazem HCl (Cardizem Cd) 120 mg PO DAILY [facility] Last Admin: 02/26/17 10:31 Dose: 120 mg Efavirenz (Sustiva) 600 mg PO DAILY [facility] Last Admin: 02/26/17 10:31 Dose: 600 mg Emtricitabine (Emtriva) 200 mg PO Q96H [facility] Last Admin: 02/24/17 21:36 Dose: 200 mg Epoetin Terrell (Procrit) 10,000 unit IV TTS [facility] Last Admin: 02/25/17 10:14 Dose: 10,000 unit Furosemide (Lasix) 80 mg PO BID [facility] Last Admin: 02/26/17 17:25 Dose: 80 mg Heparin Sodium (Porcine) (Heparin) 1,000 units IVP TTS [facility] Hydralazine HCl (Apresoline) 100 mg PO Q8H [facility] Last Admin: 02/26/17 21:43 Dose: 100 mg Hydroxyzine HCl (Atarax) 25 mg PO BID [facility] Last Admin: 02/26/17 17:25 Dose: 25 mg Isosorbide Mononitrate (Imdur) 60 mg PO DAILY [facility] Last Admin: 02/26/17 10:32 Dose: 60 mg Raltegravir (Isentress) 400 mg PO BID [facility] Last Admin: 02/26/17 17:26 Dose: 400 mg Rosuvastatin Calcium (Crestor) 10 mg PO HS [facility] Last Admin: 02/26/17 21:43 Dose: 10 mg - Labs Labs: 02/23/17 10:33 02/23/17 10:33 PT 11.4 SECONDS (9.7-12.2) 02/12/17 00:37 INR 1.0 02/12/17 00:37 APTT 21 SECONDS (21-34) 02/12/17 00:37 - Constitutional Appears: No Acute Distress - Head Exam Head Exam: ATRAUMATIC, NORMAL INSPECTION, NORMOCEPHALIC - Eye Exam Eye Exam: EOMI, Normal appearance, PERRL Pupil Exam: NORMAL ACCOMODATION, PERRL - Cardiovascular Exam Cardiovascular Exam: REGULAR RHYTHM, +S1, +S2. absent: Murmur - GI/Abdominal Exam GI & Abdominal Exam: Soft, Normal Bowel Sounds. absent: Tenderness - Rectal Exam Rectal Exam: Deferred - Neurological Exam Neurological Exam: Alert, Awake, CN II-XII Intact, Normal Gait, Oriented x3 Assessment and Plan (1) Acute on chronic renal failure Status: Acute (2) HTN (hypertension) Status: Acute (3) HIV (human immunodeficiency virus infection) Status: Acute (4) Pedal edema Status: Acute
[2017-02-27] MEDS: diltiaZEM 120 mg/24 Hours CD Cap PO SCH (10:06)
--- NOTE | 2017-02-27 14:35 | CP.PCM.PN ---
Subjective - Date & Time of Evaluation Date of Evaluation: 02/27/17 Time of Evaluation: 14:35 Objective - Vital Signs/Intake and Output Vital Signs (last 24 hours): Temp Pulse Resp BP Pulse Ox 98.1 F 51 L 20 125/71 95 02/27/17 13:05 02/27/17 13:05 02/27/17 13:05 02/27/17 13:50 02/27/17 13:05 Intake and Output: 02/27/17 02/27/17 06:59 18:59 Intake Total 500 Balance 500 - Medications Medications: Current Medications Acetaminophen (Tylenol 325mg Tab) 650 mg PO Q4 PRN PRN Reason: Pain, moderate (4-7) Last Admin: 02/21/17 02:18 Dose: 650 mg Apixaban (Eliquis) 5 mg PO BID [facility] Last Admin: 02/27/17 10:06 Dose: 5 mg Calcitriol (Rocaltrol) 0.5 mcg PO DAILY [facility] Last Admin: 02/27/17 12:05 Dose: 0.5 mcg Carvedilol (Coreg) 12.5 mg PO BID [facility] Last Admin: 02/27/17 10:06 Dose: 12.5 mg Clonidine HCl (Catapres-Tts3 0.3 Mg/24 Hr) 1 patch TD Q7D@1000 [facility] Last Admin: 02/24/17 10:04 Dose: 1 patch Diltiazem HCl (Cardizem Cd) 120 mg PO DAILY [facility] Last Admin: 02/27/17 10:06 Dose: 120 mg Efavirenz (Sustiva) 600 mg PO DAILY [facility] Last Admin: 02/27/17 10:06 Dose: 600 mg Emtricitabine (Emtriva) 200 mg PO Q96H [facility] Last Admin: 02/24/17 21:36 Dose: 200 mg Epoetin Terrell (Procrit) 10,000 unit IV TTS [facility] Last Admin: 02/25/17 10:14 Dose: 10,000 unit Furosemide (Lasix) 80 mg PO BID [facility] Last Admin: 02/27/17 10:11 Dose: Not Given Heparin Sodium (Porcine) (Heparin) 1,000 units IVP TTS [facility] Hydralazine HCl (Apresoline) 100 mg PO Q8H [facility] Last Admin: 02/27/17 05:16 Dose: 100 mg Hydroxyzine HCl (Atarax) 25 mg PO BID [facility] Last Admin: 02/27/17 12:05 Dose: 25 mg Isosorbide Mononitrate (Imdur) 60 mg PO DAILY [facility] Last Admin: 02/27/17 10:06 Dose: 60 mg Raltegravir (Isentress) 400 mg PO BID [facility] Last Admin: 02/27/17 10:06 Dose: 400 mg Rosuvastatin Calcium (Crestor) 10 mg PO HS [facility] Last Admin: 02/26/17 21:43 Dose: 10 mg - Labs Labs: 02/23/17 10:33 02/23/17 10:33 PT 11.4 SECONDS (9.7-12.2) 02/12/17 00:37 INR 1.0 02/12/17 00:37 APTT 21 SECONDS (21-34) 02/12/17 00:37 Assessment and Plan (1) HIV (human immunodeficiency virus infection) Status: Acute (2) Congestive heart failure (CHF) Status: Acute (3) Leg swelling Status: Chronic (4) DVT (deep venous thrombosis) Status: Acute (5) Renal failure (ARF), acute on chronic Status: Chronic (6) Hepatitis C Status: Acute (7) Diabetes mellitus Status: Acute (8) Alcohol abuse Status: Acute (9) Homelessness Status: Acute
[2017-02-27] MEDS: Epoetin Alfa 10,000 unit/ml Dialysis IV SCH (15:30)
[2017-02-27] MEDS ORDERED: Epoetin Alfa 10,000 unit/ml Dialysis IV ONE (15:30)
--- NOTE | 2017-02-27 22:07 | CP.PCM.PN ---
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 [facility] Objective - Vital Signs/Intake and Output Vital Signs (last 24 hours): Temp Pulse Resp BP Pulse Ox 97.1 F L 59 L 20 99/57 L 96 02/27/17 17:30 02/27/17 21:11 02/27/17 17:30 02/27/17 21:11 02/27/17 17:30 Intake and Output: 02/27/17 02/28/17 18:59 06:59 Intake Total 600 Balance 600 - Medications Medications: Current Medications Acetaminophen (Tylenol 325mg Tab) 650 mg PO Q4 PRN PRN Reason: Pain, moderate (4-7) Last Admin: 02/21/17 02:18 Dose: 650 mg Apixaban (Eliquis) 5 mg PO BID [facility] Last Admin: 02/27/17 18:22 Dose: 5 mg Calcitriol (Rocaltrol) 0.5 mcg PO DAILY [facility] Last Admin: 02/27/17 12:05 Dose: 0.5 mcg Carvedilol (Coreg) 12.5 mg PO BID [facility] Last Admin: 02/27/17 18:22 Dose: 12.5 mg Clonidine HCl (Catapres-Tts3 0.3 Mg/24 Hr) 1 patch TD Q7D@1000 [facility] Last Admin: 02/24/17 10:04 Dose: 1 patch Diltiazem HCl (Cardizem Cd) 120 mg PO DAILY [facility] Last Admin: 02/27/17 10:06 Dose: 120 mg Efavirenz (Sustiva) 600 mg PO DAILY [facility] Last Admin: 02/27/17 10:06 Dose: 600 mg Emtricitabine (Emtriva) 200 mg PO Q96H [facility] Last Admin: 02/24/17 21:36 Dose: 200 mg Epoetin Terrell (Procrit) 10,000 unit IV TTS [facility] Last Admin: 02/27/17 15:30 Dose: 10,000 unit Furosemide (Lasix) 80 mg PO BID [facility] Last Admin: 02/27/17 18:21 Dose: 80 mg Heparin Sodium (Porcine) (Heparin) 1,000 units IVP TTS [facility] Last Admin: 02/27/17 15:34 Dose: 1,000 units Hydralazine HCl (Apresoline) 100 mg PO Q8H [facility] Last Admin: 02/27/17 21:11 Dose: Not Given Hydroxyzine HCl (Atarax) 25 mg PO BID [facility] Last Admin: 02/27/17 18:26 Dose: 25 mg Isosorbide Mononitrate (Imdur) 60 mg PO DAILY [facility] Last Admin: 02/27/17 10:06 Dose: 60 mg Raltegravir (Isentress) 400 mg PO BID [facility] Last Admin: 02/27/17 18:21 Dose: 400 mg Rosuvastatin Calcium (Crestor) 10 mg PO HS [facility] Last Admin: 02/27/17 21:12 Dose: 10 mg - Labs Labs: 02/23/17 10:33 02/23/17 10:33 PT 11.4 SECONDS (9.7-12.2) 02/12/17 00:37 INR 1.0 02/12/17 00:37 APTT 21 SECONDS (21-34) 02/12/17 00:37 - Constitutional Appears: No Acute Distress, Chronically Ill - Head Exam Head Exam: ATRAUMATIC, NORMAL INSPECTION, NORMOCEPHALIC - Eye Exam Eye Exam: EOMI, Normal appearance, PERRL Pupil Exam: NORMAL ACCOMODATION, PERRL - Respiratory Exam Respiratory Exam: Clear to Ausculation Bilateral, NORMAL BREATHING PATTERN - Cardiovascular Exam Cardiovascular Exam: REGULAR RHYTHM, +S1, +S2. absent: Murmur - GI/Abdominal Exam GI & Abdominal Exam: Soft, Normal Bowel Sounds. absent: Tenderness Assessment and Plan (1) Acute on chronic renal failure Status: Acute (2) HTN (hypertension) Status: Acute (3) HIV (human immunodeficiency virus infection) Status: Acute (4) Pedal edema Status: Acute
--- NOTE | 2017-02-27 23:43 | CP.PCM.PN ---
Subjective - Date & Time of Evaluation Date of Evaluation: 02/27/17 Time of Evaluation: 13:00 - Subjective Subjective: Patient reports feeling well; no shortness of breath or leg edema; Objective - Vital Signs/Intake and Output Vital Signs (last 24 hours): Temp Pulse Resp BP Pulse Ox 97.1 F L 59 L 20 99/57 L 96 02/27/17 17:30 02/27/17 21:11 02/27/17 17:30 02/27/17 21:11 02/27/17 17:30 Intake and Output: 02/27/17 02/28/17 18:59 06:59 Intake Total 600 450 Balance 600 450 - Medications Medications: Current Medications Acetaminophen (Tylenol 325mg Tab) 650 mg PO Q4 PRN PRN Reason: Pain, moderate (4-7) Last Admin: 02/21/17 02:18 Dose: 650 mg Apixaban (Eliquis) 5 mg PO BID [facility] Last Admin: 02/27/17 18:22 Dose: 5 mg Calcitriol (Rocaltrol) 0.5 mcg PO DAILY [facility] Last Admin: 02/27/17 12:05 Dose: 0.5 mcg Carvedilol (Coreg) 12.5 mg PO BID [facility] Last Admin: 02/27/17 18:22 Dose: 12.5 mg Clonidine HCl (Catapres-Tts2 0.2 Mg/24 Hr) 1 patch TD Q7D@1000 [facility] Diltiazem HCl (Cardizem Cd) 120 mg PO DAILY [facility] Last Admin: 02/27/17 10:06 Dose: 120 mg Efavirenz (Sustiva) 600 mg PO DAILY [facility] Last Admin: 02/27/17 10:06 Dose: 600 mg Emtricitabine (Emtriva) 200 mg PO Q96H [facility] Last Admin: 02/24/17 21:36 Dose: 200 mg Epoetin Terrlel (Procrit) 10,000 unit IV TTS [facility] Last Admin: 02/27/17 15:30 Dose: 10,000 unit Furosemide (Lasix) 80 mg PO BID [facility] Last Admin: 02/27/17 18:21 Dose: 80 mg Heparin Sodium (Porcine) (Heparin) 1,000 units IVP TTS [facility] Last Admin: 02/27/17 15:34 Dose: 1,000 units Hydralazine HCl (Apresoline) 100 mg PO Q8H [facility] Last Admin: 02/27/17 21:11 Dose: Not Given Hydroxyzine HCl (Atarax) 25 mg PO BID [facility] Last Admin: 02/27/17 18:26 Dose: 25 mg Isosorbide Mononitrate (Imdur) 30 mg PO DAILY [facility] Raltegravir (Isentress) 400 mg PO BID [facility] Last Admin: 02/27/17 18:21 Dose: 400 mg Rosuvastatin Calcium (Crestor) 10 mg PO HS [facility] Last Admin: 02/27/17 21:12 Dose: 10 mg - Labs Labs: 02/23/17 10:33 02/23/17 10:33 PT 11.4 SECONDS (9.7-12.2) 02/12/17 00:37 INR 1.0 02/12/17 00:37 APTT 21 SECONDS (21-34) 02/12/17 00:37 - Constitutional Appears: Well, No Acute Distress - Eye Exam Eye Exam: absent: Scleral icterus - ENT Exam ENT Exam: Mucous Membranes Moist - Respiratory Exam Respiratory Exam: Clear to Ausculation Bilateral. absent: Respiratory Distress - Cardiovascular Exam Cardiovascular Exam: RRR, +S1, +S2 - GI/Abdominal Exam GI & Abdominal Exam: Soft. absent: Distended, Tenderness - Extremities Exam Additional comments: mild lower leg edema; - Neurological Exam Neurological Exam: Alert, Awake - Psychiatric Exam Psychiatric exam: absent: Agitated - Skin Skin Exam: Warm. absent: Cyanosis Assessment and Plan (1) ESRD on hemodialysis Assessment & Plan: Newly started on HD; close to dry weight which we are still in process of establishing (~102 kg); decreasing UF today to 2L net; will start outpatient HD on Wednesday at [facility]; Status: Acute (2) Congestive heart failure (CHF) Assessment & Plan: With systolic dysfunction; overall asymptomatic lately; continue lasix 80 mg bid , UF on HD; Status: Chronic (3) Hyperkalemia Status: Resolved (4) Anemia in CKD (chronic kidney disease) Assessment & Plan: s/p IV iron loading; on EPO with HD, continue; Status: Chronic (5) Hypertensive CKD (chronic kidney disease) Assessment & Plan: BP noted to be low this evening; will decrease clonidine patch back to 0.2 mg and imdur back to 30 mg daily; will continue to try to decrease BP meds as we bring patient to her dry weight; Status: Acute (6) Chronic kidney disease-mineral and bone disorder Assessment & Plan: Continue calcitriol 0.5 mcg daily for high PTH; Status: Chronic
--- NOTE | 2017-02-27 23:44 | CP.PCM.PN ---
Subjective - Date & Time of Evaluation Date of Evaluation: 02/27/17 Time of Evaluation: 23:44 - Subjective Subjective: CHIEF COMPLAINTS TODAY : afebrile, FEELS WELL NO COMPLAINTS. BP BETTER CONTROLLED IMPROVING LEG EDEMA . ROS. HEENT : N. RT IJ HD CATHETER PLACEMENT. Resp : No cough, wheezing ,pleuritic CP ,or hemoptysis Cardio : No anginal CP, PND, orthopnea, palpitation GI : No abd.pain, n/v ,diarrhea or GI bleeding . FURNACE MASON : No headache, vertigo, focal deficit. Musculoskel : No joint swelling , Derm : No rash Psych : FLAT affect. Ext : POS swelling ,calf pain PE. Pt. is alert awake in no distress. V.S As noted in the chart Head ,ear nose,throat and eyes : Normal. Neck : Supple with normal carotids. Lungs: CLEAR Heart : S1 & S2 normal with S4. No murmur. Abd : Soft non tender with normal bowel sounds. Neuro : Moves all ext. with no localized deficit. Ext BILATERAL LE 1+ EDEMA, with intact pulses. Derm : No rashes or decubitus ulcer. LABS/RADIOLOGY: REVIEWED. HBSAG -VE hepatitis B surface antibody positive Hepatitis B core antibody positive. CREATININE CLEARANCE <15.ONHD TTS. ASSESSMENT HIV+VE.ON HAART CHF EXASCERBATION HTN CKD -STAGE 4 ON HD TTS B/L EDEMA LE/ DVT + IVC FILTER. HEP C +VE DM. ANAEMIA ETOH ABUSE /PLAN : PT EMPHASIZED TO CONTINUE HAART RX RELIGIOUSLY. CONTINUE HAART RX OUTLINED.02/12/17 * PATIENT ON EMTRIVA 200 MG EVERY 96 HOURLY ( as creatinine clearance less than 15 mL per minute ) * SUSTIVA 600 MG BY MOUTH ONCE A DAY DAILY. *RALTEGRAVIR (ISENTRESS ) 400 MG BY MOUTH TWICE A DAY. check hepatitis B E antigen/hepatitis B E antibody HBV DNA QUANTITATIVE LEVELS. CHECK HIV GENOTYPING 02/24/17-P HLA-B *5701 FOR ABC HYPERSENSITIVITY 02/24/17-P PT NOT A CANDIDATE FOR HEPC TREATMENT PT STILL DRINKS/HX OF SUBSTANCE ABUSE. PER -/RENAL AWAITING PLACEMENT FOR HD OPD.. Objective - Vital Signs/Intake and Output Vital Signs (last 24 hours): Temp Pulse Resp BP Pulse Ox 97.1 F L 59 L 20 99/57 L 96 02/27/17 17:30 02/27/17 21:11 02/27/17 17:30 02/27/17 21:11 02/27/17 17:30 Intake and Output: 02/27/17 02/28/17 18:59 06:59 Intake Total 600 450 Balance 600 450 - Medications Medications: Current Medications Acetaminophen (Tylenol 325mg Tab) 650 mg PO Q4 PRN PRN Reason: Pain, moderate (4-7) Last Admin: 02/21/17 02:18 Dose: 650 mg Apixaban (Eliquis) 5 mg PO BID [facility] Last Admin: 02/27/17 18:22 Dose: 5 mg Calcitriol (Rocaltrol) 0.5 mcg PO DAILY [facility] Last Admin: 02/27/17 12:05 Dose: 0.5 mcg Carvedilol (Coreg) 12.5 mg PO BID [facility] Last Admin: 02/27/17 18:22 Dose: 12.5 mg Clonidine HCl (Catapres-Tts2 0.2 Mg/24 Hr) 1 patch TD Q7D@1000 [facility] Diltiazem HCl (Cardizem Cd) 120 mg PO DAILY [facility] Last Admin: 02/27/17 10:06 Dose: 120 mg Efavirenz (Sustiva) 600 mg PO DAILY [facility] Last Admin: 02/27/17 10:06 Dose: 600 mg Emtricitabine (Emtriva) 200 mg PO Q96H [facility] Last Admin: 02/24/17 21:36 Dose: 200 mg Epoetin Terrell (Procrit) 10,000 unit IV TTS [facility] Last Admin: 02/27/17 15:30 Dose: 10,000 unit Furosemide (Lasix) 80 mg PO BID [facility] Last Admin: 02/27/17 18:21 Dose: 80 mg Heparin Sodium (Porcine) (Heparin) 1,000 units IVP TTS [facility] Last Admin: 02/27/17 15:34 Dose: 1,000 units Hydralazine HCl (Apresoline) 100 mg PO Q8H [facility] Last Admin: 02/27/17 21:11 Dose: Not Given Hydroxyzine HCl (Atarax) 25 mg PO BID [facility] Last Admin: 02/27/17 18:26 Dose: 25 mg Isosorbide Mononitrate (Imdur) 30 mg PO DAILY [facility] Raltegravir (Isentress) 400 mg PO BID [facility] Last Admin: 02/27/17 18:21 Dose: 400 mg Rosuvastatin Calcium (Crestor) 10 mg PO HS [facility] Last Admin: 02/27/17 21:12 Dose: 10 mg - Labs Labs: 02/23/17 10:33 02/23/17 10:33 PT 11.4 SECONDS (9.7-12.2) 02/12/17 00:37 INR 1.0 02/12/17 00:37 APTT 21 SECONDS (21-34) 02/12/17 00:37 Assessment and Plan (1) HIV (human immunodeficiency virus infection) Status: Acute (2) Congestive heart failure (CHF) Status: Acute (3) Leg swelling Status: Chronic (4) DVT (deep venous thrombosis) Status: Acute (5) Renal failure (ARF), acute on chronic Status: Chronic (6) Hepatitis C Status: Acute (7) Diabetes mellitus Status: Acute (8) Alcohol abuse Status: Acute (9) Homelessness Status: Acute
[2017-02-28 09:03] LABS: HEMOGLOBIN 8.5 g/dL (11.0-16.0); MEAN CELL VOLUME 92.3 fL (81.0-99.0); MEAN CORPUSCULAR HEMOGLOBIN 30.8 pg (27.0-31.0); MEAN CORPUSCULAR HGB CONC 33.4 g/dL (33.0-37.0); MEAN PLATELET VOLUME 9.3 fL (7.2-11.7); RBC 2.76 Mil/uL (3.80-5.20); WHITE BLOOD COUNT 5.4 K/uL (4.8-10.8)
[2017-02-28] MEDS: diltiaZEM 120 mg/24 Hours CD Cap PO SCH (09:36)
[2017-02-28 09:50] LABS: CALCIUM 8.1 mg/dl (8.6-10.4)
--- NOTE | 2017-02-28 13:06 | CP.PCM.PN ---
Subjective - Date & Time of Evaluation Date of Evaluation: 02/28/17 Time of Evaluation: 11:30 - Subjective Subjective: Patient reports feeling well; no shortness of breath; tolerating diet; Objective - Vital Signs/Intake and Output Vital Signs (last 24 hours): Temp Pulse Resp BP Pulse Ox 98.4 F 74 20 127/76 97 02/28/17 08:00 02/28/17 08:00 02/28/17 08:00 02/28/17 09:37 02/28/17 08:00 Intake and Output: 02/28/17 02/28/17 06:59 18:59 Intake Total 922 Balance 922 - Medications Medications: Current Medications Acetaminophen (Tylenol 325mg Tab) 650 mg PO Q4 PRN PRN Reason: Pain, moderate (4-7) Last Admin: 02/21/17 02:18 Dose: 650 mg Apixaban (Eliquis) 5 mg PO BID [facility] Last Admin: 02/28/17 09:37 Dose: 5 mg Calcitriol (Rocaltrol) 0.5 mcg PO DAILY [facility] Last Admin: 02/28/17 09:37 Dose: 0.5 mcg Carvedilol (Coreg) 12.5 mg PO BID [facility] Last Admin: 02/28/17 09:37 Dose: 12.5 mg Clonidine HCl (Catapres-Tts2 0.2 Mg/24 Hr) 1 patch TD Q7D@1000 [facility] Last Admin: 02/28/17 09:37 Dose: 1 patch Diltiazem HCl (Cardizem Cd) 120 mg PO DAILY [facility] Efavirenz (Sustiva) 600 mg PO DAILY [facility] Last Admin: 02/28/17 09:36 Dose: 600 mg Emtricitabine (Emtriva) 200 mg PO Q96H [facility] Last Admin: 02/24/17 21:36 Dose: 200 mg Epoetin Terrell (Procrit) 10,000 unit IV TTS [facility] Last Admin: 02/27/17 15:30 Dose: 10,000 unit Furosemide (Lasix) 80 mg PO BID [facility] Last Admin: 02/28/17 09:36 Dose: 80 mg Heparin Sodium (Porcine) (Heparin) 1,000 units IVP TTS [facility] Last Admin: 02/27/17 15:34 Dose: 1,000 units Hydralazine HCl (Apresoline) 100 mg PO Q8H [facility] Last Admin: 02/28/17 05:29 Dose: 100 mg Hydroxyzine HCl (Atarax) 25 mg PO BID [facility] Last Admin: 02/28/17 09:37 Dose: 25 mg Isosorbide Mononitrate (Imdur Er) 30 mg PO DAILY [facility] Last Admin: 02/28/17 09:37 Dose: 30 mg Raltegravir (Isentress) 400 mg PO BID [facility] Last Admin: 02/28/17 09:36 Dose: 400 mg Rosuvastatin Calcium (Crestor) 10 mg PO HS [facility] Last Admin: 02/27/17 21:12 Dose: 10 mg - Labs Labs: 02/28/17 08:50 02/28/17 08:50 PT 11.4 SECONDS (9.7-12.2) 02/12/17 00:37 INR 1.0 02/12/17 00:37 APTT 21 SECONDS (21-34) 02/12/17 00:37 - Constitutional Appears: Non-toxic, No Acute Distress - Eye Exam Eye Exam: Normal appearance - ENT Exam ENT Exam: Mucous Membranes Moist - Respiratory Exam Respiratory Exam: Clear to Ausculation Bilateral. absent: Respiratory Distress - Cardiovascular Exam Cardiovascular Exam: RRR, +S1, +S2 - GI/Abdominal Exam GI & Abdominal Exam: Soft. absent: Distended, Tenderness - Extremities Exam Additional comments: mild lower leg b/l edema; - Neurological Exam Neurological Exam: Alert, Awake - Psychiatric Exam Psychiatric exam: absent: Agitated - Skin Skin Exam: Warm. absent: Cyanosis Assessment and Plan (1) ESRD on hemodialysis Assessment & Plan: Stable electrolyte and volume status; very close to dry weight; next HD for Wednesday as outpatient; Status: Acute (2) Congestive heart failure (CHF) Assessment & Plan: With systolic dysfunction; overall very stable; decreasing lasix to 40 mg bid; will challenge dry weight on HD slowly; Status: Chronic (3) Hyperkalemia Status: Resolved (4) Anemia in CKD (chronic kidney disease) Assessment & Plan: Hgb only mildly improved, still below goal; continue EPO on HD; Status: Chronic (5) Hypertensive CKD (chronic kidney disease) Assessment & Plan: BP decreasing substantially with UF on HD; will back off further on BP meds; decreasing hydralazine to bid dosing and lasix form 80 to 40 mg bid; already decreased imdur to 30 mg and clonidine patch to 0.2 mg; Status: Acute (6) Chronic kidney disease-mineral and bone disorder Assessment & Plan: Continue calcitriol 0.5 mcg daily for elevated PTH; Status: Chronic (7) HIV (human immunodeficiency virus infection) Assessment & Plan: HAART regimen changed by ID during this admission due to low GFR and tenofovir nephro-toxicity; need to continue same as outpatient as we should try to preserve residual renal function as much as possible; will recommend patient follows up with ID as outpatient; Status: Chronic
[2017-02-28] MEDS: EMTRICITABINE 200 MG CAP PO SCH (22:20)
--- NOTE | 2017-02-28 23:13 | CP.PCM.PN ---
Subjective - Date & Time of Evaluation Date of Evaluation: 02/28/17 Time of Evaluation: 23:13 - Subjective Subjective: CHIEF COMPLAINTS TODAY : afebrile, FEELS WELL NO COMPLAINTS. ROS. HEENT : N. RT IJ HD CATHETER PLACEMENT. Resp : No cough, wheezing ,pleuritic CP ,or hemoptysis Cardio : No anginal CP, PND, orthopnea, palpitation GI : No abd.pain, n/v ,diarrhea or GI bleeding . COMMUNITY EDUCATOR : No headache, vertigo, focal deficit. Musculoskel : No joint swelling , Derm : No rash Psych : FLAT affect. Ext : IMPROVED swelling ,NO calf pain PE. Pt. is alert awake in no distress. V.S As noted in the chart Head ,ear nose,throat and eyes : Normal. Neck : Supple with normal carotids. Lungs: CLEAR Heart : S1 & S2 normal with S4. No murmur. Abd : Soft non tender with normal bowel sounds. Neuro : Moves all ext. with no localized deficit. Ext BILATERAL LEG EDEMA IMPROVED with intact pulses. Derm : No rashes or decubitus ulcer. LABS/RADIOLOGY: REVIEWED. CREATININE CLEARANCE <15.ONHD TTS. ASSESSMENT HIV+VE.ON HAART CHF EXASCERBATION HTN CKD -STAGE 4 ON HD TTS B/L EDEMA LE/ DVT + IVC FILTER. HEP C +VE DM. ANAEMIA ETOH ABUSE /PLAN : PT EMPHASIZED TO CONTINUE HAART RX RELIGIOUSLY. CONTINUE HAART RX OUTLINED.02/12/17 * PATIENT ON EMTRIVA 200 MG EVERY 96 HOURLY ( as creatinine clearance less than 15 mL per minute ) * SUSTIVA 600 MG BY MOUTH ONCE A DAY DAILY. *RALTEGRAVIR (ISENTRESS ) 400 MG BY MOUTH TWICE A DAY. F/U VL/ LYMPHOCYTE STUDIES IN 8WEEKS CHECK HIV GENOTYPING 02/24/17-P HLA-B *5701 FOR ABC HYPERSENSITIVITY 02/24/17-P PT NOT A CANDIDATE FOR HEP C TREATMENT PT STILL DRINKS/HX OF SUBSTANCE ABUSE. PER ATTENDING PT TO GET HD IN [facility] ON WEDNESDAY. Objective - Vital Signs/Intake and Output Vital Signs (last 24 hours): Temp Pulse Resp BP Pulse Ox 97.2 F L 60 18 118/80 98 02/28/17 15:55 02/28/17 15:55 02/28/17 15:55 02/28/17 17:18 02/28/17 15:55 Intake and Output: 02/28/17 03/01/17 18:59 06:59 Intake Total 400 600 Balance 400 600 - Medications Medications: Current Medications Acetaminophen (Tylenol 325mg Tab) 650 mg PO Q4 PRN PRN Reason: Pain, moderate (4-7) Last Admin: 02/21/17 02:18 Dose: 650 mg Apixaban (Eliquis) 5 mg PO BID [facility] Last Admin: 02/28/17 17:18 Dose: 5 mg Calcitriol (Rocaltrol) 0.5 mcg PO DAILY [facility] Last Admin: 02/28/17 09:37 Dose: 0.5 mcg Carvedilol (Coreg) 12.5 mg PO BID [facility] Last Admin: 02/28/17 17:18 Dose: Not Given Clonidine HCl (Catapres-Tts2 0.2 Mg/24 Hr) 1 patch TD Q7D@1000 [facility] Last Admin: 02/28/17 09:37 Dose: 1 patch Diltiazem HCl (Cardizem Cd) 120 mg PO DAILY [facility] Efavirenz (Sustiva) 600 mg PO DAILY [facility] Last Admin: 02/28/17 09:36 Dose: 600 mg Emtricitabine (Emtriva) 200 mg PO Q96H [facility] Last Admin: 02/28/17 22:20 Dose: 200 mg Epoetin Terrell (Procrit) 10,000 unit IV TTS [facility] Last Admin: 02/27/17 15:30 Dose: 10,000 unit Furosemide (Lasix) 80 mg PO BID [facility] Last Admin: 02/28/17 17:17 Dose: 80 mg Heparin Sodium (Porcine) (Heparin) 1,000 units IVP TTS [facility] Last Admin: 02/27/17 15:34 Dose: 1,000 units Hydralazine HCl (Apresoline) 100 mg PO Q8H [facility] Last Admin: 02/28/17 22:19 Dose: 100 mg Hydroxyzine HCl (Atarax) 25 mg PO BID [facility] Last Admin: 02/28/17 17:18 Dose: 25 mg Isosorbide Mononitrate (Imdur Er) 30 mg PO DAILY [facility] Last Admin: 02/28/17 09:37 Dose: 30 mg Raltegravir (Isentress) 400 mg PO BID [facility] Last Admin: 02/28/17 17:17 Dose: 400 mg Rosuvastatin Calcium (Crestor) 10 mg PO HS [facility] Last Admin: 02/28/17 22:19 Dose: 10 mg - Labs Labs: 02/28/17 08:50 02/28/17 08:50 PT 11.4 SECONDS (9.7-12.2) 02/12/17 00:37 INR 1.0 02/12/17 00:37 APTT 21 SECONDS (21-34) 02/12/17 00:37 Assessment and Plan (1) HIV (human immunodeficiency virus infection) Status: Chronic (2) Congestive heart failure (CHF) Status: Chronic (3) Leg swelling Status: Chronic (4) DVT (deep venous thrombosis) Status: Acute (5) Renal failure (ARF), acute on chronic Status: Chronic (6) Hepatitis C Status: Acute (7) Diabetes mellitus Status: Acute (8) Alcohol abuse Status: Acute (9) Homelessness Status: Acute
--- NOTE | 2017-02-28 23:14 | CP.PCM.PN ---
Subjective - Date & Time of Evaluation Date of Evaluation: 02/28/17 Time of Evaluation: 15:00 - Subjective Subjective: Pt seen and examined, is feeling better, medically stable, is waiting for HD spot, leg edema better Objective - Vital Signs/Intake and Output Vital Signs (last 24 hours): Temp Pulse Resp BP Pulse Ox 97.2 F L 60 18 118/80 98 02/28/17 15:55 02/28/17 15:55 02/28/17 15:55 02/28/17 17:18 02/28/17 15:55 Intake and Output: 02/28/17 03/01/17 18:59 06:59 Intake Total 400 600 Balance 400 600 - Medications Medications: Current Medications Acetaminophen (Tylenol 325mg Tab) 650 mg PO Q4 PRN PRN Reason: Pain, moderate (4-7) Last Admin: 02/21/17 02:18 Dose: 650 mg Apixaban (Eliquis) 5 mg PO BID [facility] Last Admin: 02/28/17 17:18 Dose: 5 mg Calcitriol (Rocaltrol) 0.5 mcg PO DAILY [facility] Last Admin: 02/28/17 09:37 Dose: 0.5 mcg Carvedilol (Coreg) 12.5 mg PO BID [facility] Last Admin: 02/28/17 17:18 Dose: Not Given Clonidine HCl (Catapres-Tts2 0.2 Mg/24 Hr) 1 patch TD Q7D@1000 [facility] Last Admin: 02/28/17 09:37 Dose: 1 patch Diltiazem HCl (Cardizem Cd) 120 mg PO DAILY [facility] Efavirenz (Sustiva) 600 mg PO DAILY [facility] Last Admin: 02/28/17 09:36 Dose: 600 mg Emtricitabine (Emtriva) 200 mg PO Q96H [facility] Last Admin: 02/28/17 22:20 Dose: 200 mg Epoetin Terrell (Procrit) 10,000 unit IV TTS [facility] Last Admin: 02/27/17 15:30 Dose: 10,000 unit Furosemide (Lasix) 80 mg PO BID [facility] Last Admin: 02/28/17 17:17 Dose: 80 mg Heparin Sodium (Porcine) (Heparin) 1,000 units IVP TTS [facility] Last Admin: 02/27/17 15:34 Dose: 1,000 units Hydralazine HCl (Apresoline) 100 mg PO Q8H [facility] Last Admin: 02/28/17 22:19 Dose: 100 mg Hydroxyzine HCl (Atarax) 25 mg PO BID [facility] Last Admin: 02/28/17 17:18 Dose: 25 mg Isosorbide Mononitrate (Imdur Er) 30 mg PO DAILY [facility] Last Admin: 02/28/17 09:37 Dose: 30 mg Raltegravir (Isentress) 400 mg PO BID [facility] Last Admin: 02/28/17 17:17 Dose: 400 mg Rosuvastatin Calcium (Crestor) 10 mg PO HS [facility] Last Admin: 02/28/17 22:19 Dose: 10 mg - Labs Labs: 02/28/17 08:50 02/28/17 08:50 PT 11.4 SECONDS (9.7-12.2) 02/12/17 00:37 INR 1.0 02/12/17 00:37 APTT 21 SECONDS (21-34) 02/12/17 00:37 - Constitutional Appears: No Acute Distress - Head Exam Head Exam: ATRAUMATIC, NORMAL INSPECTION, NORMOCEPHALIC - Eye Exam Eye Exam: EOMI, Normal appearance, PERRL Pupil Exam: NORMAL ACCOMODATION, PERRL - Respiratory Exam Respiratory Exam: Clear to Ausculation Bilateral, NORMAL BREATHING PATTERN - Cardiovascular Exam Cardiovascular Exam: REGULAR RHYTHM, +S1, +S2. absent: Murmur - GI/Abdominal Exam GI & Abdominal Exam: Soft, Normal Bowel Sounds. absent: Tenderness Assessment and Plan (1) Acute on chronic renal failure Status: Acute (2) HTN (hypertension) Status: Acute (3) HIV (human immunodeficiency virus infection) Status: Acute (4) Pedal edema Status: Acute
[2017-03-01 02:24] LABS: HEPATITIS E AB (IGG) NOT DETECTED
[2017-03-01 09:38] VITALS: BP 121/71
[2017-03-01] MEDS ORDERED: diltiaZEM 120 mg/24 Hours CD Cap PO SCH (10:00)
--- NOTE | 2017-03-01 13:51 | CP.PCM.PN ---
Subjective - Date & Time of Evaluation Date of Evaluation: 03/01/17 Time of Evaluation: 10:45 - Subjective Subjective: patient seen today , states feels ok, denies any chest pain, sob, abdominal pain,N/V/D on HD , T, TH,SAT Objective - Vital Signs/Intake and Output Vital Signs (last 24 hours): Temp Pulse Resp BP Pulse Ox 98.2 F 73 18 121/71 98 03/01/17 07:10 03/01/17 09:38 03/01/17 07:10 03/01/17 09:40 03/01/17 07:10 Intake and Output: 03/01/17 03/01/17 06:59 18:59 Intake Total 600 Balance 600 - Medications Medications: Current Medications Acetaminophen (Tylenol 325mg Tab) 650 mg PO Q4 PRN PRN Reason: Pain, moderate (4-7) Last Admin: 02/21/17 02:18 Dose: 650 mg Apixaban (Eliquis) 5 mg PO BID [facility] Last Admin: 03/01/17 09:40 Dose: 5 mg Calcitriol (Rocaltrol) 0.5 mcg PO DAILY [facility] Last Admin: 03/01/17 09:39 Dose: 0.5 mcg Carvedilol (Coreg) 12.5 mg PO BID [facility] Last Admin: 03/01/17 09:40 Dose: 12.5 mg Clonidine HCl (Catapres-Tts2 0.2 Mg/24 Hr) 1 patch TD Q7D@1000 [facility] Last Admin: 02/28/17 09:37 Dose: 1 patch Diltiazem HCl (Cardizem Cd) 120 mg PO DAILY [facility] Last Admin: 03/01/17 09:39 Dose: 120 mg Efavirenz (Sustiva) 600 mg PO DAILY [facility] Last Admin: 03/01/17 09:39 Dose: 600 mg Emtricitabine (Emtriva) 200 mg PO Q96H [facility] Last Admin: 02/28/17 22:20 Dose: 200 mg Epoetin Terrell (Procrit) 10,000 unit IV TTS [facility] Last Admin: 02/27/17 15:30 Dose: 10,000 unit Furosemide (Lasix) 40 mg PO BID [facility] Last Admin: 03/01/17 09:39 Dose: 40 mg Heparin Sodium (Porcine) (Heparin) 1,000 units IVP TTS [facility] Last Admin: 02/27/17 15:34 Dose: 1,000 units Hydralazine HCl (Apresoline) 100 mg PO BID [facility] Last Admin: 03/01/17 09:40 Dose: 100 mg Hydroxyzine HCl (Atarax) 25 mg PO BID [facility] Last Admin: 03/01/17 09:41 Dose: 25 mg Isosorbide Mononitrate (Imdur Er) 30 mg PO DAILY [facility] Last Admin: 03/01/17 09:39 Dose: 30 mg Raltegravir (Isentress) 400 mg PO BID [facility] Last Admin: 03/01/17 09:39 Dose: 400 mg Rosuvastatin Calcium (Crestor) 10 mg PO HS [facility] Last Admin: 02/28/17 22:19 Dose: 10 mg - Labs Labs: 02/28/17 08:50 02/28/17 08:50 PT 11.4 SECONDS (9.7-12.2) 02/12/17 00:37 INR 1.0 02/12/17 00:37 APTT 21 SECONDS (21-34) 02/12/17 00:37 Assessment and Plan - Assessment and Plan (Free Text) Assessment: A/P 61 yr old female with A PMHX OF AD, CHF, COPD, Depression, Deep Vein Thrombosis , HIV, HTN, Hypercholesterolemia, Hyperlipidemia, Hypothyroidism, Pancreatitis, admitted for sob and lower extremity swelling and renal failure Pt started on HD and clinically improved D/W Dr. Rahman, patient has a slot at [facility] for HD and as per Dr. 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 Rodriguez, stable for discharge home today and continue HD as scheduled all RX filled from pharmacy and provide to the patient upon discharge
[2017-03-01 14:45] VITALS: PULSE 61; RESP 20; TEMP 98.6; O2SAT 95
--- NOTE | 2017-03-01 20:31 | CP.PCM.PN ---
Objective - Vital Signs/Intake and Output Vital Signs (last 24 hours): Temp Pulse Resp BP Pulse Ox 98.6 F 61 20 121/71 95 03/01/17 14:10 03/01/17 14:10 03/01/17 14:10 03/01/17 14:10 03/01/17 14:10 Intake and Output: 03/01/17 03/02/17 18:59 06:59 Intake Total 300 Balance 300 - Labs Labs: 02/28/17 08:50 02/28/17 08:50 PT 11.4 SECONDS (9.7-12.2) 02/12/17 00:37 INR 1.0 02/12/17 00:37 APTT 21 SECONDS (21-34) 02/12/17 00:37 Assessment and Plan (1) ESRD on hemodialysis Status: Acute (2) Congestive heart failure (CHF) Status: Chronic (3) Anemia in CKD (chronic kidney disease) Status: Chronic (4) Hypertensive CKD (chronic kidney disease) Status: Acute (5) Chronic kidney disease-mineral and bone disorder Status: Chronic (6) HIV (human immunodeficiency virus infection) Status: Chronic
--- NOTE | 2017-03-01 23:00 | CP.PCM.DIS ---
Provider - Provider Date of Admission: 02/12/17 01:57 Attending physician: Hany Rodriguez MD Diagnosis - Discharge Diagnosis (1) Acute on chronic renal failure Status: Acute (2) HTN (hypertension) Status: Acute (3) HIV (human immunodeficiency virus infection) Status: Chronic (4) Pedal edema Status: Acute Hospital Course - Lab Results Lab Results: Most Recent Lab Values WBC 5.4 K/uL (4.8-10.8) 02/28/17 08:50 RBC 2.76 Mil/uL (3.80-5.20) L 02/28/17 08:50 Hgb 8.5 g/dL (11.0-16.0) L 02/28/17 08:50 Hct 25.4 % (34.0-47.0) L 02/28/17 08:50 MCV 92.3 fL (81.0-99.0) 02/28/17 08:50 MCH 30.8 pg (27.0-31.0) 02/28/17 08:50 MCHC 33.4 g/dL (33.0-37.0) 02/28/17 08:50 RDW 19.0 % (11.5-14.5) H 02/28/17 08:50 Plt Count 134 K/uL (130-400) 02/28/17 08:50 MPV 9.3 fL (7.2-11.7) 02/28/17 08:50 Neut % (Auto) 70.5 % (50.0-75.0) 02/23/17 10:33 Lymph % (Auto) 12.2 % (20.0-40.0) L 02/23/17 10:33 [place] % (Auto) 14.0 % (0.0-10.0) H 02/23/17 10:33 Eos % (Auto) 2.4 % (0.0-4.0) 02/23/17 10:33 Baso % (Auto) 0.9 % (0.0-2.0) 02/23/17 10:33 Neut # 3.7 K/uL (1.8-7.0) 02/23/17 10:33 Lymph # 0.7 K/uL (1.0-4.3) L 02/23/17 10:33 [place] # 0.7 K/uL (0.0-0.8) 02/23/17 10:33 Eos # 0.1 K/uL (0.0-0.7) 02/23/17 10:33 Baso # 0.0 K/uL (0.0-0.2) 02/23/17 10:33 Differential Comment 02/12/17 07:09 PT 11.4 SECONDS (9.7-12.2) 02/12/17 00:37 INR 1.0 02/12/17 00:37 APTT 21 SECONDS (21-34) 02/12/17 00:37 Sodium 129 mmol/L (132-148) L 02/28/17 08:50 Potassium 4.2 mmol/L (3.6-5.2) 02/28/17 08:50 Chloride 96 mmol/L (98-107) L 02/28/17 08:50 Carbon Dioxide 28 mmol/L (22-30) 02/28/17 08:50 Anion Gap 10 (10-20) 02/28/17 08:50 BUN 36 mg/dL (7-17) H 02/28/17 08:50 Creatinine 3.9 mg/dL (0.7-1.2) H 02/28/17 08:50 Est GFR ( Amer) 14 02/28/17 08:50 Est GFR (Non-Af Amer) 12 02/28/17 08:50 POC Glucose (mg/dL) 171 mg/dL (65-110) H 02/15/17 21:05 Random Glucose 90 mg/dL (65-105) 02/28/17 08:50 Calcium 8.1 mg/dl (8.6-10.4) L 02/28/17 08:50 Phosphorus 3.8 mg/dL (2.5-4.5) 02/23/17 10:33 Magnesium 1.7 mg/dL (1.6-2.3) 02/19/17 08:19 Iron 14 ug/dL (37-170) L 02/12/17 14:02 TIBC 246 ug/dL (250-450) L 02/12/17 14:02 % Saturation 6 (20-55) L 02/12/17 14:02 Ferritin 179.0 ng/mL 02/12/17 14:02 Total Bilirubin 0.3 mg/dL (0.2-1.3) 02/23/17 10:33 AST 27 U/L (14-36) 02/23/17 10:33 ALT 39 U/L (9-52) 02/23/17 10:33 Alkaline Phosphatase 118 U/L (38-126) 02/23/17 10:33 Troponin I 0.0630 ng/mL (0.00-0.120) 02/12/17 00:37 NT-Pro-B Natriuret Pep 6230 pg/mL (0-900) H 02/12/17 00:37 Total Protein 6.7 g/dL (6.3-8.3) 02/23/17 10:33 Albumin 3.4 g/dL (3.5-5.0) L 02/23/17 10:33 Globulin 3.3 gm/dL (2.2-3.9) 02/23/17 10:33 Albumin/Globulin Ratio 1.0 (1.0-2.1) 02/23/17 10:33 Vitamin B12 430 pg/mL (239-931) 02/12/17 14:02 25-OH Vitamin D Total 30.1 NG/ML (30.0-100.0) 02/13/17 11:30 Folate 13.1 ng/mL 02/12/17 14:02 TSH 3rd Generation 4.75 mIU/L (0.46-4.68) H 02/12/17 00:37 Calcium (PTH Intact) 8.4 mg/dL (8.6-10.4) L 02/13/17 11:30 PTH w/Ion &Tot Calcium 837 pg/mL (14-64) H 02/13/17 11:30 Urine Color Straw (YELLOW) 02/12/17 00:37 Urine Clarity Clear (Clear) 02/12/17 00:37 Urine pH 5.0 (5.0-8.0) 02/12/17 00:37 Ur Specific [place] 1.013 (1.003-1.030) 02/12/17 00:37 Urine Protein 2+ mg/dL (NEGATIVE) H 02/12/17 00:37 Urine Glucose (UA) 1+ mg/dL (Normal) 02/12/17 00:37 Urine Ketones Negative mg/dL (NEGATIVE) 02/12/17 00:37 Urine Blood 2+ (NEGATIVE) H 02/12/17 00:37 Urine Nitrate Negative (NEGATIVE) 02/12/17 00:37 Urine Bilirubin Negative (NEGATIVE) 02/12/17 00:37 Urine Urobilinogen Normal mg/dL (0.2-1.0) 02/12/17 00:37 Ur Leukocyte Esterase Trace Annie/uL (Negative) 02/12/17 00:37 Urine WBC (Auto) 1 /hpf (0-5) 02/12/17 00:37 Urine RBC (Auto) 17 /hpf (0-3) H 02/12/17 00:37 Ur Squamous Epith Cells 1 /hpf (0-5) 02/12/17 00:37 Urine Bacteria Rare (<OCC) 02/12/17 00:37 Hyaline Casts 0-2 /lpf (0-2) 02/12/17 00:37 Urine Collection Time 24 HRS 02/13/17 11:08 Urine Total Volume 2000 mL 02/13/17 11:08 Creatinine Clearance 13.0 mL/min (87-107) L 02/13/17 11:08 Urine Opiates Screen Negative (NEGATIVE) 02/12/17 00:37 Urine Methadone Screen Negative (NEGATIVE) 02/12/17 00:37 Ur Barbiturates Screen Negative (NEGATIVE) 02/12/17 00:37 Ur Phencyclidine Scrn Negative (NEGATIVE) 02/12/17 00:37 Ur Amphetamines Screen Negative (NEGATIVE) 02/12/17 00:37 U Benzodiazepines Scrn Negative (NEGATIVE) 02/12/17 00:37 U Oth Cocaine Metabols Negative (NEGATIVE) 02/12/17 00:37 U Cannabinoids Screen Negative (NEGATIVE) 02/12/17 00:37 Hep Bs Antigen Negative (NEGATIVE) 02/23/17 07:47 Hep Bs Antibody Positive (NEGATIVE) 02/18/17 16:00 Hep B Core Total Ab Reactive (Non Reactive) H 02/18/17 14:38 Hep B Core IgM Ab Negative (NEGATIVE) 02/18/17 14:22 Hepatitis Be Antigen Nonreactive (Nonreactive) 02/23/17 07:47 Hepatitis C Antibody Reactive (NEGATIVE) 02/18/17 14:22 HCV RNA Qual (TMA) Detected H 02/18/17 14:22 Hepatitis E IgG Ab Not detected 02/23/17 07:47 - Hospital Course Hospital Course: Pt is for discharge today,A/P 61 yr old female with A PMHX OF AD, CHF, COPD, Depression, Deep Vein Thrombosis , HIV, HTN, Hypercholesterolemia, Hyperlipidemia, Hypothyroidism, Pancreatitis, admitted for sob and lower extremity swelling and renal failure Pt started on HD and clinically improved D/W Dr. Rahman, patient has a slot at [facility] for HD and as per Dr. Kenny and transportation will slate picker the patient at 10 45 from [facility] for discharge home today and continue HD as scheduled all RX filled from pharmacy and provide to the patient upon discharge Discharge Exam - Head Exam Head Exam: ATRAUMATIC, NORMAL INSPECTION, NORMOCEPHALIC Discharge Plan - Discharge Medications Prescriptions: hydrALAZINE [Apresoline] 100 mg PO BID #60 tab hydrOXYzine HCl [Atarax] 25 mg PO BID #30 tab diltiaZEM CD [Cardizem CD] 120 mg PO DAILY #30 cap cloNIDine 0.1 mg/24 hr [catapres TTS1 0.1 mg/24 hr] 0.1 mg TD QD7 30 Days patch Carvedilol [Coreg] 12.5 mg PO BID #30 tab Apixaban [Eliquis] 5 mg PO BID #30 tab Emtricitabine [Emtriva] 200 mg PO Q96H #30 cap Isosorbide Mononitrate ER [Imdur ER] 30 mg PO DAILY #30 tab Raltegravir Potassium [Isentress] 400 mg PO BID #60 tab Furosemide [Lasix] 40 mg PO BID #60 tab Atorvastatin [Lipitor] 1 tab PO DAILY #30 tab Calcitriol [Rocaltrol] 0.5 mcg PO DAILY #30 sgl Efavirenz [Sustiva] 600 mg PO DAILY #30 tab - Follow Up Plan Condition: GOOD Disposition: HOME/ ROUTINE Instructions: Heart Failure (DC), Atrial Fibrillation (DC), Dialysis Diet (DC) , Arteriovenous Fistula Creation for Hemodialysis (DC), End Stage Kidney Disease (DC), Perma-cath Placement (DC) Additional Instructions: Please follow up with Dr. Rodriguez office in 1 week Please follow up with HD at [facility] T,TH,SAT at 10 40 am continue medication as per Med. rec. Referrals: Hany Rodriguez MD [Staff Provider] - Les Brady Jr., MD [Staff Provider] -
== END 2017-03-01 14:48 | disposition home or self-care (01) | DRG 673 ==
LOC: C.ER 23:44 → C.9E 02-12 01:57 → C.6T 02-12 02:30
PROVIDERS: ADMIT Internal Medicine; ATTEND Internal Medicine
PROC: 0JH63XZ Insertion of Tunneled Vascular Access Device into Chest Subcutaneous Tissue and Fascia, Percutaneous Approach (ICD-10-PCS; principal; 2017-02-19)
PROC: 02HV33Z Insertion of Infusion Device into Superior Vena Cava, Percutaneous Approach (ICD-10-PCS; 2017-02-19)
PROC: B518ZZA Fluoroscopy of Superior Vena Cava, Guidance (ICD-10-PCS; 2017-02-19)
PROC: 5A1D70Z Performance of Urinary Filtration, Intermittent, Less than 6 Hours Per Day (ICD-10-PCS; 2017-02-25)
PROC: 5A1D70Z Performance of Urinary Filtration, Intermittent, Less than 6 Hours Per Day (ICD-10-PCS; 2017-02-27)
DX: N17.9 Acute kidney failure, unspecified (principal); I50.23 Acute on chronic systolic (congestive) heart failure; B20 Human immunodeficiency virus [HIV] disease; I13.2 Hypertensive heart and chronic kidney disease with heart failure and with stage 5 chronic kidney disease, or end stage renal disease; E11.21 Type 2 diabetes mellitus with diabetic nephropathy; E87.2 Acidosis; I27.20 Pulmonary hypertension, unspecified; N18.6 End stage renal disease; N25.81 Secondary hyperparathyroidism of renal origin; E11.22 Type 2 diabetes mellitus with diabetic chronic kidney disease; E87.5 Hyperkalemia; I25.10 Atherosclerotic heart disease of native coronary artery without angina pectoris; F10.10 Alcohol abuse, uncomplicated; I48.91 Unspecified atrial fibrillation; J44.9 Chronic obstructive pulmonary disease, unspecified; K44.9 Diaphragmatic hernia without obstruction or gangrene; K59.00 Constipation, unspecified; M89.9 Disorder of bone, unspecified; E03.9 Hypothyroidism, unspecified; B19.20 Unspecified viral hepatitis C without hepatic coma; D63.1 Anemia in chronic kidney disease; E78.00 Pure hypercholesterolemia, unspecified; E78.5 Hyperlipidemia, unspecified; F17.210 Nicotine dependence, cigarettes, uncomplicated; Z79.899 Other long term (current) drug therapy; Z91.19 Patient's noncompliance with other medical treatment and regimen; Z59.0 Homelessness; Z86.718 Personal history of other venous thrombosis and embolism; Z79.01 Long term (current) use of anticoagulants

== ENCOUNTER 2017-04-12 22:18 | Emergency (ER) | payer MEDICARE, OTHER ==
[2017-04-12 22:18] VITALS: PULSE 125; BMI 44.2
[2017-04-12 23:08] VITALS: BP 111/70; PULSE 70; TEMP 98.5; O2SAT 98
--- NOTE | 2017-04-13 00:37 | C.PDOC ---
History Of Present Illness Pt with c/o of chronic bilateral knee pain worse today. Pt denies fall, weakness or numbness. pt did not take any pain meds prior to ER visit Time Seen by Provider: 04/12/17 23:32 Chief Complaint (Nursing): Lower Extremity Problem/Injury History Per: Patient History/Exam Limitations: no limitations Recent travel outside of the [place]: No Additional History Per: Patient - Hip Description Of Injury: denies: Fell, Struck With Object Past Medical History Vital Signs: Last Vital Signs Temp 98.5 F 04/12/17 23:04 Pulse 70 04/12/17 23:04 Resp 20 04/13/17 01:13 BP 111/70 04/12/17 23:04 Pulse Ox 98 04/13/17 00:37 - Medical History PMH: Anemia, Anxiety, Arthritis, CAD, CHF, COPD, Depression, Deep Vein Thrombosis, HIV, HTN, Hypercholesterolemia, Hyperlipidemia, Hypothyroidism, Pancreatitis, Peripheral Edema, End Stage Renal Disease, Chronic Kidney Disease , Chronic Pain (chronic lower extremity pain ) - [facility] Procedures (02/12/17) EXCISION OF LEFT KIDNEY, PERCUTANEOUS APPROACH, DIAGNOSTIC (12/28/16) FLUOROSCOPY OF SUPERIOR VENA CAVA, GUIDANCE (02/12/17) GAIT TRAINING/FUNCTIONAL AMBULATION TREATMENT (08/05/15) INSERTION OF INFUSION DEV INTO SUP VENA CAVA, PERC APPROACH (02/12/17) INSERTION OF INTRALUM DEV INTO INF VENA CAVA, PERC APPROACH (07/30/15) INSERTION OF VAD INTO CHEST SUBCU/FASCIA, PERC APPROACH (02/12/17) INTRODUCTION OF SERUM/TOX/VACCINE INTO MUSCLE, PERC APPROACH (11/27/14) NEBULIZER THERAPY (09/12/14) Family History: States: Unknown Family Hx - Social History Hx Tobacco Use: Yes Hx Alcohol Use: Yes (2 bottles of vodka daily) Hx Substance Use: No (stopped) - Immunization History Hx Tetanus Toxoid Vaccination: No Hx Influenza Vaccination: No Hx Pneumococcal Vaccination: No Review Of Systems Musculoskeletal: Positive for: Other (b/l knee pain) Neurological: Negative for: Weakness, Numbness Physical Exam - Physical Exam Appears: Well, Non-toxic Head: Atraumatic Eye(s): bilateral: Normal Inspection, PERRL Extremity: Normal ROM, Tenderness (minimal to ant knee areas, b/l), No Calf Tenderness, No Deformity, No Swelling Extremity: Bilateral: Atraumatic, Normal Color And Temperature Pulses: Left Dorsalis Pedis: Normal, Right Dorsalis Pedis: Normal Gait: With Assistance (cane) ED Course And Treatment O2 Sat by Pulse Oximetry: 98 Progress Note: Tylenol PO ordered, pt advised to follow up in clinic. Pt observed ambulatory in ED Disposition Counseled Patient/Family Regarding: Diagnosis, Need For Followup, Rx Given - Disposition Referrals: Hany Rodriguez MD [Staff Provider] - Disposition: HOME/ ROUTINE Disposition Time: 00:35 Condition: STABLE Additional Instructions: Follow up with dr rodriguez take tylenol for pain Return to ER if worse Instructions: Chronic Knee Pain (DC) Forms: [facility] (Croatian) - Clinical Impression Clinical Impression: Chronic knee pain
[2017-04-13 01:14] VITALS: RESP 20
== END 2017-04-13 01:13 | disposition home or self-care (01) ==
LOC: C.ER 22:18
DX: M25.562 Pain in left knee (principal); M25.561 Pain in right knee; G89.29 Other chronic pain

== ENCOUNTER 2017-05-19 19:14 | Emergency (ER) | payer MEDICARE, OTHER ==
[2017-05-19 19:14] VITALS: PULSE 125; BMI 40.0
--- NOTE | 2017-05-19 20:36 | C.PDOC ---
Time Seen by Provider: 05/19/17 19:54 Chief Complaint (Nursing): Lower Extremity Problem/Injury Past Medical History Vital Signs: Last Vital Signs Temp 97.9 F 05/19/17 19:25 Pulse 76 05/19/17 19:25 Resp 20 05/19/17 19:25 BP 161/96 H 05/19/17 19:25 Pulse Ox 99 05/19/17 19:25 - Medical History PMH: Anemia, Anxiety, Arthritis, CAD, CHF, COPD, Depression, Deep Vein Thrombosis, HIV, HTN, Hypercholesterolemia, Hyperlipidemia, Hypothyroidism, Pancreatitis, Peripheral Edema, End Stage Renal Disease, Chronic Pain (chronic lower extremity pain ) Denies: Chronic Kidney Disease - [facility] Procedures (02/12/17) EXCISION OF LEFT KIDNEY, PERCUTANEOUS APPROACH, DIAGNOSTIC (12/28/16) FLUOROSCOPY OF SUPERIOR VENA CAVA, GUIDANCE (02/12/17) GAIT TRAINING/FUNCTIONAL AMBULATION TREATMENT (08/05/15) INSERTION OF INFUSION DEV INTO SUP VENA CAVA, PERC APPROACH (02/12/17) INSERTION OF INTRALUM DEV INTO INF VENA CAVA, PERC APPROACH (07/30/15) INSERTION OF VAD INTO CHEST SUBCU/FASCIA, PERC APPROACH (02/12/17) INTRODUCTION OF SERUM/TOX/VACCINE INTO MUSCLE, PERC APPROACH (11/27/14) NEBULIZER THERAPY (09/12/14) Family History: States: Unknown Family Hx - Social History Hx Tobacco Use: Yes Hx Alcohol Use: No (patietn denies at this time) Hx Substance Use: No (stopped) - Immunization History Hx Tetanus Toxoid Vaccination: No Hx Influenza Vaccination: No Hx Pneumococcal Vaccination: No ED Course And Treatment O2 Sat by Pulse Oximetry: 99 Disposition Counseled Patient/Family Regarding: Studies Performed, Diagnosis - Disposition Disposition Time: 20:36 Condition: FAIR
--- NOTE | 2017-05-19 20:39 | C.PDOC ---
History Of Present Illness 61-year-old homeless female presents to the ED requesting a place to stay the night. Patient has a PMHx of T-Th-S dialysis, and completed half of her dialysis yesterday. She denies any chest pain, SOB, or palpitations. Was seen yesterday at [facility] and discharged home. Patient was also seen here yesterday for a DVT and was discharged home on Eliquis, with instructions to follow up with psychiatrist. Time Seen by Provider: 05/19/17 19:54 Chief Complaint (Nursing): Lower Extremity Problem/Injury History Per: Patient History/Exam Limitations: no limitations Onset/Duration Of Symptoms: Hrs Current Symptoms Are (Timing): Still Present Severity: None Pain Scale Rating Of: 0 Recent travel outside of the [place]: No Additional History Per: Prior Records Past Medical History Reviewed: Historical Data, Nursing Documentation, Vital Signs Vital Signs: Last Vital Signs Temp 97.9 F 05/20/17 05:38 Pulse 69 05/20/17 05:38 Resp 19 05/20/17 05:38 BP 102/62 05/20/17 05:38 Pulse Ox 96 05/20/17 05:38 - Medical History PMH: Anemia, Anxiety, Arthritis, CAD, CHF, COPD, Depression, Deep Vein Thrombosis, HIV, HTN, Hypercholesterolemia, Hyperlipidemia, Hypothyroidism, Pancreatitis, Peripheral Edema, End Stage Renal Disease, Chronic Pain (chronic lower extremity pain ) Denies: Chronic Kidney Disease Other Surgeries: IVC filter - [facility] Procedures (02/12/17) EXCISION OF LEFT KIDNEY, PERCUTANEOUS APPROACH, DIAGNOSTIC (12/28/16) FLUOROSCOPY OF SUPERIOR VENA CAVA, GUIDANCE (02/12/17) GAIT TRAINING/FUNCTIONAL AMBULATION TREATMENT (08/05/15) INSERTION OF INFUSION DEV INTO SUP VENA CAVA, PERC APPROACH (02/12/17) INSERTION OF INTRALUM DEV INTO INF VENA CAVA, PERC APPROACH (07/30/15) INSERTION OF VAD INTO CHEST SUBCU/FASCIA, PERC APPROACH (02/12/17) INTRODUCTION OF SERUM/TOX/VACCINE INTO MUSCLE, PERC APPROACH (11/27/14) NEBULIZER THERAPY (09/12/14) Family History: States: No Known Family Hx - Social History Hx Tobacco Use: Yes Hx Alcohol Use: No (patient denies at this time) Hx Substance Use: No (stopped) - Immunization History Hx Tetanus Toxoid Vaccination: No Hx Influenza Vaccination: No Hx Pneumococcal Vaccination: No Review Of Systems Cardiovascular: Negative for: Chest Pain, Palpitations Respiratory: Negative for: Shortness of Breath Physical Exam - Physical Exam Appears: Non-toxic, No Acute Distress Skin: Warm, Dry Head: Normacephalic Eye(s): bilateral: Normal Inspection Oral Mucosa: Moist Teeth: Other (Poor dentition) Neck: Trachea Midline, Supple Chest: Symmetrical, Other (Dialysis port to right chest) Cardiovascular: Rhythm Regular Respiratory: No Rales, No Rhonchi, No Wheezing Gastrointestinal/Abdominal: Bowel Sounds (normal), Soft, No Tenderness, No Distention, Other (Obese) Extremity: Normal ROM, Pedal Edema (bilateral), No Calf Tenderness Extremity: Bilateral: Atraumatic, Normal Color And Temperature Pulses: Left Dorsalis Pedis: Normal, Right Dorsalis Pedis: Normal Neurological/Psych: Oriented x3 Gait: Steady ED Course And Treatment - Laboratory Results Result Diagrams: 05/19/17 22:47 05/19/17 22:47 ECG: Interpreted By Me, Viewed By Me ECG Rhythm: Nonspecific Changes O2 Sat by Pulse Oximetry: 99 (RA) Pulse Ox Interpretation: Normal Progress Note: Labs ordered and reviewed. 3:10 vitals stable, no complaints. Reevaluation Time: 06:04 Reassessment Condition: Improved Disposition Counseled Patient/Family Regarding: Studies Performed, Diagnosis, Need For Followup - Disposition Referrals: Hany Rodriguez MD [Staff Provider] - Disposition: HOME/ ROUTINE Disposition Time: 20:36 Condition: FAIR Instructions: End Stage Kidney Disease (DC) Forms: [facility] (Sami) - Clinical Impression Clinical Impression: ESRD on hemodialysis - Scribe Statement The provider has reviewed the documentation as recorded by the Scribe (Sneha Curiel) Provider Attestation: All medical record entries made by the Scribe were at my direction and personally dictated by me. I have reviewed the chart and agree that the record accurately reflects my personal performance of the history, physical exam, medical decision making, and the department course for this patient. I have also personally directed, reviewed, and agree with the discharge instructions and disposition.
[2017-05-19 23:01] LABS: BASO % 0.8 % (0.0-2.0); EOS # 0.1 K/uL (0.0-0.7); EOS % 2.3 % (0.0-4.0); HEMOGLOBIN 11.2 g/dL (11.0-16.0); LYMPH # 0.5 K/uL (1.0-4.3); LYMPH % 10.1 % (20.0-40.0); MEAN CELL VOLUME 97.2 fL (81.0-99.0); MEAN CORPUSCULAR HEMOGLOBIN 31.5 pg (27.0-31.0); MEAN CORPUSCULAR HGB CONC 32.4 g/dL (33.0-37.0); MEAN PLATELET VOLUME 8.5 fL (7.2-11.7); MONO # 0.8 K/uL (0.0-0.8); NEUT % 72.8 % (50.0-75.0); NRBC % 0.1 % (0.0-2.0); RBC 3.57 Mil/uL (3.80-5.20); RED CELL DISTRIBUTION WIDTH 19.1 % (11.5-14.5); WHITE BLOOD COUNT 5.5 K/uL (4.8-10.8)
[2017-05-19 23:12] LABS: ALBUMIN 4.3 g/dL (3.5-5.0)
[2017-05-20 11:38] VITALS: BP 102/62; PULSE 69; RESP 19; TEMP 97.9; O2SAT 99
== END 2017-05-20 06:22 | disposition home or self-care (01) ==
LOC: C.ER 19:14
DX: I12.0 Hypertensive chronic kidney disease with stage 5 chronic kidney disease or end stage renal disease (principal); N18.6 End stage renal disease; Z99.2 Dependence on renal dialysis; Z59.0 Homelessness; E78.00 Pure hypercholesterolemia, unspecified; E03.9 Hypothyroidism, unspecified; E78.5 Hyperlipidemia, unspecified

== ENCOUNTER 2017-05-28 23:42 | Emergency (ER) | payer MEDICARE, OTHER ==
[2017-05-28 23:43] VITALS: PULSE 125; BMI 40.0
[2017-05-28 23:56] VITALS: BP 132/75; PULSE 75; RESP 18; TEMP 97.6; O2SAT 99
--- NOTE | 2017-05-28 23:57 | C.PDOC ---
History Of Present Illness 61 y/o homeless alcoholic female brought to ED by ambulance from [facility]. Patient states she wants a place to stay the night. Patient is known for many prior visits with similar complaints. Patient is on dialysis Wednesday's, Wednesday's, and Wednesday's. Denies any physical complaints. Time Seen by Provider: 05/28/17 23:55 Chief Complaint (Nursing): Medical Clearance History Per: Patient History/Exam Limitations: no limitations Onset/Duration Of Symptoms: Hrs Current Symptoms Are (Timing): Still Present Recent travel outside of the [place]: No Past Medical History Reviewed: Historical Data, Nursing Documentation, Vital Signs Vital Signs: Last Vital Signs Temp 97.6 F 05/29/17 00:02 Pulse 75 05/29/17 00:02 Resp 18 05/29/17 00:02 BP 132/75 05/29/17 00:02 Pulse Ox 99 05/29/17 00:02 - Medical History PMH: Anemia, Anxiety, Arthritis, CAD, CHF, COPD, Depression, Deep Vein Thrombosis, HIV, HTN, Hypercholesterolemia, Hyperlipidemia, Hypothyroidism, Pancreatitis, Peripheral Edema, End Stage Renal Disease, Chronic Pain (chronic lower extremity pain ) - [facility] Procedures (02/12/17) EXCISION OF LEFT KIDNEY, PERCUTANEOUS APPROACH, DIAGNOSTIC (12/28/16) FLUOROSCOPY OF SUPERIOR VENA CAVA, GUIDANCE (02/12/17) GAIT TRAINING/FUNCTIONAL AMBULATION TREATMENT (08/05/15) INSERTION OF INFUSION DEV INTO SUP VENA CAVA, PERC APPROACH (02/12/17) INSERTION OF INTRALUM DEV INTO INF VENA CAVA, PERC APPROACH (07/30/15) INSERTION OF VAD INTO CHEST SUBCU/FASCIA, PERC APPROACH (02/12/17) INTRODUCTION OF SERUM/TOX/VACCINE INTO MUSCLE, PERC APPROACH (11/27/14) NEBULIZER THERAPY (09/12/14) Family History: States: Unknown Family Hx - Social History Hx Tobacco Use: Yes Hx Alcohol Use: No (patient denies at this time) Hx Substance Use: No (stopped) - Immunization History Hx Tetanus Toxoid Vaccination: No Hx Influenza Vaccination: No Hx Pneumococcal Vaccination: No Review Of Systems Constitutional: Negative for: Fever, Chills Cardiovascular: Negative for: Chest Pain Respiratory: Negative for: Shortness of Breath Gastrointestinal: Negative for: Nausea, Vomiting, Abdominal Pain, Diarrhea Neurological: Negative for: Weakness, Numbness Psych: Negative for: Suicidal ideation Physical Exam - Physical Exam Appears: Non-toxic, No Acute Distress Skin: Normal Color, Warm, Dry Head: Atraumatic, Normacephalic Eye(s): bilateral: Normal Inspection, PERRL Oral Mucosa: Moist Neck: Supple Chest: Symmetrical, No Tenderness Cardiovascular: Rhythm Regular Respiratory: Normal Breath Sounds, No Decreased Breath Sounds, No Rales, No Rhonchi, No Wheezing Gastrointestinal/Abdominal: Soft, No Tenderness Extremity: Normal ROM, No Tenderness, Swelling (Minor lower leg swelling) Extremity: Bilateral: Normal ROM Neurological/Psych: Oriented x3, Normal Speech, Normal Cognition, Other (no focal deficits ) Medical Decision Making Medical Decision Making: dialysis pt and homeless, from [facility] chcf with no new complaint May have missed curfew. HD T/H/Sat, had HD yesterday and pending HD in AM suspect malingering, warm enough to d/c to street and for HD tomorrow. Disposition Doctor Will See Patient In The: Office Counseled Patient/Family Regarding: Studies Performed, Diagnosis - Disposition Referrals: [facility] [Outside] [facility] [place] [Outside] [facility] [Outside] Non [facility] Provider, [Primary Care Provider] - Disposition: HOME/ ROUTINE Disposition Time: 23:57 Condition: GOOD Additional Instructions: seek nightly chcf placement present for dialysis tomorrow as scheduled. Instructions: Hemodialysis, Dependent Edema (DC) Forms: [facility] (Kinyarwanda) - Clinical Impression Clinical Impression: Leg edema, Malingering - Scribe Statement The provider has reviewed the documentation as recorded by the Rhodaibboyd [place] All medical record entries made by the Scribboyd were at my direction and personally dictated by me. I have reviewed the chart and agree that the record accurately reflects my personal performance of the history, physical exam, medical decision making, and the department course for this patient. I have also personally directed, reviewed, and agree with the discharge instructions and disposition.
== END 2017-05-29 00:15 | disposition home or self-care (01) ==
LOC: C.ER 23:42 → SUPCPDRO 23:42 → C.ER 05-29 00:15
DX: R60.0 Localized edema (principal); Z76.5 Malingerer [conscious simulation]

== ENCOUNTER 2017-05-31 19:49 | Emergency (ER) | payer MEDICARE, OTHER ==
[2017-05-31 19:49] VITALS: PULSE 125; BMI 40.0
[2017-05-31 20:40] VITALS: TEMP 98.1
--- NOTE | 2017-05-31 23:34 | C.PDOC ---
History Of Present Illness Patient BARBY for evaluation, states her blood pressure has been high today. She admits she is supposed to take multiple HTN medications, but states her girlfriend has them and has not taken them. Patient does not know name of medications or when the last time she took them was. She admits to occasional light-headedness. She denies chest pain, SOB, palpitations, headache, visual changes, facial droop, slurred speech, extremity weakness, sensory changes. Time Seen by Provider: 05/31/17 22:10 Chief Complaint (Nursing): High Blood Pressure History Per: Patient History/Exam Limitations: no limitations Onset/Duration Of Symptoms: Unknown Current Symptoms Are (Timing): Better Exacerbating Factor(s): Pos: Recently Missed Doses Of Medication Past Medical History Reviewed: Historical Data, Nursing Documentation, Vital Signs Vital Signs: Last Vital Signs Temp 98.1 F 05/31/17 20:37 Pulse 86 05/31/17 20:37 Resp 18 05/31/17 20:37 BP 176/91 H 05/31/17 23:14 Pulse Ox 96 05/31/17 23:34 - Medical History PMH: Anemia, Anxiety, Arthritis, CAD, CHF, COPD, Depression, Deep Vein Thrombosis, HIV, HTN, Hypercholesterolemia, Hyperlipidemia, Hypothyroidism, Pancreatitis, Peripheral Edema, End Stage Renal Disease, Chronic Pain (chronic lower extremity pain ) - [facility] Procedures (02/12/17) EXCISION OF LEFT KIDNEY, PERCUTANEOUS APPROACH, DIAGNOSTIC (12/28/16) FLUOROSCOPY OF SUPERIOR VENA CAVA, GUIDANCE (02/12/17) GAIT TRAINING/FUNCTIONAL AMBULATION TREATMENT (08/05/15) INSERTION OF INFUSION DEV INTO SUP VENA CAVA, PERC APPROACH (02/12/17) INSERTION OF INTRALUM DEV INTO INF VENA CAVA, PERC APPROACH (07/30/15) INSERTION OF VAD INTO CHEST SUBCU/FASCIA, PERC APPROACH (02/12/17) INTRODUCTION OF SERUM/TOX/VACCINE INTO MUSCLE, PERC APPROACH (11/27/14) NEBULIZER THERAPY (09/12/14) Family History: States: No Known Family Hx - Social History Hx Tobacco Use: Yes Hx Alcohol Use: No (patient denies at this time) Hx Substance Use: No (stopped) - Immunization History Hx Tetanus Toxoid Vaccination: No Hx Influenza Vaccination: No Hx Pneumococcal Vaccination: No Review Of Systems Except As Marked, All Systems Reviewed And Found Negative. Constitutional: Negative for: Fever, Chills Cardiovascular: Negative for: Chest Pain, Palpitations Respiratory: Negative for: Cough, Shortness of Breath Gastrointestinal: Negative for: Nausea, Vomiting, Abdominal Pain Neurological: Negative for: Weakness, Numbness, Incoordination, Confusion, Seizures, Altered Mental Status, Headache Physical Exam - Physical Exam Appears: Well, Non-toxic, No Acute Distress, Unkempt Skin: Normal Color, Warm, Dry Oral Mucosa: Moist Cardiovascular: Rhythm Regular Respiratory: Normal Breath Sounds, No Rales, No Rhonchi, No Wheezing Gastrointestinal/Abdominal: Normal Exam, Bowel Sounds, Soft, No Tenderness Neurological/Psych: Oriented x3, Normal Speech, Normal Cognition Gait: Steady ED Course And Treatment O2 Sat by Pulse Oximetry: 96 (RA) Pulse Ox Interpretation: Normal Progress Note: Prior visits reviewed - patient has been on isosorbide mononitrate 30mg PO. PO Med and accucheck ordered and reviewed. Disposition Counseled Patient/Family Regarding: Studies Performed, Diagnosis, Need For Followup, Rx Given - Disposition Referrals: [facility] [Outside] Disposition: HOME/ ROUTINE Disposition Time: 23:35 Condition: STABLE Additional Instructions: FOLLOW UP WITH YOUR DOCTOR/CLINIC IN 1-2 DAYS USE MEDICATIONS DIRECTED RETURN TO EMERGENCY ROOM IF SYMPTOMS WORSEN Prescriptions: Isosorbide Mononitrate [Isosorbide Mononitrate ER] 30 mg PO DAILY #30 tab.er.24h Instructions: High Blood Pressure (DC) Forms: [facility] (Frisian) Print Language: BELARUSIAN - POA Present On Arrival: None - Clinical Impression Clinical Impression: HTN (hypertension), Noncompliance with medication regimen
[2017-06-01 03:57] VITALS: BP 181/89; RESP 20; O2SAT 95
[2017-06-01 04:28] VITALS: PULSE 80
== END 2017-06-01 03:50 | disposition home or self-care (01) ==
LOC: C.ER 19:49
DX: I10 Essential (primary) hypertension (principal); Z91.14 Patient's other noncompliance with medication regimen

== ENCOUNTER 2017-06-13 16:54 | Emergency (ER) | payer MEDICARE, OTHER ==
[2017-06-13 16:54] VITALS: PULSE 125; BMI 40.3
[2017-06-13 17:13] VITALS: BP 144/89; PULSE 76; RESP 20; TEMP 98; O2SAT 96
--- NOTE | 2017-06-13 17:20 | C.PDOC ---
History Of Present Illness 61 year old female, whose PMHx includes Coronary Artery Disease, ESRD (on hemodialysis), and HIV, presents to the ED for evaluation of chronic pain to her bilateral lower extremities (left > right). Patient has been evaluated in [facility] ED around seven times within the past month. Review of prior records show patient has underdone Knee XR and DVT studies, both of which have produced unremarkable results. Patient denies fever, chills, nausea, vomiting. Time Seen by Provider: 06/13/17 17:12 Chief Complaint (Nursing): Lower Extremity Problem/Injury History Per: Patient History/Exam Limitations: no limitations Onset/Duration Of Symptoms: Hrs Current Symptoms Are (Timing): Still Present Additional History Per: Patient Past Medical History Reviewed: Historical Data, Nursing Documentation, Vital Signs Vital Signs: Last Vital Signs Temp 98.0 F 06/13/17 16:56 Pulse 76 06/13/17 16:56 Resp 20 06/13/17 16:56 BP 144/89 06/13/17 16:56 Pulse Ox 96 06/13/17 22:45 - Medical History PMH: Anemia, Anxiety, Arthritis, CAD, CHF, COPD, Depression, Deep Vein Thrombosis, HIV, HTN, Hypercholesterolemia, Hyperlipidemia, Hypothyroidism, Pancreatitis, Peripheral Edema, End Stage Renal Disease, Chronic Pain (chronic lower extremity pain ) Denies: Chronic Kidney Disease Surgical History: Pacemaker - [facility] Procedures (02/12/17) EXCISION OF LEFT KIDNEY, PERCUTANEOUS APPROACH, DIAGNOSTIC (12/28/16) FLUOROSCOPY OF SUPERIOR VENA CAVA, GUIDANCE (02/12/17) GAIT TRAINING/FUNCTIONAL AMBULATION TREATMENT (08/05/15) INSERTION OF INFUSION DEV INTO SUP VENA CAVA, PERC APPROACH (02/12/17) INSERTION OF INTRALUM DEV INTO INF VENA CAVA, PERC APPROACH (07/30/15) INSERTION OF VAD INTO CHEST SUBCU/FASCIA, PERC APPROACH (02/12/17) INTRODUCTION OF SERUM/TOX/VACCINE INTO MUSCLE, PERC APPROACH (11/27/14) NEBULIZER THERAPY (09/12/14) Family History: States: Unknown Family Hx - Social History Hx Tobacco Use: Yes Hx Alcohol Use: No Hx Substance Use: No - Immunization History Hx Tetanus Toxoid Vaccination: No Hx Influenza Vaccination: No Hx Pneumococcal Vaccination: No Review Of Systems Constitutional: Negative for: Fever, Chills Gastrointestinal: Negative for: Nausea, Vomiting Musculoskeletal: Positive for: Other (bilateral lower extremity pain (left>right )) Physical Exam - Physical Exam Appears: Non-toxic, No Acute Distress Skin: Normal Color, Warm, Dry Head: Atraumatic, Normacephalic Eye(s): bilateral: Normal Inspection Oral Mucosa: Moist Teeth: Edentulous Neck: Supple Chest: Symmetrical, No Deformity, No Tenderness Cardiovascular: Rhythm Regular, No Murmur Respiratory: Normal Breath Sounds, No Rales, No Rhonchi, No Wheezing Gastrointestinal/Abdominal: Soft, No Tenderness, No Guarding, No Rebound, Other (obese ) Extremity: Normal ROM, No Tenderness, No Calf Tenderness, Capillary Refill ( less than 2 seconds ), No Deformity, Other (pitting edema to bilateral lower extremities, left>right) Pulses: Left Dorsalis Pedis: Normal, Right Dorsalis Pedis: Normal Neurological/Psych: Oriented x3, Normal Speech, Normal Cognition, Normal Sensation Gait: Steady (with cane) ED Course And Treatment O2 Sat by Pulse Oximetry: 96 (on RA) Pulse Ox Interpretation: Normal Medical Decision Making Medical Decision Making: Case discussed with patient's PMD, Dr. Rodriguez, who agrees to refer patient to pain management. On re-exam, patient is resting comfortably, showing no signs of distress and is stable for discharge. Patient is advised to f/u with pain management within 1-2 days for further evaluation. Disposition Counseled Patient/Family Regarding: Diagnosis, Need For Followup - Disposition Referrals: Hany Rodriguez MD [Staff Provider] - Mahendra Everett MD [Staff Provider] - Disposition: HOME/ ROUTINE Disposition Time: 17:24 Condition: STABLE Instructions: Chronic Pain (DC) Forms: General Discharge Instructions - POA Present On Arrival: None - Clinical Impression Clinical Impression: Joint swelling, Arthritis - Scribe Statement The provider has reviewed the documentation as recorded by the Scribe (Tanika Pepe) Provider Attestation: All medical record entries made by the Scribe were at my direction and personally dictated by me. I have reviewed the chart and agree that the record accurately reflects my personal performance of the history, physical exam, medical decision making, and the department course for this patient. I have also personally directed, reviewed, and agree with the discharge instructions and disposition.
== END 2017-06-13 17:29 | disposition home or self-care (01) ==
LOC: C.ER 16:54
DX: M19.90 Unspecified osteoarthritis, unspecified site (principal); M25.40 Effusion, unspecified joint

== ENCOUNTER 2017-06-13 23:22 | Emergency (ER) | payer MEDICARE, OTHER ==
[2017-06-13 23:23] VITALS: PULSE 125; BMI 40.3
--- NOTE | 2017-06-13 23:35 | C.PDOC ---
History Of Present Illness 61yo female, presents to ED for evaluation of chronic knee pain. Patient was seen in this ER 2 x today with same complaints and was recently discharged from another facility with same complaints. She denies any trauma, injury, weakness, numbness. She has no medical complaints. Time Seen by Provider: 06/13/17 23:29 History Per: Patient History/Exam Limitations: no limitations Onset/Duration Of Symptoms: Persistent Current Symptoms Are (Timing): Still Present Reports Recently: Seen In ED Past Medical History Reviewed: Historical Data, Nursing Documentation, Vital Signs - Medical History PMH: Anemia, Anxiety, Arthritis, CAD, CHF, COPD, Depression, Deep Vein Thrombosis, HIV, HTN, Hypercholesterolemia, Hyperlipidemia, Hypothyroidism, Pancreatitis, Peripheral Edema, End Stage Renal Disease, Chronic Pain (chronic lower extremity pain ) Denies: Chronic Kidney Disease Surgical History: Pacemaker - [facility] Procedures (02/12/17) EXCISION OF LEFT KIDNEY, PERCUTANEOUS APPROACH, DIAGNOSTIC (12/28/16) FLUOROSCOPY OF SUPERIOR VENA CAVA, GUIDANCE (02/12/17) GAIT TRAINING/FUNCTIONAL AMBULATION TREATMENT (08/05/15) INSERTION OF INFUSION DEV INTO SUP VENA CAVA, PERC APPROACH (02/12/17) INSERTION OF INTRALUM DEV INTO INF VENA CAVA, PERC APPROACH (07/30/15) INSERTION OF VAD INTO CHEST SUBCU/FASCIA, PERC APPROACH (02/12/17) INTRODUCTION OF SERUM/TOX/VACCINE INTO MUSCLE, PERC APPROACH (11/27/14) NEBULIZER THERAPY (09/12/14) Family History: States: No Known Family Hx, Unknown Family Hx - Social History Hx Tobacco Use: Yes Hx Alcohol Use: No Hx Substance Use: No - Immunization History Hx Tetanus Toxoid Vaccination: No Hx Influenza Vaccination: No Hx Pneumococcal Vaccination: No Review Of Systems Except As Marked, All Systems Reviewed And Found Negative. Musculoskeletal: Positive for: Leg Pain Neurological: Negative for: Weakness, Numbness Physical Exam - Physical Exam Appears: Non-toxic, No Acute Distress, Other (disheveled, foul smelling, unkempt ) Skin: Normal Color Head: Normacephalic Eye(s): bilateral: Normal Inspection Neck: Normal ROM, Supple Chest: Symmetrical Cardiovascular: Rhythm Regular Respiratory: Normal Breath Sounds, No Wheezing Extremity: Normal ROM, No Pedal Edema, No Deformity Neurological/Psych: Oriented x3 Gait: Steady Medical Decision Making Medical Decision Makinrd ED visit today ([place] in AM, this afternoon, and now in ED) with same complaint of chronic pain pt's issues more than adequately addressed in prior evals and pt to see Chronic Pain specialist and/or Dr. Rodriguez No sig change from eval earlier today, no new complaints. No further w/u indicated now. Malingering. Disposition Doctor Will See Patient In The: Office Counseled Patient/Family Regarding: Studies Performed, Diagnosis - Disposition Referrals: [facility] [place] [Outside] [facility] [Outside] [facility] [Outside] [facility] [Outside] [facility] [place] [Outside] Hany Rodriguez MD [Staff Provider] - Disposition: HOME/ ROUTINE Disposition Time: 23:33 Condition: GOOD Additional Instructions: seek nightly usp placement Follow-up with Chronic Pain Follow-up w Dr. Rodriguez Instructions: Chronic Pain Forms: [facility] ([place] Island[place]) - Clinical Impression Clinical Impression: Malingering, Homelessness, Chronic knee pain - Scribe Statement The provider has reviewed the documentation as recorded by the Scribe (Radha Bates) Provider Attestation: All medical record entries made by the Scribe were at my direction and personally dictated by me. I have reviewed the chart and agree that the record accurately reflects my personal performance of the history, physical exam, medical decision making, and the department course for this patient. I have also personally directed, reviewed, and agree with the discharge instructions and disposition.
[2017-06-14 03:07] VITALS: BP 137/79; PULSE 71; RESP 19; TEMP 97; O2SAT 96
== END 2017-06-14 03:06 | disposition home or self-care (01) ==
LOC: C.ER 23:22
DX: Z76.5 Malingerer [conscious simulation] (principal); G89.29 Other chronic pain; M25.569 Pain in unspecified knee; Z59.0 Homelessness

== ENCOUNTER 2017-07-14 16:12 | Inpatient (IN) | payer MEDICARE, OTHER ==
[2017-07-14 16:12] VITALS: PULSE 125; BMI 36.6
--- NOTE | 2017-07-14 17:13 | RAD ---
HISTORY: SOB COMPARISON: 05/13/2017 TECHNIQUE: Chest PA and lateral FINDINGS: LUNGS: No active pulmonary disease. PLEURA: Elevated left hemidiaphragm. Distended loop of colon beneath left hemidiaphragm as on prior examination. CARDIOVASCULAR: Normal heart size. Right tunneled central venous dialysis catheter. OSSEOUS STRUCTURES: No significant abnormalities. VISUALIZED UPPER ABDOMEN: Normal. OTHER FINDINGS: None. IMPRESSION: Elevated left hemidiaphragm. No acute infiltrate.
--- NOTE | 2017-07-14 17:16 | C.PDOC ---
History Of Present Illness 61 y/o female, w/PMhx of HTN, CAD, COPD, and End Stage Renal Disease, presents to the ER complaining of SOB. Patient states that she is not going to dialysis. Denies having fever, chills, and other complaints at this time. Time Seen by Provider: 07/14/17 16:41 Chief Complaint (Nursing): Cough, Cold, Congestion History Per: Patient History/Exam Limitations: no limitations Onset/Duration Of Symptoms: Days Current Symptoms Are (Timing): Still Present Severity: Moderate Past Medical History Reviewed: Historical Data, Nursing Documentation, Vital Signs Vital Signs: Last Vital Signs Temp 98.2 F 07/14/17 16:15 Pulse 77 07/14/17 16:15 Resp 20 07/14/17 16:15 BP 175/97 H 07/14/17 16:15 Pulse Ox 98 07/14/17 17:58 - Medical History PMH: Anemia, Anxiety, Arthritis, Atrial Fibrillation, CAD, CHF, COPD, Depression , Deep Vein Thrombosis, Gastritis, HIV, HTN, Hypercholesterolemia, Hyperlipidemia, Hypothyroidism, Pancreatitis, Peripheral Edema, End Stage Renal Disease, Chronic Pain (chronic lower extremity pain ) Surgical History: Pacemaker - [facility] Procedures (02/12/17) EXCISION OF LEFT KIDNEY, PERCUTANEOUS APPROACH, DIAGNOSTIC (12/28/16) FLUOROSCOPY OF SUPERIOR VENA CAVA, GUIDANCE (02/12/17) GAIT TRAINING/FUNCTIONAL AMBULATION TREATMENT (08/05/15) INSERTION OF INFUSION DEV INTO SUP VENA CAVA, PERC APPROACH (02/12/17) INSERTION OF INTRALUM DEV INTO INF VENA CAVA, PERC APPROACH (07/30/15) INSERTION OF VAD INTO CHEST SUBCU/FASCIA, PERC APPROACH (02/12/17) INTRODUCTION OF SERUM/TOX/VACCINE INTO MUSCLE, PERC APPROACH (11/27/14) NEBULIZER THERAPY (09/12/14) Family History: States: No Known Family Hx - Social History Hx Tobacco Use: Yes Hx Alcohol Use: Yes Hx Substance Use: Yes - Immunization History Hx Tetanus Toxoid Vaccination: No Hx Influenza Vaccination: Yes Hx Pneumococcal Vaccination: Yes Review Of Systems Except As Marked, All Systems Reviewed And Found Negative. Constitutional: Negative for: Fever, Chills Respiratory: Positive for: Shortness of Breath. Negative for: Cough Physical Exam - Physical Exam Appears: Non-toxic, No Acute Distress Skin: Normal Color, Warm, Dry Head: Atraumatic, Normacephalic Eye(s): bilateral: Normal Inspection Nose: Normal Oral Mucosa: Moist Neck: Supple Chest: Symmetrical, Other (dialysis catheter to right anterior chest wall) Cardiovascular: Rhythm Regular Respiratory: Rales, Rhonchi (bilateral rhonchi), No Wheezing Gastrointestinal/Abdominal: Normal Exam, Soft, No Tenderness Neurological/Psych: Oriented x3, Normal Speech Gait: Steady ED Course And Treatment - Laboratory Results Result Diagrams: 07/14/17 17:14 07/14/17 17:14 Lab Interpretation: Abnormal ECG: Interpreted By Me ECG Rhythm: Sinus Rhythm, ST/T Changes ECG Interpretation: No Acute Changes Rate From EC O2 Sat by Pulse Oximetry: 98 (RA) Pulse Ox Interpretation: Normal - Other Rad CXR X-Ray: Viewed By Me, Read By Radiologist Interpretation: FINDINGS: LUNGS: No active pulmonary disease. PLEURA: Elevated left hemidiaphragm. Distended loop of colon beneath left hemidiaphragm as on prior examination. CARDIOVASCULAR: Normal heart size. Right tunneled central venous dialysis catheter. OSSEOUS STRUCTURES: No significant abnormalities. VISUALIZED UPPER ABDOMEN: Normal. OTHER FINDINGS: None. IMPRESSION: Elevated left hemidiaphragm. No acute infiltrate. Progress Note: X-Ray and labs ordered. Case discussed with Dr Kenny patients construction person who reports patient has missed multiple dialysis treatments and request admission to Dr Rodriguez service Reassessment Condition: Unchanged - Physician Consult Information Physician Contacted: Hany Rodriguez Outcome Of Conversation: admit Medical Decision Making Medical Decision Making: Plan: --Labs --UA --ECG --CXR --Crisis Updates: Case discussed with patient's construction person, Dr. Carreno. Dr. Carreno recommended that the patient be admitted. Case discussed with Dr. Rodriguez. Patient will be admitted under the service of Dr. Rodriguez. Disposition Discussed With : Hany Rodriguez Doctor Will See Patient In The: Hospital - Disposition Disposition: HOSPITALIZED Disposition Time: 16:00 Condition: STABLE - POA Present On Arrival: None - Clinical Impression Clinical Impression: Dyspnea, Noncompliance with medication regimen - PA / MANAGEMENT ANALYST / Resident Statement MD/DO has reviewed & agrees with the documentation as recorded. - Scribe Statement The provider has reviewed the documentation as recorded by the [facility] Provider Attestation All medical record entries made by the Scribe were at my direction and personally dictated by me. I have reviewed the chart and agree that the record accurately reflects my personal performance of the history, physical exam, medical decision making, and the department course for this patient. I have also personally directed, reviewed, and agree with the discharge instructions and disposition. Decision To Admit - Pt Status Changed To: Hospital Disposition Of: Inpatient - Admit Certification Admit to Inpatient:: After my assessment, the patient will require hospitalization for at least two midnights. This is because of the severity of symptoms shown, intensity of services needed, and/or the medical risk in this patient being treated as an outpatient. - InPatient: Physician Admission Certification: I certify that this patient requires 2 or more midnights of care for the following reason:: ESRD. Dyspnea - . Bed Request Type: Regular Admitting Physician: Hany Rodriguez Patient Diagnosis: Acute renal failure (ARF), Dyspnea
[2017-07-14 17:18] LABS: BASO % 0.4 % (0.0-2.0); EOS # 0.2 K/uL (0.0-0.7); HEMOGLOBIN 10.6 g/dL (11.0-16.0); LYMPH # 0.4 K/uL (1.0-4.3); MEAN CELL VOLUME 97.5 fL (81.0-99.0); MEAN CORPUSCULAR HEMOGLOBIN 32.3 pg (27.0-31.0); MEAN CORPUSCULAR HGB CONC 33.1 g/dL (33.0-37.0); MEAN PLATELET VOLUME 9.1 fL (7.2-11.7); MONO # 0.7 K/uL (0.0-0.8); MONO % 11.1 % (0.0-10.0); NEUT # 4.7 K/uL (1.8-7.0); NEUT % 78.5 % (50.0-75.0); PLATELET COUNT 146 K/uL (130-400); RBC 3.28 Mil/uL (3.80-5.20); RED CELL DISTRIBUTION WIDTH 15.7 % (11.5-14.5)
[2017-07-14 17:39] LABS: ALBUMIN 4.5 g/dL (3.5-5.0); CALCIUM 9.1 mg/dl (8.6-10.4)
[2017-07-14 17:50] LABS: CK-MB 5.14 ng/mL (0.0-3.38); TROPONIN I 0.061 ng/mL (0.00-0.120)
[2017-07-14 18:00] LABS: ANISOCYTOSIS SLIGHT; LYMPHOCYTE 6 % (20-40); MONOCYTE 12 % (0-10); NEUTROPHIL 82 % (50-75); PLATELET ESTIMATE NORMAL (NORMAL); TOTAL CELLS COUNTED 100
[2017-07-14 18:01] LABS: HYPOCHROMIC SLIGHT
[2017-07-14] MEDS ORDERED: EMTRICITABINE 200 MG CAP PO SCH (19:00)
--- NOTE | 2017-07-14 23:49 | CP.PCM.HP ---
History of Present Illness - History of Present Illness History of Present Illness: CC: Missed HD HPI: 61 y/o female, w/PMhx of HTN, CAD, COPD, and End Stage Renal Disease on HD , OA, morbidly obeses, who is homeless, on HAART therapy non compaint with diet , medication and follow up, presents to the ER complaining of SOB. Patient states that she is not going to dialysis. Denies having fever, chills, and other complaints at this time Present on Admission - Present on Admission Any Indicators Present on Admission: Yes Review of Systems - Review of Systems Systems not reviewed;Unavailable: Acuity of Condition - Constitutional Constitutional: Fatigue, Lethargy, Malaise, Weakness - EENT Eyes: absent: As Per HPI, Blind Spots, Blurred Vision, Change in Vision, Decreased Night Vision, Diplopia, Discharge, Dry Eye, Exophthalmos, Floaters, Irritation, Itchy Eyes, Loss of Peripheral Vision, Pain, Photophobia, Requires Corrective Lenses, Sees Flashes, Spots in Vision, Tunnel Vision, Other Visual Disturbances, Loss of Vision, Other - Breasts Breasts: absent: As Per HPI, Change in Shape, Mass, Pain, Nipple Discharge, Nipple Inversion, Skin Changes, Swelling, Other - Cardiovascular Cardiovascular: absent: As Per HPI, Acrocyanosis, Chest Pain, Chest Pain at Rest , Chest Pain with Activity, Claudication, Diaphoresis, Dyspnea, Dyspnea on Exertion, Edema, Irregular Heart Rhythm, Pain Radiating to Arm/Neck/Jaw, Leg Edema, Leg Ulcers, Lightheadedness, Orthopnea, Palpitations, Paroxysmal Nocturnal Dyspnea, Pedal Edema, Radiating Pain, Rapid Heart Rate, Slow Heart Rate, Syncope, Other - Respiratory Respiratory: absent: As Per HPI, Cough, Dyspnea, Hemoptysis, Dyspnea on Exertion , Wheezing, Snoring, Stridor, Pain on Inspiration, Chest Congestion, Excessive Mucous Production, Change in Mucous Color, Pain with Coughing, Other - Gastrointestinal Gastrointestinal: Abdominal Pain, Bloating. absent: As Per HPI, Belching, Change in Bowel Habits, Change in Stool Character, Coffee Ground Emesis, Constipation, Cramping, Diarrhea, Dyspepsia, Dysphagia, Early Satiety, Excessive Flatus, Fecal Incontinence, Heartburn, Hematemesis, Hematochezia, Loose Stools, Melena, Nausea, Odynophagia, Temesmus, Vomiting, Other - Musculoskeletal Musculoskeletal: Arthralgias, Back Pain, Muscle Cramps, Muscle Weakness, Stiffness - Integumentary Integumentary: absent: As Per HPI, Acne, Alopecia, Bleeding Lesions, Change in Hair, Change in Nails, Change in Pigmentation, Changing Lesions, Dry Skin, Erythema, Furuncle, Hirsutism, Lesions, New Lesions, Non-Healing Lesions, Photosensitivity, Pruritus, Rash, Skin Pain, Skin Ulcer, Sores, Striae, Swelling , Unusual Bruising, Wounds, Jaundice, Other - Psychiatric Psychiatric: Anhedonia, Irritability - Endocrine Endocrine: absent: As Per HPI, Change in Body Appearance, Change in Libido, Cold Intolorance, Deepening of Voice, Excessive Sweating, Fatigue, Flushing, Heat Intolorance, Increase in Ring/Shoe/Hat Size, Palpitations, Polydipsia, Polyphagia, Polyuria, Other Past Patient History - Infectious Disease Hx of Infectious Diseases: None - Tetanus Immunizations Tetanus Immunization: Unknown - Past Medical History & Family History Past Medical History?: Yes - Past Social History Smoking Status: Light Smoker < 10 Cigarettes Daily - CARDIAC Hx Atrial Fibrillation: Yes Hx Congestive Heart Failure: Yes Hx Hypercholesterolemia: Yes Hx Hypertension: Yes Hx Pacemaker: Yes Hx Peripheral Edema: Yes - PULMONARY Hx Chronic Obstructive Pulmonary Disease (COPD): Yes - HEENT Hx HEENT Problems: No - RENAL Hx Chronic Kidney Disease: No - ENDOCRINE/METABOLIC Hx Hypothyroidism: Yes - HEMATOLOGICAL/ONCOLOGICAL Hx Anemia: Yes Hx Human Immunodeficiency Virus (HIV): Yes - INTEGUMENTARY Hx Dermatological Problems: No - MUSCULOSKELETAL/RHEUMATOLOGICAL Hx Arthritis: Yes - GASTROINTESTINAL Hx Gastritis: Yes Hx Pancreatitis: Yes - PSYCHIATRIC Hx Anxiety: Yes Hx Depression: Yes Hx Substance Use: Yes - SURGICAL HISTORY Hx Surgeries: Yes Other/Comment: dialysis catheter insertion, left stent - ANESTHESIA Hx Anesthesia: Yes Hx Anesthesia Reactions: No Hx Malignant Hyperthermia: No Meds Allergies/Adverse Reactions: Allergies Allergy/AdvReac Type Severity Reaction Status Date / Time No Known Allergies Allergy Verified 07/14/17 16:19 Physical Exam - Constitutional Appears: No Acute Distress - Neck Exam Neck exam: Positive for: Normal Inspection - Respiratory Exam Respiratory Exam: Decreased Breath Sounds, Rales, Rhonchi - Cardiovascular Exam Cardiovascular Exam: REGULAR RHYTHM - GI/Abdominal Exam GI & Abdominal Exam: Normal Bowel Sounds, Soft. absent: Tenderness - Rectal Exam Rectal Exam: Deferred - Neurological Exam Neurological exam: Alert, Oriented x3 - Psychiatric Exam Psychiatric exam: Depressed - Skin Additional comments: post inflamatory hyperpigmentation on face Results - Vital Signs Recent Vital Signs: Last Vital Signs Temp 98.8 F 07/14/17 21:38 Pulse 73 07/14/17 21:38 Resp 16 07/14/17 21:38 BP 173/78 H 07/14/17 21:38 Pulse Ox 97 07/14/17 21:38 - Labs Result Diagrams: 07/14/17 17:14 07/14/17 17:14 Labs: Laboratory Results - last 24 hr 07/14/17 07/14/17 17:14 17:14 WBC 6.0 RBC 3.28 L Hgb 10.6 L Hct 32.0 L MCV 97.5 MCH 32.3 H MCHC 33.1 RDW 15.7 H Plt Count 146 MPV 9.1 Neut % (Auto) 78.5 H Lymph % (Auto) 7.0 L Cassia % (Auto) 11.1 H Eos % (Auto) 3.0 Baso % (Auto) 0.4 Neut # (Auto) 4.7 Lymph # (Auto) 0.4 L Cassia # (Auto) 0.7 Eos # (Auto) 0.2 Baso # (Auto) 0.0 Neutrophils % (Manual) 82 H Lymphocytes % (Manual) 6 L Monocytes % (Manual) 12 H Platelet Estimate Normal Hypochromasia (manual) Slight Anisocytosis (manual) Slight Sodium 146 Potassium 5.6 H Chloride 111 H Carbon Dioxide 23 Anion Gap 18 BUN 83 H Creatinine 5.1 H Est GFR ( Amer) 10 Est GFR (Non-Af Amer) 9 Random Glucose 113 H Calcium 9.1 Total Bilirubin 0.4 AST 31 ALT 34 Alkaline Phosphatase 143 H D CK-MB (Mass) 5.14 H Troponin I 0.0610 Total Protein 8.9 H Albumin 4.5 Globulin 4.4 H Albumin/Globulin Ratio 1.0 Assessment & Plan (1) Fluid overload Assessment and Plan: pt missed her HD, she is for Hd and renal eval admit detailed orders written Status: Acute (2) Acute renal failure (ARF) Status: Acute (3) Dyspnea Status: Acute (4) SHAVONNE (acute kidney injury) Status: Acute (5) HIV 2 (human immunodeficiency virus type 2) Status: Acute (6) HTN (hypertension) Status: Acute (7) AIDS (acquired immune deficiency syndrome) Status: Chronic Priority: High (8) ESRD on hemodialysis Status: Chronic
[2017-07-15] MEDS: diltiaZEM 120 mg/24 Hours CD Cap PO SCH (09:36)
[2017-07-15 10:34] LABS: BASO % 0.6 % (0.0-2.0); EOS # 0.2 K/uL (0.0-0.7); EOS % 4.1 % (0.0-4.0); HEMOGLOBIN 9.4 g/dL (11.0-16.0); LYMPH # 0.5 K/uL (1.0-4.3); LYMPH % 7.8 % (20.0-40.0); MEAN CELL VOLUME 96.8 fL (81.0-99.0); MEAN CORPUSCULAR HEMOGLOBIN 32.5 pg (27.0-31.0); MEAN CORPUSCULAR HGB CONC 33.6 g/dL (33.0-37.0); MEAN PLATELET VOLUME 9.3 fL (7.2-11.7); MONO # 0.7 K/uL (0.0-0.8); MONO % 11.1 % (0.0-10.0); NEUT # 4.7 K/uL (1.8-7.0); NEUT % 76.4 % (50.0-75.0); NRBC % 0.2 % (0.0-2.0); PLATELET COUNT 133 K/uL (130-400); RBC 2.88 Mil/uL (3.80-5.20); RED CELL DISTRIBUTION WIDTH 15.3 % (11.5-14.5); WHITE BLOOD COUNT 6.1 K/uL (4.8-10.8)
[2017-07-15 11:03] LABS: ANISOCYTOSIS SLIGHT; LYMPHOCYTE 7 % (20-40); MONOCYTE 10 % (0-10); NEUTROPHIL 83 % (50-75); PLATELET ESTIMATE NORMAL (NORMAL); TOTAL CELLS COUNTED 100
[2017-07-15 11:05] LABS: ALB/GLOB RATIO 0.9 (1.0-2.1); ALBUMIN 3.3 g/dL (3.5-5.0); CALCIUM 8.6 mg/dl (8.6-10.4); URIC ACID 7.5 mg/dL (2.2-7.5)
[2017-07-15 11:13] LABS: IRON 45 ug/dL (37-170)
[2017-07-15 11:22] LABS: % IRON SATURATION 18 (20-55); TOTAL IRON BINDING CAPACITY 247 ug/dL (250-450)
--- NOTE | 2017-07-15 14:06 | CARD ---
APPROVED REPORT EKG Measurement Heart [id number] <Conclusion> Normal sinus rhythm Nonspecific ST and T wave abnormality Abnormal ECG
--- NOTE | 2017-07-15 16:04 | CP.PCM.PN ---
Subjective - Date & Time of Evaluation Date of Evaluation: 07/15/17 Time of Evaluation: 16:04 - Subjective Subjective: venous doppler to r/o dvt Objective - Vital Signs/Intake and Output Vital Signs (last 24 hours): Temp Pulse Resp BP Pulse Ox 98.1 F 75 18 161/93 H 98 07/15/17 09:30 07/15/17 13:30 07/15/17 13:30 07/15/17 13:30 07/15/17 13:30 Intake and Output: 07/15/17 07/15/17 06:59 18:59 Intake Total 240 Balance 240 - Medications Medications: Current Medications Acetaminophen (Tylenol 325mg Tab) 650 mg PO Q6H PRN PRN Reason: Pain, Mild to Moderate (1-7) Calcitriol (Rocaltrol) 0.5 mcg PO DAILY [facility] Last Admin: 07/15/17 09:37 Dose: Not Given Carvedilol (Coreg) 12.5 mg PO BID [facility] Last Admin: 07/15/17 09:36 Dose: Not Given Clonidine HCl (Catapres Tts1 0.1 Mg/24 Hr) 1 patch TD QWK [facility] Last Admin: 07/14/17 20:03 Dose: 1 patch Diltiazem HCl (Cardizem Cd) 120 mg PO DAILY [facility] Last Admin: 07/15/17 09:36 Dose: Not Given Efavirenz (Sustiva) 600 mg PO DAILY [facility] PRN Reason: Protocol Last Admin: 07/15/17 09:37 Dose: Not Given Emtricitabine (Emtriva) 200 mg PO Q96H [facility] PRN Reason: Protocol Last Admin: 07/14/17 20:03 Dose: 200 mg Furosemide (Lasix) 40 mg PO BID [facility] Last Admin: 07/15/17 09:37 Dose: Not Given Gabapentin (Neurontin) 100 mg PO TID [facility] Last Admin: 07/15/17 14:25 Dose: 100 mg Hydralazine HCl (Apresoline) 100 mg PO BID [facility] Last Admin: 07/15/17 09:36 Dose: Not Given Hydroxyzine HCl (Atarax) 25 mg PO BID [facility] Last Admin: 07/15/17 09:36 Dose: Not Given Isosorbide Mononitrate (Imdur Er) 30 mg PO DAILY [facility] Last Admin: 07/15/17 09:37 Dose: Not Given Raltegravir (Isentress) 400 mg PO BID [facility] PRN Reason: Protocol Last Admin: 07/15/17 09:37 Dose: Not Given Rosuvastatin Calcium (Crestor) 5 mg PO DAILY [facility] Last Admin: 07/15/17 09:36 Dose: Not Given Tramadol HCl (Ultram) 50 mg PO TID PRN PRN Reason: Pain, severe (8-10) Last Admin: 07/15/17 09:15 Dose: 50 mg - Labs Labs: 07/15/17 10:24 07/15/17 10:24
--- NOTE | 2017-07-16 02:46 | CON ---
DATE: NEPHROLOGY CONSULTATION HISTORY OF PRESENT ILLNESS: A 61-year-old female with past medical history of hypertension; diabetes; AFib; DVT, status post IVC filter and on Eliquis; HIV, on HAART; and ESRD, on hemodialysis (Wednesday, , Wednesday at [facility] under [facility]), presented to ED yesterday with shortness of breath. Nephrology being consulted for ESRD care. The patient has been homeless and currently living in a fci. Has a history of medical noncompliance. Has not been coming to her outpatient hemodialysis session regularly since the past 3 weeks. In the interim, the patient was admitted at [facility] for unclear reason; was discharged from there almost 2 weeks ago. The patient has had multiple ER visits for nonspecific complaints and has been discharged without incident. The patient now reports that she was having some shortness of breath. Also complaining of pain in her leg. Otherwise refusing to give any detailed history. Refusing physical exam. PAST MEDICAL HISTORY: As above. 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 The patient subsequently had HAART therapy changed. MEDICATIONS: The patient has been off all medications since being discharged from [facility]. SOCIAL HISTORY: Current smoker and drinker. FAMILY HISTORY: Parents with diabetes. REVIEW OF SYSTEMS: Limited. PHYSICAL EXAMINATION: GENERAL: Unable to examine due to the patient refusing. VITAL SIGNS: This afternoon, blood pressure 202/91, heart rate 88, respirations 20, temperature 98.0. LABORATORY DATA: CBC: WBC 6.1, hemoglobin 9.4, hematocrit 27.9, and platelets 133. Chemistry panel: Sodium 141, potassium 5.5, chloride 109, bicarbonate 21, BUN 77, creatinine 4.8, glucose 117, calcium 8.6. Phosphorus 4.6. Albumin 3.3. Iron saturation 18%, ferritin 357, 25-hydroxy vitamin D level 24.0. Chest x-ray directly reviewed, lungs clear. ASSESSMENT AND PLAN: 1. End-stage renal disease, on hemodialysis. Mild hyperkalemia. Symptoms consistent with volume excess; dialyzing today per routine on 2 K, 2.5 calcium, 32 bicarbonate dialysate with ultrafiltration goal of 2.5 L net. 2. Hypertensive end-stage renal disease. Blood pressure markedly elevated with the patient just restarting her blood pressure medications. Given her propensity for lack of medication adherence, we will avoid giving clonidine due to fear of rebound hypertension. Continue with Coreg 12.5 mg b.i.d., diltiazem 120 mg daily, Lasix 40 mg b.i.d., hydralazine 100 mg b.i.d., and Imdur 30 mg daily. Will benefit from ultrafiltration on hemodialysis. 3. Anemia of end-stage renal disease. Hemoglobin below goal. We will give erythropoietin 10,000 with next HD session. We will give IV iron 100 mg as a one-time dose. 4. Chronic kidney disease mineral bone disorder. The patient was getting calcitriol with hemodialysis. For now, we will continue it as daily dosing. Awaiting PTH level. Phos otherwise relatively well controlled off of any binders. We will continue to monitor for now. 5. Human immunodeficiency virus, previously on HAART. The patient was counseled that without her antiviral medications, her virus will be uncontrolled. Regimen was changed in January due to her renal failure. 6. Vascular access. The patient is currently getting dialyzed via right internal jugular tunneled catheter. I made multiple attempts to get her to vascular surgeon in order to get arteriovenous fistula/arteriovenous graft placed. We will consult vascular surgery in-house if the patient is cooperative. Thank you for this referral. We will be following up closely. Rogerio Carreno MD
--- NOTE | 2017-07-16 05:28 | CP.PCM.PN ---
Subjective - Date & Time of Evaluation Date of Evaluation: 07/15/17 Time of Evaluation: 19:00 - Subjective Subjective: Patient seen and examined at bedside today, Patient resting comfortably in bed in no distress.pt is for venous doppler to rule out DVT Objective - Vital Signs/Intake and Output Vital Signs (last 24 hours): Temp Pulse Resp BP Pulse Ox 98 F 83 20 156/73 H 94 L 07/16/17 00:00 07/16/17 00:00 07/16/17 00:00 07/16/17 00:00 07/16/17 00:00 Intake and Output: 07/15/17 07/16/17 18:59 06:59 Intake Total 240 Balance 240 - Medications Medications: Current Medications Acetaminophen (Tylenol 325mg Tab) 650 mg PO Q6H PRN PRN Reason: Pain, Mild to Moderate (1-7) Calcitriol (Rocaltrol) 0.5 mcg PO DAILY [facility] Last Admin: 07/15/17 09:37 Dose: Not Given Carvedilol (Coreg) 12.5 mg PO BID [facility] Last Admin: 07/15/17 17:33 Dose: 12.5 mg Clonidine HCl (Catapres Tts1 0.1 Mg/24 Hr) 1 patch TD QWK [facility] Last Admin: 07/14/17 20:03 Dose: 1 patch Diltiazem HCl (Cardizem Cd) 120 mg PO DAILY [facility] Last Admin: 07/15/17 09:36 Dose: Not Given Efavirenz (Sustiva) 600 mg PO DAILY [facility] PRN Reason: Protocol Last Admin: 07/15/17 09:37 Dose: Not Given Emtricitabine (Emtriva) 200 mg PO Q96H [facility] PRN Reason: Protocol Last Admin: 07/14/17 20:03 Dose: 200 mg Furosemide (Lasix) 40 mg PO BID [facility] Last Admin: 07/15/17 17:33 Dose: 40 mg Gabapentin (Neurontin) 100 mg PO TID [facility] Last Admin: 07/15/17 17:33 Dose: 100 mg Hydralazine HCl (Apresoline) 100 mg PO BID [facility] Last Admin: 07/15/17 17:33 Dose: 100 mg Hydroxyzine HCl (Atarax) 25 mg PO BID [facility] Last Admin: 07/15/17 17:33 Dose: 25 mg Isosorbide Mononitrate (Imdur Er) 30 mg PO DAILY [facility] Last Admin: 07/15/17 09:37 Dose: Not Given Raltegravir (Isentress) 400 mg PO BID [facility] PRN Reason: Protocol Last Admin: 07/15/17 17:32 Dose: 400 mg Rosuvastatin Calcium (Crestor) 5 mg PO DAILY [facility] Last Admin: 07/15/17 09:36 Dose: Not Given Tramadol HCl (Ultram) 50 mg PO TID PRN PRN Reason: Pain, severe (8-10) Last Admin: 07/15/17 09:15 Dose: 50 mg - Labs Labs: 07/15/17 10:24 07/15/17 10:24 Assessment and Plan (1) Fluid overload Status: Acute (2) Acute renal failure (ARF) Status: Acute (3) Dyspnea Status: Acute (4) SHAVONNE (acute kidney injury) Status: Acute (5) 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
[2017-07-16] MEDS: diltiaZEM 120 mg/24 Hours CD Cap PO SCH ×2 (10:03→12:00)
--- NOTE | 2017-07-16 13:21 | CP.PCM.CON ---
History of Present Illness - History of Present Illness History of Present Illness: Vascular Surgery Consult note- Dr. Duron Reason for Consult: AV Fistula 61F w/ pmhx significant for HTN, CAD, COPD, ESRD on HD, HIV on HAART therapy last CD4 count and viral load unknown. Patient admitted for SOB and that she is currently not going to dialysis. Patient is homeless. During encounter patient reiterated that she does not want any procedure intervention. She continually stated that she would not want a surgical procedure of her Kidney disease, as she admits to not going to dialysis with current permacath. Currently denies: Fevers, chills, nausea, vomiting, diarrhea PMH: stated above PSH: IVC, Permacath in R.IJ ALL: NKDA SocialHx: homeless, +tobacco, +etoh, denies recreational drug use FH: non-contributory 14 point ROS negative otherwise noted above Review of Systems - Review of Systems All systems: reviewed and no additional remarkable complaints except - Constitutional Constitutional: As Per HPI Past Patient History - Infectious Disease Hx of Infectious Diseases: None - Tetanus Immunizations Tetanus Immunization: Unknown - Past Medical History & Family History Past Medical History?: Yes - Past Social History Smoking Status: Light Smoker < 10 Cigarettes Daily - CARDIAC Hx Atrial Fibrillation: Yes Hx Congestive Heart Failure: Yes Hx Hypercholesterolemia: Yes Hx Hypertension: Yes Hx Pacemaker: Yes Hx Peripheral Edema: Yes - PULMONARY Hx Chronic Obstructive Pulmonary Disease (COPD): Yes - HEENT Hx HEENT Problems: No - RENAL Hx Chronic Kidney Disease: No - ENDOCRINE/METABOLIC Hx Hypothyroidism: Yes - HEMATOLOGICAL/ONCOLOGICAL Hx Anemia: Yes Hx Human Immunodeficiency Virus (HIV): Yes - INTEGUMENTARY Hx Dermatological Problems: No - MUSCULOSKELETAL/RHEUMATOLOGICAL Hx Arthritis: Yes - GASTROINTESTINAL Hx Gastritis: Yes Hx Pancreatitis: Yes - PSYCHIATRIC Hx Anxiety: Yes Hx Depression: Yes Hx Substance Use: Yes - SURGICAL HISTORY Hx Surgeries: Yes Other/Comment: dialysis catheter insertion, left stent - ANESTHESIA Hx Anesthesia: Yes Hx Anesthesia Reactions: No Hx Malignant Hyperthermia: No Meds Allergies/Adverse Reactions: Allergies Allergy/AdvReac Type Severity Reaction Status Date / Time No Known Allergies Allergy Verified 07/14/17 16:19 - Medications Medications: Current Medications Acetaminophen (Tylenol 325mg Tab) 650 mg PO Q6H PRN PRN Reason: Pain, Mild to Moderate (1-7) Calcitriol (Rocaltrol) 0.5 mcg PO DAILY [facility] Last Admin: 07/16/17 10:05 Dose: Not Given Carvedilol (Coreg) 12.5 mg PO BID [facility] Last Admin: 07/16/17 10:03 Dose: Not Given Clonidine HCl (Catapres Tts1 0.1 Mg/24 Hr) 1 patch TD QWK [facility] Last Admin: 07/14/17 20:03 Dose: 1 patch Diltiazem HCl (Cardizem Cd) 120 mg PO DAILY [facility] Last Admin: 07/16/17 10:03 Dose: Not Given Efavirenz (Sustiva) 600 mg PO DAILY [facility] PRN Reason: Protocol Last Admin: 07/16/17 10:05 Dose: Not Given Emtricitabine (Emtriva) 200 mg PO Q96H [facility] PRN Reason: Protocol Last Admin: 07/14/17 20:03 Dose: 200 mg Furosemide (Lasix) 40 mg PO BID [facility] Last Admin: 07/16/17 10:05 Dose: Not Given Gabapentin (Neurontin) 100 mg PO TID [facility] Last Admin: 07/16/17 10:05 Dose: Not Given Hydralazine HCl (Apresoline) 100 mg PO BID [facility] Last Admin: 07/16/17 10:03 Dose: Not Given Hydroxyzine HCl (Atarax) 25 mg PO BID [facility] Last Admin: 07/16/17 10:03 Dose: Not Given Isosorbide Mononitrate (Imdur Er) 30 mg PO DAILY [facility] Last Admin: 07/16/17 10:05 Dose: Not Given Raltegravir (Isentress) 400 mg PO BID [facility] PRN Reason: Protocol Last Admin: 07/16/17 10:05 Dose: Not Given Rosuvastatin Calcium (Crestor) 5 mg PO DAILY [facility] Last Admin: 07/16/17 10:03 Dose: Not Given Tramadol HCl (Ultram) 50 mg PO TID PRN PRN Reason: Pain, severe (8-10) Last Admin: 07/15/17 09:15 Dose: 50 mg Physical Exam - Constitutional Appears: No Acute Distress, Older Than Stated Age, Chronically Ill - Head Exam Head Exam: ATRAUMATIC - Eye Exam Eye Exam: EOMI. absent: Scleral icterus - ENT Exam Additional comments: Poor dentition - Neck Exam Additional comments: Permacath R side - Respiratory Exam Respiratory Exam: NORMAL BREATHING PATTERN. absent: Accessory Muscle Use, Respiratory Distress - Cardiovascular Exam Cardiovascular Exam: +S1, +S2. absent: Bradycardia, Tachycardia - GI/Abdominal Exam GI & Abdominal Exam: Soft. absent: Firm, Guarding, Hernia, Tenderness - Extremities Exam Extremities exam: Positive for: pedal edema. Negative for: calf tenderness - Neurological Exam Neurological exam: Alert, Oriented x3 - Psychiatric Exam Psychiatric exam: Depressed, Normal Affect - Skin Skin Exam: Intact, Warm Results - Vital Signs Recent Vital Signs: Last Vital Signs Temp 98.7 F 07/16/17 07:52 Pulse 79 07/16/17 07:52 Resp 20 07/16/17 07:52 BP 129/84 07/16/17 07:52 Pulse Ox 96 07/16/17 07:52 - Labs Result Diagrams: 07/15/17 10:24 07/15/17 10:24 Assessment & Plan - Assessment and Plan (Free Text) Assessment: 61F w/ ESRD Patient has refused any procedural intervention. Wishes made aware to the nurses. States she has and will be non-compliant Plan: - no surgical intervention at this time as patient has refused - continue HD via permacath as long as patient is compliant - discussed w/ Dr. Duron surgical attending Merchant [id number]
--- NOTE | 2017-07-16 14:36 | VASCLAB ---
PROCEDURE: Lower Extremity Venous Duplex Exam. HISTORY: BLE edema, right leg pain; r/o dvt PRIORS: None. TECHNIQUE: Bilateral common femoral, femoral, popliteal and posterior tibial, peroneal and great saphenous veins were evaluated. Flow was assessed with color Doppler, compressibility, assessment of phasic flow and augmentation response. Report prepared by Tyler Rolbero, SAW, RVT FINDINGS: RIGHT: 1. Common Femoral Vein: 1.1. Compressibility - Fully compressible: Thrombus - None : Flow - Phasic: Augmentation -Normal: Reflux - None. 2. Femoral Vein: 2.1. Compressibility - Fully compressible: Thrombus - None : Flow - Phasic: Augmentation -Normal: Reflux - None. 3. Popliteal Vein: 3.1. Compressibility - Partial: Thrombus - Chronic : Flow - Reduced : Augmentation -Reduced: Reflux - None. 4. Posterior Tibial Vein: 4.1. Compressibility - Fully compressible: Thrombus - None: Flow - Phasic: Augmentation -Normal: Reflux - None. 5. Peroneal Vein: 5.1. Compressibility - Fully compressible: Thrombus - None: Flow - Phasic: Augmentation -Normal: Reflux - None. 6. Great Saphenous Vein: 6.1. Compressibility - Fully compressible: Thrombus - None: Flow - Phasic: Augmentation - Normal: Reflux - None. LEFT: 1. Common Femoral Vein: 1.1. Compressibility - Fully compressible: Thrombus - None: Flow - Phasic: Augmentation -Normal: Reflux - None. 2. Femoral Vein: 2.1. Compressibility - Partial: Thrombus - Chronic: Flow - Reduced : Augmentation -Reduced: Reflux - None. 3. Popliteal Vein: 3.1. Compressibility - Partial: Thrombus - Chronic : Flow - Reduced : Augmentation -Reduced: Reflux - None. 4. Posterior Tibial Vein: 4.1. Compressibility - Fully compressible: Thrombus - None: Flow - Phasic: Augmentation -Normal: Reflux - None. 5. Peroneal Vein: 5.1. Compressibility - Fully compressible: Thrombus - None: Flow - Phasic: Augmentation -Normal: Reflux - None. 6. Great Saphenous Vein: 6.1. Compressibility - Fully compressible: Thrombus - None: Flow - Phasic: Augmentation - Normal: Reflux - None. OTHER FINDINGS: NGUYỄN Triana notified about the findings. IMPRESSION: Right: Chronic thrombosis of the right popliteal vein with mild reduction of the venous return. Left: Chronic thrombosis of the left femoral and popliteal veins with mild reduction of the venous return.
--- NOTE | 2017-07-16 19:53 | CP.PCM.PN ---
Subjective - Date & Time of Evaluation Date of Evaluation: 07/16/17 Time of Evaluation: 11:30 - Subjective Subjective: Patient reports feeling well; no shortness of breath; leg pain improved; Objective - Vital Signs/Intake and Output Vital Signs (last 24 hours): Temp Pulse Resp BP Pulse Ox 99.1 F 88 20 182/86 H 99 07/16/17 16:47 07/16/17 16:47 07/16/17 16:47 07/16/17 17:26 07/16/17 16:47 Intake and Output: 07/16/17 07/17/17 18:59 06:59 Intake Total 600 Balance 600 - Medications Medications: Current Medications Acetaminophen (Tylenol 325mg Tab) 650 mg PO Q6H PRN PRN Reason: Pain, Mild to Moderate (1-7) Calcitriol (Rocaltrol) 0.5 mcg PO DAILY [facility] Last Admin: 07/16/17 12:00 Dose: 0.5 mcg Carvedilol (Coreg) 12.5 mg PO BID [facility] Last Admin: 07/16/17 17:26 Dose: 12.5 mg Clonidine HCl (Catapres Tts1 0.1 Mg/24 Hr) 1 patch TD QWK [facility] Last Admin: 07/14/17 20:03 Dose: 1 patch Diltiazem HCl (Cardizem Cd) 120 mg PO DAILY [facility] Last Admin: 07/16/17 12:00 Dose: 120 mg Efavirenz (Sustiva) 600 mg PO DAILY [facility] PRN Reason: Protocol Last Admin: 07/16/17 14:03 Dose: 600 mg Emtricitabine (Emtriva) 200 mg PO Q96H [facility] PRN Reason: Protocol Last Admin: 07/14/17 20:03 Dose: 200 mg Furosemide (Lasix) 40 mg PO BID [facility] Last Admin: 07/16/17 17:25 Dose: 40 mg Gabapentin (Neurontin) 100 mg PO TID [facility] Last Admin: 07/16/17 17:25 Dose: 100 mg Hydralazine HCl (Apresoline) 100 mg PO BID [facility] Last Admin: 07/16/17 17:24 Dose: 100 mg Hydroxyzine HCl (Atarax) 25 mg PO BID [facility] Last Admin: 07/16/17 17:25 Dose: 25 mg Isosorbide Mononitrate (Imdur Er) 30 mg PO DAILY [facility] Last Admin: 07/16/17 12:00 Dose: 30 mg Raltegravir (Isentress) 400 mg PO BID [facility] PRN Reason: Protocol Last Admin: 07/16/17 17:25 Dose: 400 mg Rosuvastatin Calcium (Crestor) 5 mg PO DAILY [facility] Last Admin: 07/16/17 12:00 Dose: 5 mg Tramadol HCl (Ultram) 50 mg PO TID PRN PRN Reason: Pain, severe (8-10) Last Admin: 07/15/17 09:15 Dose: 50 mg - Labs Labs: 07/15/17 10:24 07/15/17 10:24 - Constitutional Appears: Non-toxic, No Acute Distress - Eye Exam Eye Exam: absent: Scleral icterus - ENT Exam ENT Exam: Mucous Membranes Moist - Respiratory Exam Respiratory Exam: Clear to Ausculation Bilateral. absent: Respiratory Distress - Cardiovascular Exam Cardiovascular Exam: RRR, +S1, +S2 - GI/Abdominal Exam GI & Abdominal Exam: Soft. absent: Distended, Tenderness - Extremities Exam Additional comments: mild lower leg edema; - Neurological Exam Neurological Exam: Alert, Awake - Psychiatric Exam Psychiatric exam: absent: Agitated - Skin Skin Exam: Warm. absent: Cyanosis Assessment and Plan (1) ESRD on hemodialysis Assessment & Plan: Dialyzed yesterday for hyperkalemia and volume overload; appears comfortable today; patient giving conflicting answers regarding getting AVF creation procedure; surgery will hold off for now; will continue to credit counselor patient in this regard; -next HD session for tomorrow per routine, will try to get her down to dry weight; Status: Chronic (2) DVT (deep venous thrombosis) Assessment & Plan: s/p IVC filter, on eliquis, being held due to possibility of AVF creation; will restart; Status: Chronic (3) Hypertension due to end stage renal disease on dialysis Assessment & Plan: BP elevated, meds just restarted yesterday; patient is also 3-4 kg above her dry weight and will benefit from ultrafiltration on HD; Status: Acute (4) Anemia in CKD (chronic kidney disease) Assessment & Plan: Hgb below goal, starting EPO 10,000 u on HD; Status: Chronic (5) Chronic kidney disease-mineral and bone disorder Assessment & Plan: PTH too high; will likely need sensipar as outpatient; for now will give calcitriol PO and on HD (IV zemplar); Status: Chronic
--- NOTE | 2017-07-17 04:03 | CP.PCM.PN ---
Subjective - Date & Time of Evaluation Date of Evaluation: 07/16/17 Time of Evaluation: 20:00 - Subjective Subjective: PT SEEN AND EXAMINED AT BEDSIDE, LEG PAIN IS IMPROVED, PT IS UNDERGOING HD, ALSO FOLLOWED UP BY RENAL Objective - Vital Signs/Intake and Output Vital Signs (last 24 hours): Temp Pulse Resp BP Pulse Ox 98.6 F 64 20 151/71 H 97 07/17/17 00:00 07/17/17 00:00 07/17/17 00:00 07/17/17 00:00 07/17/17 00:00 Intake and Output: 07/16/17 07/17/17 18:59 06:59 Intake Total 600 Balance 600 - Medications Medications: Current Medications Acetaminophen (Tylenol 325mg Tab) 650 mg PO Q6H PRN PRN Reason: Pain, Mild to Moderate (1-7) Calcitriol (Rocaltrol) 0.5 mcg PO DAILY [facility] Last Admin: 07/16/17 12:00 Dose: 0.5 mcg Carvedilol (Coreg) 12.5 mg PO BID [facility] Last Admin: 07/16/17 17:26 Dose: 12.5 mg Clonidine HCl (Catapres Tts1 0.1 Mg/24 Hr) 1 patch TD QWK [facility] Last Admin: 07/14/17 20:03 Dose: 1 patch Diltiazem HCl (Cardizem Cd) 120 mg PO DAILY [facility] Last Admin: 07/16/17 12:00 Dose: 120 mg Efavirenz (Sustiva) 600 mg PO DAILY [facility] PRN Reason: Protocol Last Admin: 07/16/17 14:03 Dose: 600 mg Emtricitabine (Emtriva) 200 mg PO Q96H [facility] PRN Reason: Protocol Last Admin: 07/14/17 20:03 Dose: 200 mg Epoetin Terrell (Procrit) 10,000 unit IV TTS [facility] Furosemide (Lasix) 40 mg PO BID [facility] Last Admin: 07/16/17 17:25 Dose: 40 mg Gabapentin (Neurontin) 100 mg PO TID [facility] Last Admin: 07/16/17 17:25 Dose: 100 mg Hydralazine HCl (Apresoline) 100 mg PO BID [facility] Last Admin: 07/16/17 17:24 Dose: 100 mg Hydroxyzine HCl (Atarax) 25 mg PO BID [facility] Last Admin: 07/16/17 17:25 Dose: 25 mg Isosorbide Mononitrate (Imdur Er) 30 mg PO DAILY [facility] Last Admin: 07/16/17 12:00 Dose: 30 mg Paricalcitol (Zemplar) 2 mcg IV TTS [facility] Raltegravir (Isentress) 400 mg PO BID [facility] PRN Reason: Protocol Last Admin: 07/16/17 17:25 Dose: 400 mg Rosuvastatin Calcium (Crestor) 5 mg PO DAILY [facility] Last Admin: 07/16/17 12:00 Dose: 5 mg Tramadol HCl (Ultram) 50 mg PO TID PRN PRN Reason: Pain, severe (8-10) Last Admin: 07/15/17 09:15 Dose: 50 mg - Labs Labs: 07/15/17 10:24 07/15/17 10:24 - Constitutional Appears: No Acute Distress - Head Exam Head Exam: ATRAUMATIC, NORMAL INSPECTION, NORMOCEPHALIC - Eye Exam Eye Exam: EOMI, Normal appearance, PERRL Pupil Exam: NORMAL ACCOMODATION, PERRL - Respiratory Exam Respiratory Exam: Clear to Ausculation Bilateral, NORMAL BREATHING PATTERN - Cardiovascular Exam Cardiovascular Exam: REGULAR RHYTHM, +S1, +S2. absent: Murmur - GI/Abdominal Exam GI & Abdominal Exam: Soft, Normal Bowel Sounds. absent: Tenderness - Rectal Exam Rectal Exam: Deferred Assessment and Plan (1) Fluid overload Assessment & Plan: Dialyzed yesterday for hyperkalemia and volume overload; appears comfortable today; patient giving conflicting answers regarding getting AVF creation procedure; surgery will hold off for now; will continue to funeral prearrangement counselor patient in this regard; -next HD session for tomorrow per routine, will try to get her down to dry weight; Status: Chronic (2) DVT (deep venous thrombosis) Assessment & Plan: s/p IVC filter, on eliquis, being held due to possibility of AVF creation; will restart; Status: Chronic (3) Hypertension due to end stage renal disease on dialysis Assessment & Plan: BP elevated, meds just restarted yesterday; patient is also 3-4 kg above her dry weight and will benefit from ultrafiltration on HD; Status: Acute (4) Anemia in CKD (chronic kidney disease) Assessment & Plan: Hgb below goal, starting EPO 10,000 u on HD; Status: Chronic (5) Chronic kidney disease-mineral and bone disorder Assessment & Plan: PTH too high; will likely need sensipar as outpatient; for now will give calcitriol PO and on HD (IV zemplar); Status: Chronic Status: Acute (2) Acute renal failure (ARF) Status: Acute (3) Dyspnea Status: Acute (4) SHAVONNE (acute kidney injury) Status: Acute (5) 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
[2017-07-17 09:53] LABS: HEMOGLOBIN 9.2 g/dL (11.0-16.0); MEAN CELL VOLUME 96.8 fL (81.0-99.0); MEAN CORPUSCULAR HEMOGLOBIN 32.2 pg (27.0-31.0); MEAN CORPUSCULAR HGB CONC 33.3 g/dL (33.0-37.0); MEAN PLATELET VOLUME 9.6 fL (7.2-11.7); RBC 2.87 Mil/uL (3.80-5.20); RED CELL DISTRIBUTION WIDTH 14.9 % (11.5-14.5); WHITE BLOOD COUNT 4.4 K/uL (4.8-10.8)
[2017-07-17 10:03] LABS: ALB/GLOB RATIO 0.9 (1.0-2.1); CALCIUM 8.4 mg/dl (8.6-10.4)
[2017-07-17] MEDS: diltiaZEM 120 mg/24 Hours CD Cap PO SCH ×2 (11:00→13:00)
[2017-07-17 11:24] LABS: % CD4 (T HELPER CELL) 40 Percent (30-61); % CD8 (SUPPRESSOR T CELL) 34 Percent (12-42); ABSOLUTE CD4 CELLS 167 Cells/mcL (490-1740); ABSOLUTE CD8 CELLS 143 Cells/mcL (180-1170); ABSOLUTE LYMPHOCYTES 419 Cells/mcL (850-3900); HELPER/SUPPRESSOR RATIO 1.17 Ratio (0.86-5.00)
[2017-07-17] MEDS: Paricalcitol 2 mcg/ml Inj IV SCH (11:24)
[2017-07-17] MEDS: Epoetin Alfa 10,000 unit/ml Dialysis IV SCH (11:25)
--- NOTE | 2017-07-17 16:21 | CP.PCM.PN ---
Subjective - Date & Time of Evaluation Date of Evaluation: 07/17/17 Time of Evaluation: 16:21 - Subjective Subjective: Alert, awake, no sob or chest pains. Objective - Vital Signs/Intake and Output Vital Signs (last 24 hours): Temp Pulse Resp BP Pulse Ox 98.4 F 79 19 163/90 H 98 07/17/17 12:15 07/17/17 12:15 07/17/17 12:15 07/17/17 12:15 07/17/17 12:15 Intake and Output: 07/17/17 07/17/17 06:59 18:59 Intake Total 200 Balance 200 - Medications Medications: Current Medications Acetaminophen (Tylenol 325mg Tab) 650 mg PO Q6H PRN PRN Reason: Pain, Mild to Moderate (1-7) Calcitriol (Rocaltrol) 0.5 mcg PO DAILY [facility] Last Admin: 07/17/17 11:00 Dose: Not Given Carvedilol (Coreg) 12.5 mg PO BID [facility] Last Admin: 07/17/17 11:00 Dose: Not Given Clonidine HCl (Catapres Tts1 0.1 Mg/24 Hr) 1 patch TD QWK [facility] Last Admin: 07/14/17 20:03 Dose: 1 patch Diltiazem HCl (Cardizem Cd) 120 mg PO DAILY [facility] Last Admin: 07/17/17 13:00 Dose: 120 mg Efavirenz (Sustiva) 600 mg PO DAILY [facility] PRN Reason: Protocol Last Admin: 07/17/17 13:00 Dose: 600 mg Emtricitabine (Emtriva) 200 mg PO Q96H [facility] PRN Reason: Protocol Last Admin: 07/14/17 20:03 Dose: 200 mg Epoetin Terrell (Procrit) 10,000 unit IV TTS [facility] Last Admin: 07/17/17 11:25 Dose: 10,000 unit Furosemide (Lasix) 40 mg PO BID [facility] Last Admin: 07/17/17 11:00 Dose: Not Given Gabapentin (Neurontin) 100 mg PO TID [facility] Last Admin: 07/17/17 14:49 Dose: 100 mg Hydralazine HCl (Apresoline) 100 mg PO BID [facility] Last Admin: 07/17/17 11:00 Dose: Not Given Hydroxyzine HCl (Atarax) 25 mg PO BID [facility] Last Admin: 07/17/17 11:00 Dose: Not Given Isosorbide Mononitrate (Imdur Er) 30 mg PO DAILY [facility] Last Admin: 07/17/17 13:00 Dose: 30 mg Paricalcitol (Zemplar) 2 mcg IV TTS [facility] Last Admin: 07/17/17 11:24 Dose: 2 mcg Raltegravir (Isentress) 400 mg PO BID [facility] PRN Reason: Protocol Last Admin: 07/17/17 11:00 Dose: Not Given Rosuvastatin Calcium (Crestor) 5 mg PO DAILY [facility] Last Admin: 07/17/17 13:00 Dose: 5 mg Tramadol HCl (Ultram) 50 mg PO TID PRN PRN Reason: Pain, severe (8-10) Last Admin: 07/15/17 09:15 Dose: 50 mg - Labs Labs: 07/17/17 09:41 07/17/17 09:41 Assessment and Plan - Assessment and Plan (Free Text) Assessment: Patient is medically stable, had HD done today. No sob or chest pains, no acute distress. Discharge orders written as per DR Rodriguez, psychotherapist social worker to give her long term information and HD follow up. Continue with present meds.
--- NOTE | 2017-07-17 19:28 | CP.PCM.PN ---
Subjective - Date & Time of Evaluation Date of Evaluation: 07/17/17 Time of Evaluation: 13:00 - Subjective Subjective: Patient denies complaints; no sob; tolerating diet; leg pain improved; Objective - Vital Signs/Intake and Output Vital Signs (last 24 hours): Temp Pulse Resp BP Pulse Ox 98.9 F 73 20 172/101 H 97 07/17/17 16:45 07/17/17 16:45 07/17/17 16:45 07/17/17 17:39 07/17/17 16:45 Intake and Output: 07/17/17 07/18/17 18:59 06:59 Intake Total 500 Balance 500 - Medications Medications: Current Medications Acetaminophen (Tylenol 325mg Tab) 650 mg PO Q6H PRN PRN Reason: Pain, Mild to Moderate (1-7) Apixaban (Eliquis) 5 mg PO BID [facility] Calcitriol (Rocaltrol) 0.5 mcg PO DAILY [facility] Last Admin: 07/17/17 11:00 Dose: Not Given Carvedilol (Coreg) 12.5 mg PO BID [facility] Last Admin: 07/17/17 17:39 Dose: 12.5 mg Clonidine HCl (Catapres Tts1 0.1 Mg/24 Hr) 1 patch TD QWK [facility] Last Admin: 07/14/17 20:03 Dose: 1 patch Diltiazem HCl (Cardizem Cd) 120 mg PO DAILY [facility] Last Admin: 07/17/17 13:00 Dose: 120 mg Efavirenz (Sustiva) 600 mg PO DAILY [facility] PRN Reason: Protocol Last Admin: 07/17/17 13:00 Dose: 600 mg Epoetin Terrell (Procrit) 10,000 unit IV TTS [facility] Last Admin: 07/17/17 11:25 Dose: 10,000 unit Furosemide (Lasix) 40 mg PO BID [facility] Last Admin: 07/17/17 17:38 Dose: 40 mg Gabapentin (Neurontin) 100 mg PO TID [facility] Last Admin: 07/17/17 17:38 Dose: 100 mg Hydralazine HCl (Apresoline) 100 mg PO BID [facility] Last Admin: 07/17/17 17:40 Dose: 100 mg Hydroxyzine HCl (Atarax) 25 mg PO BID [facility] Last Admin: 07/17/17 17:38 Dose: 25 mg Isosorbide Mononitrate (Imdur Er) 30 mg PO DAILY [facility] Last Admin: 07/17/17 13:00 Dose: 30 mg Paricalcitol (Zemplar) 2 mcg IV TTS [facility] Last Admin: 07/17/17 11:24 Dose: 2 mcg Raltegravir (Isentress) 400 mg PO BID [facility] PRN Reason: Protocol Last Admin: 07/17/17 17:38 Dose: 400 mg Rosuvastatin Calcium (Crestor) 5 mg PO DAILY [facility] Last Admin: 07/17/17 13:00 Dose: 5 mg Tramadol HCl (Ultram) 50 mg PO TID PRN PRN Reason: Pain, severe (8-10) Last Admin: 07/15/17 09:15 Dose: 50 mg - Labs Labs: 07/17/17 09:41 07/17/17 09:41 - Constitutional Appears: Non-toxic, No Acute Distress - Eye Exam Eye Exam: absent: Scleral icterus - ENT Exam ENT Exam: Mucous Membranes Moist - Respiratory Exam Respiratory Exam: Clear to Ausculation Bilateral. absent: Respiratory Distress - Cardiovascular Exam Cardiovascular Exam: RRR, +S1, +S2 - GI/Abdominal Exam GI & Abdominal Exam: Soft. absent: Distended, Tenderness - Extremities Exam Additional comments: mild lower leg edema; - Neurological Exam Neurological Exam: Alert, Awake - Psychiatric Exam Psychiatric exam: absent: Agitated - Skin Skin Exam: Warm. absent: Cyanosis Assessment and Plan (1) ESRD on hemodialysis Assessment & Plan: s/p HD sessions earlier today; stable volume and electrolyte status; reports being agreeable to AVF creation, unfortunately she will likely have to take the initiative as an outpatient as she again disregarded our efforts to have the procedure done as inpatient; Status: Chronic (2) DVT (deep venous thrombosis) Assessment & Plan: s/p IVC filter, continue eliquis 5 mg bid; Status: Chronic (3) Hypertension due to end stage renal disease on dialysis Assessment & Plan: BP uncontrolled but didn't get some of her morning meds due to being on HD; continue same meds; Status: Acute (4) Anemia in CKD (chronic kidney disease) Assessment & Plan: Hgb below goal, continue EPO on HD; Status: Chronic (5) Chronic kidney disease-mineral and bone disorder Assessment & Plan: PTH very high, will f/u as outpatient if patient comes to HD; Status: Chronic
--- NOTE | 2017-07-18 06:10 | CP.PCM.PN ---
Subjective - Date & Time of Evaluation Date of Evaluation: 07/17/17 Time of Evaluation: 18:40 - Subjective Subjective: PT SEEN AND EXAMINED, AFEBRILE, POSITIVE COUGH, BODY PAIN AND KNEE PAIN, PT IS HOMELESS AND HIV POSITIVE Objective - Vital Signs/Intake and Output Vital Signs (last 24 hours): Temp Pulse Resp BP Pulse Ox 99 F 62 20 125/55 L 99 07/17/17 23:20 07/17/17 23:20 07/17/17 23:20 07/17/17 23:20 07/17/17 23:20 Intake and Output: 07/17/17 07/18/17 18:59 06:59 Intake Total 500 Balance 500 - Medications Medications: Current Medications Acetaminophen (Tylenol 325mg Tab) 650 mg PO Q6H PRN PRN Reason: Pain, Mild to Moderate (1-7) Apixaban (Eliquis) 5 mg PO BID [facility] Calcitriol (Rocaltrol) 0.5 mcg PO DAILY [facility] Last Admin: 07/17/17 11:00 Dose: Not Given Carvedilol (Coreg) 12.5 mg PO BID [facility] Last Admin: 07/17/17 17:39 Dose: 12.5 mg Clonidine HCl (Catapres-Tts2 0.2 Mg/24 Hr) 1 patch TD Q7D@1000 [facility] Diltiazem HCl (Cardizem Cd) 120 mg PO DAILY [facility] Last Admin: 07/17/17 13:00 Dose: 120 mg Efavirenz (Sustiva) 600 mg PO DAILY [facility] PRN Reason: Protocol Last Admin: 07/17/17 13:00 Dose: 600 mg Epoetin Terrell (Procrit) 10,000 unit IV TTS [facility] Last Admin: 07/17/17 11:25 Dose: 10,000 unit Furosemide (Lasix) 40 mg PO BID [facility] Last Admin: 07/17/17 17:38 Dose: 40 mg Gabapentin (Neurontin) 100 mg PO TID [facility] Last Admin: 07/17/17 17:38 Dose: 100 mg Hydralazine HCl (Apresoline) 100 mg PO BID [facility] Last Admin: 07/17/17 17:40 Dose: 100 mg Hydroxyzine HCl (Atarax) 25 mg PO BID [facility] Last Admin: 07/17/17 17:38 Dose: 25 mg Isosorbide Mononitrate (Imdur Er) 30 mg PO DAILY [facility] Last Admin: 07/17/17 13:00 Dose: 30 mg Paricalcitol (Zemplar) 2 mcg IV TTS [facility] Last Admin: 07/17/17 11:24 Dose: 2 mcg Raltegravir (Isentress) 400 mg PO BID [facility] PRN Reason: Protocol Last Admin: 07/17/17 17:38 Dose: 400 mg Rosuvastatin Calcium (Crestor) 5 mg PO DAILY [facility] Last Admin: 07/17/17 13:00 Dose: 5 mg Tramadol HCl (Ultram) 50 mg PO TID PRN PRN Reason: Pain, severe (8-10) Last Admin: 07/15/17 09:15 Dose: 50 mg - Labs Labs: 07/17/17 09:41 07/17/17 09:41 - Constitutional Appears: No Acute Distress - Head Exam Head Exam: ATRAUMATIC, NORMAL INSPECTION, NORMOCEPHALIC - Eye Exam Eye Exam: EOMI, Normal appearance, PERRL Pupil Exam: NORMAL ACCOMODATION, PERRL - Respiratory Exam Respiratory Exam: Decreased Breath Sounds, Rhonchi - Cardiovascular Exam Cardiovascular Exam: REGULAR RHYTHM, +S1, +S2. absent: Murmur - GI/Abdominal Exam GI & Abdominal Exam: Soft, Normal Bowel Sounds. absent: Tenderness Assessment and Plan (1) Fluid overload Status: Acute (2) Acute renal failure (ARF) Status: Acute (3) Dyspnea Status: Acute (4) SHAVONNE (acute kidney injury) Status: Acute (5) 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
--- NOTE | 2017-07-18 06:11 | CP.PCM.PN ---
Subjective - Date & Time of Evaluation Date of Evaluation: 07/17/17 Time of Evaluation: 18:00 - Subjective Subjective: Patient seen and examined at bedside today, Patient resting comfortably in bed in no distress.still c/o cough and sob on exertion denies any chest pain, nausea , vomitting Objective - Vital Signs/Intake and Output Vital Signs (last 24 hours): Temp Pulse Resp BP Pulse Ox 99 F 62 20 125/55 L 99 07/17/17 23:20 07/17/17 23:20 07/17/17 23:20 07/17/17 23:20 07/17/17 23:20 Intake and Output: 07/17/17 07/18/17 18:59 06:59 Intake Total 500 Balance 500 - Medications Medications: Current Medications Acetaminophen (Tylenol 325mg Tab) 650 mg PO Q6H PRN PRN Reason: Pain, Mild to Moderate (1-7) Apixaban (Eliquis) 5 mg PO BID [facility] Calcitriol (Rocaltrol) 0.5 mcg PO DAILY [facility] Last Admin: 07/17/17 11:00 Dose: Not Given Carvedilol (Coreg) 12.5 mg PO BID [facility] Last Admin: 07/17/17 17:39 Dose: 12.5 mg Clonidine HCl (Catapres-Tts2 0.2 Mg/24 Hr) 1 patch TD Q7D@1000 [facility] Diltiazem HCl (Cardizem Cd) 120 mg PO DAILY [facility] Last Admin: 07/17/17 13:00 Dose: 120 mg Efavirenz (Sustiva) 600 mg PO DAILY [facility] PRN Reason: Protocol Last Admin: 07/17/17 13:00 Dose: 600 mg Epoetin Terrell (Procrit) 10,000 unit IV TTS [facility] Last Admin: 07/17/17 11:25 Dose: 10,000 unit Furosemide (Lasix) 40 mg PO BID [facility] Last Admin: 07/17/17 17:38 Dose: 40 mg Gabapentin (Neurontin) 100 mg PO TID [facility] Last Admin: 07/17/17 17:38 Dose: 100 mg Hydralazine HCl (Apresoline) 100 mg PO BID [facility] Last Admin: 07/17/17 17:40 Dose: 100 mg Hydroxyzine HCl (Atarax) 25 mg PO BID [facility] Last Admin: 07/17/17 17:38 Dose: 25 mg Isosorbide Mononitrate (Imdur Er) 30 mg PO DAILY [facility] Last Admin: 07/17/17 13:00 Dose: 30 mg Paricalcitol (Zemplar) 2 mcg IV TTS [facility] Last Admin: 07/17/17 11:24 Dose: 2 mcg Raltegravir (Isentress) 400 mg PO BID [facility] PRN Reason: Protocol Last Admin: 07/17/17 17:38 Dose: 400 mg Rosuvastatin Calcium (Crestor) 5 mg PO DAILY [facility] Last Admin: 07/17/17 13:00 Dose: 5 mg Tramadol HCl (Ultram) 50 mg PO TID PRN PRN Reason: Pain, severe (8-10) Last Admin: 07/15/17 09:15 Dose: 50 mg - Labs Labs: 07/17/17 09:41 07/17/17 09:41 Assessment and Plan (1) Fluid overload Status: Acute (2) Acute renal failure (ARF) Status: Acute (3) Dyspnea Status: Acute (4) SHAVONNE (acute kidney injury) Status: Acute (5) 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
[2017-07-18] MEDS: diltiaZEM 120 mg/24 Hours CD Cap PO SCH (11:00)
--- NOTE | 2017-07-18 19:12 | CP.PCM.PN ---
Subjective - Date & Time of Evaluation Date of Evaluation: 07/18/17 Time of Evaluation: 14:00 - Subjective Subjective: Patient denies any complaints; no difficulty breathing; Objective - Vital Signs/Intake and Output Vital Signs (last 24 hours): Temp Pulse Resp BP Pulse Ox 98.5 F 68 20 126/78 97 07/18/17 16:00 07/18/17 16:00 07/18/17 16:00 07/18/17 18:14 07/18/17 16:00 Intake and Output: 07/18/17 07/19/17 18:59 06:59 Intake Total 320 Balance 320 - Medications Medications: Current Medications Acetaminophen (Tylenol 325mg Tab) 650 mg PO Q6H PRN PRN Reason: Pain, Mild to Moderate (1-7) Apixaban (Eliquis) 5 mg PO BID [facility] Last Admin: 07/18/17 18:21 Dose: 5 mg Calcitriol (Rocaltrol) 0.5 mcg PO DAILY [facility] Last Admin: 07/18/17 11:00 Dose: 0.5 mcg Carvedilol (Coreg) 12.5 mg PO BID [facility] Last Admin: 07/18/17 18:13 Dose: 12.5 mg Clonidine HCl (Catapres-Tts2 0.2 Mg/24 Hr) 1 patch TD Q7D@1000 [facility] Diltiazem HCl (Cardizem Cd) 120 mg PO DAILY [facility] Last Admin: 07/18/17 11:00 Dose: 120 mg Efavirenz (Sustiva) 600 mg PO DAILY [facility] PRN Reason: Protocol Last Admin: 07/18/17 11:00 Dose: 600 mg Epoetin Terrell (Procrit) 10,000 unit IV TTS [facility] Last Admin: 07/17/17 11:25 Dose: 10,000 unit Furosemide (Lasix) 40 mg PO BID [facility] Last Admin: 07/18/17 18:14 Dose: 40 mg Gabapentin (Neurontin) 100 mg PO TID [facility] Last Admin: 07/18/17 18:15 Dose: 100 mg Hydralazine HCl (Apresoline) 100 mg PO BID [facility] Last Admin: 07/18/17 18:15 Dose: 100 mg Hydroxyzine HCl (Atarax) 25 mg PO BID [facility] Last Admin: 07/18/17 18:14 Dose: 25 mg Isosorbide Mononitrate (Imdur Er) 30 mg PO DAILY [facility] Last Admin: 07/18/17 11:00 Dose: 30 mg Paricalcitol (Zemplar) 2 mcg IV TTS [facility] Last Admin: 07/17/17 11:24 Dose: 2 mcg Raltegravir (Isentress) 400 mg PO BID [facility] PRN Reason: Protocol Last Admin: 07/18/17 18:15 Dose: 400 mg Rosuvastatin Calcium (Crestor) 5 mg PO DAILY [facility] Last Admin: 07/18/17 11:00 Dose: 5 mg Tramadol HCl (Ultram) 50 mg PO TID PRN PRN Reason: Pain, severe (8-10) Last Admin: 07/15/17 09:15 Dose: 50 mg - Labs Labs: 07/17/17 09:41 07/17/17 09:41 - Constitutional Appears: Non-toxic, No Acute Distress - Respiratory Exam Respiratory Exam: Clear to Ausculation Bilateral. absent: Respiratory Distress - Cardiovascular Exam Cardiovascular Exam: RRR, +S1, +S2 - Extremities Exam Additional comments: minimal leg edema; - Neurological Exam Neurological Exam: Alert, Awake - Psychiatric Exam Psychiatric exam: absent: Agitated Assessment and Plan (1) ESRD on hemodialysis Assessment & Plan: Stable volume and electrolye status; continue HD TTS per routine; Status: Chronic (2) DVT (deep venous thrombosis) Assessment & Plan: s/p IVC filter, continue eliquis; Status: Chronic (3) Hypertension due to end stage renal disease on dialysis Assessment & Plan: BP better controlled, continue current meds; Status: Acute (4) Anemia in CKD (chronic kidney disease) Assessment & Plan: Hgb below goal, continue EPO on HD; Status: Chronic (5) Chronic kidney disease-mineral and bone disorder Assessment & Plan: PTH elevated, started back on calcitriol, continue; Status: Chronic
[2017-07-19] MEDS: diltiaZEM 120 mg/24 Hours CD Cap PO SCH (10:15)
--- NOTE | 2017-07-19 17:15 | CP.PCM.PN ---
Subjective - Date & Time of Evaluation Date of Evaluation: 07/19/17 Time of Evaluation: 10:30 - Subjective Subjective: Patient reports feeling well; no shortness of breath; leg swelling improved; Objective - Vital Signs/Intake and Output Vital Signs (last 24 hours): Temp Pulse Resp BP Pulse Ox 97.9 F 64 20 161/67 H 97 07/19/17 16:00 07/19/17 16:00 07/19/17 16:00 07/19/17 16:00 07/19/17 16:00 Intake and Output: 07/19/17 07/19/17 06:59 18:59 Intake Total 400 350 Balance 400 350 - Medications Medications: Current Medications Acetaminophen (Tylenol 325mg Tab) 650 mg PO Q6H PRN PRN Reason: Pain, Mild to Moderate (1-7) Apixaban (Eliquis) 5 mg PO BID [facility] Last Admin: 07/19/17 10:16 Dose: 5 mg Calcitriol (Rocaltrol) 0.5 mcg PO DAILY [facility] Last Admin: 07/19/17 10:15 Dose: 0.5 mcg Carvedilol (Coreg) 12.5 mg PO BID [facility] Last Admin: 07/19/17 10:16 Dose: 12.5 mg Clonidine HCl (Catapres-Tts2 0.2 Mg/24 Hr) 1 patch TD Q7D@1000 [facility] Diltiazem HCl (Cardizem Cd) 120 mg PO DAILY [facility] Last Admin: 07/19/17 10:15 Dose: 120 mg Efavirenz (Sustiva) 600 mg PO DAILY [facility] PRN Reason: Protocol Last Admin: 07/19/17 10:16 Dose: 600 mg Epoetin Terrell (Procrit) 10,000 unit IV TTS [facility] Last Admin: 07/17/17 11:25 Dose: 10,000 unit Furosemide (Lasix) 40 mg PO BID [facility] Last Admin: 07/19/17 10:15 Dose: 40 mg Gabapentin (Neurontin) 100 mg PO TID [facility] Last Admin: 07/19/17 13:41 Dose: 100 mg Hydralazine HCl (Apresoline) 100 mg PO BID [facility] Last Admin: 07/19/17 10:16 Dose: 100 mg Hydroxyzine HCl (Atarax) 25 mg PO BID [facility] Last Admin: 07/19/17 10:16 Dose: 25 mg Isosorbide Mononitrate (Imdur Er) 30 mg PO DAILY [facility] Last Admin: 07/19/17 10:16 Dose: 30 mg Paricalcitol (Zemplar) 2 mcg IV TTS [facility] Last Admin: 07/17/17 11:24 Dose: 2 mcg Raltegravir (Isentress) 400 mg PO BID [facility] PRN Reason: Protocol Last Admin: 07/19/17 10:15 Dose: 400 mg Rosuvastatin Calcium (Crestor) 5 mg PO DAILY [facility] Last Admin: 07/19/17 10:15 Dose: 5 mg Tramadol HCl (Ultram) 50 mg PO TID PRN PRN Reason: Pain, severe (8-10) Last Admin: 07/15/17 09:15 Dose: 50 mg - Labs Labs: 07/17/17 09:41 07/17/17 09:41 - Constitutional Appears: Non-toxic, No Acute Distress - Eye Exam Eye Exam: absent: Scleral icterus - ENT Exam ENT Exam: Mucous Membranes Moist - Respiratory Exam Respiratory Exam: Clear to Ausculation Bilateral. absent: Respiratory Distress - Cardiovascular Exam Cardiovascular Exam: RRR, +S1, +S2 - GI/Abdominal Exam GI & Abdominal Exam: Soft. absent: Distended, Tenderness - Neurological Exam Neurological Exam: Alert, Awake - Psychiatric Exam Psychiatric exam: Normal Mood. absent: Agitated - Skin Skin Exam: Warm. absent: Cyanosis Assessment and Plan (1) ESRD on hemodialysis Assessment & Plan: Stable volume and electrolyte status; next HD tomorrow per routine; Status: Chronic (2) DVT (deep venous thrombosis) Assessment & Plan: s/p IVC filter; continue eliquis; Status: Chronic (3) Hypertension due to end stage renal disease on dialysis Assessment & Plan: BP much better controlled now that on meds, continue same; Status: Acute (4) Anemia in CKD (chronic kidney disease) Assessment & Plan: hgb below goal, continue EPO on HD; Status: Chronic (5) Chronic kidney disease-mineral and bone disorder Assessment & Plan: PTH elevated; started back on calcitriol; checking PTH and phos tomorrow; Status: Chronic
--- NOTE | 2017-07-19 22:18 | CP.PCM.PN ---
Subjective - Date & Time of Evaluation Date of Evaluation: 07/19/17 Time of Evaluation: 19:00 - Subjective Subjective: Pt seen and examined, is on HD,, pt is mediaclly stable is to be placed in a longterm as she is homeless, denies any new complains Objective - Vital Signs/Intake and Output Vital Signs (last 24 hours): Temp Pulse Resp BP Pulse Ox 97.9 F 64 20 161/67 H 97 07/19/17 16:00 07/19/17 16:00 07/19/17 16:00 07/19/17 17:49 07/19/17 16:00 Intake and Output: 07/19/17 07/20/17 18:59 06:59 Intake Total 350 Balance 350 - Medications Medications: Current Medications Acetaminophen (Tylenol 325mg Tab) 650 mg PO Q6H PRN PRN Reason: Pain, Mild to Moderate (1-7) Apixaban (Eliquis) 5 mg PO BID [facility] Last Admin: 07/19/17 17:49 Dose: 5 mg Calcitriol (Rocaltrol) 0.5 mcg PO DAILY [facility] Last Admin: 07/19/17 10:15 Dose: 0.5 mcg Carvedilol (Coreg) 12.5 mg PO BID [facility] Last Admin: 07/19/17 17:49 Dose: 12.5 mg Clonidine HCl (Catapres-Tts2 0.2 Mg/24 Hr) 1 patch TD Q7D@1000 [facility] Diltiazem HCl (Cardizem Cd) 120 mg PO DAILY [facility] Last Admin: 07/19/17 10:15 Dose: 120 mg Efavirenz (Sustiva) 600 mg PO DAILY [facility] PRN Reason: Protocol Last Admin: 07/19/17 10:16 Dose: 600 mg Epoetin Terrell (Procrit) 10,000 unit IV TTS [facility] Last Admin: 07/17/17 11:25 Dose: 10,000 unit Furosemide (Lasix) 40 mg PO BID [facility] Last Admin: 07/19/17 17:49 Dose: 40 mg Gabapentin (Neurontin) 100 mg PO TID [facility] Last Admin: 07/19/17 17:48 Dose: 100 mg Hydralazine HCl (Apresoline) 100 mg PO BID [facility] Last Admin: 07/19/17 18:00 Dose: 100 mg Hydroxyzine HCl (Atarax) 25 mg PO BID [facility] Last Admin: 07/19/17 18:00 Dose: 25 mg Isosorbide Mononitrate (Imdur Er) 30 mg PO DAILY [facility] Last Admin: 07/19/17 10:16 Dose: 30 mg Paricalcitol (Zemplar) 2 mcg IV TTS [facility] Last Admin: 07/17/17 11:24 Dose: 2 mcg Raltegravir (Isentress) 400 mg PO BID [facility] PRN Reason: Protocol Last Admin: 07/19/17 17:48 Dose: 400 mg Rosuvastatin Calcium (Crestor) 5 mg PO DAILY [facility] Last Admin: 07/19/17 10:15 Dose: 5 mg Tramadol HCl (Ultram) 50 mg PO TID PRN PRN Reason: Pain, severe (8-10) Last Admin: 07/15/17 09:15 Dose: 50 mg - Labs Labs: 07/17/17 09:41 07/17/17 09:41 - Constitutional Appears: No Acute Distress - Head Exam Head Exam: ATRAUMATIC, NORMAL INSPECTION, NORMOCEPHALIC - Eye Exam Eye Exam: EOMI, Normal appearance, PERRL Pupil Exam: NORMAL ACCOMODATION, PERRL - Cardiovascular Exam Cardiovascular Exam: REGULAR RHYTHM, +S1, +S2. absent: Murmur - GI/Abdominal Exam GI & Abdominal Exam: Soft, Normal Bowel Sounds. absent: Tenderness - Rectal Exam Rectal Exam: Deferred Assessment and Plan (1) Fluid overload Status: Acute (2) Acute renal failure (ARF) Status: Acute (3) Dyspnea Status: Acute (4) SHAVONNE (acute kidney injury) Status: Acute (5) 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
[2017-07-20 08:12] LABS: BASO % 0.6 % (0.0-2.0); EOS # 0.2 K/uL (0.0-0.7); EOS % 4.5 % (0.0-4.0); HEMOGLOBIN 10.2 g/dL (11.0-16.0); LYMPH # 0.7 K/uL (1.0-4.3); LYMPH % 12.2 % (20.0-40.0); MEAN CELL VOLUME 97.1 fL (81.0-99.0); MEAN CORPUSCULAR HEMOGLOBIN 32.3 pg (27.0-31.0); MEAN CORPUSCULAR HGB CONC 33.3 g/dL (33.0-37.0); MONO # 0.7 K/uL (0.0-0.8); MONO % 12.2 % (0.0-10.0); NEUT # 3.9 K/uL (1.8-7.0); NEUT % 70.5 % (50.0-75.0); NRBC % 0.1 % (0.0-2.0); RBC 3.16 Mil/uL (3.80-5.20); RED CELL DISTRIBUTION WIDTH 14.7 % (11.5-14.5); WHITE BLOOD COUNT 5.5 K/uL (4.8-10.8)
[2017-07-20 08:22] LABS: ALB/GLOB RATIO 0.9 (1.0-2.1); ALBUMIN 3.5 g/dL (3.5-5.0); CALCIUM 8.8 mg/dl (8.6-10.4)
[2017-07-20] MEDS: diltiaZEM 120 mg/24 Hours CD Cap PO SCH (09:22)
[2017-07-20] MEDS: Epoetin Alfa 10,000 unit/ml Dialysis IV SCH (11:10)
[2017-07-20] MEDS: Paricalcitol 2 mcg/ml Inj IV SCH (11:11)
[2017-07-20 13:31] VITALS: RESP 20
[2017-07-20 16:19] VITALS: PULSE 62; TEMP 98.8; O2SAT 96
[2017-07-20 17:24] VITALS: BP 153/76
--- NOTE | 2017-07-20 17:37 | CP.PCM.PN ---
Subjective - Date & Time of Evaluation Date of Evaluation: 07/20/17 Time of Evaluation: 17:37 - Subjective Subjective: awake, alert, no acute distress. Objective - Vital Signs/Intake and Output Vital Signs (last 24 hours): Temp Pulse Resp BP Pulse Ox 98.8 F 62 20 153/76 H 96 07/20/17 16:00 07/20/17 16:00 07/20/17 16:00 07/20/17 17:22 07/20/17 16:00 - Medications Medications: Current Medications Acetaminophen (Tylenol 325mg Tab) 650 mg PO Q6H PRN PRN Reason: Pain, Mild to Moderate (1-7) Apixaban (Eliquis) 5 mg PO BID [facility] Last Admin: 07/20/17 17:21 Dose: 5 mg Calcitriol (Rocaltrol) 0.5 mcg PO DAILY [facility] Last Admin: 07/20/17 09:23 Dose: Not Given Carvedilol (Coreg) 12.5 mg PO BID [facility] Last Admin: 07/20/17 17:22 Dose: 12.5 mg Clonidine HCl (Catapres-Tts2 0.2 Mg/24 Hr) 1 patch TD Q7D@1000 [facility] Diltiazem HCl (Cardizem Cd) 120 mg PO DAILY [facility] Last Admin: 07/20/17 09:22 Dose: Not Given Efavirenz (Sustiva) 600 mg PO DAILY [facility] PRN Reason: Protocol Epoetin Terrell (Procrit) 10,000 unit IV TTS [facility] Last Admin: 07/20/17 11:10 Dose: 10,000 unit Furosemide (Lasix) 40 mg PO BID [facility] Last Admin: 07/20/17 17:22 Dose: 40 mg Gabapentin (Neurontin) 100 mg PO TID [facility] Last Admin: 07/20/17 17:21 Dose: 100 mg Hydralazine HCl (Apresoline) 100 mg PO BID [facility] Last Admin: 07/20/17 17:21 Dose: 100 mg Hydroxyzine HCl (Atarax) 25 mg PO BID [facility] Last Admin: 07/20/17 17:21 Dose: 25 mg Isosorbide Mononitrate (Imdur Er) 30 mg PO DAILY [facility] Last Admin: 07/20/17 09:22 Dose: Not Given Paricalcitol (Zemplar) 2 mcg IV TTS [facility] Last Admin: 07/20/17 11:11 Dose: 2 mcg Raltegravir (Isentress) 400 mg PO BID [facility] PRN Reason: Protocol Last Admin: 07/20/17 17:22 Dose: 400 mg Rosuvastatin Calcium (Crestor) 5 mg PO HS [facility] Tramadol HCl (Ultram) 50 mg PO TID PRN PRN Reason: Pain, severe (8-10) Last Admin: 07/19/17 22:30 Dose: 50 mg - Labs Labs: 07/20/17 07:51 07/20/17 07:51 Assessment and Plan - Assessment and Plan (Free Text) Assessment: Patient admitted with dyspnea secondary to missed HD, seen and examined. Tolerated dialysis today, no sob or chest pains. Cleared to go to [facility] as per DR Rodriguez, apparently she is unsafe discharge home. Will continue with HD and present meds.
--- NOTE | 2017-07-20 17:59 | RAD ---
HISTORY: cough COMPARISON: Chest radiographs 07/14/2017. FINDINGS: Permanent right center venous dialysis catheter identified in position once again. LUNGS: No interval acute infiltrate bilaterally. Eventration of left hemidiaphragm versus marked left hemidiaphragm elevation again evident with gas distended stomach or splenic flexure bowel segment noted versus both. PLEURA: No significant pleural effusion identified, no pneumothorax apparent. CARDIOVASCULAR: Cardiomegaly. No pulmonary vascular derangement appreciated. OSSEOUS STRUCTURES: No significant abnormalities. VISUALIZED UPPER ABDOMEN: Normal. OTHER FINDINGS: None. IMPRESSION: No definite interval acute findings. Cardiomegaly is stable with central venous dialysis catheter unchanged in position and marked left hemidiaphragm elevation versus diaphragmatic eventration again evident.
--- NOTE | 2017-07-20 20:11 | CP.PCM.PN ---
Subjective - Date & Time of Evaluation Date of Evaluation: 07/20/17 Time of Evaluation: 14:00 - Subjective Subjective: Patient tolerated HD well today; no sob but reporting persistent cough; tolerating diet; Objective - Vital Signs/Intake and Output Vital Signs (last 24 hours): Temp Pulse Resp BP Pulse Ox 98.8 F 62 20 153/76 H 96 07/20/17 16:00 07/20/17 16:00 07/20/17 16:00 07/20/17 17:22 07/20/17 16:00 - Medications Medications: Current Medications Acetaminophen (Tylenol 325mg Tab) 650 mg PO Q6H PRN PRN Reason: Pain, Mild to Moderate (1-7) Apixaban (Eliquis) 5 mg PO BID [facility] Last Admin: 07/20/17 17:21 Dose: 5 mg Calcitriol (Rocaltrol) 0.5 mcg PO DAILY [facility] Last Admin: 07/20/17 09:23 Dose: Not Given Carvedilol (Coreg) 12.5 mg PO BID [facility] Last Admin: 07/20/17 17:22 Dose: 12.5 mg Clonidine HCl (Catapres-Tts2 0.2 Mg/24 Hr) 1 patch TD Q7D@1000 [facility] Diltiazem HCl (Cardizem Cd) 120 mg PO DAILY [facility] Last Admin: 07/20/17 09:22 Dose: Not Given Efavirenz (Sustiva) 600 mg PO DAILY [facility] PRN Reason: Protocol Epoetin Terrell (Procrit) 10,000 unit IV TTS [facility] Last Admin: 07/20/17 11:10 Dose: 10,000 unit Furosemide (Lasix) 40 mg PO BID [facility] Last Admin: 07/20/17 17:22 Dose: 40 mg Gabapentin (Neurontin) 100 mg PO TID [facility] Last Admin: 07/20/17 17:21 Dose: 100 mg Hydralazine HCl (Apresoline) 100 mg PO BID [facility] Last Admin: 07/20/17 17:21 Dose: 100 mg Hydroxyzine HCl (Atarax) 25 mg PO BID [facility] Last Admin: 07/20/17 17:21 Dose: 25 mg Isosorbide Mononitrate (Imdur Er) 30 mg PO DAILY [facility] Last Admin: 07/20/17 09:22 Dose: Not Given Paricalcitol (Zemplar) 2 mcg IV TTS [facility] Last Admin: 07/20/17 11:11 Dose: 2 mcg Raltegravir (Isentress) 400 mg PO BID [facility] PRN Reason: Protocol Last Admin: 07/20/17 17:22 Dose: 400 mg Rosuvastatin Calcium (Crestor) 5 mg PO HS [facility] Tramadol HCl (Ultram) 50 mg PO TID PRN PRN Reason: Pain, severe (8-10) Last Admin: 07/19/17 22:30 Dose: 50 mg - Labs Labs: 07/20/17 07:51 07/20/17 07:51 - Constitutional Appears: Non-toxic, No Acute Distress - Respiratory Exam Respiratory Exam: Clear to Ausculation Bilateral. absent: Respiratory Distress - Cardiovascular Exam Cardiovascular Exam: RRR, +S1, +S2 - GI/Abdominal Exam GI & Abdominal Exam: Soft. absent: Distended, Tenderness - Extremities Exam Additional comments: minimal leg edema - Neurological Exam Neurological Exam: Alert, Awake - Psychiatric Exam Psychiatric exam: absent: Agitated - Skin Skin Exam: Warm. absent: Cyanosis Assessment and Plan (1) ESRD on hemodialysis Assessment & Plan: Mild hyperkalemia before HD today, otherwise stable volume and electrolyte status; will continue with HD on TTS schedule; Status: Chronic (2) DVT (deep venous thrombosis) Assessment & Plan: s/p IVC filter, on eliquis, should continue; Status: Chronic (3) Hypertension due to end stage renal disease on dialysis Assessment & Plan: BP much better controlled lately, continue current meds; Status: Acute (4) Anemia in CKD (chronic kidney disease) Assessment & Plan: Hgb now at goal; will continue with long acting EPO formulation as outpatient; Status: Chronic (5) Chronic kidney disease-mineral and bone disorder Assessment & Plan: PTH markedly elevated; on calcitriol, will adjust meds on outpatient HD; Status: Chronic
--- NOTE | 2017-07-20 22:45 | CP.PCM.DIS ---
Provider - Provider Date of Admission: 07/14/17 17:22 Attending physician: Hany Rodriguez MD Diagnosis - Discharge Diagnosis (1) Fluid overload Status: Acute (2) Acute renal failure (ARF) Status: Acute (3) Dyspnea Status: Acute (4) SHAVONNE (acute kidney injury) Status: Acute (5) HIV 2 (human immunodeficiency virus type 2) Status: Acute (6) HTN (hypertension) Status: Acute (7) AIDS (acquired immune deficiency syndrome) Status: Chronic Priority: High (8) ESRD on hemodialysis Status: Chronic Hospital Course - Lab Results Lab Results: Most Recent Lab Values WBC 5.5 K/uL (4.8-10.8) 07/20/17 07:51 RBC 3.16 Mil/uL (3.80-5.20) L 07/20/17 07:51 Hgb 10.2 g/dL (11.0-16.0) L 07/20/17 07:51 Hct 30.7 % (34.0-47.0) L 07/20/17 07:51 MCV 97.1 fL (81.0-99.0) 07/20/17 07:51 MCH 32.3 pg (27.0-31.0) H 07/20/17 07:51 MCHC 33.3 g/dL (33.0-37.0) 07/20/17 07:51 RDW 14.7 % (11.5-14.5) H 07/20/17 07:51 Plt Count 138 K/uL (130-400) 07/20/17 07:51 MPV 10.0 fL (7.2-11.7) 07/20/17 07:51 Neut % (Auto) 70.5 % (50.0-75.0) 07/20/17 07:51 Lymph % (Auto) 12.2 % (20.0-40.0) L 07/20/17 07:51 [place] % (Auto) 12.2 % (0.0-10.0) H 07/20/17 07:51 Eos % (Auto) 4.5 % (0.0-4.0) H 07/20/17 07:51 Baso % (Auto) 0.6 % (0.0-2.0) 07/20/17 07:51 Neut # (Auto) 3.9 K/uL (1.8-7.0) 07/20/17 07:51 Lymph # (Auto) 0.7 K/uL (1.0-4.3) L 07/20/17 07:51 [place] # (Auto) 0.7 K/uL (0.0-0.8) 07/20/17 07:51 Eos # (Auto) 0.2 K/uL (0.0-0.7) 07/20/17 07:51 Baso # (Auto) 0.0 K/uL (0.0-0.2) 07/20/17 07:51 Neutrophils % (Manual) 83 % (50-75) H 07/15/17 10:24 Lymphocytes % (Manual) 7 % (20-40) L 07/15/17 10:24 Monocytes % (Manual) 10 % (0-10) 07/15/17 10:24 Differential Comment 07/17/17 09:41 Platelet Estimate Normal (NORMAL) 07/15/17 10:24 Hypochromasia (manual) Slight 07/14/17 17:14 Anisocytosis (manual) Slight 07/15/17 10:24 Sodium 139 mmol/L (132-148) 07/20/17 07:51 Potassium 5.5 mmol/L (3.6-5.2) H 07/20/17 07:51 Chloride 104 mmol/L (98-107) 07/20/17 07:51 Carbon Dioxide 24 mmol/L (22-30) 07/20/17 07:51 Anion Gap 16 (10-20) 07/20/17 07:51 BUN 75 mg/dL (7-17) H 07/20/17 07:51 Creatinine 5.7 mg/dL (0.7-1.2) H 07/20/17 07:51 Est GFR ( Amer) 9 07/20/17 07:51 Est GFR (Non-Af Amer) 8 07/20/17 07:51 Random Glucose 103 mg/dL (65-105) 07/20/17 07:51 Uric Acid 7.5 mg/dL (2.2-7.5) 07/15/17 10:24 Calcium 8.8 mg/dl (8.6-10.4) 07/20/17 07:51 Phosphorus 5.5 mg/dL (2.5-4.5) H 07/20/17 07:51 Magnesium 1.7 mg/dL (1.6-2.3) 07/17/17 09:41 Iron 45 ug/dL (37-170) 07/15/17 10:24 TIBC 247 ug/dL (250-450) L 07/15/17 10:24 % Saturation 18 (20-55) L 07/15/17 10:24 Ferritin 357.0 ng/mL 07/15/17 10:24 Total Bilirubin 0.4 mg/dL (0.2-1.3) 07/20/17 07:51 AST 32 U/L (14-36) 07/20/17 07:51 ALT 40 U/L (9-52) 07/20/17 07:51 Alkaline Phosphatase 149 U/L (38-126) H D 07/20/17 07:51 CK-MB (Mass) 5.14 ng/mL (0.0-3.38) H 07/14/17 17:14 Troponin I 0.0610 ng/mL (0.00-0.120) 07/14/17 17:14 Total Protein 7.3 g/dL (6.3-8.3) 07/20/17 07:51 Albumin 3.5 g/dL (3.5-5.0) 07/20/17 07:51 Globulin 3.8 gm/dL (2.2-3.9) 07/20/17 07:51 Albumin/Globulin Ratio 0.9 (1.0-2.1) L 07/20/17 07:51 25-OH Vitamin D Total 24.0 NG/ML (30.0-100.0) L 07/15/17 10:24 PTH Intact Whole Molec 1045 pg/mL (14-64) H 07/15/17 10:24 Absolute Lymphs (Flow) 419 Cells/mcL (850-3900) L 07/15/17 10:38 % CD4 Cells 40 Percent (30-61) 07/15/17 10:38 Absolute CD4 Count 167 Cells/mcL (490-1740) L 07/15/17 10:38 T-Help/Suppress Ratio 1.17 Ratio (0.86-5.00) 07/15/17 10:38 % CD8 Cells 34 Percent (12-42) 07/15/17 10:38 Absolute CD8 Count 143 Cells/mcL (180-1170) L 07/15/17 10:38 T-Lymph Analys Comment See note 07/15/17 10:38 Hep Bs Antigen Negative (NEGATIVE) 07/17/17 08:21 Hep Bs Antibody Positive (NEGATIVE) 07/17/17 08:21 HIV-1 RNA Qnt (RT-PCR) <1.30 not detected (Not Detected) 07/15/17 10:24 - Hospital Course Hospital Course: Patient admitted with dyspnea secondary to missed HD, seen and examined. Tolerated dialysis today, no sob or chest pains. Cleared to go to [facility] , apparently she is unsafe discharge home. Will continue with HD and present meds. Discharge Exam - Head Exam Head Exam: ATRAUMATIC, NORMAL INSPECTION, NORMOCEPHALIC Discharge Plan - Follow Up Plan Condition: STABLE Disposition: REHAB FACILITY/REHAB UNIT Instructions: Heart Failure, Adult (DC), Shortness of Breath (Dyspnea) (DC), Acute Kidney Failure (DC) Referrals: Hany Rodriguez MD [Staff Provider] -
== END 2017-07-20 20:15 | DRG 682 ==
LOC: C.ER 16:12 → C.9E 17:22 → C.3T 17:22
PROVIDERS: ADMIT Internal Medicine; ATTEND Internal Medicine
PROC: 5A1D70Z Performance of Urinary Filtration, Intermittent, Less than 6 Hours Per Day (ICD-10-PCS; principal; 2017-07-15)
PROC: 5A1D70Z Performance of Urinary Filtration, Intermittent, Less than 6 Hours Per Day (ICD-10-PCS; 2017-07-17)
PROC: 5A1D70Z Performance of Urinary Filtration, Intermittent, Less than 6 Hours Per Day (ICD-10-PCS; 2017-07-20)
DX: N17.9 Acute kidney failure, unspecified (principal); B20 Human immunodeficiency virus [HIV] disease; I82.91 Chronic embolism and thrombosis of unspecified vein; I13.2 Hypertensive heart and chronic kidney disease with heart failure and with stage 5 chronic kidney disease, or end stage renal disease; I82.531 Chronic embolism and thrombosis of right popliteal vein; N18.6 End stage renal disease; Z59.0 Homelessness; M89.9 Disorder of bone, unspecified; J44.9 Chronic obstructive pulmonary disease, unspecified; Z99.2 Dependence on renal dialysis; I25.10 Atherosclerotic heart disease of native coronary artery without angina pectoris; F17.200 Nicotine dependence, unspecified, uncomplicated; E87.5 Hyperkalemia; E78.5 Hyperlipidemia, unspecified; D63.1 Anemia in chronic kidney disease; E03.9 Hypothyroidism, unspecified; E11.21 Type 2 diabetes mellitus with diabetic nephropathy; E11.22 Type 2 diabetes mellitus with diabetic chronic kidney disease; I48.91 Unspecified atrial fibrillation; I50.9 Heart failure, unspecified; Z95.0 Presence of cardiac pacemaker

== ENCOUNTER 2017-09-01 09:07 | Day surgery (SDC) | payer MEDICARE, OTHER ==
[2017-09-01 10:42] LABS: ALB/GLOB RATIO 1.1 (1.0-2.1); ALBUMIN 3.8 g/dL (3.5-5.0); CALCIUM 9.1 mg/dl (8.6-10.4)
[2017-09-01] MEDS ORDERED: ceFAZolin 1 gm in NS 1 GM/100 ML BAG IVPB ONE ×2 (11:16→12:43)
[2017-09-01] MEDS ORDERED: HEPARIN-NS 5,000 UNITS/500 ML 5,000 UNIT/500 ML BAG IV ONE (11:16)
[2017-09-01] MEDS ORDERED: Bupivacaine 0.25% 20 ML INJ IJ ONE (11:58)
[2017-09-01] MEDS ORDERED: Lidocaine 2% MPF (5 ml) Inj ONE (11:58)
[2017-09-01] MEDS ORDERED: Sodium Chloride 0.9% 500 ML IV ONE (12:00)
[2017-09-01] MEDS ORDERED: Etomidate 20 mg/10ml Inj IV ONE (12:16)
[2017-09-01] MEDS ORDERED: Midazolam 2 MG/2 ML VIAL ONE (12:16)
--- NOTE | 2017-09-01 13:57 | PCM.SURG1 ---
Surgeon's Initial Post Op Note - Surgeon's Notes Surgeon: augusto Construction Plumber: 0 Type of Anesthesia: Block Regional Anesthesia Administered By: wateru Pre-Operative Diagnosis: renal failure Operative Findings: brachial artery/ brachial- basilic vein fistula left elbow Post-Operative Diagnosis: same Operation Performed: av fistula left elbow Specimen/Specimens Removed: 0 Estimated Blood Loss: EBL {In ML}: 15 Blood Products Given: N/A Drains Used: No Drains Post-Op Condition: Good Date of Surgery/Procedure: 09/01/17 Time of Surgery/Procedure: 13:57
[2017-09-01 15:08] VITALS: BP 138/60; PULSE 66; RESP 18; TEMP 98; O2SAT 96
--- NOTE | 2017-09-02 01:43 | OP ---
PROCEDURE DATE: 09/01/2017 PREOPERATIVE DIAGNOSIS: Renal failure. POSTOPERATIVE DIAGNOSIS: Renal failure. PROCEDURES CARRIED OUT: Brachiobasilic fistula, left elbow. SURGEON: Les Brady Jr., MD ACADEMIC GUIDANCE SPECIALIST: None. ANESTHESIOLOGIST: ANESTHESIA: Block. INDICATIONS: The patient is a middle-aged woman with renal insufficiency, presently dialyzes by means of a catheter. She has no good superficial vein. She has an excellent brachial and basilic vein. We initially did the operation to the brachio-brachial fistula unilateral up to the axilla and this rapidly branches over into the basilic vein, so in that sense we will mobilize basilic vein when it becomes necessary. DESCRIPTION OF PROCEDURE: The patient was given anesthesia by a block. After adequate anesthesia was established, we made an incision over the artery and vein, which have been marked with [id number] fistula with the distal part ligated, was then carried out using loupe magnification and heparin anticoagulation. At the end of the procedure, we had a palpable pulse at the wrist and good flow to the fistula. Most likely, this will require mobilization in future. Les Brady Jr., MD cc: 1. Beulah Guidry MD 2. Hany Rodriguez MD
== END 2017-09-01 15:27 | disposition home or self-care (01) ==
LOC: C.SDS 09:07
PROVIDERS: ATTEND Surgery Vascular Surgery
DX: I12.0 Hypertensive chronic kidney disease with stage 5 chronic kidney disease or end stage renal disease (principal); N18.6 End stage renal disease; E11.22 Type 2 diabetes mellitus with diabetic chronic kidney disease; F17.200 Nicotine dependence, unspecified, uncomplicated
CPT/HCPCS: 36415; 36821; 80053; J0690; J1644; J2250; J7030

== ENCOUNTER 2017-10-27 19:18 | Emergency (ER) | payer MEDICARE, OTHER ==
[2017-10-27 19:18] VITALS: PULSE 125
[2017-10-27 19:32] VITALS: BMI 36.0
--- NOTE | 2017-10-27 20:38 | C.PDOC ---
History Of Present Illness 62 year old female presents to the ED c/o bilateral knee pain. Patient reports she missed her last 2 days of dialysis. Patient usually goes Wednesday, and Wednesday to dialysis. Patient is speaking in complete sentences. Patient denies injury, fall, trauma, CP, SOB, dizziness, weakness, numbness. Time Seen by Provider: 10/27/17 20:36 Chief Complaint (Nursing): Lower Extremity Problem/Injury History Per: Patient History/Exam Limitations: no limitations Onset/Duration Of Symptoms: Days Current Symptoms Are (Timing): Still Present Recent travel outside of the [place]: No Additional History Per: Patient - Knee Description Of Injury: Other Past Medical History Reviewed: Historical Data, Nursing Documentation, Vital Signs Vital Signs: Last Vital Signs Temp 98.1 F 10/27/17 21:12 Pulse 63 10/27/17 21:12 Resp 20 10/27/17 21:12 BP 130/72 10/27/17 21:12 Pulse Ox 94 L 10/27/17 22:39 - Medical History PMH: Anemia, Anxiety, Arthritis, Atrial Fibrillation, CAD, CHF, COPD, Depression , Deep Vein Thrombosis, Gastritis, HIV, HTN, Hypercholesterolemia, Hyperlipidemia, Hypothyroidism, Pancreatitis, Peripheral Edema, End Stage Renal Disease, Chronic Kidney Disease, Chronic Pain (chronic lower extremity pain ) Surgical History: No Surg Hx - [facility] Procedures (07/14/17) EXCISION OF LEFT KIDNEY, PERCUTANEOUS APPROACH, DIAGNOSTIC (12/28/16) FLUOROSCOPY OF SUPERIOR VENA CAVA, GUIDANCE (02/12/17) GAIT TRAINING/FUNCTIONAL AMBULATION TREATMENT (08/05/15) INSERTION OF INFUSION DEV INTO SUP VENA CAVA, PERC APPROACH (02/12/17) INSERTION OF INTRALUM DEV INTO INF VENA CAVA, PERC APPROACH (07/30/15) INSERTION OF VAD INTO CHEST SUBCU/FASCIA, PERC APPROACH (02/12/17) INTRODUCTION OF SERUM/TOX/VACCINE INTO MUSCLE, PERC APPROACH (11/27/14) NEBULIZER THERAPY (09/12/14) Family History: States: Unknown Family Hx - Social History Hx Tobacco Use: Yes Hx Alcohol Use: Yes Hx Substance Use: Yes - Immunization History Hx Tetanus Toxoid Vaccination: No Hx Influenza Vaccination: Yes Hx Pneumococcal Vaccination: Yes Review Of Systems Constitutional: Negative for: Fever, Chills Cardiovascular: Negative for: Chest Pain Respiratory: Negative for: Shortness of Breath Gastrointestinal: Negative for: Nausea, Vomiting Musculoskeletal: Positive for: Leg Pain Skin: Negative for: Rash Neurological: Negative for: Weakness, Numbness Physical Exam - Physical Exam Appears: Non-toxic, No Acute Distress Skin: Warm, Dry Head: Normacephalic Eye(s): bilateral: Normal Inspection Oral Mucosa: Moist Neck: Supple Chest: Symmetrical, Other (dialysis shunt right chest wall) Cardiovascular: Rhythm Regular Respiratory: Rales (scattered at the bases), No Rhonchi, No Wheezing Gastrointestinal/Abdominal: Soft, No Tenderness, No Guarding, No Rebound Extremity: No Tenderness, Pedal Edema (trace bilateral), Capillary Refill (< 2 seconds), Other (left arm shunt with good thrill and bruit) Extremity: Bilateral: Atraumatic, Normal Color And Temperature, Normal ROM, Other (arthritic change in knees) Pulses: Left Dorsalis Pedis: Normal, Right Dorsalis Pedis: Normal Neurological/Psych: Oriented x3, Normal Speech, Normal Cognition, Normal Motor, Normal Sensation Gait: Steady ED Course And Treatment - Laboratory Results Result Diagrams: 10/27/17 20:43 10/27/17 20:43 ECG: Interpreted By Me, Viewed By Me ECG Rhythm: Sinus Rhythm (60), Nonspecific Changes O2 Sat by Pulse Oximetry: 94 Pulse Ox Interpretation: Normal - Radiology CXR: Interpreted by Me, Viewed By Me CXR Interpretation: Yes: Other (right hd in place, elevated left hemidiaphragm, unchanged). No: Infiltrates, Fracture, Pnemothorax Progress Note: Plan: - VBG. - EKG. - Labs. - CXR. pt is aaox3 and competent. states she will get her dialysis toomorrow. Signed ama form. Encouraged to return Against Medical Advice - AMA Patient Left Against Medical Advice: The patient declines admission to the hospital and wishes to leave the Emergency Department. This action is against my medical advice. This decision was made with informed refusal. The patient was told that admission to the hospital is necessary. Explanation of the reasons why were discussed. The risks of leaving were explained to the patient and include, but are not limited to, worsening of known or currently unknown conditions, permanent disability and from undiagnosed or untreated conditions. The patient has the capacity to make this informed decision and understands my explanation of the current medical problem and risks of leaving. The patient voluntarily accepts these risks and signed an AMA form documenting our conversation. The patient was given the opportunity to ask questions and reconsider. The patient was encouraged to return to the Emergency Department at any time for further care. Disposition Counseled Patient/Family Regarding: Studies Performed, Diagnosis, Need For Followup - Disposition Referrals: Hany Rodriguez MD [Staff Provider] - Disposition: HOME/ ROUTINE Disposition Time: 20:38 Condition: FAIR Additional Instructions: Please return if symptoms recur Instructions: End Stage Kidney Disease (DC), Knee Pain (DC) Forms: Xanga (Sudanese) - Clinical Impression Clinical Impression: ESRD (end stage renal disease) on dialysis, Knee pain - Scribe Statement The provider has reviewed the documentation as recorded by the Scribe Brennon Roca All medical record entries made by the Scribe were at my direction and personally dictated by me. I have reviewed the chart and agree that the record accurately reflects my personal performance of the history, physical exam, medical decision making, and the department course for this patient. I have also personally directed, reviewed, and agree with the discharge instructions and disposition.
[2017-10-27 20:48] LABS: BASO % 0.8 % (0.0-2.0); EOS # 0.2 K/uL (0.0-0.7); EOS % 3.2 % (0.0-4.0); HEMOGLOBIN 10.3 g/dL (11.0-16.0); LYMPH # 0.8 K/uL (1.0-4.3); LYMPH % 18.3 % (20.0-40.0); MEAN CORPUSCULAR HEMOGLOBIN 30.5 pg (27.0-31.0); MEAN CORPUSCULAR HGB CONC 32.8 g/dL (33.0-37.0); MEAN PLATELET VOLUME 8.2 fL (7.2-11.7); MONO # 0.6 K/uL (0.0-0.8); MONO % 12.1 % (0.0-10.0); NEUT % 65.6 % (50.0-75.0); RBC 3.38 Mil/uL (3.80-5.20); RED CELL DISTRIBUTION WIDTH 15.8 % (11.5-14.5); WHITE BLOOD COUNT 4.6 K/uL (4.8-10.8)
[2017-10-27 20:50] LABS: MEAN CELL VOLUME 92.9 fL (81.0-99.0)
[2017-10-27 20:58] LABS: INR 1.3; PROTHROMBIN TIME 14.1 SECONDS (9.7-12.2)
[2017-10-27 20:58] LABS: VENOUS BLOOD GAS BASE EXCESS 3.6 mmol/L (0.0-2.0); VENOUS BLOOD GAS PCO2 59 mmHg (40-60); VENOUS BLOOD GAS PO2 21 mm/Hg (30-55); VENOUS BLOOD PH 7.33 (7.32-7.43)
[2017-10-27 21:10] LABS: ALB/GLOB RATIO 1.1 (1.0-2.1); ALBUMIN 4.5 g/dL (3.5-5.0); CALCIUM 9.5 mg/dl (8.6-10.4)
[2017-10-27 21:13] VITALS: RESP 20
[2017-10-27 22:58] VITALS: BP 171/71; PULSE 66; TEMP 97.4; O2SAT 98
--- NOTE | 2017-10-28 10:17 | RAD ---
Chest x-ray single frontal view History: Shortness of breath. Comparison: 07/14/2017 Findings: Elevated left hemidiaphragm. Distended bowel loops underneath the left hemidiaphragm. Venous congestion. Right central venous catheter tip extending to the right cavoatrial junction. Right hilar prominence. Cardiomegaly. Degenerative changes in the spine and shoulders. Impression: Elevated left hemidiaphragm. Distended bowel loops underneath the left hemidiaphragm. Venous congestion. Right central venous catheter tip extending to the right cavoatrial junction. Right hilar prominence. Cardiomegaly.
--- NOTE | 2017-10-28 14:43 | CARD ---
APPROVED REPORT Date of service: 10/27/2017 EKG Measurement Heart [id number] <Conclusion> Normal sinus rhythm Minimal voltage criteria for LVH, may be normal variant Borderline ECG
== END 2017-10-27 23:23 | disposition left against medical advice (07) ==
LOC: C.ER 19:18
DX: M25.562 Pain in left knee (principal); M25.561 Pain in right knee; N18.6 End stage renal disease; Z99.2 Dependence on renal dialysis

== ENCOUNTER 2017-12-03 20:54 | Emergency (ER) | payer MEDICARE, OTHER ==
[2017-12-03 20:54] VITALS: PULSE 125; BMI 40.3
[2017-12-03 21:24] VITALS: PULSE 87; TEMP 99.6; O2SAT 97
--- NOTE | 2017-12-03 21:42 | C.PDOC ---
History Of Present Illness 62-year-old homeless female, whose PMH includes Chronic leg Pain, presents to the emergency department with complaints of pain in bilateral lower extremities. patient is also requesting a place to sleep because she has "nowhere to go." She has been seen in ED multiple times in the past for similar complaints. Time Seen by Provider: 12/03/17 21:32 Chief Complaint (Nursing): Lower Extremity Problem/Injury History Per: Patient History/Exam Limitations: no limitations Past Medical History Reviewed: Historical Data, Nursing Documentation, Vital Signs Vital Signs: Last Vital Signs Temp 99.6 F 12/03/17 21:18 Pulse 87 12/03/17 21:18 Resp 14 12/03/17 21:18 BP Pulse Ox 97 12/03/17 21:18 - Medical History PMH: Anemia, Anxiety, Arthritis, Atrial Fibrillation, CAD, CHF, COPD, Depression, Deep Vein Thrombosis, Gastritis, HIV, HTN, Hypercholesterolemia, Hyperlipidemia, Hypothyroidism, Pancreatitis, Peripheral Edema, End Stage Renal Disease, Chronic Kidney Disease, Chronic Pain (chronic lower extremity pain ) Surgical History: - [facility] Procedures (11/11/17) EXCISION OF LEFT KIDNEY, PERCUTANEOUS APPROACH, DIAGNOSTIC (12/28/16) FLUOROSCOPY OF SUPERIOR VENA CAVA, GUIDANCE (02/12/17) GAIT TRAINING/FUNCTIONAL AMBULATION TREATMENT (08/05/15) INSERTION OF INFUSION DEV INTO SUP VENA CAVA, PERC APPROACH (02/12/17) INSERTION OF INTRALUM DEV INTO INF VENA CAVA, PERC APPROACH (07/30/15) INSERTION OF VAD INTO CHEST SUBCU/FASCIA, PERC APPROACH (02/12/17) INTRODUCTION OF SERUM/TOX/VACCINE INTO MUSCLE, PERC APPROACH (11/27/14) NEBULIZER THERAPY (09/12/14) TRANSFUSE NONAUT RED BLOOD CELLS IN PERIPH VEIN, PERC (11/11/17) Family History: States: No Known Family Hx - Social History Hx Tobacco Use: Yes Hx Alcohol Use: Yes Hx Substance Use: Yes - Immunization History Hx Tetanus Toxoid Vaccination: No Hx Influenza Vaccination: Yes Hx Pneumococcal Vaccination: Yes Review Of Systems Constitutional: Negative for: Fever Cardiovascular: Negative for: Chest Pain Respiratory: Negative for: Shortness of Breath Musculoskeletal: Positive for: Leg Pain Physical Exam - Physical Exam Appears: Non-toxic, No Acute Distress, Unkempt Skin: Warm, Dry, No Rash Head: Atraumatic Eye(s): bilateral: Normal Inspection, EOMI Nose: Normal Oral Mucosa: Moist Lips: Normal Appearing Neck: Normal ROM Chest: Symmetrical Cardiovascular: Rhythm Regular, No Murmur Respiratory: Normal Breath Sounds, No Decreased Breath Sounds, No Accessory Muscle Use Extremity: Pedal Edema (trace), No Deformity, Other (arthritic changes in B/L knees. +thrill in left arm shunt) Neurological/Psych: Oriented x3, Normal Speech ED Course And Treatment O2 Sat by Pulse Oximetry: 97 Pulse Ox Interpretation: Normal (RA) Disposition - Disposition Referrals: [facility] [Outside] Disposition: HOME/ ROUTINE Disposition Time: 22:20 Condition: GOOD Instructions: Chronic Pain (DC) Forms: TwitChat (Spanish) - Clinical Impression Clinical Impression: Chronic leg pain - Scribe Statement The provider has reviewed the documentation as recorded by the Scribe (Sangeeta Stoll) All medical record entries made by the Scribe were at my direction and personally dictated by me. I have reviewed the chart and agree that the record accurately reflects my personal performance of the history, physical exam, medical decision making, and the department course for this patient. I have also personally directed, reviewed, and agree with the discharge instructions and disposition.
[2017-12-03 22:22] VITALS: RESP 20
== END 2017-12-03 22:21 | disposition home or self-care (01) ==
LOC: C.ER 20:54
DX: G89.29 Other chronic pain (principal); M79.606 Pain in leg, unspecified; E78.00 Pure hypercholesterolemia, unspecified; I48.91 Unspecified atrial fibrillation; J44.9 Chronic obstructive pulmonary disease, unspecified; I12.0 Hypertensive chronic kidney disease with stage 5 chronic kidney disease or end stage renal disease; N18.6 End stage renal disease; I25.10 Atherosclerotic heart disease of native coronary artery without angina pectoris; I50.9 Heart failure, unspecified; Z59.0 Homelessness; Z72.0 Tobacco use

== ENCOUNTER 2018-03-21 21:57 | Observation (INO) | payer OTHER ==
[2018-03-21 21:57] VITALS: PULSE 125; BMI 40.3
[2018-03-21 23:39] LABS: ALBUMIN 4.1 g/dL (3.5-5.0); ALT/SGPT < 6 U/L (9-52); AST/SGOT 50 U/L (14-36); BLOOD UREA NITROGEN 41 mg/dL (7-17); GFR NON-AFRICAN AMERICAN 7
[2018-03-21 23:53] LABS: B-TYPE NATRIURETIC PEPTIDE 3270 pg/mL (0-900)
--- NOTE | 2018-03-22 00:59 | C.PDOC ---
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 Patient was given nitro and aspirin by EMS en route to the ED. Patient is a Wednesday, and Wednesday dialysis patient. Patient denies fever, chills, nausea, vomit, diarrhea, SOB, weakness, numbness. Time Seen by Provider: 03/21/18 22:35 Chief Complaint (Nursing): Chest Pain History Per: Patient, EMS History/Exam Limitations: no limitations Onset/Duration Of Symptoms: Hrs (1) Current Symptoms Are (Timing): Still Present Quality: "Pain" Nitro Therapy Administered: Per EMS Recent travel outside of the [place]: No Additional History Per: Patient Past Medical History Reviewed: Historical Data, Nursing Documentation, Vital Signs Vital Signs: Last Vital Signs Temp 98.7 F 03/21/18 22:00 Pulse 81 03/21/18 22:00 Resp 20 03/21/18 22:00 BP 134/57 L 03/21/18 22:00 Pulse Ox 96 03/21/18 22:00 - Medical History PMH: Anemia, Anxiety, Arthritis, Atrial Fibrillation, CAD, CHF, COPD, Depression, Deep Vein Thrombosis, Gastritis, HIV, HTN, Hypercholesterolemia, Hyperlipidemia, Hypothyroidism, Pancreatitis, Peripheral Edema, End Stage Renal Disease, Chronic Kidney Disease, Chronic Pain (chronic lower extremity pain ) Surgical History: No Surg Hx - [facility] Procedures (01/24/18) EXCISION OF LEFT KIDNEY, PERCUTANEOUS APPROACH, DIAGNOSTIC (12/28/16) FLUOROSCOPY OF SUPERIOR VENA CAVA, GUIDANCE (02/12/17) GAIT TRAINING/FUNCTIONAL AMBULATION TREATMENT (08/05/15) INSERTION OF INFUSION DEV INTO SUP VENA CAVA, PERC APPROACH (02/12/17) INSERTION OF INTRALUM DEV INTO INF VENA CAVA, PERC APPROACH (07/30/15) INSERTION OF VAD INTO CHEST SUBCU/FASCIA, PERC APPROACH (02/12/17) INTRODUCTION OF SERUM/TOX/VACCINE INTO MUSCLE, PERC APPROACH (11/27/14) NEBULIZER THERAPY (09/12/14) TRANSFUSE NONAUT RED BLOOD CELLS IN PERIPH VEIN, PERC (11/11/17) Family History: States: Unknown Family Hx - Social History Hx Tobacco Use: Yes Hx Alcohol Use: No Hx Substance Use: No - Immunization History Hx Tetanus Toxoid Vaccination: No Hx Influenza Vaccination: No (PT UNSURE) Hx Pneumococcal Vaccination: No (PT UNSURE) Review Of Systems Constitutional: Negative for: Fever, Chills Cardiovascular: Positive for: Chest Pain. Negative for: Palpitations Respiratory: Negative for: Shortness of Breath Gastrointestinal: Negative for: Nausea, Vomiting, Abdominal Pain Skin: Negative for: Rash Neurological: Negative for: Weakness, Numbness Physical Exam - Physical Exam Appears: Non-toxic, No Acute Distress Skin: Normal Color, Warm, Dry Head: Atraumatic, Normacephalic Eye(s): bilateral: Normal Inspection Oral Mucosa: Moist Neck: Normal ROM, Supple Chest: Symmetrical Cardiovascular: Rhythm Regular Respiratory: Normal Breath Sounds, No Rales, No Rhonchi, No Wheezing Gastrointestinal/Abdominal: Soft, No Tenderness, No Guarding, No Rebound Extremity: Normal ROM, No Tenderness, Pedal Edema (bilateral lower extremities ), Capillary Refill (< 2 seconds), Other (left upper arm shunt with good thrill and bruit) Pulses: Left Radial: Normal, Right Radial: Normal, Left Dorsalis Pedis: Normal, Right Dorsalis Pedis: Normal Neurological/Psych: Oriented x3, Normal Speech, Normal Cognition Gait: Steady ED Course And Treatment - Laboratory Results Result Diagrams: 03/21/18 23:21 Lab Results: Troponin I 0.0550 ng/mL (0.00-0.120) 03/21/18 23:21 NT-Pro-B Natriuret Pep 3270 pg/mL (0-900) H 03/21/18 23:21 Total Bilirubin 1.2 mg/dL (0.2-1.3) 03/21/18 23:21 AST 50 U/L (14-36) H D 03/21/18 23:21 ALT < 6 U/L (9-52) L D 03/21/18 23:21 Alkaline Phosphatase 75 U/L (38-126) 03/21/18 23:21 Total Protein 8.2 g/dL (6.3-8.3) 03/21/18 23:21 Albumin 4.1 g/dL (3.5-5.0) 03/21/18 23:21 Globulin 4.0 gm/dL (2.2-3.9) H 03/21/18 23:21 Albumin/Globulin Ratio 1.0 (1.0-2.1) 03/21/18 23:21 ECG: Interpreted By Me, Viewed By Me ECG Rhythm: Sinus Rhythm, Nonspecific Changes (ST/T wave changes) Rate From EC (BPM) O2 Sat by Pulse Oximetry: 96 (ON RA) Pulse Ox Interpretation: Normal - Radiology CXR: Interpreted by Me, Viewed By Me CXR Interpretation: Yes: Cardiomegaly, Other (Mild PVC, unchanged 10/27/2017) Medical Decision Making Medical Decision Making: Plan: * EKG * Labs * CXR Disposition - Disposition Disposition: HOSPITALIZED Disposition Time: 01:17 Condition: STABLE Forms: [employer]ify (Urdu) - Clinical Impression Clinical Impression: ESRD on hemodialysis, Chest pain - Scribe Statement The provider has reviewed the documentation as recorded by the Scribe Brennon Roca All medical record entries made by the Scribe were at my direction and personally dictated by me. I have reviewed the chart and agree that the record accurately reflects my personal performance of the history, physical exam, medical decision making, and the department course for this patient. I have also personally directed, reviewed, and agree with the discharge instructions and disposition.
[2018-03-22 01:44] LABS: BASO % 0.6 % (0.0-2.0); EOS # 0.1 K/uL (0.0-0.7); EOS % 1.5 % (0.0-4.0); HEMOGLOBIN 12.1 g/dL (11.0-16.0); LYMPH # 0.8 K/uL (1.0-4.3); LYMPH % 10.9 % (20.0-40.0); MEAN CELL VOLUME 92.6 fL (81.0-99.0); MEAN CORPUSCULAR HEMOGLOBIN 29.8 pg (27.0-31.0); MEAN CORPUSCULAR HGB CONC 32.2 g/dL (33.0-37.0); MEAN PLATELET VOLUME 8.3 fL (7.2-11.7); MONO # 0.9 K/uL (0.0-0.8); MONO % 11.3 % (0.0-10.0); NEUT # 5.9 K/uL (1.8-7.0); NEUT % 75.7 % (50.0-75.0); NRBC % 0.9 % (0.0-2.0); RBC 4.08 Mil/uL (3.80-5.20); RED CELL DISTRIBUTION WIDTH 19.2 % (11.5-14.5); WHITE BLOOD COUNT 7.8 K/uL (4.8-10.8)
[2018-03-22] MEDS ORDERED: EMTRICITABINE 200 MG CAP PO SCH (03:15)
[2018-03-22 06:33] LABS: CK-MB 0.89 ng/mL (0.0-3.38)
[2018-03-22 08:54] LABS: TROPONIN I 0.047 ng/mL (0.00-0.120)
[2018-03-22] MEDS ORDERED: Pantoprazole 40 mg EC Tab PO ONE (09:36)
[2018-03-22] MEDS: Pantoprazole 40 mg EC Tab PO SCH (09:37)
[2018-03-22] MEDS: diltiaZEM 120 mg/24 Hours CD Cap PO SCH (09:39)
--- NOTE | 2018-03-22 10:20 | CP.PCM.CON ---
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 Patient was given nitro and aspirin by EMS en route to the ED. Patient is a Wednesday, and Wednesday dialysis patient. Patient denies fever, chills, nausea, vomit, diarrhea, SOB, weakness, numbness. Referred for ID eval - hx HIV - Medical History PMH: Anemia, Anxiety, Arthritis, Atrial Fibrillation, CAD, CHF, COPD, Depression, Deep Vein Thrombosis, Gastritis, HIV, HTN, Hypercholesterolemia, Hyperlipidemia, Hypothyroidism, Pancreatitis, Peripheral Edema, End Stage Renal Disease, Chronic Kidney Disease, Chronic Pain (chronic lower extremity pain ) Surgical History: No Surg Hx - [facility] Procedures (01/24/18) EXCISION OF LEFT KIDNEY, PERCUTANEOUS APPROACH, DIAGNOSTIC (12/28/16) FLUOROSCOPY OF SUPERIOR VENA CAVA, GUIDANCE (02/12/17) GAIT TRAINING/FUNCTIONAL AMBULATION TREATMENT (08/05/15) INSERTION OF INFUSION DEV INTO SUP VENA CAVA, PERC APPROACH (02/12/17) INSERTION OF INTRALUM DEV INTO INF VENA CAVA, PERC APPROACH (07/30/15) INSERTION OF VAD INTO CHEST SUBCU/FASCIA, PERC APPROACH (02/12/17) INTRODUCTION OF SERUM/TOX/VACCINE INTO MUSCLE, PERC APPROACH (11/27/14) NEBULIZER THERAPY (09/12/14) TRANSFUSE NONAUT RED BLOOD CELLS IN PERIPH VEIN, PERC (11/11/17) Past Patient History - Infectious Disease Hx of Infectious Diseases: None - Tetanus Immunizations Tetanus Immunization: Unknown - Past Medical History & Family History Past Medical History?: Yes - Past Social History Smoking Status: Heavy Smoker > 10 Cigarettes Daily - CARDIAC Hx Atrial Fibrillation: Yes Hx Congestive Heart Failure: Yes Hx Hypercholesterolemia: Yes Hx Hypertension: Yes Hx Peripheral Edema: Yes - PULMONARY Hx Chronic Obstructive Pulmonary Disease (COPD): Yes - HEENT Hx HEENT Problems: No - RENAL Hx Chronic Kidney Disease: Yes - ENDOCRINE/METABOLIC Hx Hypothyroidism: Yes - HEMATOLOGICAL/ONCOLOGICAL Hx Anemia: Yes Hx Human Immunodeficiency Virus (HIV): Yes - INTEGUMENTARY Hx Dermatological Problems: No - MUSCULOSKELETAL/RHEUMATOLOGICAL Hx Arthritis: Yes - GASTROINTESTINAL Hx Gastritis: Yes Hx Pancreatitis: Yes - PSYCHIATRIC Hx Anxiety: Yes Hx Depression: Yes Hx Substance Use: No - SURGICAL HISTORY Hx Surgeries: No - ANESTHESIA Hx Anesthesia: No Hx Anesthesia Reactions: No Hx Malignant Hyperthermia: No Meds Allergies/Adverse Reactions: Allergies Allergy/AdvReac Type Severity Reaction Status Date / Time No Known Allergies Allergy Verified 03/21/18 22:07 - Medications Medications: Current Medications Apixaban (Eliquis) 5 mg PO DAILY [facility] Calcitriol (Rocaltrol) 0.5 mcg PO DAILY [facility] Calcium Acetate (Phoslo) 667 mg PO TIDCC [facility] Carvedilol (Coreg) 12.5 mg PO BID [facility] Last Admin: 03/22/18 09:39 Dose: 12.5 mg Diltiazem HCl (Cardizem Cd) 120 mg PO DAILY [facility] Last Admin: 03/22/18 09:39 Dose: 120 mg Emtricitabine (Emtriva) 200 mg PO Q96H [facility]; Protocol Last Admin: 03/22/18 05:52 Dose: Not Given Gabapentin (Neurontin) 100 mg PO TID [facility] Hydralazine HCl (Apresoline) 100 mg PO BID [facility] Last Admin: 03/22/18 09:39 Dose: 100 mg Influenza Virus Vaccine (Flucelvax Quad [id number] Syr) 60 mcg IM .ONCE ONE Stop: 03/23/18 10:01 Isosorbide Mononitrate (Imdur Er) 30 mg PO DAILY [facility] Last Admin: 03/22/18 09:38 Dose: 30 mg Pantoprazole Sodium (Protonix Ec Tab) 40 mg PO DAILY [facility] Last Admin: 03/22/18 09:37 Dose: 40 mg Quetiapine Fumarate (Seroquel) 50 mg PO BID [facility] Raltegravir (Isentress) 400 mg PO BID [facility]; Protocol Rosuvastatin Calcium (Crestor) 5 mg PO [facility] Rosuvastatin Calcium (Crestor) 5 mg PO HS [facility] Torsemide (Demadex) 100 mg PO DAILY [facility] Physical Exam - Constitutional Appears: Confused, Chronically Ill - Head Exam Head Exam: NORMOCEPHALIC - Eye Exam Eye Exam: absent: Scleral icterus - ENT Exam ENT Exam: Mucous Membranes Dry, Normal External Ear Exam - Neck Exam Neck exam: Negative for: Thyromegaly - Respiratory Exam Respiratory Exam: Decreased Breath Sounds - Cardiovascular Exam Cardiovascular Exam: REGULAR RHYTHM - GI/Abdominal Exam GI & Abdominal Exam: Diminished Bowel Sounds, Soft. absent: Tenderness - Rectal Exam Rectal Exam: Deferred - Exam Exam: NORMAL INSPECTION - Extremities Exam Extremities exam: Negative for: pedal edema - Back Exam Back exam: absent: CVA tenderness (L), CVA tenderness (R) - Neurological Exam Neurological exam: Alert, CN II-XII Intact, Oriented x3, Reflexes Normal - Psychiatric Exam Psychiatric exam: Depressed - Skin Skin Exam: Dry Results - Vital Signs Recent Vital Signs: Last Vital Signs Temp 98.5 F 03/22/18 03:01 Pulse 67 03/22/18 06:21 Resp 16 03/22/18 06:21 BP 127/52 L 03/22/18 09:39 Pulse Ox 97 03/22/18 08:56 - Labs Result Diagrams: 03/21/18 23:21 03/21/18 23:21 Labs: Laboratory Results - last 24 hr 03/21/18 03/21/18 03/22/18 23:21 23:21 06:08 WBC 7.8 D RBC 4.08 Hgb 12.1 D Hct 37.7 MCV 92.6 D MCH 29.8 MCHC 32.2 L RDW 19.2 H Plt Count 169 MPV 8.3 Neut % (Auto) 75.7 H Lymph % (Auto) 10.9 L [place] % (Auto) 11.3 H Eos % (Auto) 1.5 Baso % (Auto) 0.6 Neut # (Auto) 5.9 Lymph # (Auto) 0.8 L [place] # (Auto) 0.9 H Eos # (Auto) 0.1 Baso # (Auto) 0.0 Sodium 130 L Potassium 4.9 Chloride 93 L Carbon Dioxide 27 Anion Gap 16 BUN 41 H Creatinine 6.5 H Est GFR ( Amer) 8 Est GFR (Non-Af Amer) 7 Random Glucose 153 H Calcium 9.0 Total Bilirubin 1.2 AST 50 H D ALT < 6 L D Alkaline Phosphatase 75 Total Creatine Kinase 67 CK-MB (Mass) 0.89 Troponin I 0.0550 0.0470 NT-Pro-B Natriuret Pep 3270 H Total Protein 8.2 Albumin 4.1 Globulin 4.0 H Albumin/Globulin Ratio 1.0 Assessment & Plan (1) Chest pain Status: Acute (2) ESRD on hemodialysis Status: Chronic - Assessment and Plan (Free Text) Assessment: work up in progress culrures sent IV rx ordered
--- NOTE | 2018-03-22 11:01 | RAD ---
HISTORY: chest pain COMPARISON: Chest x-ray 10/27/17 TECHNIQUE: Chest, one view. FINDINGS: LUNGS: Left basilar atelectasis. No focal consolidation. Please note that chest x-ray has limited sensitivity for the detection of pulmonary masses. PLEURA: No significant pleural effusion identified. No definite pneumothorax . CARDIOVASCULAR: Cardiomegaly. Atherosclerotic calcifications present. OSSEOUS STRUCTURES: Degenerative changes. VISUALIZED UPPER ABDOMEN: Elevation of the left hemidiaphragm. Distended bowel loops underneath the left hemidiaphragm. OTHER FINDINGS: None. IMPRESSION: Marked cardiomegaly. Left basilar atelectasis. Marked elevation of the left hemidiaphragm with distended bowel loops underneath the left hemidiaphragm.
--- NOTE | 2018-03-22 14:34 | CP.PCM.HP ---
Past Patient History - Infectious Disease Hx of Infectious Diseases: None - Tetanus Immunizations Tetanus Immunization: Unknown - Past Medical History & Family History Past Medical History?: Yes - Past Social History Smoking Status: Heavy Smoker > 10 Cigarettes Daily - CARDIAC Hx Atrial Fibrillation: Yes Hx Congestive Heart Failure: Yes Hx Hypercholesterolemia: Yes Hx Hypertension: Yes Hx Peripheral Edema: Yes - PULMONARY Hx Chronic Obstructive Pulmonary Disease (COPD): Yes - HEENT Hx HEENT Problems: No - RENAL Hx Chronic Kidney Disease: Yes - ENDOCRINE/METABOLIC Hx Hypothyroidism: Yes - HEMATOLOGICAL/ONCOLOGICAL Hx Anemia: Yes Hx Human Immunodeficiency Virus (HIV): Yes - INTEGUMENTARY Hx Dermatological Problems: No - MUSCULOSKELETAL/RHEUMATOLOGICAL Hx Arthritis: Yes - GASTROINTESTINAL Hx Gastritis: Yes Hx Pancreatitis: Yes - PSYCHIATRIC Hx Anxiety: Yes Hx Depression: Yes Hx Substance Use: No - SURGICAL HISTORY Hx Surgeries: No - ANESTHESIA Hx Anesthesia: No Hx Anesthesia Reactions: No Hx Malignant Hyperthermia: No Meds Allergies/Adverse Reactions: Allergies Allergy/AdvReac Type Severity Reaction Status Date / Time No Known Allergies Allergy Verified 03/21/18 22:07 Physical Exam - Constitutional Appears: Well - Head Exam Head Exam: ATRAUMATIC, NORMAL INSPECTION, NORMOCEPHALIC - Eye Exam Eye Exam: EOMI, Normal appearance, PERRL Pupil Exam: NORMAL ACCOMODATION, PERRL - ENT Exam ENT Exam: Mucous Membranes Moist, Normal Exam - Neck Exam Neck exam: Positive for: Normal Inspection - Respiratory Exam Respiratory Exam: Decreased Breath Sounds - Cardiovascular Exam Cardiovascular Exam: REGULAR RHYTHM, +S1, +S2 - GI/Abdominal Exam GI & Abdominal Exam: Diminished Bowel Sounds, Soft - Rectal Exam Rectal Exam: Deferred Results - Vital Signs Recent Vital Signs: Last Vital Signs Temp 98.2 F 03/22/18 14:26 Pulse 77 03/22/18 14:26 Resp 20 03/22/18 14:26 BP 127/56 L 03/22/18 14:26 Pulse Ox 100 03/22/18 14:26 - Labs Result Diagrams: 03/21/18 23:21 03/21/18 23:21 Labs: Laboratory Results - last 24 hr 03/21/18 03/21/18 03/22/18 23:21 23:21 06:08 WBC 7.8 D RBC 4.08 Hgb 12.1 D Hct 37.7 MCV 92.6 D MCH 29.8 MCHC 32.2 L RDW 19.2 H Plt Count 169 MPV 8.3 Neut % (Auto) 75.7 H Lymph % (Auto) 10.9 L [place] % (Auto) 11.3 H Eos % (Auto) 1.5 Baso % (Auto) 0.6 Neut # (Auto) 5.9 Lymph # (Auto) 0.8 L [place] # (Auto) 0.9 H Eos # (Auto) 0.1 Baso # (Auto) 0.0 Sodium 130 L Potassium 4.9 Chloride 93 L Carbon Dioxide 27 Anion Gap 16 BUN 41 H Creatinine 6.5 H Est GFR ( Amer) 8 Est GFR (Non-Af Amer) 7 Random Glucose 153 H Calcium 9.0 Total Bilirubin 1.2 AST 50 H D ALT < 6 L D Alkaline Phosphatase 75 Total Creatine Kinase 67 CK-MB (Mass) 0.89 Troponin I 0.0550 0.0470 NT-Pro-B Natriuret Pep 3270 H Total Protein 8.2 Albumin 4.1 Globulin 4.0 H Albumin/Globulin Ratio 1.0
--- NOTE | 2018-03-22 20:30 | CARD ---
APPROVED REPORT Date of service: 03/21/2018 EKG Measurement Heart [id number] <Conclusion> Sinus rhythm with atrial premature beats. Nonspecific ST and T wave abnormality Abnormal ECG
--- NOTE | 2018-03-22 22:49 | CP.PCM.CON ---
<Mario Pepe - Last Filed: 03/23/18 00:55> History of Present Illness - History of Present Illness History of Present Illness: Mario Pepe DO PGY1 - Internal Medicine [employer] Pay[employer] - Cardiology Note for Dr. Fonseca 62F w/ PMH ESRD on HD TTF, Afib on Eliquis, CAD, CHF, COPD, DVT (w/ IVC filter), Gastirits, HIV, HTN, HLD, Hypothyroid presented to [facility] ED on 03/21 PM w/ c/o of chest pain. Per ED evaluation CP began 1 hour prior to arrival, VSS on arrival, EKG w/o ST segment elevation. BNP noted to be elevated. CXR upon arrival: Marked cardiomegaly, Left basilar atelectasis. Marked elevation of the left hemidiaphragm with distended bowel loops underneath the left hemidiaphragm. Cardiology consulted for evaluation of chest pain Patient was seen at bedside this evening, she reports L sided/ Epigastric CP which began at rest w/ mild episode of shortness of breaht. Patient denies any exacerbation w/ exertion, and denies having prior episodes of similar symptoms. Denies associated nausea, worsening LE edema, or radiation of the pain. Pain reported to be sharp in nature w/o diaphoresis or palpitations. Remainder 12 system ROS was otherwise negatives PMH: As above PSH: Previously placed IVC Filter - 08/07 FamHx: Denies Social Hx: Active smoker ~1ppd Allergies: NKDA Last Echo 01/2017 - LVEF 55-60% + Severe LVH Review of Systems - Review of Systems All systems: reviewed and no additional remarkable complaints except Review of Systems: as per HPI Past Patient History - Infectious Disease Hx of Infectious Diseases: None - Tetanus Immunizations Tetanus Immunization: Unknown - Past Medical History & Family History Past Medical History?: Yes - Past Social History Smoking Status: Heavy Smoker > 10 Cigarettes Daily - CARDIAC Hx Atrial Fibrillation: Yes Hx Congestive Heart Failure: Yes Hx Hypercholesterolemia: Yes Hx Hypertension: Yes Hx Peripheral Edema: Yes - PULMONARY Hx Chronic Obstructive Pulmonary Disease (COPD): Yes - HEENT Hx HEENT Problems: No - RENAL Hx Chronic Kidney Disease: Yes - ENDOCRINE/METABOLIC Hx Hypothyroidism: Yes - HEMATOLOGICAL/ONCOLOGICAL Hx Anemia: Yes Hx Human Immunodeficiency Virus (HIV): Yes - INTEGUMENTARY Hx Dermatological Problems: No - MUSCULOSKELETAL/RHEUMATOLOGICAL Hx Arthritis: Yes - GASTROINTESTINAL Hx Gastritis: Yes Hx Pancreatitis: Yes - PSYCHIATRIC Hx Anxiety: Yes Hx Depression: Yes Hx Substance Use: No - SURGICAL HISTORY Hx Surgeries: No - ANESTHESIA Hx Anesthesia: No Hx Anesthesia Reactions: No Hx Malignant Hyperthermia: No Meds Allergies/Adverse Reactions: Allergies Allergy/AdvReac Type Severity Reaction Status Date / Time No Known Allergies Allergy Verified 03/21/18 22:07 - Medications Medications: Current Medications Apixaban (Eliquis) 5 mg PO DAILY [facility] Last Admin: 03/22/18 12:21 Dose: 5 mg Calcitriol (Rocaltrol) 0.5 mcg PO DAILY [facility] Last Admin: 03/22/18 12:23 Dose: 0.5 mcg Calcium Acetate (Phoslo) 667 mg PO TIDCC [facility] Last Admin: 03/22/18 18:00 Dose: 667 mg Carvedilol (Coreg) 12.5 mg PO BID [facility] Last Admin: 03/22/18 18:58 Dose: 12.5 mg Diltiazem HCl (Cardizem Cd) 120 mg PO DAILY [facility] Last Admin: 03/22/18 09:39 Dose: 120 mg Emtricitabine (Emtriva) 200 mg PO Q96H [facility]; Protocol Last Admin: 03/22/18 05:52 Dose: Not Given Gabapentin (Neurontin) 100 mg PO TID [facility] Last Admin: 03/22/18 18:58 Dose: 100 mg Hydralazine HCl (Apresoline) 100 mg PO BID [facility] Last Admin: 03/22/18 18:57 Dose: 100 mg Influenza Virus Vaccine (Flucelvax Quad [id number] Syr) 60 mcg IM .ONCE ONE Stop: 03/23/18 10:01 Isosorbide Mononitrate (Imdur Er) 30 mg PO DAILY [facility] Last Admin: 03/22/18 09:38 Dose: 30 mg Pantoprazole Sodium (Protonix Ec Tab) 40 mg PO DAILY [facility] Last Admin: 03/22/18 09:37 Dose: 40 mg Quetiapine Fumarate (Seroquel) 50 mg PO BID [facility] Last Admin: 03/22/18 18:58 Dose: 50 mg Raltegravir (Isentress) 400 mg PO BID [facility]; Protocol Last Admin: 03/22/18 18:57 Dose: 400 mg Rosuvastatin Calcium (Crestor) 5 mg PO HS [facility] Last Admin: 03/22/18 21:36 Dose: 5 mg Torsemide (Demadex) 100 mg PO DAILY [facility] Last Admin: 03/22/18 12:21 Dose: 100 mg Physical Exam - Constitutional Appears: Well, Non-toxic, No Acute Distress - Head Exam Head Exam: ATRAUMATIC, NORMOCEPHALIC - Eye Exam Eye Exam: EOMI, Normal appearance, PERRL - ENT Exam ENT Exam: Mucous Membranes Moist - Respiratory Exam Additional comments: LLL diminished Other lobes CTA - Cardiovascular Exam Cardiovascular Exam: RRR, +S1, +S2, Systolic Murmur (Aortic + Mitral posts - systolic murmur ) - GI/Abdominal Exam GI & Abdominal Exam: Soft. absent: Tenderness - Extremities Exam Extremities exam: Positive for: pedal pulses present. Negative for: pedal edema, tenderness - Neurological Exam Neurological exam: Alert, Oriented x3 - Psychiatric Exam Psychiatric exam: Normal Affect, Normal Mood - Skin Skin Exam: Dry, Normal Color, Warm Results - Vital Signs Recent Vital Signs: Last Vital Signs Temp 98.2 F 03/22/18 15:53 Pulse 70 03/22/18 17:20 Resp 20 03/22/18 15:53 BP 110/70 03/22/18 18:58 Pulse Ox 98 03/22/18 15:53 - Labs Result Diagrams: 03/21/18 23:21 03/21/18 23:21 Labs: Laboratory Results - last 24 hr 03/21/18 03/21/18 03/22/18 23:21 23:21 06:08 WBC 7.8 D RBC 4.08 Hgb 12.1 D Hct 37.7 MCV 92.6 D MCH 29.8 MCHC 32.2 L RDW 19.2 H Plt Count 169 MPV 8.3 Neut % (Auto) 75.7 H Lymph % (Auto) 10.9 L [place] % (Auto) 11.3 H Eos % (Auto) 1.5 Baso % (Auto) 0.6 Neut # (Auto) 5.9 Lymph # (Auto) 0.8 L [place] # (Auto) 0.9 H Eos # (Auto) 0.1 Baso # (Auto) 0.0 Sodium 130 L Potassium 4.9 Chloride 93 L Carbon Dioxide 27 Anion Gap 16 BUN 41 H Creatinine 6.5 H Est GFR ( Amer) 8 Est GFR (Non-Af Amer) 7 Random Glucose 153 H Calcium 9.0 Total Bilirubin 1.2 AST 50 H D ALT < 6 L D Alkaline Phosphatase 75 Total Creatine Kinase 67 CK-MB (Mass) 0.89 Troponin I 0.0550 0.0470 NT-Pro-B Natriuret Pep 3270 H Total Protein 8.2 Albumin 4.1 Globulin 4.0 H Albumin/Globulin Ratio 1.0 Assessment & Plan (1) Chest pain Status: Acute (2) ESRD on hemodialysis Status: Chronic (3) Atrial fibrillation Status: Acute (4) Deep venous thrombosis of lower extremity Status: Acute (5) Diabetes mellitus Status: Acute - Assessment and Plan (Free Text) Plan: ACS: Trops x2 - equivocal in ESRD patient Follow up KELLY panel in AM Will give x1 ASA 325 Start ASA 81 QD Repeat EKG in AM CHF: BNP elevated Strict IO Salt restriciton Daily weight ECHO Continue: Eliquis 5 Daily Coreg 12.5 BID Cardizem 120mg Daily Hydralazine 100 BID Crestor 5 HS Torsemide 100 Daily Can consider DC Isosrbide and starting Cozaar Will plan for stress test tomorrow; NPO tonight Further reccs per Dr. Fonseca Pending <Juan Fonseca - Last Filed: 03/23/18 11:34> Meds - Medications Medications: Current Medications Apixaban (Eliquis) 5 mg PO DAILY [facility] Last Admin: 03/22/18 12:21 Dose: 5 mg Aspirin (Aspirin Chewable) 81 mg PO DAILY [facility] Calcitriol (Rocaltrol) 0.5 mcg PO DAILY [facility] Last Admin: 03/22/18 12:23 Dose: 0.5 mcg Calcium Acetate (Phoslo) 667 mg PO TIDCC [facility] Last Admin: 03/22/18 18:00 Dose: 667 mg Carvedilol (Coreg) 12.5 mg PO BID [facility] Last Admin: 03/22/18 18:58 Dose: 12.5 mg Diltiazem HCl (Cardizem Cd) 120 mg PO DAILY [facility] Last Admin: 03/22/18 09:39 Dose: 120 mg Emtricitabine (Emtriva) 200 mg PO Q96H [facility]; Protocol Last Admin: 03/22/18 05:52 Dose: Not Given Gabapentin (Neurontin) 100 mg PO TID [facility] Last Admin: 03/22/18 18:58 Dose: 100 mg Hydralazine HCl (Apresoline) 100 mg PO BID [facility] Last Admin: 03/22/18 18:57 Dose: 100 mg Isosorbide Mononitrate (Imdur Er) 30 mg PO DAILY [facility] Last Admin: 03/22/18 09:38 Dose: 30 mg Pantoprazole Sodium (Protonix Ec Tab) 40 mg PO DAILY [facility] Last Admin: 03/22/18 09:37 Dose: 40 mg Quetiapine Fumarate (Seroquel) 50 mg PO BID [facility] Last Admin: 03/22/18 18:58 Dose: 50 mg Raltegravir (Isentress) 400 mg PO BID [facility]; Protocol Last Admin: 03/22/18 18:57 Dose: 400 mg Rosuvastatin Calcium (Crestor) 5 mg PO HS [facility] Last Admin: 03/22/18 21:36 Dose: 5 mg Torsemide (Demadex) 100 mg PO DAILY [facility] Last Admin: 03/22/18 12:21 Dose: 100 mg Results - Vital Signs Recent Vital Signs: Last Vital Signs Temp 99.6 F 03/22/18 23:15 Pulse 76 03/22/18 23:15 Resp 20 03/22/18 23:15 BP 121/63 03/22/18 23:15 Pulse Ox 95 03/22/18 23:15 - Labs Result Diagrams: 03/21/18 23:21 03/21/18 23:21 Labs: Laboratory Results - last 24 hr 03/23/18 00:50 Total Creatine Kinase 45 CK-MB (Mass) 0.84 Troponin I 0.0300 Attending/Attestation - Attestation I have personally seen and examined this patient.: Yes I have fully participated in the care of the patient.: Yes I have reviewed all pertinent clinical information: Yes Notes (Text): 03/23/18 11:33 62-year-old -Turk[place] female with history of end-stage renal disease on hemodialysis chronic atrial fibrillation on Eliquis congestive heart failure diagnosis based on echocardiogram done back in November 2016 at which time ejection fraction was at 40-44% over the course of last 2 years multiple readings of BNP documented in [employer] in the range of [id number] history of DVT IVC filter HIV dyslipidemia hypothyroidism presented with complains of left- sided sharp stabbing chest pain. Chest x-ray on presentation showed marked cardiomegaly. EKG was normal sinus with nonspecific ST-T wave changes troponins were borderline positive. I agree with plan and recommendations as stated in Dr. Pepe H H&P will proceed with stress test and decide further risk stratification based on findings of the stress test.
[2018-03-23 01:50] LABS: CK-MB 0.84 ng/mL (0.0-3.38); TROPONIN I 0.03 ng/mL (0.00-0.120)
[2018-03-23] MEDS ORDERED: Caffeine Citrated **INJ** 20 MG/ML IV ONE (07:24)
[2018-03-23] MEDS: Pantoprazole 40 mg EC Tab PO SCH (10:00)
[2018-03-23] MEDS: diltiaZEM 120 mg/24 Hours CD Cap PO SCH (10:00)
[2018-03-23] MEDS ORDERED: Influenza Vaccine 60 mcg/0.5 mL SYR (4YR UP) IM ONE (10:00)
--- NOTE | 2018-03-23 11:09 | CP.PCM.PN ---
<Mario Pepe - Last Filed: 03/23/18 18:03> Subjective - Date & Time of Evaluation Date of Evaluation: 03/23/18 Time of Evaluation: 11:07 - Subjective Subjective: Patient was seen and examined at bedside today, prior to nuclear stress test. patient denies chest pain shortness of breath or palpitations upon examination today. nursing notes reviewed, no acute events reported overnight. Objective - Vital Signs/Intake and Output Vital Signs (last 24 hours): Temp Pulse Resp BP Pulse Ox 99.6 F 76 20 121/63 95 03/22/18 23:15 03/22/18 23:15 03/22/18 23:15 03/22/18 23:15 03/22/18 23:15 - Medications Medications: Current Medications Apixaban (Eliquis) 5 mg PO DAILY [facility] Last Admin: 03/22/18 12:21 Dose: 5 mg Aspirin (Aspirin Chewable) 81 mg PO DAILY [facility] Calcitriol (Rocaltrol) 0.5 mcg PO DAILY [facility] Last Admin: 03/22/18 12:23 Dose: 0.5 mcg Calcium Acetate (Phoslo) 667 mg PO TIDCC [facility] Last Admin: 03/22/18 18:00 Dose: 667 mg Carvedilol (Coreg) 12.5 mg PO BID [facility] Last Admin: 03/22/18 18:58 Dose: 12.5 mg Diltiazem HCl (Cardizem Cd) 120 mg PO DAILY [facility] Last Admin: 03/22/18 09:39 Dose: 120 mg Emtricitabine (Emtriva) 200 mg PO Q96H [facility]; Protocol Last Admin: 03/22/18 05:52 Dose: Not Given Gabapentin (Neurontin) 100 mg PO TID [facility] Last Admin: 03/22/18 18:58 Dose: 100 mg Hydralazine HCl (Apresoline) 100 mg PO BID [facility] Last Admin: 03/22/18 18:57 Dose: 100 mg Isosorbide Mononitrate (Imdur Er) 30 mg PO DAILY [facility] Last Admin: 03/22/18 09:38 Dose: 30 mg Pantoprazole Sodium (Protonix Ec Tab) 40 mg PO DAILY [facility] Last Admin: 03/22/18 09:37 Dose: 40 mg Quetiapine Fumarate (Seroquel) 50 mg PO BID [facility] Last Admin: 03/22/18 18:58 Dose: 50 mg Raltegravir (Isentress) 400 mg PO BID [facility]; Protocol Last Admin: 03/22/18 18:57 Dose: 400 mg Rosuvastatin Calcium (Crestor) 5 mg PO HS [facility] Last Admin: 03/22/18 21:36 Dose: 5 mg Torsemide (Demadex) 100 mg PO DAILY [facility] Last Admin: 03/22/18 12:21 Dose: 100 mg - Labs Labs: 03/21/18 23:21 03/21/18 23:21 - Constitutional Appears: Well, Non-toxic, No Acute Distress - Head Exam Head Exam: ATRAUMATIC, NORMOCEPHALIC - Eye Exam Eye Exam: EOMI, Normal appearance, PERRL - ENT Exam ENT Exam: Mucous Membranes Moist, poor dentition - Respiratory Exam Additional comments: LLL diminished Other lobes CTA - Cardiovascular Exam Cardiovascular Exam: RRR, +S1, +S2, Systolic Murmur (Aortic + Mitral posts - systolic murmur ) - GI/Abdominal Exam GI & Abdominal Exam: Soft. absent: Tenderness - Extremities Exam Extremities exam: Positive for: pedal pulses present. Negative for: pedal edema, tenderness - Neurological Exam Neurological exam: Alert, Oriented x3 - Psychiatric Exam Psychiatric exam: Normal Affect, Normal Mood - Skin Skin Exam: Dry, Normal Color, Warm Assessment and Plan (1) Chest pain Status: Acute (2) ESRD on hemodialysis Status: Chronic (3) Atrial fibrillation Status: Acute (4) Deep venous thrombosis of lower extremity Status: Acute (5) Diabetes mellitus Status: Chronic - Assessment and Plan (Free Text) Plan: Mixed defect in lateral wall; cannot rule out CAD due to bowel loop attenuation Due to ESRD as CAD risk factor equivalent; cannot fully rule out CAD at this time; Will need diagnostic cardiac cath for further evaluation Plan for diagnostic cath on saturday 03/25 ACS: Trops x2 - equivocal in ESRD patient Follow up KELLY panel in AM Will give x1 ASA 325 Start ASA 81 QD Repeat EKG in AM CHF: BNP elevated Strict IO Salt restriciton Daily weight ECHO Continue: Eliquis 5 Daily Coreg 12.5 BID Cardizem 120mg Daily Hydralazine 100 BID Crestor 5 HS Start Cozaar 25 QD Stop Torsemide 100 Daily Stop Isorobide Mononitrate Further reccs per Dr. Fonseca Pending <Juan Fonseca - Last Filed: 03/23/18 19:08> Objective - Vital Signs/Intake and Output Vital Signs (last 24 hours): Temp Pulse Resp BP Pulse Ox 97.8 F 84 20 150/54 L 100 03/23/18 17:12 03/23/18 17:12 03/23/18 17:12 03/23/18 17:12 03/23/18 17:12 - Medications Medications: Current Medications Apixaban (Eliquis) 5 mg PO DAILY [facility] Last Admin: 03/23/18 10:00 Dose: Not Given Aspirin (Aspirin Chewable) 81 mg PO DAILY [facility] Last Admin: 03/23/18 10:00 Dose: Not Given Calcium Acetate (Phoslo) 667 mg PO TIDCC [facility] Last Admin: 03/23/18 18:36 Dose: 667 mg Carvedilol (Coreg) 12.5 mg PO BID [facility] Last Admin: 03/23/18 10:00 Dose: Not Given Diltiazem HCl (Cardizem Cd) 120 mg PO DAILY [facility] Last Admin: 03/23/18 10:00 Dose: Not Given Emtricitabine (Emtriva) 200 mg PO Q96H [facility]; Protocol Last Admin: 03/22/18 05:52 Dose: Not Given Gabapentin (Neurontin) 100 mg PO TID [facility] Last Admin: 03/23/18 18:36 Dose: 100 mg Hydralazine HCl (Apresoline) 100 mg PO BID [facility] Last Admin: 03/23/18 10:00 Dose: Not Given Losartan Potassium (Cozaar) 25 mg PO DAILY [facility] Pantoprazole Sodium (Protonix Ec Tab) 40 mg PO DAILY [facility] Last Admin: 03/23/18 10:00 Dose: Not Given Quetiapine Fumarate (Seroquel) 50 mg PO BID [facility] Last Admin: 03/23/18 18:35 Dose: 50 mg Raltegravir (Isentress) 400 mg PO BID [facility]; Protocol Last Admin: 03/23/18 18:36 Dose: 400 mg Rosuvastatin Calcium (Crestor) 5 mg PO HS [facility] Last Admin: 03/22/18 21:36 Dose: 5 mg - Labs Labs: 03/21/18 23:21 03/21/18 23:21 Attending/Attestation - Attestation I have personally seen and examined this patient.: Yes I have fully participated in the care of the patient.: Yes I have reviewed all pertinent clinical information, including history, physical exam and plan: Yes Notes (Text): 03/23/18 19:07 mixed lateral wall defect - cannot exclude underlying CAD plan for cath on Wednesday will co-ordinate with nephro for HD pre and post cont gdmt for cad
--- NOTE | 2018-03-23 13:37 | CP.PCM.CON ---
<NataliFernie - Last Filed: 03/23/18 14:35> History of Present Illness - History of Present Illness History of Present Illness: Fernie Hurst PGY2 Nephrology Consult Note for Dr. Carreno reason for consult: drawing checker (for ESRD) Ms Lopez is a 62 year old female well known to Dr. 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 Nephrology is consulted for ESRD as Dr. Carreno follows the patient as outpatient. Patient missed her HD session yesterday. Upon evaluation, the patient states that she is not experiencing any chest pain or shortness of breath currently. 12-pt ROS was reviewed and is otherwise unremarkable Consent for HD was obtained, with NGUYỄN Salmon witnessing. PMH: as above PSH: IVC Filter (07/2015) Meds: reviewed Allergies: NKDA SHx: Active smoker ~1ppd FHx: DM2 Review of Systems - Review of Systems All systems: reviewed and no additional remarkable complaints except (as per HPI) Past Patient History - Infectious Disease Hx of Infectious Diseases: None - Tetanus Immunizations Tetanus Immunization: Unknown - Past Medical History & Family History Past Medical History?: Yes - Past Social History Smoking Status: Heavy Smoker > 10 Cigarettes Daily - CARDIAC Hx Atrial Fibrillation: Yes Hx Congestive Heart Failure: Yes Hx Hypercholesterolemia: Yes Hx Hypertension: Yes Hx Peripheral Edema: Yes - PULMONARY Hx Chronic Obstructive Pulmonary Disease (COPD): Yes - HEENT Hx HEENT Problems: No - RENAL Hx Chronic Kidney Disease: Yes - ENDOCRINE/METABOLIC Hx Hypothyroidism: Yes - HEMATOLOGICAL/ONCOLOGICAL Hx Anemia: Yes Hx Human Immunodeficiency Virus (HIV): Yes - INTEGUMENTARY Hx Dermatological Problems: No - MUSCULOSKELETAL/RHEUMATOLOGICAL Hx Arthritis: Yes - GASTROINTESTINAL Hx Gastritis: Yes Hx Pancreatitis: Yes - PSYCHIATRIC Hx Anxiety: Yes Hx Depression: Yes Hx Substance Use: No - SURGICAL HISTORY Hx Surgeries: No - ANESTHESIA Hx Anesthesia: No Hx Anesthesia Reactions: No Hx Malignant Hyperthermia: No Meds Allergies/Adverse Reactions: Allergies Allergy/AdvReac Type Severity Reaction Status Date / Time No Known Allergies Allergy Verified 03/21/18 22:07 - Medications Medications: Current Medications Apixaban (Eliquis) 5 mg PO DAILY [facility] Last Admin: 03/22/18 12:21 Dose: 5 mg Aspirin (Aspirin Chewable) 81 mg PO DAILY [facility] Calcium Acetate (Phoslo) 667 mg PO TIDCC [facility] Last Admin: 03/22/18 18:00 Dose: 667 mg Carvedilol (Coreg) 12.5 mg PO BID [facility] Last Admin: 03/22/18 18:58 Dose: 12.5 mg Diltiazem HCl (Cardizem Cd) 120 mg PO DAILY [facility] Last Admin: 03/22/18 09:39 Dose: 120 mg Emtricitabine (Emtriva) 200 mg PO Q96H [facility]; Protocol Last Admin: 03/22/18 05:52 Dose: Not Given Gabapentin (Neurontin) 100 mg PO TID [facility] Last Admin: 03/22/18 18:58 Dose: 100 mg Hydralazine HCl (Apresoline) 100 mg PO BID [facility] Last Admin: 03/22/18 18:57 Dose: 100 mg Isosorbide Mononitrate (Imdur Er) 30 mg PO DAILY [facility] Last Admin: 03/22/18 09:38 Dose: 30 mg Pantoprazole Sodium (Protonix Ec Tab) 40 mg PO DAILY [facility] Last Admin: 03/22/18 09:37 Dose: 40 mg Quetiapine Fumarate (Seroquel) 50 mg PO BID [facility] Last Admin: 03/22/18 18:58 Dose: 50 mg Raltegravir (Isentress) 400 mg PO BID [facility]; Protocol Last Admin: 03/22/18 18:57 Dose: 400 mg Rosuvastatin Calcium (Crestor) 5 mg PO HS [facility] Last Admin: 03/22/18 21:36 Dose: 5 mg Torsemide (Demadex) 100 mg PO DAILY [facility] Last Admin: 03/22/18 12:21 Dose: 100 mg Physical Exam - Constitutional Appears: Non-toxic, No Acute Distress - Head Exam Head Exam: ATRAUMATIC, NORMAL INSPECTION - Eye Exam Eye Exam: EOMI, Normal appearance, PERRL - ENT Exam ENT Exam: Mucous Membranes Moist - Neck Exam Neck exam: Positive for: Normal Inspection - Respiratory Exam Respiratory Exam: NORMAL BREATHING PATTERN. absent: Rhonchi, Wheezes, Respiratory Distress - Cardiovascular Exam Cardiovascular Exam: RRR, +S1, +S2 - GI/Abdominal Exam GI & Abdominal Exam: Soft. absent: Distended, Tenderness - Extremities Exam Additional comments: LUE AVF +palpable thrill +bruit - Back Exam Back exam: NORMAL INSPECTION - Neurological Exam Neurological exam: Alert, CN II-XII Intact - Psychiatric Exam Psychiatric exam: Flat Affect - Skin Skin Exam: Normal Color, Warm Results - Vital Signs Recent Vital Signs: Last Vital Signs Temp 99.6 F 03/22/18 23:15 Pulse 76 03/22/18 23:15 Resp 20 03/22/18 23:15 BP 121/63 03/22/18 23:15 Pulse Ox 95 03/22/18 23:15 - Labs Result Diagrams: 03/21/18 23:21 03/21/18 23:21 Labs: Laboratory Results - last 24 hr 03/23/18 00:50 Total Creatine Kinase 45 CK-MB (Mass) 0.84 Troponin I 0.0300 Assessment & Plan (1) ESRD on hemodialysis Assessment and Plan: Consent was obtained will dialyze today to make up for yesterday's missed HD session electrolytes stable cont Phoslo Status: Chronic (2) Chest pain Assessment and Plan: Cardiology is consulted Status: Acute (3) Diabetes mellitus Status: Chronic (4) HTN (hypertension) Assessment and Plan: cont home meds monitor VS Status: Chronic (5) HIV (human immunodeficiency virus infection) Assessment and Plan: cont HAART rx Status: Chronic (6) DVT (deep venous thrombosis) Assessment and Plan: cont Eliquis has IVC filter Status: Chronic (7) HCV (hepatitis C virus) Assessment and Plan: untreated Status: Chronic <Rogerio Carreno - Last Filed: 03/24/18 09:44> Meds - Medications Medications: Current Medications Apixaban (Eliquis) 5 mg PO DAILY [facility] Last Admin: 03/24/18 09:20 Dose: Not Given Aspirin (Aspirin Chewable) 81 mg PO DAILY [facility] Last Admin: 03/24/18 09:19 Dose: Not Given Calcium Acetate (Phoslo) 667 mg PO TIDCC [facility] Last Admin: 03/24/18 08:44 Dose: 667 mg Carvedilol (Coreg) 12.5 mg PO BID [facility] Last Admin: 03/24/18 09:20 Dose: Not Given Diltiazem HCl (Cardizem Cd) 120 mg PO DAILY [facility] Last Admin: 03/24/18 09:20 Dose: Not Given Emtricitabine (Emtriva) 200 mg PO Q96H [facility]; Protocol Last Admin: 03/22/18 05:52 Dose: Not Given Gabapentin (Neurontin) 100 mg PO TID [facility] Last Admin: 03/24/18 09:20 Dose: Not Given Hydralazine HCl (Apresoline) 100 mg PO BID [facility] Last Admin: 03/24/18 09:19 Dose: Not Given Losartan Potassium (Cozaar) 25 mg PO DAILY [facility] Last Admin: 03/24/18 09:20 Dose: Not Given Pantoprazole Sodium (Protonix Ec Tab) 40 mg PO DAILY [facility] Last Admin: 03/24/18 09:20 Dose: Not Given Quetiapine Fumarate (Seroquel) 50 mg PO BID [facility] Last Admin: 03/24/18 09:20 Dose: Not Given Raltegravir (Isentress) 400 mg PO BID [facility]; Protocol Last Admin: 03/24/18 09:20 Dose: Not Given Rosuvastatin Calcium (Crestor) 5 mg PO HS [facility] Last Admin: 03/23/18 21:53 Dose: 5 mg Results - Vital Signs Recent Vital Signs: Last Vital Signs Temp 98.2 F 03/24/18 08:53 Pulse 76 03/24/18 08:53 Resp 20 03/24/18 08:53 BP 181/70 H 03/24/18 08:53 Pulse Ox 95 03/24/18 08:53 - Labs Result Diagrams: 03/21/18 23:21 03/21/18 23:21 Labs: Laboratory Results - last 24 hr 03/23/18 03/23/18 14:50 17:09 POC Glucose (mg/dL) 185 H Hep Bs Antigen Negative Attending/Attestation - Attestation I have personally seen and examined this patient.: Yes I have fully participated in the care of the patient.: Yes I have reviewed all pertinent clinical information: Yes Notes (Text): Patient seen and examined; I agree with the resident's note as above with the following additions/edits: 62 yo F w/ pmh of htn, dm, HIV on HAART, s/p DVT, s/p IVC filter, on eliquis, hep C (untreated), CHF w/ mild systolic dysfunction, and ESRD on HD (TTS, at [facility], being followed by our outpatient service), presented to ED yesterday with chest pain; nephrology being consulted for ESRD care; Patient is well known to us; is often non-cooperative in giving history, as she is today; refusing exam during our encounter; has some underlying mental issues and has poor insight into her medical conditions; 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; currently staying with a friend who has acted a dot compliance coordinator for many years but patient periodically leaves her to wander on the streets and stay at different homeless shelters; lately, has been coming for outpatient dialysis regularly but missed yesterday's treatment without informing anyone; Regarding chest pain, patient not giving further details; says her breathing is ok; patient was at [facility] a few months ago with HD catheter infection; had AVF revision procedure done at that time and records showed that she had cardiac workup (possibly including cardiac cath) pre-op; records not currently available; Currently appears to have stable volume and electrolyte status; dialyzing today per routine with UF goal of 2L net; will have another HD session tomorrow to put her back on schedule; HTN of ESRD; BP controlled; keeping her on torsemide 100 mg daily to maintain her volume status (sometimes with very high weight gains between HD sessions); Anemia of CKD; hgb above goal, no need for EPO; CKD mineral bone disorder; will d/c calcitriol, receiving it on HD; keep on phoslo 1 tab w/ meals;
--- NOTE | 2018-03-23 14:06 | CARD ---
APPROVED REPORT Date of service: 03/22/2018 EKG Measurement Heart [id number] <Conclusion> Normal sinus rhythm with sinus arrhythmia, non specific st t changes
--- NOTE | 2018-03-23 21:48 | CP.PCM.PN ---
Subjective - Date & Time of Evaluation Date of Evaluation: 03/23/18 Time of Evaluation: 08:40 - Subjective Subjective: dictated Objective - Vital Signs/Intake and Output Vital Signs (last 24 hours): Temp Pulse Resp BP Pulse Ox 97.8 F 84 20 150/54 L 100 03/23/18 17:12 03/23/18 17:12 03/23/18 17:12 03/23/18 17:12 03/23/18 17:12 - Medications Medications: Current Medications Apixaban (Eliquis) 5 mg PO DAILY [facility] Last Admin: 03/23/18 10:00 Dose: Not Given Aspirin (Aspirin Chewable) 81 mg PO DAILY [facility] Last Admin: 03/23/18 10:00 Dose: Not Given Calcium Acetate (Phoslo) 667 mg PO TIDCC [facility] Last Admin: 03/23/18 18:36 Dose: 667 mg Carvedilol (Coreg) 12.5 mg PO BID [facility] Last Admin: 03/23/18 10:00 Dose: Not Given Diltiazem HCl (Cardizem Cd) 120 mg PO DAILY [facility] Last Admin: 03/23/18 10:00 Dose: Not Given Emtricitabine (Emtriva) 200 mg PO Q96H [facility]; Protocol Last Admin: 03/22/18 05:52 Dose: Not Given Gabapentin (Neurontin) 100 mg PO TID [facility] Last Admin: 03/23/18 18:36 Dose: 100 mg Hydralazine HCl (Apresoline) 100 mg PO BID [facility] Last Admin: 03/23/18 10:00 Dose: Not Given Losartan Potassium (Cozaar) 25 mg PO DAILY [facility] Pantoprazole Sodium (Protonix Ec Tab) 40 mg PO DAILY [facility] Last Admin: 03/23/18 10:00 Dose: Not Given Quetiapine Fumarate (Seroquel) 50 mg PO BID [facility] Last Admin: 03/23/18 18:35 Dose: 50 mg Raltegravir (Isentress) 400 mg PO BID [facility]; Protocol Last Admin: 03/23/18 18:36 Dose: 400 mg Rosuvastatin Calcium (Crestor) 5 mg PO HS [facility] Last Admin: 03/22/18 21:36 Dose: 5 mg - Labs Labs: 03/21/18 23:21 03/21/18 23:21
--- NOTE | 2018-03-24 01:38 | PN ---
DATE: 03/23/2018 SUBJECTIVE: The patient's cardiac enzymes are negative. She underwent nuclear Myoview, seen by Cardiology. No fever. No chills. No nausea or vomiting. PHYSICAL EXAMINATION: VITAL SIGNS: Blood pressure 150/54, pulse 84, respiratory rate 20, temperature 97.8. LUNGS: Decreased air entry. Positive rhonchi. CARDIOVASCULAR SYSTEM: S1 and S2, regular. ABDOMEN: Soft. ASSESSMENT: 1. Chest pain, rule out myocardial infarction. 2. On highly active antiretroviral therapy, noncompliant. 3. End-stage renal disease, on hemodialysis, noncompliant. 4. Hypertension, on blood pressure medication, noncompliant. PLAN: Follow ____ stress test. Monitor the patient. Hany Rodriguez MD
--- NOTE | 2018-03-24 07:46 | CP.PCM.PN ---
Subjective - Date & Time of Evaluation Date of Evaluation: 03/24/18 Time of Evaluation: 08:09 - Subjective Subjective: Fernie Hurst PGY2 Nephrology Progress Note for Dr. Carreno Patient was seen and examined at bedside. She states that she tolerated her dialysis session well yesterday. She is currently denying any complaints of chest pain, shortness of breath, leg swelling, n/v/d or fevers/chills. Nursing notes, VS/labs were reviewed. Objective - Vital Signs/Intake and Output Vital Signs (last 24 hours): Temp Pulse Resp BP Pulse Ox 98.6 F 84 20 131/58 L 94 L 03/23/18 23:15 03/24/18 03:28 03/23/18 23:15 03/23/18 23:15 03/23/18 23:15 - Medications Medications: Current Medications Apixaban (Eliquis) 5 mg PO DAILY [facility] Last Admin: 03/23/18 10:00 Dose: Not Given Aspirin (Aspirin Chewable) 81 mg PO DAILY [facility] Last Admin: 03/23/18 10:00 Dose: Not Given Calcium Acetate (Phoslo) 667 mg PO TIDCC [facility] Last Admin: 03/23/18 18:36 Dose: 667 mg Carvedilol (Coreg) 12.5 mg PO BID [facility] Last Admin: 03/23/18 21:53 Dose: 12.5 mg Diltiazem HCl (Cardizem Cd) 120 mg PO DAILY [facility] Last Admin: 03/23/18 10:00 Dose: Not Given Emtricitabine (Emtriva) 200 mg PO Q96H [facility]; Protocol Last Admin: 03/22/18 05:52 Dose: Not Given Gabapentin (Neurontin) 100 mg PO TID [facility] Last Admin: 03/23/18 18:36 Dose: 100 mg Hydralazine HCl (Apresoline) 100 mg PO BID [facility] Last Admin: 03/23/18 21:54 Dose: 100 mg Losartan Potassium (Cozaar) 25 mg PO DAILY [facility] Pantoprazole Sodium (Protonix Ec Tab) 40 mg PO DAILY [facility] Last Admin: 03/23/18 10:00 Dose: Not Given Quetiapine Fumarate (Seroquel) 50 mg PO BID [facility] Last Admin: 03/23/18 18:35 Dose: 50 mg Raltegravir (Isentress) 400 mg PO BID [facility]; Protocol Last Admin: 03/23/18 18:36 Dose: 400 mg Rosuvastatin Calcium (Crestor) 5 mg PO HS [facility] Last Admin: 03/23/18 21:53 Dose: 5 mg - Labs Labs: 03/21/18 23:21 03/21/18 23:21 - Constitutional Appears: Well, Non-toxic, No Acute Distress - Head Exam Head Exam: ATRAUMATIC, NORMAL INSPECTION - Eye Exam Eye Exam: EOMI, Normal appearance, PERRL - ENT Exam ENT Exam: Mucous Membranes Moist - Neck Exam Neck Exam: Full ROM, Normal Inspection - Respiratory Exam Respiratory Exam: Clear to Ausculation Bilateral, NORMAL BREATHING PATTERN. absent: Rales, Rhonchi, Wheezes, Respiratory Distress - Cardiovascular Exam Cardiovascular Exam: RRR, +S1, +S2 - GI/Abdominal Exam GI & Abdominal Exam: Soft, Normal Bowel Sounds. absent: Distended, Tenderness - Extremities Exam Extremities Exam: Full ROM, Normal Inspection. absent: Pedal Edema Additional comments: LUE AVF w/ dressing applied +palpable thrill +bruit - Back Exam Back Exam: NORMAL INSPECTION - Neurological Exam Neurological Exam: Alert, Awake, Oriented x3 - Psychiatric Exam Psychiatric exam: Normal Affect, Normal Mood - Skin Skin Exam: Normal Color, Warm Assessment and Plan (1) ESRD on hemodialysis Assessment & Plan: cont regular TTS schedule electrolytes stable cont Phoslo Status: Chronic (2) Chest pain Assessment & Plan: resolved, Cardio following following stress test, Cardio has recommended cardiac cath patient has [place] [facility] [place] requested [place] records [place] [facility] and are awaiting the medical records Status: Resolved (3) Diabetes mellitus Status: Chronic (4) HTN (hypertension) Assessment & Plan: cont home meds trend BP Status: Chronic (5) HIV (human immunodeficiency virus infection) Assessment & Plan: cont HAART rx Status: Chronic (6) DVT (deep venous thrombosis) Assessment & Plan: cont Eliquis s/p IVC filter Status: Chronic (7) HCV (hepatitis C virus) Assessment & Plan: untreated Status: Chronic
[2018-03-24] MEDS: diltiaZEM 120 mg/24 Hours CD Cap PO SCH (09:20)
[2018-03-24] MEDS: Pantoprazole 40 mg EC Tab PO SCH (09:20)
--- NOTE | 2018-03-24 14:32 | PCM.PSYCH ---
Initial Psychiatric Evaluation - Initial Psychiatric Evaluation Type of Admission: Voluntary Legal Status: Capacity Current Medications: Active Medications Generic Name Dose Route Start Last Admin Trade Name Rey PRN Reason Stop Dose Admin Apixaban 5 mg 03/22/18 10:00 03/24/18 09:20 Eliquis PO Not Given DAILY [facility] Aspirin 81 mg 03/23/18 10:00 03/24/18 09:19 Aspirin Chewable PO Not Given DAILY [facility] Calcium Acetate 667 mg 03/22/18 12:00 03/24/18 13:30 Phoslo PO 667 mg TIDCC [facility] Administration Carvedilol 12.5 mg 03/22/18 10:00 03/24/18 09:20 Coreg PO Not Given BID [facility] Diltiazem HCl 120 mg 03/22/18 10:00 03/24/18 09:20 Cardizem Cd PO Not Given DAILY [facility] Emtricitabine 200 mg 03/22/18 03:15 03/22/18 05:52 Emtriva PO Not Given Q96H [facility] Protocol Gabapentin 100 mg 03/22/18 10:00 03/24/18 13:30 Neurontin PO 100 mg TID [facility] Administration Hydralazine HCl 100 mg 03/22/18 10:00 03/24/18 09:19 Apresoline PO Not Given BID [facility] Losartan Potassium 25 mg 03/24/18 10:00 03/24/18 09:20 Cozaar PO Not Given DAILY [facility] Pantoprazole Sodium 40 mg 03/22/18 10:00 03/24/18 09:20 Protonix Ec Tab PO Not Given DAILY [facility] Quetiapine Fumarate 50 mg 03/22/18 10:00 03/24/18 09:20 Seroquel PO Not Given BID [facility] Raltegravir 400 mg 03/22/18 10:00 03/24/18 09:20 Isentress PO Not Given BID [facility] Protocol Rosuvastatin Calcium 5 mg 03/22/18 22:00 03/23/18 21:53 Crestor PO 5 mg HS [facility] Administration Past Psychiatric History - Past Psychiatric History Previous Treatment History: None Pertinent Medical Hx (Current Medical&Sleep Prob, Allergies): Allergies Allergy/AdvReac Type Severity Reaction Status Date / Time No Known Allergies Allergy Verified 03/21/18 22:07 Calcitriol [Rocaltrol] 0.5 mcg PO DAILY #30 sgl 03/01/17 Carvedilol [Coreg] 12.5 mg PO BID #30 tab 03/01/17 hydrALAZINE [Apresoline] 100 mg PO BID #60 tab 03/01/17 Isosorbide Mononitrate [Isosorbide Mononitrate ER] 30 mg PO DAILY #30 tab.er.24h 05/31/17 Calcium Acetate [Phoslo] 1 tab PO TID 08/17/17 Rosuvastatin Calcium [Crestor] 5 mg PO HS 08/17/17 Diltiazem HCl [Diltiazem 24Hr ER] 120 mg PO DAILY 11/09/17 Gabapentin [Neurontin] 100 mg PO TID 11/09/17 QUEtiapine [SEROquel] 50 mg PO BID 11/09/17 Apixaban [Eliquis] 5 mg PO DAILY #30 tab 11/17/17 Atorvastatin [Lipitor] 10 mg PO HS #30 tab 11/17/17 Efavirenz [Sustiva] 600 mg PO DAILY #30 tab 11/17/17 Emtricitabine [Emtriva] 200 mg PO Q96H #20 cap 11/17/17 Raltegravir Potassium [Isentress] 400 mg PO BID #30 tab 11/17/17 Torsemide [Demadex] 100 mg PO DAILY #30 tab 11/17/17 Review of Systems - Review of Systems All systems: reviewed and no additional remarkable complaints except - Psychiatric Psychiatric: Anxiety, Irritability. absent: Suicidal Ideation Mental Status Examination - Personal Presentation Personal Presentation: Looks stated age - Affect Affect: Constricted - Motor Activity Motor Activity: Calm - Reliability in Providing Information Reliability in Providing Information: Fair - Speech Speech: Organized - Mood Mood: Depressed, Anxious - Formal Thought Process Formal Thought Process: No Impairment - Obsessions/Compulsions Obsessions: No Compulsions: No - Cognitive Functions Orientation: Person, Place, Situation, Time Sensorium: Alert Attention/Concentration: Attentive Abstract Thinking: [place] Estimate of Intelligence: Below average Judgement: Intact, as evidence by: Good judgement, Intact, as evidence by: Insight regarding need for hospitalization - Risk Risk: Diminished functioning - Limitations Limitations: Living alone DSM 5 DX - Recommended/Plan of Treatment Treatment Recommendations and Plan of Treatment: Pt psychiatrically stable and clear for discharge.
--- NOTE | 2018-03-24 15:32 | CP.PCM.PN ---
Subjective - Date & Time of Evaluation Date of Evaluation: 03/24/18 Time of Evaluation: 15:00 - Subjective Subjective: Patient seen today after HD denies any chest pain, sob , dizziness, palpitations, dizziness vss reviewed - stable Objective - Vital Signs/Intake and Output Vital Signs (last 24 hours): Temp Pulse Resp BP Pulse Ox 985 F H 68 18 132/51 L 95 03/24/18 09:15 03/24/18 09:15 03/24/18 09:15 03/24/18 12:45 03/24/18 09:15 - Medications Medications: Current Medications Apixaban (Eliquis) 5 mg PO DAILY [facility] Last Admin: 03/24/18 09:20 Dose: Not Given Aspirin (Aspirin Chewable) 81 mg PO DAILY [facility] Last Admin: 03/24/18 09:19 Dose: Not Given Calcium Acetate (Phoslo) 667 mg PO TIDCC [facility] Last Admin: 03/24/18 13:30 Dose: 667 mg Carvedilol (Coreg) 12.5 mg PO BID [facility] Last Admin: 03/24/18 09:20 Dose: Not Given Diltiazem HCl (Cardizem Cd) 120 mg PO DAILY [facility] Last Admin: 03/24/18 09:20 Dose: Not Given Emtricitabine (Emtriva) 200 mg PO Q96H [facility]; Protocol Last Admin: 03/22/18 05:52 Dose: Not Given Gabapentin (Neurontin) 100 mg PO TID [facility] Last Admin: 03/24/18 13:30 Dose: 100 mg Hydralazine HCl (Apresoline) 100 mg PO BID [facility] Last Admin: 03/24/18 09:19 Dose: Not Given Losartan Potassium (Cozaar) 25 mg PO DAILY [facility] Last Admin: 03/24/18 09:20 Dose: Not Given Pantoprazole Sodium (Protonix Ec Tab) 40 mg PO DAILY [facility] Last Admin: 03/24/18 09:20 Dose: Not Given Quetiapine Fumarate (Seroquel) 50 mg PO BID [facility] Last Admin: 03/24/18 09:20 Dose: Not Given Raltegravir (Isentress) 400 mg PO BID [facility]; Protocol Last Admin: 03/24/18 09:20 Dose: Not Given Rosuvastatin Calcium (Crestor) 5 mg PO HS [facility] Last Admin: 03/23/18 21:53 Dose: 5 mg - Labs Labs: 03/21/18 23:21 03/21/18 23:21 Assessment and Plan - Assessment and Plan (Free Text) Assessment: A/P 62 yr old female with pmhx of Anxiety, Arthritis, Atrial Fibrillation, CAD, CHF, COPD, Depression, Deep Vein Thrombosis, Gastritis, HIV, HTN, Hypercholeste rolemia, ESRD on HD admitted with chest pain troponin x 3 - negative s/p stress test patient symptoms resolved Patient had a [place] [id number] [place] [facility] [place] reviewed the report and cleared for discharge home today D/w Dr. Fonseca about the cath report seen by Dr. Sexton cleared for discharge from nephrology stand point and continue HD as scheduled discharge plan discussed with patient SW contacted POA and made aware of d/ plan and arranged transportation
[2018-03-24 16:18] VITALS: BP 121/58; PULSE 68; RESP 20; TEMP 98.5; O2SAT 97
--- NOTE | 2018-03-24 21:15 | CP.PCM.DIS ---
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 Consulting Provider: Rogerio Carreno Consulting Physician: Rogerio 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0) H 03/21/18 23:21 Lymph % (Auto) 10.9 % (20.0-40.0) L 03/21/18 23:21 [place] % (Auto) 11.3 % (0.0-10.0) H 03/21/18 23:21 Eos % (Auto) 1.5 % (0.0-4.0) 03/21/18 23:21 Baso % (Auto) 0.6 % (0.0-2.0) 03/21/18 23:21 Neut # (Auto) 5.9 K/uL (1.8-7.0) 03/21/18 23:21 Lymph # (Auto) 0.8 K/uL (1.0-4.3) L 03/21/18 23:21 [place] # (Auto) 0.9 K/uL (0.0-0.8) H 03/21/18 23:21 Eos # (Auto) 0.1 K/uL (0.0-0.7) 03/21/18 23:21 Baso # (Auto) 0.0 K/uL (0.0-0.2) 03/21/18 23:21 Sodium 130 mmol/L (132-148) L 03/21/18 23:21 Potassium 4.9 mmol/L (3.6-5.2) 03/21/18 23:21 Chloride 93 mmol/L (98-107) L 03/21/18 23:21 Carbon Dioxide 27 mmol/L (22-30) 03/21/18 23:21 Anion Gap 16 (10-20) 03/21/18 23:21 BUN 41 mg/dL (7-17) H 03/21/18 23:21 Creatinine 6.5 mg/dL (0.7-1.2) H 03/21/18 23:21 Est GFR ( Amer) 8 03/21/18 23:21 Est GFR (Non-Af Amer) 7 03/21/18 23:21 POC Glucose (mg/dL) 185 mg/dL (65-110) H 03/23/18 17:09 Random Glucose 153 mg/dL (65-105) H 03/21/18 23:21 Calcium 9.0 mg/dl (8.6-10.4) 03/21/18 23:21 Total Bilirubin 1.2 mg/dL (0.2-1.3) 03/21/18 23:21 AST 50 U/L (14-36) H D 03/21/18 23:21 ALT < 6 U/L (9-52) L D 03/21/18 23:21 Alkaline Phosphatase 75 U/L (38-126) 03/21/18 23:21 Total Creatine Kinase 45 U/L (30-135) 03/23/18 00:50 CK-MB (Mass) 0.84 ng/mL (0.0-3.38) 03/23/18 00:50 Troponin I 0.0300 ng/mL (0.00-0.120) 03/23/18 00:50 NT-Pro-B Natriuret Pep 3270 pg/mL (0-900) H 03/21/18 23:21 Total Protein 8.2 g/dL (6.3-8.3) 03/21/18 23:21 Albumin 4.1 g/dL (3.5-5.0) 03/21/18 23:21 Globulin 4.0 gm/dL (2.2-3.9) H 03/21/18 23:21 Albumin/Globulin Ratio 1.0 (1.0-2.1) 03/21/18 23:21 Hep Bs Antigen Negative (NEGATIVE) 03/23/18 14:50 Discharge Exam - Head Exam Head Exam: ATRAUMATIC, NORMAL INSPECTION Discharge Plan - Follow Up Plan Condition: STABLE Disposition: HOME/ ROUTINE Instructions: Dialysis Diet , Heart Failure, Adult (DC), Chest Pain (DC), End Stage Kidney Disease (DC) Additional Instructions: Please follow up with Dr. Rodriguez office in 1 week Please continue HD T,TH,SAT- as scheduled at [facility] continue medication as per med. rec. Referrals: Hany Rodriguez MD [Staff Provider] -
--- NOTE | 2018-03-25 03:52 | DS ---
DISCHARGE DIAGNOSES: Noncoronary chest pain; hypertension; acquired immunodeficiency syndrome; chronic kidney disease, on hemodialysis; learning disabilities. HISTORY OF PRESENT ILLNESS: This is a 62-year-old female well known to me with history of end-stage renal disease, on hemodialysis; acquired immunodeficiency syndrome due to heterosexual contact and she is on hemodialysis for almost two years now. The patient is homeless and the patient was brought in because of chest pain which is substernal, dull. The patient was admitted to the floor. TX was ruled out by three sets, are negative for cardiac enzyme. The patient underwent a nuclear stress test which is negative and the patient is for discharge. CONDITION UPON DISCHARGE: Stable. PHYSICAL EXAMINATION: VITAL SIGNS: Blood pressure 121/58, pulse 68, respiratory rate 20, temperature 98.5. LABORATORY DATA: WBC 7.8, hemoglobin 12.1, hematocrit 37.7, platelets 169. Sodium 130, potassium 4.9, chloride 93, bicarb 27, BUN 41, creatinine 6.5. Troponin negative. Hepatitis B surface antigen is negative. CONDITION UPON DISCHARGE: Stable. Hany Rodriguez MD
== END 2018-03-24 17:36 | disposition home or self-care (01) ==
LOC: C.ER 21:57 → C.9E 03-22 01:18 → C.6T 03-22 13:56
PROVIDERS: ADMIT Internal Medicine; ATTEND Internal Medicine
DX: I13.2 Hypertensive heart and chronic kidney disease with heart failure and with stage 5 chronic kidney disease, or end stage renal disease (principal); I25.10 Atherosclerotic heart disease of native coronary artery without angina pectoris; I48.2 Chronic atrial fibrillation; I50.20 Unspecified systolic (congestive) heart failure; I82.409 Acute embolism and thrombosis of unspecified deep veins of unspecified lower extremity; J44.9 Chronic obstructive pulmonary disease, unspecified; J98.11 Atelectasis; N18.6 End stage renal disease; Z79.01 Long term (current) use of anticoagulants; Z91.14 Patient's other noncompliance with medication regimen; Z59.0 Homelessness; Z91.19 Patient's noncompliance with other medical treatment and regimen; Z99.2 Dependence on renal dialysis; D63.1 Anemia in chronic kidney disease; B20 Human immunodeficiency virus [HIV] disease; E03.9 Hypothyroidism, unspecified; E11.22 Type 2 diabetes mellitus with diabetic chronic kidney disease; E78.00 Pure hypercholesterolemia, unspecified; E78.5 Hyperlipidemia, unspecified; F17.210 Nicotine dependence, cigarettes, uncomplicated
CPT/HCPCS: 36415; 71045; 78452; 80053; 82948; 83880; 84484; 85025; 86360; 87340; 87536; 93005; 93017; 99285; A9502; G0378; J2785

== ENCOUNTER 2018-03-28 21:35 | Observation (INO) | payer OTHER ==
[2018-03-28 21:36] VITALS: PULSE 125; BMI 40.3
[2018-03-28] MEDS ORDERED: Aspirin 325 mg EC Tablets PO STA (23:22)
--- NOTE | 2018-03-28 23:22 | C.PDOC ---
History Of Present Illness Patient presents to the ER with a complaint of chest pain while coughing. Patient was recently discharged for chest pain. She has Wednesday, , Wednesday dialysis; has Hx of diabetes, afib, and hepatitis c untreated. Patient is currently speaking in complete sentences. Denies fever or chills. Time Seen by Provider: 03/28/18 23:22 Chief Complaint (Nursing): Chest Pain History Per: Patient History/Exam Limitations: no limitations Onset/Duration Of Symptoms: Days Current Symptoms Are (Timing): Still Present Severity: Moderate Pain Scale Rating Of: 4 Exacerbating Factors: Other (Coughing) Alleviating Factors: None Recent travel outside of the [place]: No Additional History Per: Patient Past Medical History Reviewed: Historical Data, Nursing Documentation, Vital Signs Vital Signs: Last Vital Signs Temp 98.9 F 03/28/18 22:22 Pulse 75 03/28/18 22:22 Resp 16 03/28/18 22:22 BP 108/68 03/28/18 22:22 Pulse Ox 100 03/28/18 22:22 - Medical History PMH: Anemia, Anxiety, Arthritis, Atrial Fibrillation, CAD, CHF, COPD, Depression, Deep Vein Thrombosis, Gastritis, HIV, HTN, Hypercholesterolemia, Hyperlipidemia, Hypothyroidism, Pancreatitis, Peripheral Edema, End Stage Renal Disease, Chronic Kidney Disease, Chronic Pain (chronic lower extremity pain ) Surgical History: - [facility] Procedures (01/24/18) EXCISION OF LEFT KIDNEY, PERCUTANEOUS APPROACH, DIAGNOSTIC (12/28/16) FLUOROSCOPY OF SUPERIOR VENA CAVA, GUIDANCE (02/12/17) GAIT TRAINING/FUNCTIONAL AMBULATION TREATMENT (08/05/15) INSERTION OF INFUSION DEV INTO SUP VENA CAVA, PERC APPROACH (02/12/17) INSERTION OF INTRALUM DEV INTO INF VENA CAVA, PERC APPROACH (07/30/15) INSERTION OF VAD INTO CHEST SUBCU/FASCIA, PERC APPROACH (02/12/17) INTRODUCTION OF SERUM/TOX/VACCINE INTO MUSCLE, PERC APPROACH (11/27/14) NEBULIZER THERAPY (09/12/14) TRANSFUSE NONAUT RED BLOOD CELLS IN PERIPH VEIN, PERC (11/11/17) Family History: States: No Known Family Hx - Social History Hx Tobacco Use: Yes Hx Alcohol Use: No Hx Substance Use: No - Immunization History Hx Tetanus Toxoid Vaccination: No Hx Influenza Vaccination: No (PT UNSURE) Hx Pneumococcal Vaccination: No (PT UNSURE) Review Of Systems Constitutional: Negative for: Fever, Chills Cardiovascular: Positive for: Chest Pain. Negative for: Palpitations Respiratory: Positive for: Cough. Negative for: Shortness of Breath Gastrointestinal: Negative for: Nausea, Vomiting Neurological: Negative for: Weakness, Numbness Physical Exam - Physical Exam Appears: Non-toxic Skin: Warm, Dry Head: Normacephalic Eye(s): bilateral: Normal Inspection Oral Mucosa: Moist Neck: Trachea Midline, Supple Chest: No Tenderness, Other (Left upper AV shunt fistula with good thrill and bruit) Cardiovascular: Rhythm Regular Respiratory: No Rales, No Rhonchi, No Wheezing Gastrointestinal/Abdominal: Soft, No Tenderness Back: No CVA Tenderness Extremity: Pedal Edema (trace) Extremity: Bilateral: Atraumatic Pulses: Left Dorsalis Pedis: Normal, Right Dorsalis Pedis: Normal Neurological/Psych: Oriented x3 Gait: Steady ED Course And Treatment - Laboratory Results Result Diagrams: 03/29/18 00:49 03/29/18 00:49 ECG: Interpreted By Me, Viewed By Me ECG Rhythm: Sinus Rhythm (80), Nonspecific Changes O2 Sat by Pulse Oximetry: 100 (Room air) Pulse Ox Interpretation: Normal - Radiology CXR: Interpreted by Me, Viewed By Me Progress Note: EKG, blood work, and CXR ordered. Duoneb and aspirin administered. Disposition Discussed With Dr.: Hany Rodriguez Comment: accepted the pt on his service and took over the care at 2:12 AM Doctor Will See Patient In The: Hospital Counseled Patient/Family Regarding: Studies Performed, Diagnosis - Disposition Disposition: HOSPITALIZED Disposition Time: 23:22 Condition: FAIR Forms: [employer] ([place]) - Clinical Impression Clinical Impression: Chest pain, ESRD needing dialysis - Scribe Statement The provider has reviewed the documentation as recorded by the Scribe Tyler Maldonado All medical record entries made by the Scribe were at my direction and personally dictated by me. I have reviewed the chart and agree that the record accurately reflects my personal performance of the history, physical exam, medical decision making, and the department course for this patient. I have also personally directed, reviewed, and agree with the discharge instructions and disposition. Decision To Admit - Pt Status Changed To: Hospital Disposition Of: Observation - . Bed Request Type: Telemetry Admitting Physician: Hany Rodriguez Patient Diagnosis: Chest pain, ESRD needing dialysis, CHF (congestive heart failure)
[2018-03-28] MEDS: Albuterol-Ipratrop 3 mg / 0.5 (3 ml) UD IH SCH ×2 (23:35→23:46)
[2018-03-29] MEDS: Albuterol-Ipratrop 3 mg / 0.5 (3 ml) UD IH SCH (00:25)
[2018-03-29 00:56] LABS: BASO # 0.1 K/uL (0.0-0.2); BASO % 0.9 % (0.0-2.0); EOS # 0.1 K/uL (0.0-0.7); EOS % 0.9 % (0.0-4.0); HEMOGLOBIN 10.1 g/dL (11.0-16.0); LYMPH # 0.8 K/uL (1.0-4.3); LYMPH % 11.9 % (20.0-40.0); MEAN CORPUSCULAR HEMOGLOBIN 29.8 pg (27.0-31.0); MEAN PLATELET VOLUME 8.5 fL (7.2-11.7); MONO % 14.1 % (0.0-10.0); NEUT % 72.2 % (50.0-75.0); NRBC % 0.3 % (0.0-2.0); RBC 3.41 Mil/uL (3.80-5.20); RED CELL DISTRIBUTION WIDTH 19.9 % (11.5-14.5); WHITE BLOOD COUNT 6.9 K/uL (4.8-10.8)
[2018-03-29 01:05] LABS: INR 1.4; PROTHROMBIN TIME 15.7 SECONDS (9.7-12.2)
[2018-03-29 01:17] LABS: ALB/GLOB RATIO 1.1 (1.0-2.1); ALBUMIN 4.3 g/dL (3.5-5.0); ALT/SGPT < 6 U/L (9-52); AST/SGOT 33 U/L (14-36); BLOOD UREA NITROGEN 58 mg/dL (7-17); CALCIUM 9.3 mg/dl (8.6-10.4); GFR NON-AFRICAN AMERICAN 6
[2018-03-29 01:53] LABS: B-TYPE NATRIURETIC PEPTIDE 4080 pg/mL (0-900)
[2018-03-29 08:42] LABS: CK-MB 0.61 ng/mL (0.0-3.38); TROPONIN I 0.034 ng/mL (0.00-0.120)
[2018-03-29] MEDS ORDERED: EMTRICITABINE 200 MG CAP PO SCH ×2 (10:00→18:00)
[2018-03-29 11:15] LABS: CK-MB 0.88 ng/mL (0.0-3.38); TROPONIN I 0.039 ng/mL (0.00-0.120)
--- NOTE | 2018-03-29 13:46 | CP.PCM.CON ---
<Fernie Hurst - Last Filed: 03/29/18 14:04> History of Present Illness - History of Present Illness History of Present Illness: Fernie Hurst PGY2 Nephrology Consult Note for Dr. Carreno reason for consult: dialysis Ms Lopez is a 62 year old female well known to Dr. 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 Nephrology is consulted for ESRD as Dr. Carreno follows the patient as outpatient. Patient is a poor historian but states that her chest pain occurs mainly during the morning, and that food makes it worse. She denies fevers/chill s, shortness of breath, n/v/d. Her last HD session was Wednesday. 12-pt ROS was reviewed and is otherwise unremarkable. PMH: as above PSH: IVC Filter (07/2015) Meds: reviewed Allergies: NKDA SHx: Active smoker ~1ppd FHx: DM2 Review of Systems - Review of Systems All systems: reviewed and no additional remarkable complaints except (as per HPI) Past Patient History - Infectious Disease Hx of Infectious Diseases: None - Tetanus Immunizations Tetanus Immunization: Unknown - Past Medical History & Family History Past Medical History?: Yes - Past Social History Smoking Status: Heavy Smoker > 10 Cigarettes Daily - CARDIAC Hx Atrial Fibrillation: Yes Hx Congestive Heart Failure: Yes Hx Hypercholesterolemia: Yes Hx Hypertension: Yes Hx Peripheral Edema: Yes - PULMONARY Hx Chronic Obstructive Pulmonary Disease (COPD): Yes - HEENT Hx HEENT Problems: No - RENAL Hx Chronic Kidney Disease: Yes - ENDOCRINE/METABOLIC Hx Hypothyroidism: Yes - HEMATOLOGICAL/ONCOLOGICAL Hx Anemia: Yes Hx Human Immunodeficiency Virus (HIV): Yes - INTEGUMENTARY Hx Dermatological Problems: No - MUSCULOSKELETAL/RHEUMATOLOGICAL Hx Arthritis: Yes - GASTROINTESTINAL Hx Gastritis: Yes Hx Pancreatitis: Yes - PSYCHIATRIC Hx Anxiety: Yes Hx Depression: Yes Hx Substance Use: No - SURGICAL HISTORY Hx Surgeries: No - ANESTHESIA Hx Anesthesia: No Hx Anesthesia Reactions: No Hx Malignant Hyperthermia: No Meds Allergies/Adverse Reactions: Allergies Allergy/AdvReac Type Severity Reaction Status Date / Time No Known Allergies Allergy Verified 03/21/18 22:07 - Medications Medications: Current Medications Calcium Acetate (Phoslo) 667 mg PO TID [facility] Last Admin: 03/29/18 10:03 Dose: Not Given Emtricitabine (Emtriva) 200 mg PO BID [facility]; Protocol Last Admin: 03/29/18 10:03 Dose: Not Given Heparin Sodium (Porcine) (Heparin) 5,000 units SC Q8 [facility] Last Admin: 03/29/18 05:12 Dose: 5,000 units Hydralazine HCl (Apresoline) 50 mg PO TID [facility] Last Admin: 03/29/18 13:26 Dose: Not Given Physical Exam - Constitutional Appears: Well, Non-toxic, No Acute Distress - Head Exam Head Exam: NORMAL INSPECTION - Eye Exam Eye Exam: EOMI, Normal appearance, PERRL Pupil Exam: NORMAL ACCOMODATION, PERRL - ENT Exam ENT Exam: Mucous Membranes Moist, Normal Exam - Neck Exam Neck exam: Positive for: Normal Inspection - Respiratory Exam Respiratory Exam: Clear to Auscultation Bilateral, NORMAL BREATHING PATTERN. absent: Rales, Rhonchi, Wheezes - Cardiovascular Exam Cardiovascular Exam: RRR, +S1, +S2. absent: JVD - GI/Abdominal Exam GI & Abdominal Exam: Normal Bowel Sounds, Soft. absent: Distended, Tenderness - Extremities Exam Extremities exam: Positive for: full ROM, normal inspection. Negative for: pedal edema Additional comments: LUE AVF +thrill +bruit - Back Exam Back exam: NORMAL INSPECTION - Neurological Exam Neurological exam: Alert, CN II-XII Intact, Normal Gait, Reflexes Normal - Psychiatric Exam Psychiatric exam: Flat Affect, Normal Mood - Skin Skin Exam: Dry, Intact, Normal Color, Warm Results - Vital Signs Recent Vital Signs: Last Vital Signs Temp 97.9 F 03/29/18 10:35 Pulse 68 03/29/18 13:31 Resp 16 03/29/18 13:31 BP 112/81 03/29/18 13:31 Pulse Ox 95 03/29/18 10:35 - Labs Result Diagrams: 03/29/18 00:49 03/29/18 00:49 Labs: Laboratory Results - last 24 hr 03/29/18 03/29/18 03/29/18 00:49 00:49 00:49 WBC 6.9 RBC 3.41 L Hgb 10.1 L D Hct 31.7 L MCV 93.0 MCH 29.8 MCHC 32.0 L RDW 19.9 H Plt Count 204 MPV 8.5 Neut % (Auto) 72.2 Lymph % (Auto) 11.9 L [place] % (Auto) 14.1 H Eos % (Auto) 0.9 Baso % (Auto) 0.9 Neut # (Auto) 5.0 Lymph # (Auto) 0.8 L [place] # (Auto) 1.0 H Eos # (Auto) 0.1 Baso # (Auto) 0.1 PT 15.7 H INR 1.4 APTT 30 Sodium 136 Potassium 4.9 Chloride 99 Carbon Dioxide 26 Anion Gap 16 BUN 58 H Creatinine 6.9 H Est GFR ( Amer) 7 Est GFR (Non-Af Amer) 6 Random Glucose 163 H Calcium 9.3 Total Bilirubin 0.7 AST 33 ALT < 6 L Alkaline Phosphatase 81 Total Creatine Kinase CK-MB (Mass) Troponin I 0.0450 NT-Pro-B Natriuret Pep 4080 H Total Protein 8.2 Albumin 4.3 Globulin 3.9 Albumin/Globulin Ratio 1.1 03/29/18 03/29/18 08:03 10:40 WBC RBC Hgb Hct MCV MCH MCHC RDW Plt Count MPV Neut % (Auto) Lymph % (Auto) [place] % (Auto) Eos % (Auto) Baso % (Auto) Neut # (Auto) Lymph # (Auto) [place] # (Auto) Eos # (Auto) Baso # (Auto) PT INR APTT Sodium Potassium Chloride Carbon Dioxide Anion Gap BUN Creatinine Est GFR ( Amer) Est GFR (Non-Af Amer) Random Glucose Calcium Total Bilirubin AST ALT Alkaline Phosphatase Total Creatine Kinase 55 51 CK-MB (Mass) 0.61 0.88 Troponin I 0.0340 0.0390 NT-Pro-B Natriuret Pep Total Protein Albumin Globulin Albumin/Globulin Ratio Assessment & Plan - Assessment and Plan (Free Text) Assessment: 62 year old female well known to Dr. 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 Nephrology is consulted for ESRD. ESRD - will dialyze today - cont Phoslo - avoid nephrotoxins/NSAIDs - electrolytes stable HTN - monitor VS - continue home meds Case was reviewed and discussed with Dr. Carreno <Rogerio Carreno - Last Filed: 03/29/18 19:31> Results - Vital Signs Recent Vital Signs: Last Vital Signs Temp 97.7 F 03/29/18 15:42 Pulse 82 03/29/18 15:42 Resp 20 03/29/18 15:42 BP 131/57 L 03/29/18 15:42 Pulse Ox 98 03/29/18 15:42 - Labs Result Diagrams: 03/29/18 00:49 03/29/18 00:49 Labs: Laboratory Results - last 24 hr 03/29/18 03/29/18 03/29/18 00:49 00:49 00:49 WBC 6.9 RBC 3.41 L Hgb 10.1 L D Hct 31.7 L MCV 93.0 MCH 29.8 MCHC 32.0 L RDW 19.9 H Plt Count 204 MPV 8.5 Neut % (Auto) 72.2 Lymph % (Auto) 11.9 L [place] % (Auto) 14.1 H Eos % (Auto) 0.9 Baso % (Auto) 0.9 Neut # (Auto) 5.0 Lymph # (Auto) 0.8 L [place] # (Auto) 1.0 H Eos # (Auto) 0.1 Baso # (Auto) 0.1 PT 15.7 H INR 1.4 APTT 30 Sodium 136 Potassium 4.9 Chloride 99 Carbon Dioxide 26 Anion Gap 16 BUN 58 H Creatinine 6.9 H Est GFR ( Amer) 7 Est GFR (Non-Af Amer) 6 Random Glucose 163 H Calcium 9.3 Total Bilirubin 0.7 AST 33 ALT < 6 L Alkaline Phosphatase 81 Total Creatine Kinase CK-MB (Mass) Troponin I 0.0450 NT-Pro-B Natriuret Pep 4080 H Total Protein 8.2 Albumin 4.3 Globulin 3.9 Albumin/Globulin Ratio 1.1 03/29/18 03/29/18 08:03 10:40 WBC RBC Hgb Hct MCV MCH MCHC RDW Plt Count MPV Neut % (Auto) Lymph % (Auto) [place] % (Auto) Eos % (Auto) Baso % (Auto) Neut # (Auto) Lymph # (Auto) Bledso[place] # (Auto) Eos # (Auto) Baso # (Auto) PT INR APTT Sodium Potassium Chloride Carbon Dioxide Anion Gap BUN Creatinine Est GFR ( Amer) Est GFR (Non-Af Amer) Random Glucose Calcium Total Bilirubin AST ALT Alkaline Phosphatase Total Creatine Kinase 55 51 CK-MB (Mass) 0.61 0.88 Troponin I 0.0340 0.0390 NT-Pro-B Natriuret Pep Total Protein Albumin Globulin Albumin/Globulin Ratio Attending/Attestation - Attestation I have personally seen and examined this patient.: Yes I have fully participated in the care of the patient.: Yes I have reviewed all pertinent clinical information: Yes Notes (Text): Patient seen today on HD, I agree with the resident's note as above with the following additions/edits: 62 yo F w/ pmh as mentioned above, ESRD on HD (TTS at [facility] under our outpatient service), admitted yet again with chest pain; patient is very poor historian and is again uncooperative at time of encounter; per resident's history, chest pain may be of GI origin as it seems related to PO intake; patient already had extensive cardiac workup in Nov 2017 with cardiac cath s howing moderate 3 vessel CAD with no intervention done and recommendation made for medical management; Of note, patient is losing weight with previous dry weight being 104.5 kg but came off on Wednesday after HD at just under 101 kg; overall intradialytic weight gain has been controlled; denies any leg swelling or difficulty breathing; serum albumin has been preserved which is reassuring; Meds difficult to reconcile as patient lacks insight into her medical condition and doesn't know the names of her meds; we have worked previously to ensure meds were being dosed for ESRD (especially HAART meds); will confirm with POA who she usually lives with; BP well controlled; not currently on her usual anti-htn regimen, will again confirm with POA; CHF status appears stable; Otherwise, relatively stable volume and electrolyte status; dialyzing today per routine with 2.5L net UF goal over 3.5 hours, tolerating well when seen on HD.
--- NOTE | 2018-03-29 15:12 | RAD ---
Date of service: 03/28/2018 HISTORY: chest pain COMPARISON: 03/22/2018 chest x-ray and 10/03/2013 CT chest TECHNIQUE: Chest PA and lateral FINDINGS: LUNGS: The marked asymmetrically elevated left hemidiaphragm-just above cephalad to the mid 1/2 the left hemithorax cephalo caudal span is similar. This has in the past contained stomach: And spleen. Colonic loops and gastric fundus are inferred present here on this exam as well. The study is slightly rotated towards the right PLEURA: No interval left pleural effusion seen. No pneumothorax appreciated CARDIOVASCULAR: There is presence of aortic atherosclerotic calcification on x-ray. Marked cardiomegaly-similar No significant appearing pulmonary venous congestion.-some asymmetrical crowding of the left perihilar bronchovascular markings is inferred. No change in this appearance noted right prominent probable vascular [id number] with a 10/27/2017 study. OSSEOUS STRUCTURES: Thoracic spondylosis. VISUALIZED UPPER ABDOMEN: Normal. OTHER FINDINGS: None. IMPRESSION: No interval pathology seen when compared with the chest x-ray from 03/22/[address] study from 2013 regarding the markedly asymmetrically elevated left hemidiaphragm with the subjacent: Gas-filled colon and stomach segments. Marked cardiomegaly-similar. Prominent the central pulmonary vasculature-grossly similar in appearance as well
[2018-03-29 15:17] VITALS: O2SAT 98
--- NOTE | 2018-03-29 15:31 | CP.PCM.PN ---
Subjective - Date & Time of Evaluation Date of Evaluation: 03/29/18 Time of Evaluation: 15:30 - Subjective Subjective: PATIENT SEEN AND EXAMINED AT THE BEDSIDE Objective - Vital Signs/Intake and Output Vital Signs (last 24 hours): Temp Pulse Resp BP Pulse Ox 97.5 F L 67 16 115/52 L 98 03/29/18 14:05 03/29/18 14:05 03/29/18 14:05 03/29/18 14:05 03/29/18 14:05 - Medications Medications: Current Medications Calcium Acetate (Phoslo) 667 mg PO TIDCC [facility] Emtricitabine (Emtriva) 200 mg PO BID [facility]; Protocol Heparin Sodium (Porcine) (Heparin) 5,000 units SC Q8 [facility] Last Admin: 03/29/18 13:59 Dose: Not Given Hydralazine HCl (Apresoline) 50 mg PO TID [facility] Last Admin: 03/29/18 13:26 Dose: Not Given - Labs Labs: 03/29/18 00:49 03/29/18 00:49 PT 15.7 SECONDS (9.7-12.2) H 03/29/18 00:49 INR 1.4 03/29/18 00:49 APTT 30 SECONDS (21-34) 03/29/18 00:49 Assessment and Plan - Assessment and Plan (Free Text) Assessment: FOLLOW UP WITH DR ESCUDERO IN HIS OFFICE ----CALL FOR APPOINTMENT FOLLOW UP WITH [facility] HOME MEDICATION HEMODIALYSIS SCHEDULE ACTIVITY TOLERATED CALL DR ROSS OR GO TO THE EMERGENCY ROOM IF SYMPTOM RETURN OR WORSENING
[2018-03-29 15:43] VITALS: BP 131/57; PULSE 82; RESP 20; TEMP 97.7
[2018-03-29] MEDS ORDERED: Influenza Vaccine 60 mcg/0.5 mL SYR (4YR UP) IM ONE (15:43)
--- NOTE | 2018-03-29 22:29 | CP.PCM.HP ---
Present on Admission - Present on Admission Any Indicators Present on Admission: No Past Patient History - Infectious Disease Hx of Infectious Diseases: None - Tetanus Immunizations Tetanus Immunization: Unknown - Past Medical History & Family History Past Medical History?: Yes - Past Social History Smoking Status: Heavy Smoker > 10 Cigarettes Daily - CARDIAC Hx Atrial Fibrillation: Yes Hx Congestive Heart Failure: Yes Hx Hypercholesterolemia: Yes Hx Hypertension: Yes Hx Peripheral Edema: Yes - PULMONARY Hx Chronic Obstructive Pulmonary Disease (COPD): Yes - HEENT Hx HEENT Problems: No - RENAL Hx Chronic Kidney Disease: Yes - ENDOCRINE/METABOLIC Hx Hypothyroidism: Yes - HEMATOLOGICAL/ONCOLOGICAL Hx Anemia: Yes Hx Human Immunodeficiency Virus (HIV): Yes - INTEGUMENTARY Hx Dermatological Problems: No - MUSCULOSKELETAL/RHEUMATOLOGICAL Hx Arthritis: Yes - GASTROINTESTINAL Hx Gastritis: Yes Hx Pancreatitis: Yes - PSYCHIATRIC Hx Anxiety: Yes Hx Depression: Yes Hx Substance Use: No - SURGICAL HISTORY Hx Surgeries: No - ANESTHESIA Hx Anesthesia: No Hx Anesthesia Reactions: No Hx Malignant Hyperthermia: No Meds Allergies/Adverse Reactions: Allergies Allergy/AdvReac Type Severity Reaction Status Date / Time No Known Allergies Allergy Verified 03/21/18 22:07 Results - Vital Signs Recent Vital Signs: Last Vital Signs Temp 97.7 F 03/29/18 15:42 Pulse 82 03/29/18 15:42 Resp 20 03/29/18 15:42 BP 131/57 L 03/29/18 15:42 Pulse Ox 98 03/29/18 15:42 - Labs Result Diagrams: 03/29/18 00:49 03/29/18 00:49 Labs: Laboratory Results - last 24 hr 03/29/18 03/29/18 03/29/18 00:49 00:49 00:49 WBC 6.9 RBC 3.41 L Hgb 10.1 L D Hct 31.7 L MCV 93.0 MCH 29.8 MCHC 32.0 L RDW 19.9 H Plt Count 204 MPV 8.5 Neut % (Auto) 72.2 Lymph % (Auto) 11.9 L [place] % (Auto) 14.1 H Eos % (Auto) 0.9 Baso % (Auto) 0.9 Neut # (Auto) 5.0 Lymph # (Auto) 0.8 L [place] # (Auto) 1.0 H Eos # (Auto) 0.1 Baso # (Auto) 0.1 PT 15.7 H INR 1.4 APTT 30 Sodium 136 Potassium 4.9 Chloride 99 Carbon Dioxide 26 Anion Gap 16 BUN 58 H Creatinine 6.9 H Est GFR ( Amer) 7 Est GFR (Non-Af Amer) 6 Random Glucose 163 H Calcium 9.3 Total Bilirubin 0.7 AST 33 ALT < 6 L Alkaline Phosphatase 81 Total Creatine Kinase CK-MB (Mass) Troponin I 0.0450 NT-Pro-B Natriuret Pep 4080 H Total Protein 8.2 Albumin 4.3 Globulin 3.9 Albumin/Globulin Ratio 1.1 03/29/18 03/29/18 08:03 10:40 WBC RBC Hgb Hct MCV MCH MCHC RDW Plt Count MPV Neut % (Auto) Lymph % (Auto) [place] % (Auto) Eos % (Auto) Baso % (Auto) Neut # (Auto) Lymph # (Auto) [place] # (Auto) Eos # (Auto) Baso # (Auto) PT INR APTT Sodium Potassium Chloride Carbon Dioxide Anion Gap BUN Creatinine Est GFR ( Amer) Est GFR (Non-Af Amer) Random Glucose Calcium Total Bilirubin AST ALT Alkaline Phosphatase Total Creatine Kinase 55 51 CK-MB (Mass) 0.61 0.88 Troponin I 0.0340 0.0390 NT-Pro-B Natriuret Pep Total Protein Albumin Globulin Albumin/Globulin Ratio
--- NOTE | 2018-03-30 15:07 | CARD ---
APPROVED REPORT Date of service: 03/28/2018 EKG Measurement Heart [id number] <Conclusion> Sinus rhythm with premature atrial complexes Baseline artifact Otherwise normal EKG
== END 2018-03-29 18:40 | disposition home or self-care (01) ==
LOC: C.ER 21:35 → C.5S 03-29 02:10
PROVIDERS: ADMIT Internal Medicine; ATTEND Internal Medicine
DX: R07.9 Chest pain, unspecified (principal); G89.29 Other chronic pain; Z21 Asymptomatic human immunodeficiency virus [HIV] infection status; E11.22 Type 2 diabetes mellitus with diabetic chronic kidney disease; E78.00 Pure hypercholesterolemia, unspecified; E78.5 Hyperlipidemia, unspecified; F17.210 Nicotine dependence, cigarettes, uncomplicated; I50.9 Heart failure, unspecified; I13.2 Hypertensive heart and chronic kidney disease with heart failure and with stage 5 chronic kidney disease, or end stage renal disease; I25.10 Atherosclerotic heart disease of native coronary artery without angina pectoris; I48.91 Unspecified atrial fibrillation; J44.9 Chronic obstructive pulmonary disease, unspecified; N18.6 End stage renal disease; N26.9 Renal sclerosis, unspecified; Z79.01 Long term (current) use of anticoagulants; Z86.718 Personal history of other venous thrombosis and embolism; Z91.14 Patient's other noncompliance with medication regimen; Z79.899 Other long term (current) drug therapy; Z99.2 Dependence on renal dialysis; B19.20 Unspecified viral hepatitis C without hepatic coma; K29.70 Gastritis, unspecified, without bleeding
CPT/HCPCS: 36415; 71046; 80053; 83880; 84484; 85025; 85610; 85730; 90674; 93005; 94640; 96372; 99285; G0008; G0257; G0378; J1644

== ENCOUNTER 2018-04-02 15:14 | Emergency (ER) | payer OTHER | END 2018-04-02 16:08 | disposition home or self-care (01) | LOC: C.ER 15:14 ==

== ENCOUNTER 2018-04-03 12:09 | Emergency (ER) | payer OTHER ==
[2018-04-03 12:09] VITALS: PULSE 125; BMI 40.3
[2018-04-03 12:15] VITALS: TEMP 98.1
[2018-04-03 12:20] VITALS: BP 111/63; PULSE 91; RESP 18; O2SAT 95
--- NOTE | 2018-04-03 12:55 | C.PDOC ---
History Of Present Illness 62 y/o female, with multiple medical problems, comes in to ED for chronic knee pain. Patient states she has her medications at home and didnt take pain medications for her knees. Patient was here yesterday for another reason and required transportation home. Today, patient is here requesting transportation again. She denies any cough, runny nose, chest, or SOB. Time Seen by Provider: 04/03/18 12:13 Chief Complaint (Nursing): Lower Extremity Problem/Injury History Per: Patient History/Exam Limitations: no limitations Onset/Duration Of Symptoms: Days Current Symptoms Are (Timing): Still Present Past Medical History Reviewed: Historical Data, Nursing Documentation, Vital Signs Vital Signs: Last Vital Signs Temp 98.1 F 04/03/18 12:20 Pulse 91 H 04/03/18 12:20 Resp 18 04/03/18 12:20 BP 111/63 04/03/18 12:20 Pulse Ox 95 04/03/18 12:20 - Medical History PMH: Anemia, Anxiety, Arthritis, Atrial Fibrillation, CAD, CHF, COPD, Depression, Deep Vein Thrombosis, Gastritis, HIV, HTN, Hypercholesterolemia, Hyperlipidemia, Hypothyroidism, Pancreatitis, Peripheral Edema, End Stage Renal Disease, Chronic Kidney Disease, Chronic Pain (chronic lower extremity pain ) Surgical History: - [facility] (01/24/18) EXCISION OF LEFT KIDNEY, PERCUTANEOUS APPROACH, DIAGNOSTIC (12/28/16) FLUOROSCOPY OF SUPERIOR VENA CAVA, GUIDANCE (02/12/17) GAIT TRAINING/FUNCTIONAL AMBULATION TREATMENT (08/05/15) INSERTION OF INFUSION DEV INTO SUP VENA CAVA, PERC APPROACH (02/12/17) INSERTION OF INTRALUM DEV INTO INF VENA CAVA, PERC APPROACH (07/30/15) INSERTION OF VAD INTO CHEST SUBCU/FASCIA, PERC APPROACH (02/12/17) INTRODUCTION OF SERUM/TOX/VACCINE INTO MUSCLE, PERC APPROACH (11/27/14) NEBULIZER THERAPY (09/12/14) TRANSFUSE NONAUT RED BLOOD CELLS IN PERIPH VEIN, PERC (11/11/17) Family History: States: No Known Family Hx - Social History Hx Tobacco Use: Yes Hx Alcohol Use: No Hx Substance Use: No - Immunization History Hx Tetanus Toxoid Vaccination: No Hx Influenza Vaccination: No (PT UNSURE) Hx Pneumococcal Vaccination: No (PT UNSURE) Review Of Systems Except As Marked, All Systems Reviewed And Found Negative. ENT: Negative for: Nose Congestion Cardiovascular: Negative for: Chest Pain Respiratory: Negative for: Cough, Shortness of Breath Musculoskeletal: Positive for: Other (Knee Pain) Physical Exam - Physical Exam Appears: Non-toxic, No Acute Distress Skin: Warm, Dry Head: Atraumatic, Normacephalic Eye(s): bilateral: Normal Inspection Oral Mucosa: Moist Neck: Supple Extremity: No Deformity, No Swelling, Other (Bilateral knees: moderately edematous with arthritic changes) Extremity: Bilateral: Normal Color And Temperature, Normal ROM Neurological/Psych: Oriented x3, Normal Speech ED Course And Treatment O2 Sat by Pulse Oximetry: 95 (RA) Pulse Ox Interpretation: Normal Medical Decision Making Medical Decision Making: Plan: --Motrin 600 mg PO --Tylenol PO Patient will be discharged and got a car service home. Disposition - Disposition Referrals: [facility] [Outside] Disposition: HOME/ ROUTINE Disposition Time: 12:54 Condition: STABLE Instructions: Chronic Pain Forms: [facility] (Mongolian), General Discharge Instructions - POA Present On Arrival: None - Clinical Impression Clinical Impression: Chronic pain - Scribe Statement The provider has reviewed the documentation as recorded by the Rhodaibboyd Jhaveri Provider Attestation: All medical record entries made by the Rhodaibe were at my direction and personally dictated by me. I have reviewed the chart and agree that the record accurately reflects my personal performance of the history, physical exam, medical decision making, and the department course for this patient. I have also personally directed, reviewed, and agree with the discharge instructions and disposition.
== END 2018-04-03 13:08 | disposition home or self-care (01) ==
LOC: C.ER 12:09
DX: G89.29 Other chronic pain (principal); M25.569 Pain in unspecified knee; E78.00 Pure hypercholesterolemia, unspecified; E03.9 Hypothyroidism, unspecified; I25.10 Atherosclerotic heart disease of native coronary artery without angina pectoris; I48.91 Unspecified atrial fibrillation; I50.9 Heart failure, unspecified; J44.9 Chronic obstructive pulmonary disease, unspecified; I12.0 Hypertensive chronic kidney disease with stage 5 chronic kidney disease or end stage renal disease; N18.6 End stage renal disease; Z72.0 Tobacco use